=== PATIENT | male | born 1950 | race Caucasian/White ===

== ENCOUNTER 2016-10-16 20:45 | Emergency (ER) | payer BC ==
[2016-10-16 21:07] VITALS: BP 126/64; PULSE 74; TEMP 98.4; BMI 36.5
[2016-10-16] MEDS ORDERED: KETOROLAC TROMETHAMINE 60 MG/2 ML VIAL ONE (21:31)
[2016-10-16] MEDS ORDERED: KETOROLAC TROMETHAMINE 60 MG/2 ML VIAL IM ONE (21:31)
--- NOTE | 2016-10-16 21:40 | PDOC ---
History of Present Illness - General Chief Complaint: Pain Stated Complaint: BACK/FOOT INJURY Time Seen by Provider: 10/16/16 21:31 History Source: Patient Exam Limitations: No Limitations - History of Present Illness Initial Comments: 10/16/16 21:35 66 yr male history of DM, HTN presents with acute low back pain after he was at work using the justin and lost control of the machine and twisted his lower back. Pt denies falling, no leg pain no abd pain. Pt states this occurred at 730pm, Pt did not take any pain meds . no urine or bowel dysfunction. Pt has no history of low back pain in the past. Occurred: reports: just prior to arrival Severity: reports: moderate Pain Location: reports: back Method of Injury: Yes: other (twisted) Past History - Past Medical History Allergies/Adverse Reactions: Allergies Allergy/AdvReac Type Severity Reaction Status Date / Time nut - unspecified Allergy Unknown Itching Verified 10/16/16 21:04 No Known Drug Allergies Allergy Verified 10/16/16 21:04 bananas Allergy Mild Swelling Uncoded 09/02/15 09:23 fresh grapefruit Allergy Mild Swelling Uncoded 09/02/15 09:23 fresh brooke Allergy Mild Swelling Uncoded 09/02/15 09:23 fresh pineapple Allergy Mild Swelling Uncoded 09/02/15 09:23 fresh tomatoes Allergy Mild Swelling Uncoded 09/02/15 09:23 lettuce Allergy Mild Swelling Uncoded 09/02/15 09:23 Home Medications: Ambulatory Orders Lisinopril [Prinivil] 20 mg PO DAILY #30 tablet 09/10/15 Metformin HCl [Glucophage -] 850 mg PO BID #60 tablet 09/10/15 Metoprolol Succinate [Toprol XL -] 25 mg PO DAILY #30 tab.sr.24h 09/10/15 Pantoprazole Sodium [Protonix -] 40 mg PO DAILY #30 tablet.ec 09/10/15 Naproxen [Naprosyn -] 500 mg PO BID #14 tablet 10/16/16 Oxycodone HCl/Acetaminophen [Percocet 5-325 mg Tablet] 1 tab PO Q6H PRN #8 tablet MDD 4 tabs 10/16/16 Anemia: No Asthma: No Cancer: No Cardiac Disorders: No CVA: No COPD: No CHF: No Dementia: No Diabetes: Yes GI Disorders: No Disorders: No HTN: Yes Hypercholesterolemia: Yes Liver Disease: No Suicide Attempt (Hx): No Seizures: No Thyroid Disease: No - Surgical History Abdominal Surgery: No Appendectomy: No Cardiac Surgery: No Cholecystectomy: Yes Lung Surgery: No Neurologic Surgery: No Orthopedic Surgery: No - Immunization History Immunization Up to Date: Yes - Psycho/Social/Smoking Cessation Hx Anxiety: No Suicidal Ideation: No Smoking History: Never smoked Have you smoked in the past 12 months: No Number of Cigarettes Smoked Daily: 0 Cigars Per Day: 0 Information on smoking cessation initiated: No Hx Alcohol Use: No Drug/Substance Use Hx: No Substance Use Type: None Hx Substance Use Treatment: No Trauma Specific PMHX - Complaint Specific PMHX Arthritis: No Back Injury: No Neck Injury: No Hx Sacro Iliac Joint Dysfunction: No Review of Systems - Review of Systems Able to Perform ROS?: Yes Is the patient limited Hungarian proficient: No Constitutional: No: Symptoms Reported HEENTM: No: Symptoms Reported Respiratory: No: Symptoms reported Cardiac (ROS): No: Symptoms Reported ABD/GI: No: Symptoms Reported : No: Symptoms Reported Musculoskeletal: Yes: Back Pain *Physical Exam - Vital Signs Last Vital Signs Temp Pulse Resp BP Pulse Ox 98.4 F 74 18 126/64 97 10/16/16 21:05 10/16/16 21:05 10/16/16 21:05 10/16/16 21:05 10/16/16 21:05 - Physical Exam General Appearance: Yes: Nourished, Appropriately Dressed HEENT: positive: EOMI, ALANNA Neck: positive: Supple. negative: Tender Respiratory/Chest: positive: Lungs Clear, Normal Breath Sounds Cardiovascular: positive: Regular Rhythm, Regular Rate Gastrointestinal/Abdominal: positive: Normal Bowel Sounds, Soft. negative: Tender Musculoskeletal: positive: Normal Inspection, Decreased Range of Motion, Other ( paraspinal soft tissue tenderness , muscle tenderness, no spinal tenderness ). 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 10/16/16 22:10 *DC/Admit/Observation/Transfer Diagnosis at time of Disposition: Low back strain Qualifiers: Encounter type: initial encounter Qualified Code(s): S39.012A - Strain of muscle, fascia and tendon of lower back, initial encounter - Discharge Dispostion Disposition: HOME Condition at time of disposition: Good - Prescriptions Prescriptions: Naproxen [Naprosyn -] 500 mg PO BID #14 tablet Oxycodone HCl/Acetaminophen [Percocet 5-325 mg Tablet] 1 tab PO Q6H PRN #8 tablet MDD 4 tabs PRN Reason: Severe Pain - Referrals Referrals: Pablo Duncan MD [Primary Care Provider] - - Patient Instructions Additional Instructions: follow with your doctor tomorrow for follow up take the percocet for severe pain take naprosyn for moderate pain apply ice to low back every 2hrs for 20 minutes while awake for the next 2 days no heavy lifting or bending until the pain has improved - Post Discharge Activity Work/School Note: Back to Work
== END 2016-10-16 22:44 | disposition home or self-care (01) ==
LOC: JERFT 20:45
PROC: 3E0233Z Introduction of Anti-inflammatory into Muscle, Percutaneous Approach (ICD-10-PCS; principal; 2016-10-16)
DX: S39.012A Strain of muscle, fascia and tendon of lower back, initial encounter (principal); X50.1XXA Overexertion from prolonged static or awkward postures, initial encounter; Y93.H3 Activity, building and construction; Y92.199 Unspecified place in other specified residential institution as the place of occurrence of the external cause; Y99.0 Civilian activity done for income or pay; I10 Essential (primary) hypertension; E78.00 Pure hypercholesterolemia, unspecified; E11.9 Type 2 diabetes mellitus without complications; Z79.84 Long term (current) use of oral hypoglycemic drugs
CPT/HCPCS: 72100-TC; 99281-25

== ENCOUNTER 2017-01-10 21:08 | Emergency (ER) | payer BC ==
[2017-01-10 21:24] VITALS: TEMP 98.1; BMI 34.9
--- NOTE | 2017-01-10 21:27 | PDOC ---
Rapid Medical Evaluation Chief Complaint: Wound Infection Medical Evaluation: Allergies Allergy/AdvReac Type Severity Reaction Status Date / Time nut - unspecified Allergy Unknown Itching Verified 01/10/17 21:24 No Known Drug Allergies Allergy Verified 01/10/17 21:24 bananas Allergy Mild Swelling Uncoded 01/10/17 21:24 fresh grapefruit Allergy Mild Swelling Uncoded 01/10/17 21:24 fresh brooke Allergy Mild Swelling Uncoded 01/10/17 21:24 fresh pineapple Allergy Mild Swelling Uncoded 01/10/17 21:24 fresh tomatoes Allergy Mild Swelling Uncoded 01/10/17 21:24 lettuce Allergy Mild Swelling Uncoded 01/10/17 21:24 Vital Signs Temp Pulse Resp BP Pulse Ox 98.1 F 87 18 149/86 98 01/10/17 21:21 01/10/17 21:21 01/10/17 21:21 01/10/17 21:21 01/10/17 21:21 01/10/17 21:20 I have performed a brief in-person evaluation of this patient. 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 Discharge Disposition - Diagnosis Toe infection - Referrals Referrals: Pablo Duncan MD [Primary Care Provider] - - Patient Instructions - Post Discharge Activity
[2017-01-10 21:48] LABS: BASOPHIL 0.7 % (0-2.0); EOSINOPHIL 2.5 % (0-4.5); MCH 30.8 pg (25.7-33.7); MCHC 34.7 g/dl (32.0-35.9); MEAN CELL VOLUME 88.7 fl (80-96); MEAN PLT VOLUME 8.6 fl (7.5-11.1); NEUTROPHILS 67.9 % (42.8-82.8); PLATELET COUNT 163 K/MM3 (134-434)
[2017-01-10] MEDS ORDERED: LEVOFLOXACIN 500 MG TABLET (FP) PO ONE (21:57)
--- NOTE | 2017-01-10 21:57 | PDOC ---
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 The patient explains that he bumped his toe and his nail subsequently avulsed off. He denies any pain to the toe at this time, however, there is still a wound to the top of his toe. He denies fever, chills, nausea, vomiting. Denies chest pain, SOB. Denies cough. Denies headache, lightheadedness. Allergies: NKDA, bananas, pineapple, peaches, tomatoes, grapefruit, lettuce PCP: Dr. Pablo Duncan <Kinza Sam - Last Filed: 01/10/17 22:32> - General History Source: Patient, Spouse <Yvon Wagoner - Last Filed: 01/11/17 19:42> - General Chief Complaint: Wound Infection Stated Complaint: INFECTION Time Seen by Provider: 01/10/17 21:28 Past History <Kinza Sam - Last Filed: 01/10/17 22:32> - Past Medical History Anemia: No Asthma: No Cancer: No Cardiac Disorders: No CVA: No COPD: No CHF: No Dementia: No Diabetes: Yes GI Disorders: No Disorders: No HTN: Yes Hypercholesterolemia: Yes Liver Disease: No Seizures: No Thyroid Disease: No - Surgical History Abdominal Surgery: No Appendectomy: No Cardiac Surgery: No Cholecystectomy: Yes Lung Surgery: No Neurologic Surgery: No Orthopedic Surgery: No - Immunization History Immunization Up to Date: Yes - Suicide/Smoking/Psychosocial Hx Smoking History: Never smoked Have you smoked in the past 12 months: No Number of Cigarettes Smoked Daily: 0 Cigars Per Day: 0 Information on smoking cessation initiated: No Hx Alcohol Use: No Drug/Substance Use Hx: No Substance Use Type: None Hx Substance Use Treatment: No <Yvon Wagoner - Last Filed: 01/11/17 19:42> - Past Medical History Allergies/Adverse Reactions: Allergies Allergy/AdvReac Type Severity Reaction Status Date / Time nut - unspecified Allergy Unknown Itching Verified 01/10/17 21:24 No Known Drug Allergies Allergy Verified 01/10/17 21:24 bananas Allergy Mild Swelling Uncoded 01/10/17 21:24 fresh grapefruit Allergy Mild Swelling Uncoded 01/10/17 21:24 fresh brooke Allergy Mild Swelling Uncoded 01/10/17 21:24 fresh pineapple Allergy Mild Swelling Uncoded 01/10/17 21:24 fresh tomatoes Allergy Mild Swelling Uncoded 01/10/17 21:24 lettuce Allergy Mild Swelling Uncoded 01/10/17 21:24 Home Medications: Ambulatory Orders Lisinopril [Prinivil] 20 mg PO DAILY #30 tablet 09/10/15 Metformin HCl [Glucophage -] 850 mg PO BID #60 tablet 09/10/15 Metoprolol Succinate [Toprol XL -] 25 mg PO DAILY #30 tab.sr.24h 09/10/15 Pantoprazole Sodium [Protonix -] 40 mg PO DAILY #30 tablet.ec 09/10/15 Naproxen [Naprosyn -] 500 mg PO BID #14 tablet 10/16/16 Oxycodone HCl/Acetaminophen [Percocet 5-325 mg Tablet] 1 tab PO Q6H PRN #8 tablet MDD 4 tabs 10/16/16 Levofloxacin [Levaquin] 500 mg PO DAILY #10 tablet 01/10/17 Review of Systems - Review of Systems Able to Perform ROS?: Yes Comments:: 01/10/17 22:32 CONSTITUTIONAL: Absent: fever, no chills, no fatigue EYES: Absent: visual changes ENT: Absent: ear pain, no sore throat CARDIOVASCULAR: Absent: chest pain, no palpitations RESPIRATORY: Absent: cough, no SOB GI: Absent: abdominal pain, no nausea, no vomiting, no constipation, no diarrhea GENITOURINARY: Absent: dysuria, no frequency, no hematuria MUSCULOSKELETAL: +left toe injury Absent: back pain, no arthralgia, no myalgia SKIN: Absent: rash <Kinza Sam - Last Filed: 01/10/17 22:32> *Physical Exam - Vital Signs Last Vital Signs Temp Pulse Resp BP Pulse Ox 98.1 F 87 18 149/86 98 01/10/17 21:21 01/10/17 21:21 01/10/17 21:21 01/10/17 21:21 01/10/17 21:21 - Physical Exam Comments: 01/10/17 22:32 GENERAL: Well-appearing, well-nourished. No apparent distress. HEENT: Normocephalic, atraumatic. PERRL, EOM intact. CARDIOVASCULAR: Normal S1, S2. Regular rate and rhythm. PULMONARY: Clear to auscultation bilaterally. ABDOMEN: Soft, non-distended, non-tender. LEFT FOOT: There is a small wound to the top of the left 2nd toe that shows evidence of slow healing. No surrounding erythema, no tenderness, no discharge. Good distal pulses. Foot is warm and dry SKIN: Warm, dry. No rash NEUROLOGICAL: No focal neurological deficits. <Kinza Sam - Last Filed: 01/10/17 22:32> - Vital Signs Last Vital Signs Temp Pulse Resp BP Pulse Ox 98.1 F 87 18 149/86 98 01/10/17 21:21 01/10/17 21:21 01/10/17 21:21 01/10/17 21:21 01/10/17 21:21 <Yvon Wagoner - Last Filed: 01/11/17 19:42> ED Treatment Course - LABORATORY CBC & Chemistry Diagram: 01/10/17 21:15 01/10/17 21:15 - ADDITIONAL ORDERS Additional order review: Laboratory Results 01/10/17 21:15 Sodium 141 Potassium 4.2 Chloride 107 Carbon Dioxide 27 Anion Gap 7 L BUN 31 H D Creatinine 1.5 H D Creat Clearance w eGFR 46.82 Random Glucose 163 H D Calcium 7.9 L Total Bilirubin 0.7 D AST 19 D ALT 30 D Alkaline Phosphatase 143 H D C-Reactive Protein 2.9 H Total Protein 7.4 D Albumin 3.6 D 01/10/17 21:15 RBC 4.32 MCV 88.7 MCHC 34.7 RDW 13.0 MPV 8.6 Neutrophils % 67.9 Lymphocytes % 23.3 D Monocytes % 5.6 Eosinophils % 2.5 Basophils % 0.7 - Medications Given in the ED: ED Medications Discontinued Medications Generic Name Dose Route Start Last Admin Trade Name Freq PRN Reason Stop Dose Admin Levofloxacin 500 mg 01/10/17 21:57 01/10/17 21:59 Levaquin - PO 01/10/17 21:58 500 mg ONCE ONE Administration <Kinza Sam - Last Filed: 01/10/17 22:32> - LABORATORY CBC & Chemistry Diagram: 01/10/17 21:15 01/10/17 21:15 <Yvon Wagoner - Last Filed: 01/11/17 19:42> Medical Decision Making - Medical Decision Making 01/11/17 19:41 Dr. Wagoner: The scribe's documentation has been prepared under my direction and personally reviewed by me in its entirery. I confirm that the note above accurately reflects all work, treatment, procedures, and medical decision making performed by me. <Yvon Wagoner - Last Filed: 01/11/17 19:42> *DC/Admit/Observation/Transfer - Attestations Scribe Attestion: 01/10/17 22:32 Documentation prepared by ANDRADE Gonsalez, acting as bacteriologist medical for Yvon Wagoner MD. <Kinza Sam - Last Filed: 01/10/17 22:32> - Discharge Dispostion Admit: No <Yvon Wagoner - Last Filed: 01/11/17 19:42> Diagnosis at time of Disposition: Toe infection - Discharge Dispostion Disposition: HOME Condition at time of disposition: Stable - Prescriptions Prescriptions: Levofloxacin [Levaquin] 500 mg PO DAILY #10 tablet - Referrals Referrals: Pablo Duncan MD [Primary Care Provider] - - Patient Instructions Printed Discharge Instructions: DI for Wound Infection Additional Instructions: Please follow up your doctor by Sunday for re-evaluation of the wound while still being on the antibiotic. Return if any problems - Post Discharge Activity Forms/Work/School Notes: Back to Work
[2017-01-10 22:12] LABS: ALBUMIN 3.6 g/dl (3.4-5.0); ALK PHOS 143 U/L (45-117); ANION GAP 7 (8-16); BILIRUBIN,TOTAL 0.7 mg/dL (0.2-1.0); C-REACTIVE PROTEIN 2.9 MG/DL (0.00-0.3); CALCIUM 7.9 mg/dL (8.5-10.1); CO2 27 mmol/L (21-32); CREATININE 1.5 mg/dL (0.7-1.3); GLUCOSE,RANDOM 163 mg/dL (74-106); SGOT/AST 19 U/L (15-37); SGPT/ALT 30 U/L (12-78); TOT PROT 7.4 g/dl (6.4-8.2)
[2017-01-10] MEDS ORDERED: LEVOFLOXACIN 500 MG TABLET (FP) ONE (23:17)
[2017-01-10 23:26] VITALS: BP 166/89; PULSE 73
== END 2017-01-10 23:26 | disposition home or self-care (01) ==
LOC: JER 21:08
DX: L08.89 Other specified local infections of the skin and subcutaneous tissue (principal); E11.9 Type 2 diabetes mellitus without complications; Z79.84 Long term (current) use of oral hypoglycemic drugs; I10 Essential (primary) hypertension; Z89.422 Acquired absence of other left toe(s)
CPT/HCPCS: 36415; 73630-TC-LT; 80053; 85025; 86140; 99281-25

== ENCOUNTER 2017-07-21 19:33 | Inpatient (IN) | payer BC ==
--- NOTE | 2017-07-21 20:40 | PDOC ---
History of Present Illness - General Chief Complaint: Pain Stated Complaint: LEG PAIN Time Seen by Provider: 07/21/17 20:14 - History of Present Illness Initial Comments: 07/21/17 20:56 The patient is a 67 year old male with a history of HTN, HLD, DM who presents for evaluation of left foot infection. The patient is accompanied by family who assist in providing the history. They note a 3 day history of worsening pain and swelling to the left foot. They report purulent drainage from the patient's 3rd toe prompting their presentation to the ED for concerns of a wound infection. The patient otherwise denies fevers, chills, SOB, chest pain, nausea, vomiting, abdominal pain, or changes with urination or bowel movements. Past History - Past Medical History Allergies/Adverse Reactions: Allergies Allergy/AdvReac Type Severity Reaction Status Date / Time nut - unspecified Allergy Unknown Itching Verified 07/21/17 20:03 No Known Drug Allergies Allergy Verified 07/21/17 20:03 bananas Allergy Mild Swelling Uncoded 01/10/17 21:24 fresh grapefruit Allergy Mild Swelling Uncoded 01/10/17 21:24 fresh brooke Allergy Mild Swelling Uncoded 01/10/17 21:24 fresh pineapple Allergy Mild Swelling Uncoded 01/10/17 21:24 fresh tomatoes Allergy Mild Swelling Uncoded 01/10/17 21:24 lettuce Allergy Mild Swelling Uncoded 01/10/17 21:24 Home Medications: Ambulatory Orders Lisinopril [Prinivil] 20 mg PO DAILY #30 tablet 09/10/15 Metoprolol Succinate [Toprol XL -] 25 mg PO DAILY #30 tab.sr.24h 09/10/15 Pantoprazole Sodium [Protonix -] 40 mg PO DAILY #30 tablet.ec 09/10/15 metFORMIN HCL [Glucophage -] 850 mg PO BID #60 tablet 09/10/15 Naproxen [Naprosyn -] 500 mg PO BID #14 tablet 10/16/16 Oxycodone HCl/Acetaminophen [Percocet 5-325 mg Tablet] 1 tab PO Q6H PRN #8 tablet MDD 4 tabs 10/16/16 Levofloxacin [Levaquin] 500 mg PO DAILY #10 tablet 01/10/17 Anemia: No Asthma: No Cancer: No Cardiac Disorders: No CVA: No COPD: No CHF: No Dementia: No Diabetes: Yes GI Disorders: No Disorders: No HTN: Yes Hypercholesterolemia: Yes Liver Disease: No Seizures: No Thyroid Disease: No - Surgical History Abdominal Surgery: No Appendectomy: No Cardiac Surgery: No Cholecystectomy: Yes Lung Surgery: No Neurologic Surgery: No Orthopedic Surgery: No - Immunization History Immunization Up to Date: Yes - Suicide/Smoking/Psychosocial Hx Smoking History: Never smoked Have you smoked in the past 12 months: No Number of Cigarettes Smoked Daily: 0 Cigars Per Day: 0 Information on smoking cessation initiated: No Hx Alcohol Use: No Drug/Substance Use Hx: No Substance Use Type: None Hx Substance Use Treatment: No Review of Systems - Review of Systems Comments:: 07/21/17 20:59 Constitutional: No fevers, chills, fatigue, malaise HEENT: No Rhinorrhea, nasal congestion, visual changes Cardiovascular: No chest pain, syncope, palpitations, lightheadedness Respiratory: No Cough, SOB, Hemoptysis, Gastrointestinal: No Abdominal pain, Nausea, Vomiting, Constipation, Diarrhea, Melena Genitourinary: No Dysuria, Frequency, Urgency, Hesitancy, Hematuria, Flank pain Musculoskeletal: Left foot pain. No Myalgia, arthralgia Skin: No rashes, itching, bruising, pallor Neurologic: No Headache, Dizziness, Numbness, Weakness, or Tingling Psychiatric: No Hallucinations. No SI or HI *Physical Exam - Vital Signs Last Vital Signs Temp Pulse Resp BP Pulse Ox 99.0 F 90 18 155/88 97 07/21/17 20:04 07/21/17 20:04 07/21/17 20:04 07/21/17 20:04 07/21/17 20:04 - Physical Exam Comments: 07/21/17 20:59 General Appearance: Nourished. No Apparent Distress HEENT: EOMI, ALANNA. No Pharyngeal Erythema, Tonsillar Exudate, Tonsillar Erythema Neck: No Cervical Lymphadenopathy Respiratory/Chest: Lungs Clear, Normal Breath Sounds. No Crackles, Rales, Rhonchi, Wheezing Cardiovascular: Regular Rhythm, Regular Rate. No Murmur, Gallops, Rubs Gastrointestinal/Abdominal: Normal Bowel Sounds, Soft. No Guarding, Rebound, Tenderness Musculoskeletal: No CVA Tenderness Extremity: Warmth, Erythema, Edema noted to the left foot. 4th left toe amputation. Purulent drainage from the 3rd toe. Tenderness to palpation. Normal Capillary Refill Integumentary: Normal Color, Dry, Warm Neurologic: Fully Oriented, Alert, Normal Mood/Affect, Normal Response, ED Treatment Course - LABORATORY CBC & Chemistry Diagram: 07/21/17 21:36 07/21/17 21:36 Medical Decision Making - Medical Decision Making 07/21/17 21:00 The patient is a 67 year old male with a history of HTN, HLD, DM who presents for evaluation of left foot infection. Differential includes but is not limited to: Diabetic Foot Wound, Cellulitis, Osteomylitis, Infectious, Metabolic derangement. Given the patient's history and physical exam, it is likely the patient's symptoms are due to a diabetic foot infection. We will obtain a cbc, cmp, esr, crp, blood culture, foot plain film, wound culture to evaluate further for possible etiologies. The patient will likely require admission for iv antibiotics. We will treat in the meantime with vanc and zosyn. We will continue to monitor and reassess while here in the ED. *DC/Admit/Observation/Transfer Diagnosis at time of Disposition: Toe infection - Discharge Dispostion Condition at time of disposition: Stable Decision to Admit order: Yes - Referrals Referrals: Pablo Duncan MD [Primary Care Provider] - - Patient Instructions - Post Discharge Activity
[2017-07-21] MEDS ORDERED: VANCOMYCIN 1,500 MG in DEXTROSE 5%-WATER - 250 ML IVPB ONE (20:53)
[2017-07-21] MEDS ORDERED: PIPERACILLIN/TAZOB 4.5 GM 4.5 GM in DEXTROSE 5%-WATER 100 ML IVPB ONE (20:53)
[2017-07-21 21:50] LABS: BASO % 0.7 % (0-2.0); HEMATOCRIT 38.3 % (35.4-49); HEMOGLOBIN 13.2 GM/dL (11.7-16.9); LYMPH % 20.5 % (8-40); MCH 30.3 pg (25.7-33.7); MCHC 34.6 g/dl (32.0-35.9); MEAN CELL VOLUME 87.7 fl (80-96); MONO % 7.3 % (3.8-10.2); NEUT % 69.5 % (42.8-82.8); PLATELET COUNT 197 K/MM3 (134-434); RBC 4.36 M/mm3 (4.00-5.60); RDW 13.5 % (11.9-15.9); WHITE BLOOD COUNT 8.2 K/mm3 (4.0-10.0)
[2017-07-21 22:03] LABS: INR 1.02 (0.82-1.09); PROTHROMBIN TIME (PATIENT) 11.5 SEC (9.7-13.0)
[2017-07-21 22:14] LABS: ALBUMIN 3.2 g/dl (3.4-5.0); ALK PHOS 198 U/L (45-117); ANION GAP 5 (8-16); BILIRUBIN,TOTAL 0.4 mg/dL (0.2-1.0); BLOOD UREA NITROGEN 26 mg/dL (7-18); CALCIUM 8.2 mg/dL (8.5-10.1); CHLORIDE 104 mmol/L (98-107); CO2 28 mmol/L (21-32); CREATININE 1.4 mg/dL (0.7-1.3); GLUCOSE,RANDOM 267 mg/dL (74-106); POTASSIUM 4.7 mmol/L (3.5-5.1); SGOT/AST 14 U/L (15-37); SGPT/ALT 37 U/L (12-78); SODIUM 137 mmol/L (136-145); TOT PROT 7.9 g/dl (6.4-8.2)
--- NOTE | 2017-07-21 22:14 | PDOC ---
Attending Attestation - HPI HPI: 07/21/17 22:25 Pt is a yo 67 M with a PMHx of HTN, HLD, DM who presents to the ED with L foot ulcer for the past 2-3 days. Patient reports chills however denies fever. Patient denies any drainage from the area and presents to the ED for further evaluation. PCP: Dr. Pablo Duncan - Physicial Exam PE: 07/21/17 22:25 GENERAL: The patient is in no acute distress. HEAD: Normal with no signs of trauma. EYES: PERRLA, EOMI, sclera anicteric, conjunctiva clear. ENT: Ears normal, nares patent, oropharynx clear without exudates. Moist mucous membranes. NECK: Normal range of motion, supple without lymphadenopathy, JVD, or masses. LUNGS: Breath sounds equal, clear to auscultation bilaterally. No wheezes, and no crackles. HEART:Regular rate and rhythm, normal S1 and S2 without murmur, rub or gallop. ABDOMEN: Soft, nontender, normoactive bowel sounds. No guarding, no rebound. EXTREMITIES: Normal range of motion, no edema. No clubbing or cyanosis. No erythema, or tenderness. +2nd L toe with swelling and erythema. +3rd L toe is gangrenous. NEUROLOGICAL: Cranial nerves II through XII grossly intact. Normal speech. No focal neurological deficits. MUSCULOSKELETAL: Back nontender to palpation, no CVA tenderness SKIN: Warm, Dry, normal turgor, no rashes or lesions noted. - Medical Decision Making 07/21/17 22:25 Documentation prepared by Brittney Cavazos, acting as medical secretary for Sheila Estrella MD <Brittney Cavazos - Last Filed: 07/21/17 22:25> - Resident Resident Name: Dirk Britt - ED Attending Attestation I have performed the following: I have examined & evaluated the patient, The case was reviewed & discussed with the resident, I agree w/resident's findings & plan, Exceptions are as noted - Medical Decision Making 67 yo F presenting to the ER wtih diabetic foot ulcer Will give abx Pt denies pain foot warm, 2+ dp Laboratory Tests 07/22/17 06:00 WBC 8.7 Hgb 12.1 Hct 34.3 L Plt Count 167 Clinical impression: diabetic foot ulcer, initial presentation <Sheila Estrella - Last Filed: 07/23/17 00:20>
[2017-07-21] MEDS ORDERED: VANCOMYCIN 1,500 MG in DEXTROSE 5%-WATER - 500 ML IVPB ONE (22:30)
[2017-07-22] MEDS ORDERED: PIPERACILLIN/TAZOB 4.5 GM 4.5 GM/100 ML BAG IVPB ONE (01:09)
[2017-07-22 01:47] LABS: URINE APPEARANCE CLEAR; URINE BILIRUBIN NEGATIVE (<2.0 mg/dL); URINE COLOR LTYELLOW; URINE GLUCOSE (UA) 3+ (NEGATIVE); URINE KETONE NEGATIVE (NEGATIVE); URINE LEUK ESTERASE NEGATIVE (NEGATIVE); URINE NITRITE NEGATIVE (NEGATIVE)
[2017-07-22 01:48] LABS: URINE PROTEIN 1+ (NEGATIVE)
[2017-07-22 01:58] LABS: EPI CELLS RARE /HPF (FEW); URINE HYALINE CAST 4 /lpf
[2017-07-22] MEDS: INSULIN SLIDING SCALE (NOVOLOG) 1 VIAL SQ SCH ×4 (06:03→21:55)
[2017-07-22 07:38] LABS: BASO % 0.5 % (0-2.0); EOS % 2.2 % (0-4.5); HEMATOCRIT 34.3 % (35.4-49); HEMOGLOBIN 12.1 GM/dL (11.7-16.9); LYMPH % 16.6 % (8-40); MCH 30.8 pg (25.7-33.7); MCHC 35.3 g/dl (32.0-35.9); MEAN CELL VOLUME 87.4 fl (80-96); MEAN PLT VOLUME 8.5 fl (7.5-11.1); MONO % 9.9 % (3.8-10.2); NEUT % 70.8 % (42.8-82.8); PLATELET COUNT 167 K/MM3 (134-434); RBC 3.92 M/mm3 (4.00-5.60); RDW 13.4 % (11.9-15.9); WHITE BLOOD COUNT 8.7 K/mm3 (4.0-10.0)
[2017-07-22 08:07] LABS: CHLORIDE 102 mmol/L (98-107); POTASSIUM 4.3 mmol/L (3.5-5.1); SGPT/ALT 32 U/L (12-78); SODIUM 136 mmol/L (136-145)
[2017-07-22 08:11] LABS: ALBUMIN 2.8 g/dl (3.4-5.0); ALK PHOS 158 U/L (45-117); ANION GAP 7 (8-16); BILIRUBIN,TOTAL 0.6 mg/dL (0.2-1.0); BLOOD UREA NITROGEN 20 mg/dL (7-18); CALCIUM 7.8 mg/dL (8.5-10.1); CO2 27 mmol/L (21-32); CREATININE 1.2 mg/dL (0.7-1.3); GLUCOSE,RANDOM 251 mg/dL (74-106); SGOT/AST 17 U/L (15-37); TOT PROT 7.1 g/dl (6.4-8.2)
--- NOTE | 2017-07-22 08:55 | EKG ---
Test Reason : Blood Pressure : / mmHG Vent. Rate : 077 BPM Atrial Rate : 077 BPM P-R Int : 146 ms QRS Dur : 078 ms QT Int : 362 ms P-R-T Axes : 057 -04 032 degrees QTc Int : 409 ms NORMAL SINUS RHYTHM NORMAL ECG WHEN COMPARED WITH ECG OF 02-SEP-2015 09:58, NO SIGNIFICANT CHANGE WAS FOUND Confirmed by GAURAV KHAN MD ([id number]) on 07/22/2017 8:54:59 AM Referred By: Confirmed By:GAURAV KHAN MD
[2017-07-22] MEDS ORDERED: PIPERACILLIN/TAZOBACTAM 3.375 GM VIAL IVPB ONE ×2 (09:22→17:28)
[2017-07-22] MEDS ORDERED: DEXTROSE 5%-WATER - 50 ML IVPB ONE ×2 (09:23→17:29)
[2017-07-22] MEDS: LISINOPRIL 20 MG TABLET (FP) PO SCH (09:27)
[2017-07-22] MEDS: PANTOPRAZOLE 40 MG TABLET (FP) PO SCH (09:27)
[2017-07-22] MEDS: metoPROLOL SUCCINATE 25 MG TAB.SR.24H (FP) PO SCH (09:27)
[2017-07-22] MEDS: NAPROXEN 500 MG TABLET (FP) PO SCH ×2 (09:27→21:55)
[2017-07-22] MEDS: HEPARIN NA (PORCINE) 5,000 UNITS/ML 1ML VIAL SQ SCH ×2 (09:28→21:56)
[2017-07-22] MEDS ORDERED: PIPERACILLIN/TAZOB 3.375 GM 3.375 GM in DEXTROSE 5%-WATER - 50 ML IVPB ONE (10:00)
--- NOTE | 2017-07-22 10:54 | CON.ID ---
Consult Consult Specialty:: infectious diseases Referred by:: Reason for Consultation:: left 3rd toe/th toe osteo - History of Present Illness History of Present Illness: 67 y/o male with PMH significant for history of HTN, HLD, DM. 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 Pt presented for evaluation of left foot infection. They noted a 3 day history of worsening pain and swelling to the left foot. They report purulent drainage from the patient's 3rd toe prompting their presentation to the ED for concerns of a wound infection. In the ER pt found to have a normal WBC and was afebrile. currently patient does hae any complaint and says that he has no sensation at all in his toes and has no pain - History Source History Provided By: Patient Limitations to Obtaining History: Poor Historian - Past Medical History Cardio/Vascular: Yes: HTN, Hyperlipdemia Hepatobiliary: Yes: Cholelithiasis Renal/: Yes: Hematuria Endocrine: Yes: Diabetes Mellitus - Past Surgical History Past Surgical History: Yes: Cholecystectomy - Alcohol/Substance Use Hx Alcohol Use: No History of Substance Use: reports: None - Smoking History Smoking history: Never smoked Have you smoked in the past 12 months: No Aproximately how many cigarettes per day: 0 - Social History Usual Living Arrangement: With Spouse History of Recent Travel: No Home Medications - Allergies Allergies/Adverse Reactions: Allergies Allergy/AdvReac Type Severity Reaction Status Date / Time nut - unspecified Allergy Unknown Itching Verified 07/22/17 01:48 No Known Drug Allergies Allergy Verified 07/22/17 01:48 bananas Allergy Mild Swelling Uncoded 07/22/17 01:48 fresh grapefruit Allergy Mild Swelling Uncoded 07/22/17 01:48 fresh brooke Allergy Mild Swelling Uncoded 07/22/17 01:48 fresh pineapple Allergy Mild Swelling Uncoded 07/22/17 01:48 fresh tomatoes Allergy Mild Swelling Uncoded 07/22/17 01:48 lettuce Allergy Mild Swelling Uncoded 07/22/17 01:48 - Home Medications Home Medications: Ambulatory Orders Lisinopril [Prinivil] 20 mg PO DAILY #30 tablet 09/10/15 Metoprolol Succinate [Toprol XL -] 25 mg PO DAILY #30 tab.sr.24h 09/10/15 Pantoprazole Sodium [Protonix -] 40 mg PO DAILY #30 tablet.ec 09/10/15 metFORMIN HCL [Glucophage -] 850 mg PO BID #60 tablet 09/10/15 Naproxen [Naprosyn -] 500 mg PO BID #14 tablet 10/16/16 Oxycodone HCl/Acetaminophen [Percocet 5-325 mg Tablet] 1 tab PO Q6H PRN #8 tablet MDD 4 tabs 10/16/16 Levofloxacin [Levaquin] 500 mg PO DAILY #10 tablet 01/10/17 Glipizide 10 mg PO BID 07/22/17 Review of Systems - Review of Systems Constitutional: reports: No Symptoms Eyes: reports: No Symptoms HENT: reports: No Symptoms Neck: reports: No Symptoms Cardiovascular: reports: No Symptoms Respiratory: reports: No Symptoms Gastrointestinal: reports: No Symptoms Genitourinary: reports: No Symptoms Breasts: reports: No Symptoms Reported Musculoskeletal: reports: Other Integumentary: reports: Wound, Other Neurological: reports: No Symptoms Endocrine: reports: No Symptoms Hematology/Lymphatic: reports: No Symptoms Psychiatric: reports: No Symptoms Physical Exam Vital Signs: Vital Signs Temperature 98 F 07/22/17 10:08 Pulse Rate 77 07/22/17 10:08 Respiratory Rate 18 07/22/17 10:08 Blood Pressure 146/70 07/22/17 10:08 O2 Sat by Pulse Oximetry (%) 97 07/22/17 03:06 Constitutional: Yes: Well Nourished, No Distress, Calm Eyes: Yes: Conjunctiva Clear HENT: Yes: Atraumatic Cardiovascular: Yes: Regular Rate and Rhythm Respiratory: Yes: Regular, CTA Bilaterally Gastrointestinal: Yes: Normal Bowel Sounds, Soft Musculoskeletal: Yes: WNL Extremities: Yes: Other (left 3rd toe infection/draiange) Wound/Incision: Yes: Clean/Dry, Open to air Neurological: Yes: Alert, Oriented Psychiatric: Yes: Alert, Oriented Labs: CBC, BMP 07/22/17 06:00 07/22/17 06:00 Imaging - Results Chest X-ray: Report Reviewed, Image Reviewed X-ray: Report Reviewed, Image Reviewed Assessment/Plan looking at the patients history and the wound and condition of his leg i think this maybe very well osteo Problem List - Problems (1) Diabetic foot Code(s): E11.8 - TYPE 2 DIABETES MELLITUS WITH UNSPECIFIED COMPLICATIONS (2) AVERY (acute kidney injury) Code(s): N17.9 - ACUTE KIDNEY FAILURE, UNSPECIFIED (3) Diabetes Code(s): E11.9 - TYPE 2 DIABETES MELLITUS WITHOUT COMPLICATIONS Qualifiers: Diabetes mellitus type: type 2 Diabetes mellitus intermodal dispatcher insulin use: without intermodal dispatcher use Diabetes mellitus complication status: without complication Qualified Code(s): E11.9 - Type 2 diabetes mellitus without complications (4) HTN (hypertension) Code(s): I10 - ESSENTIAL (PRIMARY) HYPERTENSION 5 osteo of the left foot plan i gregoria ordered an mri of the foot await for cx reports from the wound as well as blood cx once we have all that then we will decide on further mgmt
[2017-07-22] MEDS: PIPERACILLIN/TAZOB 3.375 GM 3.375 GM in DEXTROSE 5%-WATER - 50 ML IVPB SCH ×2 (11:35→17:51)
--- NOTE | 2017-07-22 13:54 | HP ---
Admitting History and Physical - Admission History of Present Illness: Pt is a 67 y/o male with PMH significant for history of HTN, HLD, DM. 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 Pt presented for evaluation of left foot infection. Pt is a poor historian. As per ER notes, patient was accompanied by family who assisted in providing the history. They noted a 3 day history of worsening pain and swelling to the left foot. They report purulent drainage from the patient's 3rd toe prompting their presentation to the ED for concerns of a wound infection. In the ER pt found to have a normal WBC and was afebrile. - Past Medical History Cardiovascular: Yes: HTN, Hyperlipdemia Hepatobiliary: Yes: Cholelithiasis Renal/: Yes: Hematuria Endocrine: Yes: Diabetes Mellitus - Past Surgical History Past Surgical History: Yes: Cholecystectomy Additional Past Surgical History: Amputation lt 4th toe - Smoking History Smoking history: Never smoked Have you smoked in the past 12 months: No Aproximately how many cigarettes per day: 0 - Alcohol/Substance Use Hx Alcohol Use: No History of Substance Use: reports: None - Social History History of Recent Travel: No Home Medications - Allergies Allergies/Adverse Reactions: Allergies Allergy/AdvReac Type Severity Reaction Status Date / Time nut - unspecified Allergy Unknown Itching Verified 07/22/17 01:48 No Known Drug Allergies Allergy Verified 07/22/17 01:48 bananas Allergy Mild Swelling Uncoded 07/22/17 01:48 fresh grapefruit Allergy Mild Swelling Uncoded 07/22/17 01:48 fresh brooke Allergy Mild Swelling Uncoded 07/22/17 01:48 fresh pineapple Allergy Mild Swelling Uncoded 07/22/17 01:48 fresh tomatoes Allergy Mild Swelling Uncoded 07/22/17 01:48 lettuce Allergy Mild Swelling Uncoded 07/22/17 01:48 - Home Medications Home Medications: Ambulatory Orders Lisinopril [Prinivil] 20 mg PO DAILY #30 tablet 09/10/15 Metoprolol Succinate [Toprol XL -] 25 mg PO DAILY #30 tab.sr.24h 09/10/15 Pantoprazole Sodium [Protonix -] 40 mg PO DAILY #30 tablet.ec 09/10/15 metFORMIN HCL [Glucophage -] 850 mg PO BID #60 tablet 09/10/15 Naproxen [Naprosyn -] 500 mg PO BID #14 tablet 10/16/16 Oxycodone HCl/Acetaminophen [Percocet 5-325 mg Tablet] 1 tab PO Q6H PRN #8 tablet MDD 4 tabs 10/16/16 Levofloxacin [Levaquin] 500 mg PO DAILY #10 tablet 01/10/17 Glipizide 10 mg PO BID 07/22/17 Family Disease History - Family Disease History Family History: Unremarkable Review of Systems - Review of Systems Constitutional: reports: Weakness Neck: reports: No Symptoms Cardiovascular: reports: No Symptoms Respiratory: reports: No Symptoms Gastrointestinal: reports: No Symptoms Physical Examination Vital Signs: Vital Signs Temperature 98 F 07/22/17 10:08 Pulse Rate 77 07/22/17 10:08 Respiratory Rate 18 07/22/17 10:08 Blood Pressure 146/70 07/22/17 10:08 O2 Sat by Pulse Oximetry (%) 97 07/22/17 03:06 Constitutional: Yes: Well Nourished HENT: Yes: WNL Neck: Yes: WNL, Supple Cardiovascular: Yes: WNL, Regular Rate and Rhythm Respiratory: Yes: WNL, Regular, CTA Bilaterally Gastrointestinal: Yes: WNL, Normal Bowel Sounds, Soft Extremities: Yes: Other ((+) erythematous/swelling lt 2nd toe and ecchymptic lt 3rd toe w/ purulent discharge w/ foul smell) Edema: No Neurological: Yes: WNL, Alert, Oriented ...Motor Strength: WNL Labs: CBC, BMP 07/22/17 06:00 07/22/17 06:00 Problem List - Problems (1) Diabetic foot Assessment/Plan: ? osteo vs gangrene Cont IV vanco/zosyn Follow cultures As per ID Will also get vascular surgery consult Will need MRI foot to r/o osteo Code(s): E11.8 - TYPE 2 DIABETES MELLITUS WITH UNSPECIFIED COMPLICATIONS (2) AVERY (acute kidney injury) Assessment/Plan: Creatinine now normal Code(s): N17.9 - ACUTE KIDNEY FAILURE, UNSPECIFIED (3) Diabetes Assessment/Plan: Cont metformin and sliding scal w/ coverage Check HgA1c Code(s): E11.9 - TYPE 2 DIABETES MELLITUS WITHOUT COMPLICATIONS Qualifiers: Diabetes mellitus type: type 2 Diabetes mellitus watermelon inspector insulin use: without fpc use Diabetes mellitus complication status: without complication Qualified Code(s): E11.9 - Type 2 diabetes mellitus without complications (4) HTN (hypertension) Assessment/Plan: BP stable Cont metoprolol Code(s): I10 - ESSENTIAL (PRIMARY) HYPERTENSION
[2017-07-22] MEDS ORDERED: VANCOMYCIN 1,000 MG in DEXTROSE 5%-WATER - 250 ML IVPB ONE (14:00)
[2017-07-22] MEDS ORDERED: PT OWN MED DRAWER 7, Y5N ONE (17:28)
[2017-07-22] MEDS ORDERED: PIPERACILLIN/TAZOB 3.375 GM 3.375 GM in DEXTROSE 5%-WATER - 50 ML IVPB SCH (18:00)
[2017-07-23] MEDS ORDERED: DEXTROSE 5%-WATER - 50 ML IVPB ONE ×3 (01:40→18:06)
[2017-07-23] MEDS ORDERED: PIPERACILLIN/TAZOBACTAM 3.375 GM VIAL IVPB ONE ×3 (01:40→18:06)
[2017-07-23] MEDS ORDERED: VANCOMYCIN 1,000 MG in DEXTROSE 5%-WATER - 250 ML IVPB SCH (02:00)
[2017-07-23] MEDS: PIPERACILLIN/TAZOB 3.375 GM 3.375 GM in DEXTROSE 5%-WATER - 50 ML IVPB SCH ×2 (02:15→10:03)
[2017-07-23] MEDS ORDERED: PT OWN MED DRAWER 7, Y5N ONE ×3 (05:36→17:11)
[2017-07-23] MEDS: INSULIN SLIDING SCALE (NOVOLOG) 1 VIAL SQ SCH ×4 (06:01→21:48)
[2017-07-23 07:55] LABS: BASO % 0.7 % (0-2.0); EOS % 4.3 % (0-4.5); HEMOGLOBIN 12.8 GM/dL (11.7-16.9); LYMPH % 21.9 % (8-40); MCH 30.7 pg (25.7-33.7); MCHC 34.6 g/dl (32.0-35.9); MEAN CELL VOLUME 88.7 fl (80-96); MEAN PLT VOLUME 8.4 fl (7.5-11.1); MONO % 10.7 % (3.8-10.2); NEUT % 62.4 % (42.8-82.8); PLATELET COUNT 168 K/MM3 (134-434); RBC 4.17 M/mm3 (4.00-5.60); RDW 13.4 % (11.9-15.9); WHITE BLOOD COUNT 5.5 K/mm3 (4.0-10.0)
[2017-07-23 08:19] LABS: ALBUMIN 2.9 g/dl (3.4-5.0); ANION GAP 5 (8-16); BLOOD UREA NITROGEN 21 mg/dL (7-18); CALCIUM 8.1 mg/dL (8.5-10.1); CHLORIDE 103 mmol/L (98-107); CO2 28 mmol/L (21-32); GLUCOSE,RANDOM 188 mg/dL (74-106); POTASSIUM 4.9 mmol/L (3.5-5.1); SGOT/AST 19 U/L (15-37); SGPT/ALT 33 U/L (12-78); SODIUM 136 mmol/L (136-145)
[2017-07-23 08:21] LABS: ALK PHOS 152 U/L (45-117); BILIRUBIN,TOTAL 0.6 mg/dL (0.2-1.0); CREATININE 1.2 mg/dL (0.7-1.3); TOT PROT 7.2 g/dl (6.4-8.2)
[2017-07-23] MEDS: HEPARIN NA (PORCINE) 5,000 UNITS/ML 1ML VIAL SQ SCH ×2 (10:01→21:48)
[2017-07-23] MEDS: LISINOPRIL 20 MG TABLET (FP) PO SCH (10:02)
[2017-07-23] MEDS: NAPROXEN 500 MG TABLET (FP) PO SCH ×2 (10:02→21:51)
[2017-07-23] MEDS: metoPROLOL SUCCINATE 25 MG TAB.SR.24H (FP) PO SCH (10:03)
[2017-07-23] MEDS: PANTOPRAZOLE 40 MG TABLET (FP) PO SCH (10:03)
--- NOTE | 2017-07-23 11:05 | PN ---
Progress Note, Physician History of Present Illness: no new issues patient stable awaitng for imaging studies blood cx results noted - Current Medication List Current Medications: Active Medications Heparin Sodium (Porcine) (Heparin -) 5,000 unit SQ BID [facility] Last Admin: 07/23/17 10:01 Dose: 5,000 unit Piperacillin Sod/Tazobactam (Sod 3.375 gm/ Dextrose) 50 mls @ 100 mls/hr IVPB Q8H-IV [facility]; Protocol Last Admin: 07/23/17 10:03 Dose: 100 mls/hr Insulin Aspart (Novolog Vial Sliding Scale -) 1 vial SQ ACHS [facility]; Protocol Last Admin: 07/23/17 06:01 Dose: 2 unit Lisinopril (Prinivil) 20 mg PO DAILY [facility] Last Admin: 07/23/17 10:02 Dose: 20 mg Metformin HCl (Glucophage -) 850 mg PO BIDAC [facility] Last Admin: 07/23/17 06:01 Dose: 850 mg Metoprolol Succinate (Toprol Xl -) 25 mg PO DAILY [facility] Last Admin: 07/23/17 10:03 Dose: 25 mg Naproxen (Naprosyn -) 500 mg PO BID [facility] Last Admin: 07/23/17 10:02 Dose: 500 mg Pantoprazole Sodium (Protonix -) 40 mg PO DAILY [facility] Last Admin: 07/23/17 10:03 Dose: 40 mg - Objective Vital Signs: Vital Signs Temperature 97.8 F 07/23/17 05:57 Pulse Rate 64 07/23/17 05:57 Respiratory Rate 18 07/23/17 05:57 Blood Pressure 130/71 07/23/17 05:57 O2 Sat by Pulse Oximetry (%) 95 07/22/17 20:43 Constitutional: Yes: No Distress, Calm Cardiovascular: Yes: Regular Rate and Rhythm Respiratory: Yes: Regular, CTA Bilaterally Gastrointestinal: Yes: Normal Bowel Sounds, Soft Musculoskeletal: Yes: WNL Extremities: Yes: Other Wound/Incision: Yes: Clean/Dry, Open to air Neurological: Yes: Alert, Oriented Psychiatric: Yes: Alert, Oriented Labs: CBC, BMP 07/23/17 06:20 07/23/17 06:20 INR, PTT INR 1.02 (0.82-1.09) 07/21/17 21:36 Assessment/Plan looking at the patients history and the wound and condition of his leg i think this maybe very well osteo Problem List - Problems (1) Diabetic foot Code(s): E11.8 - TYPE 2 DIABETES MELLITUS WITH UNSPECIFIED COMPLICATIONS (2) AVERY (acute kidney injury) Code(s): N17.9 - ACUTE KIDNEY FAILURE, UNSPECIFIED (3) Diabetes Code(s): E11.9 - TYPE 2 DIABETES MELLITUS WITHOUT COMPLICATIONS Qualifiers: Diabetes mellitus type: type 2 Diabetes mellitus fdc insulin use: without regional intermodal truck driver use Diabetes mellitus complication status: without complication Qualified Code(s): E11.9 - Type 2 diabetes mellitus without complications (4) HTN (hypertension) Code(s): I10 - ESSENTIAL (PRIMARY) HYPERTENSION 5 osteo of the left foot 6 gm positive bacteremia plan iawait for imaging studies await for cx reports from the wound await for identification of the bacteria if staph then we will get a echo done once we have all that then we will decide on further mgmt
[2017-07-23] MEDS: VANCOMYCIN 1,250 MG in DEXTROSE 5%-WATER - 250 ML IVPB SCH (17:12)
--- NOTE | 2017-07-23 22:30 | PN ---
Progress Note, Physician History of Present Illness: No new complaints - Current Medication List Current Medications: Active Medications Heparin Sodium (Porcine) (Heparin -) 5,000 unit SQ BID [facility] Last Admin: 07/23/17 21:48 Dose: 5,000 unit Piperacillin Sod/Tazobactam (Sod 3.375 gm/ Dextrose) 50 mls @ 100 mls/hr IVPB Q8H-IV [facility]; Protocol Last Admin: 07/23/17 10:03 Dose: 100 mls/hr Vancomycin HCl 1,250 mg/ (Dextrose) 250 mls @ 166.667 mls/hr IVPB BID@0300, 1500 [facility]; Protocol Last Admin: 07/23/17 17:12 Dose: 166.667 mls/hr Insulin Aspart (Novolog Vial Sliding Scale -) 1 vial SQ ACHS [facility]; Protocol Last Admin: 07/23/17 21:48 Dose: 2 unit Lisinopril (Prinivil) 20 mg PO DAILY [facility] Last Admin: 07/23/17 10:02 Dose: 20 mg Metformin HCl (Glucophage -) 850 mg PO BIDAC [facility] Last Admin: 07/23/17 17:13 Dose: 850 mg Metoprolol Succinate (Toprol Xl -) 25 mg PO DAILY [facility] Last Admin: 07/23/17 10:03 Dose: 25 mg Naproxen (Naprosyn -) 500 mg PO BID [facility] Last Admin: 07/23/17 21:51 Dose: 500 mg Pantoprazole Sodium (Protonix -) 40 mg PO DAILY [facility] Last Admin: 07/23/17 10:03 Dose: 40 mg - Objective Vital Signs: Vital Signs Temperature 98.1 F 07/23/17 17:00 Pulse Rate 69 07/23/17 17:00 Respiratory Rate 20 07/23/17 20:45 Blood Pressure 143/81 07/23/17 17:00 O2 Sat by Pulse Oximetry (%) 97 07/23/17 20:45 Constitutional: Yes: Well Nourished Neck: Yes: WNL, Supple Cardiovascular: Yes: WNL, Regular Rate and Rhythm Respiratory: Yes: WNL, Regular, CTA Bilaterally Gastrointestinal: Yes: WNL, Normal Bowel Sounds, Soft Extremities: Yes: Other (Lt 4th toe amputation Lt 2nd/3rd toes w/ gangrenous changes) Labs: CBC, BMP 07/23/17 06:20 07/23/17 06:20 INR, PTT INR 1.02 (0.82-1.09) 07/21/17 21:36 Problem List - Problems (1) Diabetic foot Assessment/Plan: Bacteremia: BC (+) staph latex coag (+) ? osteo vs gangrene Cont IV vanco/zosyn Follow cultures Awaiting MRI Vascular consult Code(s): E11.8 - TYPE 2 DIABETES MELLITUS WITH UNSPECIFIED COMPLICATIONS (2) AVERY (acute kidney injury) Assessment/Plan: Creatinine now normal Code(s): N17.9 - ACUTE KIDNEY FAILURE, UNSPECIFIED (3) Diabetes Assessment/Plan: Cont metformin and sliding scal w/ coverage Code(s): E11.9 - TYPE 2 DIABETES MELLITUS WITHOUT COMPLICATIONS Qualifiers: Diabetes mellitus type: type 2 Diabetes mellitus exterminator helper insulin use: without exterminator helper use Diabetes mellitus complication status: without complication Qualified Code(s): E11.9 - Type 2 diabetes mellitus without complications (4) HTN (hypertension) Assessment/Plan: BP stable Cont metoprolol Code(s): I10 - ESSENTIAL (PRIMARY) HYPERTENSION
[2017-07-24] MEDS ORDERED: DEXTROSE 5%-WATER - 50 ML IVPB ONE ×3 (00:44→17:07)
[2017-07-24] MEDS ORDERED: PIPERACILLIN/TAZOBACTAM 3.375 GM VIAL IVPB ONE ×3 (00:44→17:07)
[2017-07-24] MEDS: PIPERACILLIN/TAZOB 3.375 GM 3.375 GM in DEXTROSE 5%-WATER - 50 ML IVPB SCH ×4 (01:09→17:39)
[2017-07-24] MEDS: VANCOMYCIN 1,250 MG in DEXTROSE 5%-WATER - 250 ML IVPB SCH ×2 (02:05→15:13)
[2017-07-24] MEDS: INSULIN SLIDING SCALE (NOVOLOG) 1 VIAL SQ SCH ×4 (06:36→21:22)
--- NOTE | 2017-07-24 08:25 | PN ---
Progress Note (short form) - Note Progress Note: Vascular Surgery Pt seen and examined. Left toe infection from shoe. ID on case. MRI ordered. Pt with palpable DP pulse in left foot. Will get podiatry to see pt. Cleared from a vascular standpoint for podiatry intervention. Looks like osteo with drainage. Miguel Floyd dO
--- NOTE | 2017-07-24 08:58 | CONSULT ---
- Consultation REQUESTING PROVIDER: CONSULT REQUEST: We have been asked to surgically evaluate this patient for left foot gangrene. PCP:Jie Hector HISTORY OF PRESENT ILLNESS: The patient is a 67 yo male who presented to the ER for 2 to 3 days of left foot pain/swelling. He has a history of left 4th toe amputation approximately 5 years ago. The patient states that his foot was rubbing in his shoe and he noted a ulcer form. Positive chills, no fever. No SOB , CP. He denies any history of CP, SOB. He doesn't ambulate with any assist devices. No claudication symptoms to LE. PMHx: diabetes, htn PSHx: open cholecystectomy Social HX: denies smoking Home Medications Medication Instructions Recorded Lisinopril [Prinivil] 20 mg PO DAILY #30 tablet 09/10/15 Metoprolol Succinate [Toprol XL -] 25 mg PO DAILY #30 tab.sr.24h 09/10/15 Pantoprazole Sodium [Protonix -] 40 mg PO DAILY #30 tablet.ec 09/10/15 metFORMIN HCL [Glucophage -] 850 mg PO BID #60 tablet 09/10/15 Naproxen [Naprosyn -] 500 mg PO BID #14 tablet 10/16/16 Oxycodone HCl/Acetaminophen 1 tab PO Q6H PRN #8 tablet MDD 4 10/16/16 [Percocet 5-325 mg Tablet] tabs Levofloxacin [Levaquin] 500 mg PO DAILY #10 tablet 01/10/17 Glipizide 10 mg PO BID 07/22/17 Allergies Allergy/AdvReac Type Severity Reaction Status Date / Time nut - unspecified Allergy Unknown Itching Verified 07/22/17 01:48 No Known Drug Allergies Allergy Verified 07/22/17 01:48 bananas Allergy Mild Swelling Uncoded 07/22/17 01:48 fresh grapefruit Allergy Mild Swelling Uncoded 07/22/17 01:48 fresh brooke Allergy Mild Swelling Uncoded 07/22/17 01:48 fresh pineapple Allergy Mild Swelling Uncoded 07/22/17 01:48 fresh tomatoes Allergy Mild Swelling Uncoded 07/22/17 01:48 lettuce Allergy Mild Swelling Uncoded 07/22/17 01:48 REVIEW OF SYSTEMS: CONSTITUTIONAL: Absent: fever Present: chills CARDIOVASCULAR: Absent: chest pain RESPIRATORY: Absent: shortness of breath GASTROINTESTINAL: Absent: abdominal pain GENITOURINARY: Absent: dysuria, hematuria NEUROLOGIC: Present: unsteady gait PHYSICAL EXAM: GENERAL: Awake, alert, and fully oriented, in no acute distress. ABDOMEN: Soft, nontender, not distended, normoactive bowel sounds, no guarding, no rebound, no masses. Healed scar to RUQ abd MUSCULOSKELETAL: Normal ROM at all joints. No bony deformities or tenderness. No CVA tenderness. UPPER EXTREMITIES: 2+ pulses, warm, well-perfused. No cyanosis. LOWER EXTREMITIES: 2+ Dp/PT pulses b/l and femoral pulses b/l, warm, well- perfused. No calf tenderness. No peripheral edema. Left fourth toe amp site healed well. Left 3rd toe with gangrene, purulent drainage and bogginess extending to the MCP joint. No erythema. NEUROLOGICAL: Normal speech, gait not observed. Vital Signs Temperature 98.2 F 07/24/17 06:07 Pulse Rate 70 07/24/17 06:07 Respiratory Rate 20 07/24/17 06:07 Blood Pressure 122/68 07/24/17 06:07 O2 Sat by Pulse Oximetry (%) 97 07/23/17 20:45 Lab Results WBC 5.5 K/mm3 (4.0-10.0) D 07/23/17 06:20 RBC 4.17 M/mm3 (4.00-5.60) 07/23/17 06:20 Hgb 12.8 GM/dL (11.7-16.9) 07/23/17 06:20 Hct 37.0 % (35.4-49) 07/23/17 06:20 MCV 88.7 fl (80-96) 07/23/17 06:20 MCHC 34.6 g/dl (32.0-35.9) 07/23/17 06:20 RDW 13.4 % (11.9-15.9) 07/23/17 06:20 Plt Count 168 K/MM3 (134-434) 07/23/17 06:20 Sodium 136 mmol/L (136-145) 07/23/17 06:20 Potassium 4.9 mmol/L (3.5-5.1) 07/23/17 06:20 Chloride 103 mmol/L (98-107) 07/23/17 06:20 Carbon Dioxide 28 mmol/L (21-32) 07/23/17 06:20 Anion Gap 5 (8-16) L 07/23/17 06:20 BUN 21 mg/dL (7-18) H 07/23/17 06:20 Creatinine 1.2 mg/dL (0.7-1.3) 07/23/17 06:20 Random Glucose 188 mg/dL (74-106) H D 07/23/17 06:20 Calcium 8.1 mg/dL (8.5-10.1) L 07/23/17 06:20 Blood Type O POSITIVE 07/21/17 21:36 Antibody Screen Negative 07/21/17 21:36 INR 1.02 (0.82-1.09) 07/21/17 21:36 foot xray 07/21: swelling of the 3rd digit Microbiology 07/22/17 00:20 Foot - Left Wound Culture - Preliminary Beta Hemolytic Strep Group D Strep Or Entero Coccus Pending Organism Lactose Fermenting Neg Bacilli Non Lactose Fermenting Gnb 07/21/17 21:36 Blood - Peripheral Venous Blood Culture - Preliminary Staphylococcus Latex Coag Pos 07/21/17 21:36 Blood - Peripheral Venous Blood Culture - Preliminary Staphylococcus Latex Coag Pos Problem List - Problems (1) Gangrene Assessment/Plan: D/w Dr. Floyd this am, pt with palpable distal pulses, acute infection to the left third toe with a history of diabetes. Podiatry consult placed and I spoke with Dr. Osborn. May require a toe amputation, MRI ordered. No vascular surgical intervention needed prior to any podiatry debridment/ amputation. Continue IV abx as per ID, pt on Zosyn. He remains afebrile with no leukocytosis , although blood culture upon admission were positive and his wound culture revealed multiple organisims. Code(s): I96 - GANGRENE, NOT ELSEWHERE CLASSIFIED
[2017-07-24] MEDS: LISINOPRIL 20 MG TABLET (FP) PO SCH (09:16)
[2017-07-24] MEDS: NAPROXEN 500 MG TABLET (FP) PO SCH ×2 (09:16→21:22)
[2017-07-24] MEDS: HEPARIN NA (PORCINE) 5,000 UNITS/ML 1ML VIAL SQ SCH ×2 (09:16→21:22)
[2017-07-24] MEDS: metoPROLOL SUCCINATE 25 MG TAB.SR.24H (FP) PO SCH (09:16)
[2017-07-24] MEDS: PANTOPRAZOLE 40 MG TABLET (FP) PO SCH (09:16)
--- NOTE | 2017-07-24 11:50 | CONSULT ---
Consult - text type - Consultation Consultation Note: Pt is diabetic with trauma to his 3rd toe right foot secondary to a shoe. Asked to evaluate for amputation. Pt is laert and oriented. vss, tmax=97.5 +wound tip of left foot 3rd toe grade 3, +drainage noted, -foull odor, vsgi, + early gangarene, +previous amputation 4th toe left om? dm withneuropathy wound tip 3rd toe will order MRI. If +om will consider debridement. If negative will try to salvage with wound care and antibiotics. ID and vascular on case. will follow.
--- NOTE | 2017-07-24 14:58 | PN ---
Progress Note, Physician History of Present Illness: stable no issues mri done awaiting for reports - Current Medication List Current Medications: Active Medications Heparin Sodium (Porcine) (Heparin -) 5,000 unit SQ BID [facility] Last Admin: 07/24/17 09:16 Dose: 5,000 unit Piperacillin Sod/Tazobactam (Sod 3.375 gm/ Dextrose) 50 mls @ 100 mls/hr IVPB Q8H-IV [facility]; Protocol Last Admin: 07/24/17 09:15 Dose: 100 mls/hr Vancomycin HCl 1,250 mg/ (Dextrose) 250 mls @ 166.667 mls/hr IVPB BID@0300, 1500 [facility]; Protocol Last Admin: 07/24/17 02:05 Dose: 166.667 mls/hr Insulin Aspart (Novolog Vial Sliding Scale -) 1 vial SQ ACHS [facility]; Protocol Last Admin: 07/24/17 11:34 Dose: 2 unit Lisinopril (Prinivil) 20 mg PO DAILY [facility] Last Admin: 07/24/17 09:16 Dose: 20 mg Metformin HCl (Glucophage -) 850 mg PO BIDAC [facility] Last Admin: 07/24/17 06:37 Dose: 850 mg Metoprolol Succinate (Toprol Xl -) 25 mg PO DAILY [facility] Last Admin: 07/24/17 09:16 Dose: 25 mg Naproxen (Naprosyn -) 500 mg PO BID [facility] Last Admin: 07/24/17 09:16 Dose: 500 mg Pantoprazole Sodium (Protonix -) 40 mg PO DAILY [facility] Last Admin: 07/24/17 09:16 Dose: 40 mg - Objective Vital Signs: Vital Signs Temperature 97.9 F 07/24/17 14:18 Pulse Rate 69 07/24/17 14:18 Respiratory Rate 20 07/24/17 14:18 Blood Pressure 119/62 07/24/17 14:18 O2 Sat by Pulse Oximetry (%) 95 07/24/17 09:00 Constitutional: Yes: No Distress, Calm Cardiovascular: Yes: Regular Rate and Rhythm Respiratory: Yes: Regular, CTA Bilaterally Gastrointestinal: Yes: Normal Bowel Sounds, Soft Musculoskeletal: Yes: WNL Extremities: Yes: WNL Neurological: Yes: Alert, Oriented Psychiatric: Yes: Alert, Oriented Labs: CBC, BMP 07/23/17 06:20 07/23/17 06:20 INR, PTT INR 1.02 (0.82-1.09) 07/21/17 21:36 Assessment/Plan looking at the patients history and the wound and condition of his leg i think this maybe very well osteo Problem List - Problems (1) Diabetic foot Code(s): E11.8 - TYPE 2 DIABETES MELLITUS WITH UNSPECIFIED COMPLICATIONS (2) AVERY (acute kidney injury) Code(s): N17.9 - ACUTE KIDNEY FAILURE, UNSPECIFIED (3) Diabetes Code(s): E11.9 - TYPE 2 DIABETES MELLITUS WITHOUT COMPLICATIONS Qualifiers: Diabetes mellitus type: type 2 Diabetes mellitus termite treater helper insulin use: without termite treater helper use Diabetes mellitus complication status: without complication Qualified Code(s): E11.9 - Type 2 diabetes mellitus without complications (4) HTN (hypertension) Code(s): I10 - ESSENTIAL (PRIMARY) HYPERTENSION 5 osteo of the left foot 6 gm positive bacteremia plan await for imaging studies report await for cx reports from the wound and sensitivities echo ordered rest continue current mgmt
[2017-07-24] MEDS ORDERED: INSULIN (NOVOLOG) ASPART 100 UNITS/ML 10ML VIAL ONE (18:07)
--- NOTE | 2017-07-24 22:11 | PN ---
Progress Note, Physician History of Present Illness: No new complaints - Current Medication List Current Medications: Active Medications Heparin Sodium (Porcine) (Heparin -) 5,000 unit SQ BID [facility] Last Admin: 07/24/17 21:22 Dose: 5,000 unit Piperacillin Sod/Tazobactam (Sod 3.375 gm/ Dextrose) 50 mls @ 100 mls/hr IVPB Q8H-IV [facility]; Protocol Last Admin: 07/24/17 17:39 Dose: 100 mls/hr Vancomycin HCl 1,250 mg/ (Dextrose) 250 mls @ 166.667 mls/hr IVPB BID@0300, 1500 [facility]; Protocol Last Admin: 07/24/17 15:13 Dose: 166.667 mls/hr Insulin Aspart (Novolog Vial Sliding Scale -) 1 vial SQ ACHS [facility]; Protocol Last Admin: 07/24/17 21:22 Dose: Not Given Lisinopril (Prinivil) 20 mg PO DAILY [facility] Last Admin: 07/24/17 09:16 Dose: 20 mg Metformin HCl (Glucophage -) 850 mg PO BIDAC [facility] Last Admin: 07/24/17 17:01 Dose: 850 mg Metoprolol Succinate (Toprol Xl -) 25 mg PO DAILY [facility] Last Admin: 07/24/17 09:16 Dose: 25 mg Naproxen (Naprosyn -) 500 mg PO BID [facility] Last Admin: 07/24/17 21:22 Dose: 500 mg Pantoprazole Sodium (Protonix -) 40 mg PO DAILY [facility] Last Admin: 07/24/17 09:16 Dose: 40 mg - Objective Vital Signs: Vital Signs Temperature 97.7 F 07/24/17 21:55 Pulse Rate 69 07/24/17 21:55 Respiratory Rate 20 07/24/17 21:55 Blood Pressure 120/63 07/24/17 21:55 O2 Sat by Pulse Oximetry (%) 95 07/24/17 20:29 Constitutional: Yes: Well Nourished Neck: Yes: WNL, Supple Cardiovascular: Yes: WNL, Regular Rate and Rhythm Respiratory: Yes: WNL, Regular, CTA Bilaterally Gastrointestinal: Yes: WNL, Normal Bowel Sounds, Soft Extremities: Yes: Other ((+) Lt toes swelling and foul smelling discharge) Labs: CBC, BMP 07/23/17 06:20 07/23/17 06:20 INR, PTT INR 1.02 (0.82-1.09) 07/21/17 21:36 Problem List - Problems (1) Diabetic foot Assessment/Plan: Bacteremia: BC (+) staph latex coag (+) Cont IV vanco/zosyn MRI showed osteo lt 3rd toe Code(s): E11.8 - TYPE 2 DIABETES MELLITUS WITH UNSPECIFIED COMPLICATIONS (2) Diabetes Assessment/Plan: Cont metformin and sliding scal w/ coverage Code(s): E11.9 - TYPE 2 DIABETES MELLITUS WITHOUT COMPLICATIONS Qualifiers: Diabetes mellitus type: type 2 Diabetes mellitus residential insulin use: without residential use Diabetes mellitus complication status: without complication Qualified Code(s): E11.9 - Type 2 diabetes mellitus without complications (3) HTN (hypertension) Assessment/Plan: BP stable Cont metoprolol Code(s): I10 - ESSENTIAL (PRIMARY) HYPERTENSION (4) AVERY (acute kidney injury) Assessment/Plan: Creatinine now normal Code(s): N17.9 - ACUTE KIDNEY FAILURE, UNSPECIFIED
[2017-07-25] MEDS ORDERED: DEXTROSE 5%-WATER - 50 ML IVPB ONE ×2 (00:34→10:16)
[2017-07-25] MEDS ORDERED: PIPERACILLIN/TAZOBACTAM 3.375 GM VIAL IVPB ONE ×2 (00:34→10:16)
[2017-07-25] MEDS: PIPERACILLIN/TAZOB 3.375 GM 3.375 GM in DEXTROSE 5%-WATER - 50 ML IVPB SCH ×2 (00:59→10:19)
[2017-07-25] MEDS: VANCOMYCIN 1,250 MG in DEXTROSE 5%-WATER - 250 ML IVPB SCH ×2 (03:00→16:24)
[2017-07-25] MEDS: INSULIN SLIDING SCALE (NOVOLOG) 1 VIAL SQ SCH ×4 (05:59→21:34)
[2017-07-25] MEDS ORDERED: INSULIN (NOVOLOG) ASPART 100 UNITS/ML 10ML VIAL ONE (06:22)
[2017-07-25] MEDS: LISINOPRIL 20 MG TABLET (FP) PO SCH (10:18)
[2017-07-25] MEDS: NAPROXEN 500 MG TABLET (FP) PO SCH ×2 (10:18→21:34)
[2017-07-25] MEDS: HEPARIN NA (PORCINE) 5,000 UNITS/ML 1ML VIAL SQ SCH ×2 (10:18→21:34)
[2017-07-25] MEDS: PANTOPRAZOLE 40 MG TABLET (FP) PO SCH (10:18)
[2017-07-25] MEDS: metoPROLOL SUCCINATE 25 MG TAB.SR.24H (FP) PO SCH (10:18)
--- NOTE | 2017-07-25 11:22 | PN ---
Progress Note (short form) - Note Progress Note: Patient seen in bed. Alert and oriented. MRI done. vss Tmax 98.1 MRI +for om 3rd toe left, +edema, +cellulitis, -drainage, +deformed, + demarcating proximally, om 3rd toe left Discussed with patient tx options. HBO, abx and wound care vs amputation 3rd toe left. Vascular clearance Dr. Floyd. Medical clearance. Scheduled 8am tomorrow. NPO after midnight. Please obtain consent for debridement bone and soft tissue left foot, amputation 3rd toe.
--- NOTE | 2017-07-25 12:58 | PN ---
Progress Note, Physician History of Present Illness: stable no new issues plan for tomorrow noted from podiatry team - Current Medication List Current Medications: Active Medications Heparin Sodium (Porcine) (Heparin -) 5,000 unit SQ BID [facility] Last Admin: 07/25/17 10:18 Dose: 5,000 unit Piperacillin Sod/Tazobactam (Sod 3.375 gm/ Dextrose) 50 mls @ 100 mls/hr IVPB Q8H-IV [facility]; Protocol Last Admin: 07/25/17 10:19 Dose: 100 mls/hr Vancomycin HCl 1,250 mg/ (Dextrose) 250 mls @ 166.667 mls/hr IVPB BID@0300, 1500 [facility]; Protocol Last Admin: 07/25/17 03:00 Dose: 166.667 mls/hr Insulin Aspart (Novolog Vial Sliding Scale -) 1 vial SQ ACHS [facility]; Protocol Last Admin: 07/25/17 11:19 Dose: 2 unit Lisinopril (Prinivil) 20 mg PO DAILY [facility] Last Admin: 07/25/17 10:18 Dose: 20 mg Metformin HCl (Glucophage -) 850 mg PO BIDAC [facility] Last Admin: 07/25/17 06:42 Dose: 850 mg Metoprolol Succinate (Toprol Xl -) 25 mg PO DAILY [facility] Last Admin: 07/25/17 10:18 Dose: 25 mg Naproxen (Naprosyn -) 500 mg PO BID [facility] Last Admin: 07/25/17 10:18 Dose: 500 mg Pantoprazole Sodium (Protonix -) 40 mg PO DAILY [facility] Last Admin: 07/25/17 10:18 Dose: 40 mg - Objective Vital Signs: Vital Signs Temperature 98.3 F 07/25/17 09:00 Pulse Rate 79 07/25/17 09:00 Respiratory Rate 20 07/25/17 09:00 Blood Pressure 134/93 07/25/17 09:00 O2 Sat by Pulse Oximetry (%) 97 07/25/17 09:00 Constitutional: Yes: No Distress, Calm Cardiovascular: Yes: Regular Rate and Rhythm Respiratory: Yes: Regular, CTA Bilaterally Gastrointestinal: Yes: Normal Bowel Sounds, Soft Musculoskeletal: Yes: WNL Extremities: Yes: WNL Integumentary: Yes: Other Wound/Incision: Yes: Open to air, Draining Neurological: Yes: Alert, Oriented Psychiatric: Yes: Alert, Oriented Labs: CBC, BMP 06/18/18 06:20 07/23/17 06:20 INR, PTT INR 1.02 (0.82-1.09) 07/21/17 21:36 Assessment/Plan looking at the patients history and the wound and condition of his leg i think this maybe very well osteo Problem List - Problems (1) Diabetic foot Code(s): E11.8 - TYPE 2 DIABETES MELLITUS WITH UNSPECIFIED COMPLICATIONS (2) AVERY (acute kidney injury) Code(s): N17.9 - ACUTE KIDNEY FAILURE, UNSPECIFIED (3) Diabetes Code(s): E11.9 - TYPE 2 DIABETES MELLITUS WITHOUT COMPLICATIONS Qualifiers: Diabetes mellitus type: type 2 Diabetes mellitus superintendent marine oil terminal insulin use: without superintendent marine oil terminal use Diabetes mellitus complication status: without complication Qualified Code(s): E11.9 - Type 2 diabetes mellitus without complications (4) HTN (hypertension) Code(s): I10 - ESSENTIAL (PRIMARY) HYPERTENSION 5 osteo of the left foot 6 gm positive bacteremia plan await for echo report surgery tomorrow will stop zosyn rest continue current mgmt
--- NOTE | 2017-07-25 22:48 | PN ---
Progress Note, Physician History of Present Illness: No new complaints - Current Medication List Current Medications: Active Medications Heparin Sodium (Porcine) (Heparin -) 5,000 unit SQ BID [facility] Last Admin: 07/25/17 21:34 Dose: 5,000 unit Vancomycin HCl 1,000 mg/ (Dextrose) 250 mls @ 166.667 mls/hr IVPB BID@0300, 1500 [facility]; Protocol Insulin Aspart (Novolog Vial Sliding Scale -) 1 vial SQ ACHS [facility]; Protocol Last Admin: 07/25/17 21:34 Dose: 2 unit Lisinopril (Prinivil) 20 mg PO DAILY [facility] Last Admin: 07/25/17 10:18 Dose: 20 mg Metformin HCl (Glucophage -) 850 mg PO BIDAC [facility] Last Admin: 07/25/17 17:11 Dose: 850 mg Metoprolol Succinate (Toprol Xl -) 25 mg PO DAILY [facility] Last Admin: 07/25/17 10:18 Dose: 25 mg Naproxen (Naprosyn -) 500 mg PO BID [facility] Last Admin: 07/25/17 21:34 Dose: 500 mg Pantoprazole Sodium (Protonix -) 40 mg PO DAILY [facility] Last Admin: 07/25/17 10:18 Dose: 40 mg - Objective Vital Signs: Vital Signs Temperature 98 F 07/25/17 21:41 Pulse Rate 65 07/25/17 21:41 Respiratory Rate 20 07/25/17 21:41 Blood Pressure 112/60 07/25/17 21:41 O2 Sat by Pulse Oximetry (%) 96 07/25/17 21:43 Constitutional: Yes: Well Nourished Neck: Yes: WNL, Supple Cardiovascular: Yes: WNL, Regular Rate and Rhythm Respiratory: Yes: WNL, Regular, CTA Bilaterally Gastrointestinal: Yes: WNL, Normal Bowel Sounds, Soft Extremities: Yes: Other (Lt 2nd/3rd toes w/ foul discharge) Labs: CBC, BMP 07/23/17 06:20 07/23/17 06:20 INR, PTT INR 1.02 (0.82-1.09) 07/21/17 21:36 Problem List - Problems (1) Diabetic foot Assessment/Plan: Bacteremia: BC (+) staph latex coag (+) Cont IV vanco/zosyn MRI showed osteo lt 3rd toe Code(s): E11.8 - TYPE 2 DIABETES MELLITUS WITH UNSPECIFIED COMPLICATIONS (2) Diabetes Assessment/Plan: Cont metformin and sliding scal w/ coverage Code(s): E11.9 - TYPE 2 DIABETES MELLITUS WITHOUT COMPLICATIONS Qualifiers: Diabetes mellitus type: type 2 Diabetes mellitus alf insulin use: without alf use Diabetes mellitus complication status: without complication Qualified Code(s): E11.9 - Type 2 diabetes mellitus without complications (3) HTN (hypertension) Assessment/Plan: BP stable Cont metoprolol Code(s): I10 - ESSENTIAL (PRIMARY) HYPERTENSION (4) AVERY (acute kidney injury) Assessment/Plan: Creatinine now normal Code(s): N17.9 - ACUTE KIDNEY FAILURE, UNSPECIFIED
[2017-07-26] MEDS ORDERED: VANCOMYCIN 1,000 MG in DEXTROSE 5%-WATER - 250 ML IVPB SCH (03:00)
[2017-07-26] MEDS: INSULIN SLIDING SCALE (NOVOLOG) 1 VIAL SQ SCH ×4 (06:45→21:12)
[2017-07-26] MEDS ORDERED: LIDOCAINE HCL 1%, 10 MG/ML (20ML VIAL) ONE (07:33)
[2017-07-26] MEDS ORDERED: BUPIVACAINE HCL/PF 0.5% (5MG/ML) 10 ML VIAL ONE (07:33)
[2017-07-26] MEDS ORDERED: ONDANSETRON 4 MG/2 ML VIAL IVPUSH PRN (07:39)
[2017-07-26] MEDS ORDERED: PROMETHAZINE HCL 25 MG/1 ML VIAL IVPUSH PRN (07:39)
[2017-07-26] MEDS ORDERED: PROTAMINE SULFATE 50 MG/5 ML VIAL ONE (07:44)
[2017-07-26] MEDS ORDERED: PROPOFOL 20 ML ONE ×2 (07:44→07:45)
[2017-07-26] MEDS ORDERED: MIDAZOLAM HCL 2 MG/2 ML SINGLE DOSE VIAL ONE (07:44)
[2017-07-26] MEDS ORDERED: LACTATED RINGERS SOLUTION 1,000 ML IV SCH ×2 (07:45→09:17)
[2017-07-26] MEDS ORDERED: LIDOCAINE HCL 1%, 10 MG/ML (20ML VIAL) PNB ONE (08:14)
[2017-07-26] MEDS ORDERED: BUPIVACAINE HCL/PF 0.5% (5MG/ML) 10 ML VIAL PNB ONE (08:14)
[2017-07-26] MEDS ORDERED: LABETALOL HCL 5 MG/1 ML (100MG/20 ML VIAL) IVPUSH ONE (09:01)
--- NOTE | 2017-07-26 09:01 | OP ---
Operative Note - Note: Operative Date: 07/26/17 Pre-Operative Diagnosis: osteomyelitis 3rd toe left Operation: debridement bone and soft tissue 3rd toe left Implants: osteomyelitis Post-Operative Diagnosis: Same as Pre-op Surgeon: Chai Osborn Anesthesiologist/TECHNICAL ASST: Re Lerma Anesthesia: Local, MAC Estimated Blood Loss (mls): 15 Drains & Tubes with Location: /" plain packing Operative Report Dictated: Yes
--- NOTE | 2017-07-26 09:43 | OP ---
DATE OF OPERATION: DATE OF DICTATION: 07/26/2017 PREOPERATIVE DIAGNOSIS: Osteomyelitis and gangrene of the 3rd digit of the left foot. POSTOPERATIVE DIAGNOSIS: Osteomyelitis and gangrene of the 3rd digit of the left foot. PROCEDURE: Amputation of the 3rd toe of the left foot. ANESTHESIA: IV with MAC. ESTIMATED BLOOD LOSS: 15 mL. HEMOSTASIS: None. DESCRIPTION: The patient was brought to the operating room and placed supine on the operating room table. After adequate IV sedation was administered a local infiltrative block was administered utilizing a 1:1 mixture of 1% lidocaine plain and 0.5% Marcaine plain with 10 mL administered. Then the left foot was prepped and draped in the usual aseptic fashion. Attention was directed to the 3rd toe of the left foot which has osteomyelitis of the left foot. Using a 15 blade a circumferential incision was made around the metatarsophalangeal joint of the 3rd toe of the left foot. The incision was deepened through the joint to the level of the bone. The bone of the digit appears soft and necrotic and nonviable. It was noted that the bone of the 3rd proximal phalanx head was particularly hypertrophied and irregular in appearance. Using a 15 blade the distal half of the proximal phalanx of the 3rd digit was carefully dissected free of all surrounding soft tissue attachments. Using a bone cutter the distal half of the bone was excised and pulled from the operative field. All remaining necrotic tissue was excised and cleared from the operative field. The tendon attachment for the digit number 2 was also sharply resected away from the operative field as well as all calcified tissues at the operative site and then the proximal half of the proximal phalanx of the left 3rd toe was removed from the operative field and passed on to Pathology. Specimen of the bone and soft tissue was sent to Pathology for review. The surgical site was then copiously irrigated with normal saline that had antibiotic irrigation. The skin edgeswere loosely reapproximated with 3-0 nylon retention sutures. The surgical site was then packed with plain packing 1/4" and dressed with Betadine-soaked Adaptic, sterile 4 x 4, ABD pad and Heath wrap. The patient tolerated the above anesthesia and surgical procedure well and left the operating room to the recovery area with the vital signs stable and vascular status intact to the left foot, all the toes. WHIT Caban/[id number] MTDD
[2017-07-26] MEDS: PANTOPRAZOLE 40 MG TABLET (FP) PO SCH (10:42)
[2017-07-26] MEDS: LISINOPRIL 20 MG TABLET (FP) PO SCH (10:42)
[2017-07-26] MEDS: metoPROLOL SUCCINATE 25 MG TAB.SR.24H (FP) PO SCH (10:42)
--- NOTE | 2017-07-26 12:58 | PN ---
Progress Note, Physician History of Present Illness: patient stable no new issues patient got debridement of the toe and soft tissue no complaints - Current Medication List Current Medications: Active Medications Vancomycin HCl (Vancomycin 1 Gm Premix -) 1 gm in 200 mls @ 133.333 mls/hr IVPB BID@0300,1500 [facility]; Protocol Piperacillin Sod/Tazobactam (Sod 3.375 gm/ Dextrose) 50 mls @ 100 mls/hr IVPB Q8H-IV [facility]; Protocol Insulin Aspart (Novolog Vial Sliding Scale -) 1 vial SQ ACHS [facility]; Protocol Lisinopril (Prinivil) 20 mg PO DAILY [facility] Last Admin: 07/26/17 10:42 Dose: 20 mg Metformin HCl (Glucophage -) 850 mg PO BIDAC [facility] Metoprolol Succinate (Toprol Xl -) 25 mg PO DAILY [facility] Last Admin: 07/26/17 10:42 Dose: 25 mg Pantoprazole Sodium (Protonix -) 40 mg PO DAILY [facility] Last Admin: 07/26/17 10:42 Dose: 40 mg - Objective Vital Signs: Vital Signs Temperature 98.6 F 07/26/17 09:40 Pulse Rate 63 07/26/17 09:40 Respiratory Rate 18 07/26/17 09:40 Blood Pressure 106/66 07/26/17 09:40 O2 Sat by Pulse Oximetry (%) 97 07/26/17 09:40 Constitutional: Yes: No Distress, Calm Cardiovascular: Yes: Regular Rate and Rhythm Respiratory: Yes: Regular, CTA Bilaterally Gastrointestinal: Yes: Normal Bowel Sounds, Soft Musculoskeletal: Yes: WNL Extremities: Yes: Other Wound/Incision: Yes: Dressing Dry and Intact Neurological: Yes: Alert, Oriented Psychiatric: Yes: Alert, Oriented Labs: CBC, BMP 07/23/17 06:20 07/23/17 06:20 INR, PTT INR 1.02 (0.82-1.09) 07/21/17 21:36 Assessment/Plan Problem List - Problems (1) Diabetic foot Code(s): E11.8 - TYPE 2 DIABETES MELLITUS WITH UNSPECIFIED COMPLICATIONS (2) AVERY (acute kidney injury) Code(s): N17.9 - ACUTE KIDNEY FAILURE, UNSPECIFIED (3) Diabetes Code(s): E11.9 - TYPE 2 DIABETES MELLITUS WITHOUT COMPLICATIONS Qualifiers: Diabetes mellitus type: type 2 Diabetes mellitus mcfp insulin use: without mcfp use Diabetes mellitus complication status: without complication Qualified Code(s): E11.9 - Type 2 diabetes mellitus without complications (4) HTN (hypertension) Code(s): I10 - ESSENTIAL (PRIMARY) HYPERTENSION 5 osteo of the left foot 6 gm positive bacteremia 7 wound infection with multiple organisms all cx reports noted wiht organisms plan continue vanco will check vanco trough tomorrow will start zosyn await for post op cx of the wound will decide after that further plan of treatment repeat blood cx negative
[2017-07-26] MEDS ORDERED: DEXTROSE 5%-WATER - 50 ML IVPB ONE ×2 (14:44→20:00)
[2017-07-26] MEDS ORDERED: PIPERACILLIN/TAZOBACTAM 3.375 GM VIAL IVPB ONE ×2 (14:44→19:59)
[2017-07-26] MEDS: PIPERACILLIN/TAZOB 3.375 GM 3.375 GM in DEXTROSE 5%-WATER - 50 ML IVPB SCH ×2 (15:08→20:54)
[2017-07-26] MEDS ORDERED: PT OWN MED DRAWER 7, Y5N ONE ×2 (15:54→17:16)
[2017-07-26] MEDS: VANCOMYCIN 1 GM PREMIX - 1 GM/200 ML BAG IVPB SCH (15:57)
[2017-07-26] MEDS ORDERED: INSULIN (NOVOLOG) ASPART 100 UNITS/ML 10ML VIAL ONE (17:21)
--- NOTE | 2017-07-26 23:13 | PN ---
Progress Note, Physician History of Present Illness: No new complaints - Current Medication List Current Medications: Active Medications Vancomycin HCl (Vancomycin 1 Gm Premix -) 1 gm in 200 mls @ 133.333 mls/hr IVPB BID@0300,1500 [facility]; Protocol Last Admin: 07/26/17 15:57 Dose: 133.333 mls/hr Piperacillin Sod/Tazobactam (Sod 3.375 gm/ Dextrose) 50 mls @ 100 mls/hr IVPB Q8H-IV [facility]; Protocol Last Admin: 07/26/17 20:54 Dose: Not Given Insulin Aspart (Novolog Vial Sliding Scale -) 1 vial SQ ACHS [facility]; Protocol Last Admin: 07/26/17 21:12 Dose: 2 units Lisinopril (Prinivil) 20 mg PO DAILY [facility] Last Admin: 07/26/17 10:42 Dose: 20 mg Metformin HCl (Glucophage -) 850 mg PO BIDAC [facility] Last Admin: 07/26/17 17:23 Dose: 850 mg Metoprolol Succinate (Toprol Xl -) 25 mg PO DAILY [facility] Last Admin: 07/26/17 10:42 Dose: 25 mg Pantoprazole Sodium (Protonix -) 40 mg PO DAILY [facility] Last Admin: 07/26/17 10:42 Dose: 40 mg - Objective Vital Signs: Vital Signs Temperature 98.5 F 07/26/17 21:07 Pulse Rate 63 07/26/17 21:07 Respiratory Rate 20 07/26/17 21:07 Blood Pressure 118/65 07/26/17 21:07 O2 Sat by Pulse Oximetry (%) 96 07/26/17 21:00 Neck: Yes: WNL, Supple Cardiovascular: Yes: WNL, Regular Rate and Rhythm Respiratory: Yes: WNL, Regular, CTA Bilaterally Gastrointestinal: Yes: WNL, Normal Bowel Sounds, Soft Extremities: Yes: Other (Lt foot in dressing) Labs: CBC, BMP 07/23/17 06:20 07/23/17 06:20 INR, PTT INR 1.02 (0.82-1.09) 07/21/17 21:36 Problem List - Problems (1) Diabetic foot Assessment/Plan: S/P debridement 3rd lt toe Bacteremia: BC (+) staph latex coag (+) Cont IV vanco/zosyn MRI showed osteo lt 3rd toe Code(s): E11.8 - TYPE 2 DIABETES MELLITUS WITH UNSPECIFIED COMPLICATIONS (2) Diabetes Assessment/Plan: Cont metformin and sliding scal w/ coverage Code(s): E11.9 - TYPE 2 DIABETES MELLITUS WITHOUT COMPLICATIONS Qualifiers: Diabetes mellitus type: type 2 Diabetes mellitus skilled nursing insulin use: without skilled nursing use Diabetes mellitus complication status: without complication Qualified Code(s): E11.9 - Type 2 diabetes mellitus without complications (3) HTN (hypertension) Assessment/Plan: BP stable Cont metoprolol Code(s): I10 - ESSENTIAL (PRIMARY) HYPERTENSION (4) AVERY (acute kidney injury) Assessment/Plan: Creatinine now normal Code(s): N17.9 - ACUTE KIDNEY FAILURE, UNSPECIFIED
[2017-07-27] MEDS: PIPERACILLIN/TAZOB 3.375 GM 3.375 GM in DEXTROSE 5%-WATER - 50 ML IVPB SCH ×3 (01:08→17:25)
[2017-07-27] MEDS: VANCOMYCIN 1 GM PREMIX - 1 GM/200 ML BAG IVPB SCH ×2 (02:03→15:59)
[2017-07-27] MEDS: INSULIN SLIDING SCALE (NOVOLOG) 1 VIAL SQ SCH ×4 (06:34→21:11)
[2017-07-27 07:18] LABS: BASO % 0.7 % (0-2.0); EOS % 2.5 % (0-4.5); HEMATOCRIT 36.3 % (35.4-49); HEMOGLOBIN 12.6 GM/dL (11.7-16.9); LYMPH % 21.4 % (8-40); MCH 30.3 pg (25.7-33.7); MCHC 34.8 g/dl (32.0-35.9); MEAN CELL VOLUME 87.1 fl (80-96); MEAN PLT VOLUME 7.9 fl (7.5-11.1); MONO % 7.3 % (3.8-10.2); NEUT % 68.1 % (42.8-82.8); PLATELET COUNT 172 K/MM3 (134-434); RBC 4.17 M/mm3 (4.00-5.60); RDW 13.2 % (11.9-15.9); WHITE BLOOD COUNT 7.8 K/mm3 (4.0-10.0)
[2017-07-27 07:32] LABS: CHLORIDE 103 mmol/L (98-107); POTASSIUM 4.5 mmol/L (3.5-5.1); SODIUM 137 mmol/L (136-145)
[2017-07-27 07:41] LABS: ALBUMIN 2.9 g/dl (3.4-5.0); ALK PHOS 141 U/L (45-117); ANION GAP 8 (8-16); BILIRUBIN,TOTAL 0.4 mg/dL (0.2-1.0); BLOOD UREA NITROGEN 25 mg/dL (7-18); CALCIUM 7.8 mg/dL (8.5-10.1); CO2 26 mmol/L (21-32); CREATININE 1.5 mg/dL (0.7-1.3); GLUCOSE,RANDOM 140 mg/dL (74-106); SGOT/AST 73 U/L (15-37); SGPT/ALT 98 U/L (12-78); TOT PROT 7.4 g/dl (6.4-8.2)
[2017-07-27] MEDS ORDERED: DEXTROSE 5%-WATER - 50 ML IVPB ONE ×2 (10:18→17:22)
[2017-07-27] MEDS ORDERED: PIPERACILLIN/TAZOBACTAM 3.375 GM VIAL IVPB ONE ×2 (10:18→17:22)
[2017-07-27] MEDS: metoPROLOL SUCCINATE 25 MG TAB.SR.24H (FP) PO SCH (11:31)
[2017-07-27] MEDS: LISINOPRIL 20 MG TABLET (FP) PO SCH (11:31)
[2017-07-27] MEDS: PANTOPRAZOLE 40 MG TABLET (FP) PO SCH (11:31)
--- NOTE | 2017-07-27 13:19 | PN ---
Progress Note, Physician History of Present Illness: patient stable no new issues patient got debridement of the toe and soft tissue no complaints - Current Medication List Current Medications: Active Medications Vancomycin HCl (Vancomycin 1 Gm Premix -) 1 gm in 200 mls @ 133.333 mls/hr IVPB BID@0300,1500 [facility]; Protocol Last Admin: 07/27/17 02:03 Dose: 133.333 mls/hr Piperacillin Sod/Tazobactam (Sod 3.375 gm/ Dextrose) 50 mls @ 100 mls/hr IVPB Q8H-IV [facility]; Protocol Last Admin: 07/27/17 11:31 Dose: 100 mls/hr Insulin Aspart (Novolog Vial Sliding Scale -) 1 vial SQ ACHS [facility]; Protocol Last Admin: 07/27/17 06:34 Dose: 2 units Lisinopril (Prinivil) 20 mg PO DAILY [facility] Last Admin: 07/27/17 11:31 Dose: 20 mg Metformin HCl (Glucophage -) 850 mg PO BIDAC [facility] Last Admin: 07/27/17 06:33 Dose: 850 mg Metoprolol Succinate (Toprol Xl -) 25 mg PO DAILY [facility] Last Admin: 07/27/17 11:31 Dose: 25 mg Pantoprazole Sodium (Protonix -) 40 mg PO DAILY [facility] Last Admin: 07/27/17 11:31 Dose: 40 mg - Objective Vital Signs: Vital Signs Temperature 98 F 07/27/17 11:40 Pulse Rate 72 07/27/17 11:40 Respiratory Rate 18 07/27/17 11:40 Blood Pressure 119/92 07/27/17 11:40 O2 Sat by Pulse Oximetry (%) 96 07/26/17 21:00 Constitutional: Yes: No Distress, Calm Cardiovascular: Yes: Regular Rate and Rhythm Respiratory: Yes: Regular, CTA Bilaterally Musculoskeletal: Yes: WNL Extremities: Yes: Other Wound/Incision: Yes: Dressing Dry and Intact Neurological: Yes: Alert, Oriented Psychiatric: Yes: Alert, Oriented Labs: CBC, BMP 07/27/17 06:00 07/27/17 06:00 INR, PTT INR 1.02 (0.82-1.09) 07/21/17 21:36 Assessment/Plan Problem List - Problems (1) Diabetic foot Code(s): E11.8 - TYPE 2 DIABETES MELLITUS WITH UNSPECIFIED COMPLICATIONS (2) AVERY (acute kidney injury) Code(s): N17.9 - ACUTE KIDNEY FAILURE, UNSPECIFIED (3) Diabetes Code(s): E11.9 - TYPE 2 DIABETES MELLITUS WITHOUT COMPLICATIONS Qualifiers: Diabetes mellitus type: type 2 Diabetes mellitus salvage determiner insulin use: without detention use Diabetes mellitus complication status: without complication Qualified Code(s): E11.9 - Type 2 diabetes mellitus without complications (4) HTN (hypertension) Code(s): I10 - ESSENTIAL (PRIMARY) HYPERTENSION 5 osteo of the left foot 6 gm positive bacteremia 7 wound infection with multiple organisms all cx reports noted wiht organisms plan continue current mgmt await for all cx reports will d/w podiatry rest as per the team
--- NOTE | 2017-07-27 13:44 | PN ---
Progress Note (short form) - Note Progress Note: Patient seen in bed. Alert and oriented. POD#1 vss Tmax 98.0 dressing clean dry and intact -drainage, normal post op Dressing to be changed tomorrow. Will follow till dc.
--- NOTE | 2017-07-27 15:28 | PATH ---
Surgical Pathology Report Patient Name: TASHA CHAVEZ [facility]. Rec. #: [id number] /Age/Gender: 1950 (Age: 67) / M Account: [id number] Location: [facility] MED/SURG Taken: 07/26/2017 Received: 07/26/2017 Reported: 07/27/2017 Physicians: WHIT Caban M.D. Specimen(s) Received A: DISTAL BONE LEFT THIRD TOE B: PROXIMAL BONE LEFT THIRD TOE Clinical History Osteomyelitis third toe left foot Final Diagnosis A. DISTAL BONE LEFT THIRD TOE, AMPUTATION: AMPUTATED TOE WITH SEVERE ACUTE AND CHRONIC INFLAMMATION AND ABSCESS FORMATION. BONE WITH ACUTE OSTEOMYELITIS. THE INFLAMMATION EXTENDS TO THE SOFT TISSUE AND SKIN MARGIN. B. LEFT THIRD TOE, PROXIMAL BONE: PORTION OF BONE, NEGATIVE FOR OSTEOMYELITIS. Electronically Signed Fide Avery M.D. Gross Description A. Received in formalin labeled "distal bone third left toe," is a 3.0 x 2.3 x 2.1 cm toe amputation. The epidermal surface displays a 2.3 x 1.4 cm gangrenous lesion extending to and involving the underlying bone. The lesion possibly involves the skin and soft tissue margin. Draw Bench Operator Helper sections are submitted in 2 cassettes as follows: 1-lesion with underlying bone, following decalcification; 2-skin, soft tissue and bone margin, following decalcification. B. Received in formalin labeled "proximal bone left third toe," is a 2.7 x 1.6 x 1.3 cm portion of bone with smooth articular cartilage at one end. The opposing end displays smooth trabecular bone. Draw Bench Operator Helper sections are submitted in 2 cassettes as follows: 1-margin with articular cartilage, following decalcification; 2-margin with trabecular bone, following decalcification. /07/26/2017 saudi/07/26/2017
[2017-07-27] MEDS ORDERED: PT OWN MED DRAWER 7, Y5N ONE ×2 (17:21→20:41)
[2017-07-27] MEDS ORDERED: INSULIN (NOVOLOG) ASPART 100 UNITS/ML 10ML VIAL ONE (17:48)
--- NOTE | 2017-07-27 19:53 | PN ---
Progress Note, Physician - Current Medication List Current Medications: Active Medications Vancomycin HCl (Vancomycin 1 Gm Premix -) 1 gm in 200 mls @ 133.333 mls/hr IVPB BID@0300,1500 [facility]; Protocol Last Admin: 07/27/17 15:59 Dose: 133.333 mls/hr Piperacillin Sod/Tazobactam (Sod 3.375 gm/ Dextrose) 50 mls @ 100 mls/hr IVPB Q8H-IV [facility]; Protocol Last Admin: 07/27/17 17:25 Dose: 100 mls/hr Insulin Aspart (Novolog Vial Sliding Scale -) 1 vial SQ ACHS [facility]; Protocol Last Admin: 07/27/17 17:49 Dose: 2 units Lisinopril (Prinivil) 20 mg PO DAILY [facility] Last Admin: 07/27/17 11:31 Dose: 20 mg Metformin HCl (Glucophage -) 850 mg PO BIDAC [facility] Last Admin: 07/27/17 17:25 Dose: 850 mg Metoprolol Succinate (Toprol Xl -) 25 mg PO DAILY [facility] Last Admin: 07/27/17 11:31 Dose: 25 mg Pantoprazole Sodium (Protonix -) 40 mg PO DAILY [facility] Last Admin: 07/27/17 11:31 Dose: 40 mg - Objective Vital Signs: Vital Signs Temperature 98.4 F 07/27/17 16:59 Pulse Rate 71 07/27/17 16:59 Respiratory Rate 20 07/27/17 16:59 Blood Pressure 105/62 07/27/17 16:59 O2 Sat by Pulse Oximetry (%) 96 07/26/17 21:00 Labs: CBC, BMP 07/27/17 06:00 07/27/17 06:00 INR, PTT INR 1.02 (0.82-1.09) 07/21/17 21:36 Problem List - Problems (1) Diabetic foot Code(s): E11.8 - TYPE 2 DIABETES MELLITUS WITH UNSPECIFIED COMPLICATIONS (2) Diabetes Code(s): E11.9 - TYPE 2 DIABETES MELLITUS WITHOUT COMPLICATIONS Qualifiers: Diabetes mellitus type: type 2 Diabetes mellitus local intermodal truck driver insulin use: without local intermodal truck driver use Diabetes mellitus complication status: without complication Qualified Code(s): E11.9 - Type 2 diabetes mellitus without complications (3) HTN (hypertension) Code(s): I10 - ESSENTIAL (PRIMARY) HYPERTENSION (4) AVERY (acute kidney injury) Code(s): N17.9 - ACUTE KIDNEY FAILURE, UNSPECIFIED
[2017-07-28] MEDS ORDERED: PIPERACILLIN/TAZOBACTAM 3.375 GM VIAL IVPB ONE ×3 (01:16→18:18)
[2017-07-28] MEDS ORDERED: DEXTROSE 5%-WATER - 50 ML IVPB ONE ×3 (01:17→18:18)
[2017-07-28] MEDS: PIPERACILLIN/TAZOB 3.375 GM 3.375 GM in DEXTROSE 5%-WATER - 50 ML IVPB SCH ×3 (01:25→18:35)
[2017-07-28] MEDS: VANCOMYCIN 1 GM PREMIX - 1 GM/200 ML BAG IVPB SCH ×2 (02:00→14:19)
[2017-07-28] MEDS: INSULIN SLIDING SCALE (NOVOLOG) 1 VIAL SQ SCH ×4 (06:26→22:23)
[2017-07-28] MEDS: PANTOPRAZOLE 40 MG TABLET (FP) PO SCH (10:30)
[2017-07-28] MEDS: metoPROLOL SUCCINATE 25 MG TAB.SR.24H (FP) PO SCH (10:30)
[2017-07-28] MEDS: LISINOPRIL 20 MG TABLET (FP) PO SCH (10:30)
--- NOTE | 2017-07-28 12:15 | PN ---
Progress Note (short form) - Note Progress Note: Patient seen in bed. Alert and oriented. POD#2 No pain. vss Tmax 97.7 vsgi, +packing in place, +retention sutures in place, -drainage, -cellulitis, - mal odor, normal post op Packing pulled. Reviewed Wound cultures. ID on case. Will follow. Anticipate DC on Sunday iif abx are in place and patient can follow up in wound care on Sunday.
--- NOTE | 2017-07-28 12:51 | PN ---
Physical Exam: SUBJECTIVE: Patient seen and examined. He has no complaints. OBJECTIVE: Vital Signs Period Temp Pulse Resp BP Sys/Bustillos Pulse Ox Last 24 Hr 97.7 F-98.8 F 65-86 14-20 105-161/55-89 95-96 GENERAL: The patient is awake, alert, and fully oriented, in no acute distress. LUNGS: Breath sounds equal, clear to auscultation bilaterally, no wheezes, no crackles, no accessory muscle use. HEART: Regular rate and rhythm, S1, S2 without murmur, rub or gallop. ABDOMEN: Obese, soft, nontender, nondistended, normoactive bowel sounds, no guarding, no rebound, no hepatosplenomegaly, no masses. EXTREMITIES: 2+ pulses, warm, well-perfused, no edema. Left foot wrapped. Laboratory Results - last 24 hr 07/27/17 07/27/17 07/27/17 13:09 17:37 21:11 POC Glucometer 151 173 211 07/28/17 07/28/17 06:24 11:16 POC Glucometer 169 146 Active Medications Generic Name Dose Route Start Last Admin Trade Name Freq PRN Reason Stop Dose Admin Vancomycin HCl 1 gm in 200 mls @ 133.333 mls/hr 07/26/17 15:00 07/28/17 02:00 Vancomycin 1 Gm Premix - IVPB 133.333 mls/hr BID@0300,1500 [facility] Administration Protocol Piperacillin Sod/Tazobactam 50 mls @ 100 mls/hr 07/26/17 14:00 07/28/17 10:30 Sod 3.375 gm/ Dextrose IVPB 100 mls/hr Q8H-IV [facility] Administration Protocol Insulin Aspart 1 vial 07/26/17 11:00 07/28/17 11:47 Novolog Vial Sliding Scale - SQ Not Given ACHS [facility] Protocol Lisinopril 20 mg 07/26/17 10:00 07/28/17 10:30 Prinivil PO 20 mg DAILY [facility] Administration Metformin HCl 850 mg 07/26/17 16:30 07/28/17 06:25 Glucophage - PO 850 mg BIDAC M[facility] Administration Metoprolol Succinate 25 mg 07/26/17 10:00 07/28/17 10:30 Toprol Xl - PO 25 mg DAILY [facility] Administration Pantoprazole Sodium 40 mg 07/26/17 10:00 07/28/17 10:30 Protonix - PO 40 mg DAILY [facility] Administration ASSESSMENT/PLAN: 1. Osteomyelitis of left 3rd toe - On Zosyn, Vancomycin - s/p debridement of bone and soft tissue 07/26 - Culture growing multiple organisms - ID follow up for choice and duration of antibiotics 2. Type 2 DM - Continue metformin, Novolog sliding scale 3. HTN - Continue lisinopril, Toprol XL 4. Stage 3 CKD Visit type - Emergency Visit Emergency Visit: Yes ED Registration Date: 07/21/17 Care time: The patient presented to the Emergency Department on the above date and was hospitalized for further evaluation of their emergent condition. - New Patient This patient is new to me today: Yes Date on this admission: 07/28/17 - Critical Care Critical Care patient: No - Discharge Referral Referred to [facility] No
[2017-07-28 14:10] VITALS: BMI 37.7
--- NOTE | 2017-07-28 14:58 | PN ---
Progress Note, Physician History of Present Illness: Pt seen and examined. Chart reviewed, events noted. Pt currently is comfortable , denies pain. Afebrile, without specific complaints. - Current Medication List Current Medications: Active Medications Vancomycin HCl (Vancomycin 1 Gm Premix -) 1 gm in 200 mls @ 133.333 mls/hr IVPB BID@0300,1500 [facility]; Protocol Last Admin: 07/28/17 14:19 Dose: 133.333 mls/hr Piperacillin Sod/Tazobactam (Sod 3.375 gm/ Dextrose) 50 mls @ 100 mls/hr IVPB Q8H-IV [facility]; Protocol Last Admin: 07/28/17 10:30 Dose: 100 mls/hr Insulin Aspart (Novolog Vial Sliding Scale -) 1 vial SQ ACHS [facility]; Protocol Last Admin: 07/28/17 11:47 Dose: Not Given Lisinopril (Prinivil) 20 mg PO DAILY [facility] Last Admin: 07/28/17 10:30 Dose: 20 mg Metformin HCl (Glucophage -) 850 mg PO BIDAC [facility] Last Admin: 07/28/17 06:25 Dose: 850 mg Metoprolol Succinate (Toprol Xl -) 25 mg PO DAILY [facility] Last Admin: 07/28/17 10:30 Dose: 25 mg Pantoprazole Sodium (Protonix -) 40 mg PO DAILY [facility] Last Admin: 07/28/17 10:30 Dose: 40 mg - Objective Vital Signs: Vital Signs Temperature 98.6 F 07/28/17 10:00 Pulse Rate 86 07/28/17 10:00 Respiratory Rate 20 07/28/17 10:00 Blood Pressure 161/89 07/28/17 10:00 O2 Sat by Pulse Oximetry (%) 95 07/28/17 10:00 Constitutional: Yes: No Distress, Calm Cardiovascular: Yes: Regular Rate and Rhythm Respiratory: Yes: CTA Bilaterally Gastrointestinal: Yes: Normal Bowel Sounds, Soft Wound/Incision: Yes: Dressing Dry and Intact (left foot) Labs: CBC, BMP 07/27/17 06:00 07/27/17 06:00 INR, PTT INR 1.02 (0.82-1.09) 07/21/17 21:36 Microbiology 07/26/17 09:30 Foot - Left Gram Stain - Final 07/26/17 09:30 Foot - Left Wound Culture - Preliminary Staphylococcus Aureus Enterococcus Faecalis Strep Agalactiae Group B Citrobacter Freundii Complex Pseudomonas Aeruginosa Lactose Fermenting Neg Bacilli 07/26/17 09:30 Foot - Left Gram Stain - Final 07/26/17 09:30 Foot - Left Wound Culture - Final Staphylococcus Aureus Group D Strep Or Entero Coccus Beta Hemolytic Strep 07/24/17 06:00 Blood - Peripheral Venous Blood Culture - Preliminary NO GROWTH OBTAINED AFTER 96 HOURS, INCUBATION TO CONTINUE FOR 1 DAYS. 07/24/17 06:00 Blood - Peripheral Venous Blood Culture - Preliminary NO GROWTH OBTAINED AFTER 96 HOURS, INCUBATION TO CONTINUE FOR 1 DAYS. 07/22/17 00:20 Foot - Left Gram Stain - Final 07/22/17 00:20 Foot - Left Wound Culture - Final Strep Agalactiae Group B Enterococcus Faecalis Staphylococcus Aureus Citrobacter Freundii Complex Pseudomonas Aeruginosa Prevotella Melaninogenica 07/21/17 21:36 Blood - Peripheral Venous Blood Culture - Final S Aureus 07/21/17 21:36 Blood - Peripheral Venous Blood Culture - Preliminary Staphylococcus Latex Coag Pos Problem List - Problems (1) Diabetic foot Code(s): E11.8 - TYPE 2 DIABETES MELLITUS WITH UNSPECIFIED COMPLICATIONS (2) Toe infection Code(s): L08.9 - LOCAL INFECTION OF THE SKIN AND SUBCUTANEOUS TISSUE, UNSP (3) Diabetes mellitus with renal manifestation Code(s): E11.29 - TYPE 2 DIABETES MELLITUS W OTH DIABETIC KIDNEY COMPLICATION Qualifiers: Diabetes mellitus type: type 2 Diabetes mellitus complication detail: with chronic kidney disease Chronic kidney disease stage: stage 3 (moderate) Assessment/Plan 67 y.o. male with DM, CKD with Lt diabetic foot infection/Lt foot infection MRSA Bacteremia Lt foot OM Infected Lt 3rd toe wound s/p debridement CKD DM -- Vancomycin Trough level ordered -- monitor renal function -- all culture results reviewed, polymicrobial wound infection -- latest blood cultures negative -- continue Zosyn, Vancomycin
[2017-07-28] MEDS ORDERED: PT OWN MED DRAWER 7, Y5N ONE (18:18)
[2017-07-29] MEDS ORDERED: DEXTROSE 5%-WATER - 50 ML IVPB ONE ×3 (01:10→18:00)
[2017-07-29] MEDS ORDERED: PIPERACILLIN/TAZOBACTAM 3.375 GM VIAL IVPB ONE ×3 (01:10→18:00)
[2017-07-29] MEDS: PIPERACILLIN/TAZOB 3.375 GM 3.375 GM in DEXTROSE 5%-WATER - 50 ML IVPB SCH ×3 (01:36→18:42)
[2017-07-29] MEDS: VANCOMYCIN 1 GM PREMIX - 1 GM/200 ML BAG IVPB SCH ×2 (02:13→16:21)
[2017-07-29] MEDS: INSULIN SLIDING SCALE (NOVOLOG) 1 VIAL SQ SCH ×4 (06:13→22:05)
[2017-07-29 08:25] LABS: ANION GAP 5 (8-16); BLOOD UREA NITROGEN 30 mg/dL (7-18); CHLORIDE 103 mmol/L (98-107); CO2 28 mmol/L (21-32); CREATININE 1.6 mg/dL (0.7-1.3); GLUCOSE,RANDOM 184 mg/dL (74-106); POTASSIUM 4.8 mmol/L (3.5-5.1); SODIUM 136 mmol/L (136-145)
[2017-07-29] MEDS: metoPROLOL SUCCINATE 25 MG TAB.SR.24H (FP) PO SCH (10:46)
[2017-07-29] MEDS: LISINOPRIL 20 MG TABLET (FP) PO SCH (10:46)
[2017-07-29] MEDS: PANTOPRAZOLE 40 MG TABLET (FP) PO SCH (10:46)
--- NOTE | 2017-07-29 13:26 | PN ---
Progress Note, Physician History of Present Illness: Pt is alert, without new complaints. Remains afebrile. Tolerating antibiotics. - Current Medication List Current Medications: Active Medications Vancomycin HCl (Vancomycin 1 Gm Premix -) 1 gm in 200 mls @ 133.333 mls/hr IVPB BID@0300,1500 [facility]; Protocol Last Admin: 07/29/17 02:13 Dose: 133.333 mls/hr Piperacillin Sod/Tazobactam (Sod 3.375 gm/ Dextrose) 50 mls @ 100 mls/hr IVPB Q8H-IV [facility]; Protocol Last Admin: 07/29/17 10:46 Dose: 100 mls/hr Insulin Aspart (Novolog Vial Sliding Scale -) 1 vial SQ ACHS [facility]; Protocol Last Admin: 07/29/17 06:13 Dose: 2 units Lisinopril (Prinivil) 20 mg PO DAILY [facility] Last Admin: 07/29/17 10:46 Dose: 20 mg Metformin HCl (Glucophage -) 850 mg PO BIDAC [facility] Last Admin: 07/29/17 06:13 Dose: 850 mg Metoprolol Succinate (Toprol Xl -) 25 mg PO DAILY [facility] Last Admin: 07/29/17 10:46 Dose: 25 mg Pantoprazole Sodium (Protonix -) 40 mg PO DAILY [facility] Last Admin: 07/29/17 10:46 Dose: 40 mg - Objective Vital Signs: Vital Signs Temperature 98.5 F 07/29/17 10:00 Pulse Rate 72 07/29/17 10:00 Respiratory Rate 18 07/29/17 10:00 Blood Pressure 160/81 07/29/17 10:00 O2 Sat by Pulse Oximetry (%) 95 07/28/17 21:00 Constitutional: Yes: No Distress, Calm Cardiovascular: Yes: Regular Rate and Rhythm Respiratory: Yes: Regular Gastrointestinal: Yes: Normal Bowel Sounds, Soft Wound/Incision: Yes: Dressing Dry and Intact (Left foot dressing intact, no tenderness) Neurological: Yes: Alert Labs: CBC, BMP 07/27/17 06:00 07/29/17 06:00 INR, PTT INR 1.02 (0.82-1.09) 07/21/17 21:36 VANCOMYCIN LEVEL - 37 (NOT ACCURATE - DRAWN WHILE VANCOMYCIN WAS BEING ADMINISTERED) Repeat Vancomycin Trough level ordered Problem List - Problems (1) Diabetic foot Code(s): E11.8 - TYPE 2 DIABETES MELLITUS WITH UNSPECIFIED COMPLICATIONS (2) Toe infection Code(s): L08.9 - LOCAL INFECTION OF THE SKIN AND SUBCUTANEOUS TISSUE, UNSP (3) Diabetes mellitus with renal manifestation Code(s): E11.29 - TYPE 2 DIABETES MELLITUS W OTH DIABETIC KIDNEY COMPLICATION Qualifiers: Diabetes mellitus type: type 2 Diabetes mellitus complication detail: with chronic kidney disease Chronic kidney disease stage: stage 3 (moderate) Assessment/Plan 67 y.o. male with DM, CKD with Lt diabetic foot infection MRSA Bacteremia Lt foot OM Infected Lt 3rd toe wound s/p debridement - polymicrobial infection CKD DM -- Vancomycin level from yesterday was drawn while Vancomycin was being given -- repeat Vancomycin Trough ordered - f/u and adjust dose if necessary (goal level: 15-20) -- monitor renal function -- latest blood cultures negative -- continue Zosyn, Vancomycin
--- NOTE | 2017-07-29 15:16 | PN ---
Physical Exam: SUBJECTIVE: Patient seen and examined. He has no complaints. OBJECTIVE: Vital Signs Period Temp Pulse Resp BP Sys/Bustillos Pulse Ox Last 24 Hr 97.6 F-98.5 F 64-72 18-18 111-160/64-84 95 GENERAL: The patient is awake, alert, and fully oriented, in no acute distress. LUNGS: Breath sounds equal, clear to auscultation bilaterally, no wheezes, no crackles, no accessory muscle use. HEART: Regular rate and rhythm, S1, S2 without murmur, rub or gallop. ABDOMEN: Obese, soft, nontender, nondistended, normoactive bowel sounds, no guarding, no rebound, no hepatosplenomegaly, no masses. EXTREMITIES: 2+ pulses, warm, well-perfused, no edema. Left foot wrapped. Laboratory Results - last 24 hr 07/28/17 07/28/17 07/28/17 15:00 17:48 22:21 Sodium Potassium Chloride Carbon Dioxide Anion Gap BUN Creatinine Creat Clearance w eGFR POC Glucometer 166 173 Random Glucose Calcium Vancomycin Pre-Dose 34.71 H* D 07/29/17 07/29/17 07/29/17 05:59 06:00 13:54 Sodium 136 Potassium 4.8 Chloride 103 Carbon Dioxide 28 Anion Gap 5 L BUN 30 H Creatinine 1.6 H Creat Clearance w eGFR 43.33 POC Glucometer 179 179 Random Glucose 184 H D Calcium 8.0 L Vancomycin Pre-Dose Active Medications Generic Name Dose Route Start Last Admin Trade Name Freq PRN Reason Stop Dose Admin Vancomycin HCl 1 gm in 200 mls @ 133.333 mls/hr 07/26/17 15:00 07/29/17 02:13 Vancomycin 1 Gm Premix - IVPB 133.333 mls/hr BID@0300,1500 MELVINA Administration Protocol Piperacillin Sod/Tazobactam 50 mls @ 100 mls/hr 07/26/17 14:00 07/29/17 10:46 Sod 3.375 gm/ Dextrose IVPB 100 mls/hr Q8H-IV [facility] Administration Protocol Insulin Aspart 1 vial 07/26/17 11:00 07/29/17 06:13 Novolog Vial Sliding Scale - SQ 2 units ACHS MELVINA Administration Protocol Lisinopril 20 mg 07/26/17 10:00 07/29/17 10:46 Prinivil PO 20 mg DAILY MEL[facility]INA Administration Metformin HCl 850 mg 07/26/17 16:30 07/29/17 06:13 Glucophage - PO 850 mg BIDAC MELVINA Administration Metoprolol Succinate 25 mg 07/26/17 10:00 07/29/17 10:46 Toprol Xl - PO 25 mg DAILY [facility] Administration Pantoprazole Sodium 40 mg 07/26/17 10:00 07/29/17 10:46 Protonix - PO 40 mg DAILY [facility] Administration ASSESSMENT/PLAN: 1. Osteomyelitis of left 3rd toe - Continue Zosyn, Vancomycin - s/p debridement of bone and soft tissue 07/26 - Culture growing multiple organisms 2. Type 2 DM - Continue Novolog sliding scale - Hold metformin secondary to increasing creatinine 3. HTN - Continue Toprol XL - Hold lisinopril secondary to increasing creatinine 4. Stage 3 CKD - BUN, creatinine increasing - Hold metformin, lisinopril - Continue to monitor BUN, creatinine Visit type - Emergency Visit Emergency Visit: Yes ED Registration Date: 07/21/17 Care time: The patient presented to the Emergency Department on the above date and was hospitalized for further evaluation of their emergent condition. - New Patient This patient is new to me today: No - Critical Care Critical Care patient: No - Discharge Referral [facility]erred [facility] No
[2017-07-30] MEDS ORDERED: PIPERACILLIN/TAZOBACTAM 3.375 GM VIAL IVPB ONE ×4 (00:54→23:56)
[2017-07-30] MEDS ORDERED: DEXTROSE 5%-WATER - 50 ML IVPB ONE ×4 (00:54→23:57)
[2017-07-30] MEDS: PIPERACILLIN/TAZOB 3.375 GM 3.375 GM in DEXTROSE 5%-WATER - 50 ML IVPB SCH ×3 (01:02→18:02)
[2017-07-30] MEDS: VANCOMYCIN 1 GM PREMIX - 1 GM/200 ML BAG IVPB SCH ×2 (03:10→16:00)
[2017-07-30] MEDS: INSULIN SLIDING SCALE (NOVOLOG) 1 VIAL SQ SCH ×4 (06:09→22:56)
[2017-07-30 06:51] LABS: CHLORIDE 104 mmol/L (98-107); POTASSIUM 4.5 mmol/L (3.5-5.1); SODIUM 139 mmol/L (136-145)
[2017-07-30 06:57] LABS: ANION GAP 6 (8-16); BLOOD UREA NITROGEN 32 mg/dL (7-18); CALCIUM 8.1 mg/dL (8.5-10.1); CO2 29 mmol/L (21-32); CREATININE 1.6 mg/dL (0.7-1.3); GLUCOSE,RANDOM 173 mg/dL (74-106)
--- NOTE | 2017-07-30 09:20 | PN ---
Progress Note (short form) - Note Progress Note: Patient seen in bed. Alert and oriented. POD#4 No pain. vss Tmax 97.7 vsgi, +retention sutures in place, -drainage, -cellulitis, -mal odor, normal post op Will follow. Anticipate DC Today. iif abx are in place and patient can follow up in wound care on Sunday. Post op shoe left. Can go home with betadine dressing not to be removed till next voisit in wound care.
[2017-07-30] MEDS: PANTOPRAZOLE 40 MG TABLET (FP) PO SCH (10:15)
[2017-07-30] MEDS: metoPROLOL SUCCINATE 25 MG TAB.SR.24H (FP) PO SCH (10:15)
--- NOTE | 2017-07-30 10:51 | PN ---
Progress Note, Physician History of Present Illness: no new issues patient stable - Current Medication List Current Medications: Active Medications Vancomycin HCl (Vancomycin 1 Gm Premix -) 1 gm in 200 mls @ 133.333 mls/hr IVPB BID@0300,1500 [facility]; Protocol Last Admin: 07/30/17 03:10 Dose: 133.333 mls/hr Piperacillin Sod/Tazobactam (Sod 3.375 gm/ Dextrose) 50 mls @ 100 mls/hr IVPB Q8H-IV [facility]; Protocol Last Admin: 07/30/17 10:15 Dose: 100 mls/hr Insulin Aspart (Novolog Vial Sliding Scale -) 1 vial SQ ACHS [facility]; Protocol Last Admin: 07/30/17 06:09 Dose: 2 units Metoprolol Succinate (Toprol Xl -) 25 mg PO DAILY [facility] Last Admin: 07/30/17 10:15 Dose: 25 mg Pantoprazole Sodium (Protonix -) 40 mg PO DAILY [facility] Last Admin: 07/30/17 10:15 Dose: 40 mg - Objective Vital Signs: Vital Signs Temperature 98.2 F 07/30/17 10:21 Pulse Rate 70 07/30/17 10:21 Respiratory Rate 18 07/30/17 10:21 Blood Pressure 160/87 07/30/17 10:21 O2 Sat by Pulse Oximetry (%) 96 07/29/17 21:00 Constitutional: Yes: No Distress, Calm Cardiovascular: Yes: Regular Rate and Rhythm Respiratory: Yes: Regular, CTA Bilaterally Gastrointestinal: Yes: Normal Bowel Sounds, Soft Musculoskeletal: Yes: WNL Extremities: Yes: Other Wound/Incision: Yes: Dressing Dry and Intact Neurological: Yes: Alert, Oriented Labs: CBC, BMP 07/27/17 06:00 07/30/17 06:00 INR, PTT INR 1.02 (0.82-1.09) 07/21/17 21:36 Assessment/Plan Problem List - Problems (1) Diabetic foot Code(s): E11.8 - TYPE 2 DIABETES MELLITUS WITH UNSPECIFIED COMPLICATIONS (2) AVERY (acute kidney injury) Code(s): N17.9 - ACUTE KIDNEY FAILURE, UNSPECIFIED (3) Diabetes Code(s): E11.9 - TYPE 2 DIABETES MELLITUS WITHOUT COMPLICATIONS Qualifiers: Diabetes mellitus type: type 2 Diabetes mellitus joint terminal attack controller insulin use: without retirement use Diabetes mellitus complication status: without complication Qualified Code(s): E11.9 - Type 2 diabetes mellitus without complications (4) HTN (hypertension) Code(s): I10 - ESSENTIAL (PRIMARY) HYPERTENSION 5 osteo of the left foot 6 gm positive bacteremia 7 wound infection with multiple organisms all cx reports noted wiht organisms plan will discuss with podiatry patient will need abx total of 4 to -6 weeks wound care margins positive will treat as osteo follow vanco trough rest continue current mgmt
--- NOTE | 2017-07-30 16:08 | PN ---
Physical Exam: SUBJECTIVE: Patient seen and examined. No acute complaints. OBJECTIVE: Vital Signs Period Temp Pulse Resp BP Sys/Bustillos Pulse Ox Last 24 Hr 97.7 F-98.8 F 59-70 18-20 120-160/59-87 96-98 PE Neuro: alert awake cn 2-12intact Pulm: CTAB CV: s1 s2 rrr no mrg Abd: s nt nd + bs Ext: left foot wound dressing CDI Laboratory Results - last 24 hr 07/29/17 07/29/17 07/30/17 17:45 21:41 06:00 Sodium 139 Potassium 4.5 Chloride 104 Carbon Dioxide 29 Anion Gap 6 L BUN 32 H Creatinine 1.6 H Creat Clearance w eGFR 43.33 POC Glucometer 197 189 Random Glucose 173 H Calcium 8.1 L 07/30/17 07/30/17 06:07 10:55 Sodium Potassium Chloride Carbon Dioxide Anion Gap BUN Creatinine Creat Clearance w eGFR POC Glucometer 167 233 Random Glucose Calcium Active Medications Generic Name Dose Route Start Last Admin Trade Name Freq PRN Reason Stop Dose Admin Vancomycin HCl 1 gm in 200 mls @ 133.333 mls/hr 07/26/17 15:00 07/30/17 03:10 Vancomycin 1 Gm Premix - IVPB 133.333 mls/hr BID@0300,1500 [facility] Administration Protocol Piperacillin Sod/Tazobactam 50 mls @ 100 mls/hr 07/26/17 14:00 07/30/17 10:15 Sod 3.375 gm/ Dextrose IVPB 100 mls/hr Q8H-IV [facility] Administration Protocol Insulin Aspart 1 vial 07/26/17 11:00 07/30/17 10:58 Novolog Vial Sliding Scale - SQ 4 units ACHS [facility] Administration Protocol Metoprolol Succinate 25 mg 07/26/17 10:00 07/30/17 10:15 Toprol Xl - PO 25 mg DAILY [facility] Administration Pantoprazole Sodium 40 mg 07/26/17 10:00 07/30/17 10:15 Protonix - PO 40 mg DAILY [facility] Administration Assessment: 67 year old male with PMH significant for history of HTN, HLD, DM. 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 1. Osteomyelitis of left 3rd toe - Continue Zosyn, Vancomycin - s/p debridement of bone and soft tissue 07/26 - Culture growing multiple organisms - Will need abx 4-6 weeks - Outpt abx home infusions plan in process 2. Type 2 DM - Continue Novolog sliding scale - Hold metformin secondary to increasing creatinine 3. HTN - Continue Toprol XL - Hold lisinopril, monitor cr 4. Stage 3 CKD - Cr stable today, has been higher in past - Start 1L gentle fluids, eval in am - UA noted - Hold metformin, lisinopril - Continue to monitor BUN, creatinine Visit type - Emergency Visit Emergency Visit: Yes ED Registration Date: 07/21/17 Care time: The patient presented to the Emergency Department on the above date and was hospitalized for further evaluation of their emergent condition. - New Patient This patient is new to me today: Yes Date on this admission: 07/30/17 - Critical Care Critical Care patient: No
[2017-07-30] MEDS ORDERED: SODIUM CHLORIDE 0.45% 1,000 ML IV SCH (16:15)
[2017-07-31] MEDS: PIPERACILLIN/TAZOB 3.375 GM 3.375 GM in DEXTROSE 5%-WATER - 50 ML IVPB SCH ×3 (01:00→18:52)
[2017-07-31] MEDS: VANCOMYCIN 1 GM PREMIX - 1 GM/200 ML BAG IVPB SCH ×2 (02:17→15:38)
[2017-07-31] MEDS: INSULIN SLIDING SCALE (NOVOLOG) 1 VIAL SQ SCH ×4 (06:22→21:39)
[2017-07-31 08:01] LABS: ANION GAP 6 (8-16); BLOOD UREA NITROGEN 25 mg/dL (7-18); CALCIUM 8.3 mg/dL (8.5-10.1); CHLORIDE 102 mmol/L (98-107); CO2 28 mmol/L (21-32); CREATININE 1.4 mg/dL (0.7-1.3); GLUCOSE,RANDOM 212 mg/dL (74-106); POTASSIUM 5.1 mmol/L (3.5-5.1); SODIUM 136 mmol/L (136-145)
[2017-07-31] MEDS ORDERED: DEXTROSE 5%-WATER - 50 ML IVPB ONE ×2 (09:18→18:48)
[2017-07-31] MEDS ORDERED: PIPERACILLIN/TAZOBACTAM 3.375 GM VIAL IVPB ONE ×2 (09:18→18:48)
[2017-07-31] MEDS: metoPROLOL SUCCINATE 25 MG TAB.SR.24H (FP) PO SCH (09:20)
[2017-07-31] MEDS: PANTOPRAZOLE 40 MG TABLET (FP) PO SCH (09:20)
--- NOTE | 2017-07-31 10:10 | PN ---
Progress Note (short form) - Note Progress Note: Patient seen in bed. Alert and oriented. POD#5 No pain. vss Tmax 98.4 vsgi, +retention sutures in place, -drainage, -cellulitis, -mal odor, normal post op Will follow. If abx are in place and patient can follow up in wound care next Sunday. Post op shoe left. Betadine dressing changes till dc daily.
--- NOTE | 2017-07-31 14:52 | PN ---
Progress Note, Physician History of Present Illness: patient stable no new issues - Current Medication List Current Medications: Active Medications Vancomycin HCl (Vancomycin 1 Gm Premix -) 1 gm in 200 mls @ 133.333 mls/hr IVPB BID@0300,1500 [facility]; Protocol Last Admin: 07/31/17 02:17 Dose: 133.333 mls/hr Piperacillin Sod/Tazobactam (Sod 3.375 gm/ Dextrose) 50 mls @ 100 mls/hr IVPB Q8H-IV [facility]; Protocol Last Admin: 07/31/17 09:19 Dose: 100 mls/hr Sodium Chloride (1/2 Normal Saline) 1,000 mls @ 42 mls/hr IV ASDIR MELVINA Stop: 07/31/17 16:04 Last Admin: 07/30/17 17:53 Dose: 42 mls/hr Insulin Aspart (Novolog Vial Sliding Scale -) 1 vial SQ ACHS [facility]; Protocol Last Admin: 07/31/17 12:07 Dose: 4 units Metoprolol Succinate (Toprol Xl -) 25 mg PO DAILY [facility] Last Admin: 07/31/17 09:20 Dose: 25 mg Pantoprazole Sodium (Protonix -) 40 mg PO DAILY [facility] Last Admin: 07/31/17 09:20 Dose: 40 mg - Objective Vital Signs: Vital Signs Temperature 98.2 F 07/31/17 14:00 Pulse Rate 69 07/31/17 14:00 Respiratory Rate 18 07/31/17 14:00 Blood Pressure 128/78 07/31/17 14:00 O2 Sat by Pulse Oximetry (%) 96 07/31/17 09:00 Constitutional: Yes: No Distress, Calm Cardiovascular: Yes: Regular Rate and Rhythm Respiratory: Yes: Regular, CTA Bilaterally Gastrointestinal: Yes: Normal Bowel Sounds, Soft Musculoskeletal: Yes: WNL Extremities: Yes: Other Wound/Incision: Yes: Dressing Dry and Intact Neurological: Yes: Alert, Oriented Psychiatric: Yes: Alert, Oriented Labs: CBC, BMP 07/27/17 06:00 07/31/17 06:00 INR, PTT INR 1.02 (0.82-1.09) 07/21/17 21:36 Assessment/Plan Problem List - Problems (1) Diabetic foot Code(s): E11.8 - TYPE 2 DIABETES MELLITUS WITH UNSPECIFIED COMPLICATIONS (2) AVERY (acute kidney injury) Code(s): N17.9 - ACUTE KIDNEY FAILURE, UNSPECIFIED (3) Diabetes Code(s): E11.9 - TYPE 2 DIABETES MELLITUS WITHOUT COMPLICATIONS Qualifiers: Diabetes mellitus type: type 2 Diabetes mellitus fpc insulin use: without fpc use Diabetes mellitus complication status: without complication Qualified Code(s): E11.9 - Type 2 diabetes mellitus without complications (4) HTN (hypertension) Code(s): I10 - ESSENTIAL (PRIMARY) HYPERTENSION 5 osteo of the left foot 6 gm positive bacteremia 7 wound infection with multiple organisms all cx reports noted wiht organisms plan will discuss with podiatry patient will need abx total of 4 to -6 weeks wound care margins positive will treat as osteo follow vanco trough rest continue current mgmt
[2017-07-31] MEDS ORDERED: INSULIN (NOVOLOG) ASPART 100 UNITS/ML 10ML VIAL ONE (18:48)
--- NOTE | 2017-07-31 21:23 | PN ---
Progress Note, Physician - Current Medication List Current Medications: Active Medications Vancomycin HCl (Vancomycin 1 Gm Premix -) 1 gm in 200 mls @ 133.333 mls/hr IVPB BID@0300,1500 [facility]; Protocol Last Admin: 07/31/17 15:38 Dose: Not Given Piperacillin Sod/Tazobactam (Sod 3.375 gm/ Dextrose) 50 mls @ 100 mls/hr IVPB Q8H-IV [facility]; Protocol Last Admin: 07/31/17 18:52 Dose: 100 mls/hr Insulin Aspart (Novolog Vial Sliding Scale -) 1 vial SQ ACHS [facility]; Protocol Last Admin: 07/31/17 18:52 Dose: 4 units Metoprolol Succinate (Toprol Xl -) 25 mg PO DAILY [facility] Last Admin: 07/31/17 09:20 Dose: 25 mg Pantoprazole Sodium (Protonix -) 40 mg PO DAILY [facility] Last Admin: 07/31/17 09:20 Dose: 40 mg - Objective Vital Signs: Vital Signs Temperature 98.8 F 07/31/17 18:00 Pulse Rate 68 07/31/17 18:00 Respiratory Rate 18 07/31/17 18:00 Blood Pressure 129/80 07/31/17 18:00 O2 Sat by Pulse Oximetry (%) 96 07/31/17 09:00 Labs: CBC, BMP 07/27/17 06:00 07/31/17 06:00 INR, PTT INR 1.02 (0.82-1.09) 07/21/17 21:36 Problem List - Problems (1) Diabetic foot Code(s): E11.8 - TYPE 2 DIABETES MELLITUS WITH UNSPECIFIED COMPLICATIONS (2) Diabetes Code(s): E11.9 - TYPE 2 DIABETES MELLITUS WITHOUT COMPLICATIONS Qualifiers: Diabetes mellitus type: type 2 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
[2017-08-01] MEDS ORDERED: DEXTROSE 5%-WATER - 50 ML IVPB ONE ×3 (01:52→17:39)
[2017-08-01] MEDS ORDERED: PIPERACILLIN/TAZOBACTAM 3.375 GM VIAL IVPB ONE ×3 (01:52→17:38)
[2017-08-01] MEDS: PIPERACILLIN/TAZOB 3.375 GM 3.375 GM in DEXTROSE 5%-WATER - 50 ML IVPB SCH ×3 (02:04→17:51)
[2017-08-01] MEDS ORDERED: VANCOMYCIN 750 MG in DEXTROSE 5%-WATER - 250 ML IVPB ONE (03:00)
[2017-08-01] MEDS: VANCOMYCIN 1 GM PREMIX - 1 GM/200 ML BAG IVPB SCH (04:04)
[2017-08-01] MEDS: INSULIN SLIDING SCALE (NOVOLOG) 1 VIAL SQ SCH ×3 (06:41→17:51)
[2017-08-01] MEDS ORDERED: PT OWN MED DRAWER 7, Y5N ONE ×2 (09:18→09:42)
--- NOTE | 2017-08-01 09:30 | PN ---
Progress Note (short form) - Note Progress Note: Patient seen in bed. Alert and oriented. POD#6 No pain. vss Tmax 97.8 vsgi, +retention sutures in place, -drainage, -cellulitis, -mal odor, normal post op Will follow. Betadine dressing change done. patient can follow up in wound care next Sunday. Post op shoe left. Continue Betadine dressing changes till dc daily. IVABX as per ID.
[2017-08-01] MEDS: metoPROLOL SUCCINATE 25 MG TAB.SR.24H (FP) PO SCH (09:49)
[2017-08-01] MEDS: PANTOPRAZOLE 40 MG TABLET (FP) PO SCH (09:49)
[2017-08-01 10:58] LABS: BASO % 0.7 % (0-2.0); EOS % 2.4 % (0-4.5); HEMATOCRIT 38.6 % (35.4-49); HEMOGLOBIN 13.4 GM/dL (11.7-16.9); LYMPH % 21.1 % (8-40); MCH 30.6 pg (25.7-33.7); MCHC 34.6 g/dl (32.0-35.9); MEAN CELL VOLUME 88.3 fl (80-96); MEAN PLT VOLUME 8.3 fl (7.5-11.1); MONO % 4.9 % (3.8-10.2); NEUT % 70.9 % (42.8-82.8); PLATELET COUNT 197 K/MM3 (134-434); RBC 4.38 M/mm3 (4.00-5.60); RDW 13.3 % (11.9-15.9); WHITE BLOOD COUNT 8.9 K/mm3 (4.0-10.0)
[2017-08-01 11:33] LABS: CHLORIDE 103 mmol/L (98-107); POTASSIUM 4.5 mmol/L (3.5-5.1); SODIUM 136 mmol/L (136-145)
[2017-08-01 11:41] LABS: ALBUMIN 3.1 g/dl (3.4-5.0); ALK PHOS 140 U/L (45-117); ANION GAP 6 (8-16); BILIRUBIN,TOTAL 0.5 mg/dL (0.2-1.0); BLOOD UREA NITROGEN 28 mg/dL (7-18); CO2 27 mmol/L (21-32); CREATININE 1.5 mg/dL (0.7-1.3); GLUCOSE,RANDOM 222 mg/dL (74-106); SGOT/AST 17 U/L (15-37); SGPT/ALT 48 U/L (12-78)
[2017-08-01] MEDS ORDERED: INSULIN (NOVOLOG) ASPART 100 UNITS/ML 10ML VIAL ONE (13:13)
--- NOTE | 2017-08-01 13:37 | PN ---
Progress Note, Physician History of Present Illness: patient stable no new issues all cx report noted - Current Medication List Current Medications: Active Medications Piperacillin Sod/Tazobactam (Sod 3.375 gm/ Dextrose) 50 mls @ 100 mls/hr IVPB Q8H-IV MELVINA; Protocol Last Admin: 08/01/17 09:48 Dose: 100 mls/hr Insulin Aspart (Novolog Vial Sliding Scale -) 1 vial SQ ACHS [facility]; Protocol Last Admin: 08/01/17 13:15 Dose: 2 units Metoprolol Succinate (Toprol Xl -) 25 mg PO DAILY [facility] Last Admin: 08/01/17 09:49 Dose: 25 mg Pantoprazole Sodium (Protonix -) 40 mg PO DAILY [facility] Last Admin: 08/01/17 09:49 Dose: 40 mg - Objective Vital Signs: Vital Signs Temperature 97.8 F 08/01/17 09:00 Pulse Rate 71 08/01/17 09:00 Respiratory Rate 18 08/01/17 09:00 Blood Pressure 153/73 08/01/17 09:00 O2 Sat by Pulse Oximetry (%) 96 07/31/17 09:00 Constitutional: Yes: No Distress, Calm Cardiovascular: Yes: Regular Rate and Rhythm Respiratory: Yes: Regular, CTA Bilaterally Gastrointestinal: Yes: Normal Bowel Sounds, Soft Musculoskeletal: Yes: WNL Extremities: Yes: Other Wound/Incision: Yes: Dressing Dry and Intact Neurological: Yes: Alert, Oriented Psychiatric: Yes: Alert, Oriented Labs: CBC, BMP 08/01/17 10:41 08/01/17 10:41 INR, PTT INR 1.02 (0.82-1.09) 07/21/17 21:36 Assessment/Plan Problem List - Problems (1) Diabetic foot Code(s): E11.8 - TYPE 2 DIABETES MELLITUS WITH UNSPECIFIED COMPLICATIONS (2) AVERY (acute kidney injury) Code(s): N17.9 - ACUTE KIDNEY FAILURE, UNSPECIFIED (3) Diabetes Code(s): E11.9 - TYPE 2 DIABETES MELLITUS WITHOUT COMPLICATIONS Qualifiers: Diabetes mellitus type: type 2 Diabetes mellitus detention insulin use: without detention use Diabetes mellitus complication status: without complication Qualified Code(s): E11.9 - Type 2 diabetes mellitus without complications (4) HTN (hypertension) Code(s): I10 - ESSENTIAL (PRIMARY) HYPERTENSION 5 osteo of the left foot 6 gm positive bacteremia 7 wound infection with multiple organisms all cx reports noted with organisms plan patient will need vanco and zosyn for another 4 weeks esr crp bmp cbc weekly wound care follow vanco trough initially
[2017-08-01] MEDS ORDERED: VANCOMYCIN 1,000 MG in DEXTROSE 5%-WATER - 250 ML IVPB SCH (13:45)
[2017-08-01] MEDS ORDERED: PICC LINE 8 ML FLUSH PROTOCOL IVPUSH PRN (13:55)
[2017-08-01 19:44] VITALS: BP 126/64; PULSE 63; TEMP 98.5
[2017-08-02] MEDS ORDERED: VANCOMYCIN 1 GM PREMIX - 1 GM/200 ML BAG IVPB SCH (16:00)
== END 2017-08-01 19:46 | disposition home health service (06) | DRG 617 ==
LOC: JERFT 19:33 → JER 19:33 → JERBED 23:17 → J7W 07-22 02:20
PROVIDERS: ADMIT Internal Medicine; ATTEND Internal Medicine
PROC: 0Y6U0Z1 Detachment at Left 3rd Toe, High, Open Approach (ICD-10-PCS; principal; 2017-07-26 08:00)
PROC: 05H633Z Insertion of Infusion Device into Left Subclavian Vein, Percutaneous Approach (ICD-10-PCS; 2017-08-01)
PROC: B547ZZA Ultrasonography of Left Subclavian Vein, Guidance (ICD-10-PCS; 2017-08-01)
DX: E11.69 Type 2 diabetes mellitus with other specified complication (principal); E11.52 Type 2 diabetes mellitus with diabetic peripheral angiopathy with gangrene; M86.8X7 Other osteomyelitis, ankle and foot; R78.81 Bacteremia; I96 Gangrene, not elsewhere classified; E11.621 Type 2 diabetes mellitus with foot ulcer; N17.9 Acute kidney failure, unspecified; Z79.84 Long term (current) use of oral hypoglycemic drugs; L97.529 Non-pressure chronic ulcer of other part of left foot with unspecified severity; Z89.422 Acquired absence of other left toe(s); B96.89 Other specified bacterial agents as the cause of diseases classified elsewhere; E11.40 Type 2 diabetes mellitus with diabetic neuropathy, unspecified; E11.22 Type 2 diabetes mellitus with diabetic chronic kidney disease; E78.5 Hyperlipidemia, unspecified; I12.9 Hypertensive chronic kidney disease with stage 1 through stage 4 chronic kidney disease, or unspecified chronic kidney disease; N18.3 Chronic kidney disease, stage 3 (moderate); B95.62 Methicillin resistant Staphylococcus aureus infection as the cause of diseases classified elsewhere
CPT/HCPCS: 36415; 36558; 71045-TC-FY; 73630-TC-LT; 73718-LT; 80048; 80053; 81003; 81015; 82962; 83036; 85025; 85610; 85651; 86140; 86850; 86900; 86901; 87040; 87070; 87076; 87186; 87205; 88305-TC; 88311-TC; 93005; 93010; 93306-TC; 94760; 99282-25; C1751; G0480; J1644

== ENCOUNTER 2018-09-30 16:14 | Inpatient (IN) | payer BC, OTHER ==
[2018-09-30 16:22] VITALS: BMI 37.5
--- NOTE | 2018-09-30 16:23 | PDOC ---
Rapid Medical Evaluation Chief Complaint: Wound Time Seen by Provider: 09/30/18 16:19 Medical Evaluation: Allergies Allergy/AdvReac Type Severity Reaction Status Date / Time nut - unspecified Allergy Unknown Itching Verified 07/22/17 01:48 No Known Drug Allergies Allergy Verified 07/22/17 01:48 bananas Allergy Mild Swelling Uncoded 07/22/17 01:48 fresh grapefruit Allergy Mild Swelling Uncoded 07/22/17 01:48 fresh brooke Allergy Mild Swelling Uncoded 07/22/17 01:48 fresh pineapple Allergy Mild Swelling Uncoded 07/22/17 01:48 fresh tomatoes Allergy Mild Swelling Uncoded 07/22/17 01:48 lettuce Allergy Mild Swelling Uncoded 07/22/17 01:48 09/30/18 16:21 cc: open foot ulcer, painful HPI: walking with limp even and unlabored breathing orders: none This patient will proceed to ed for further evaluation Discharge Disposition - Diagnosis Wound of foot - Referrals - Patient Instructions - Post Discharge Activity
[2018-09-30] MEDS ORDERED: VANCOMYCIN 1,000 MG in DEXTROSE 5%-WATER - 250 ML IVPB ONE (17:18)
--- NOTE | 2018-09-30 17:20 | PDOC ---
History of Present Illness - General Chief Complaint: Wound Stated Complaint: DIABETIC FOOT WOUND Time Seen by Provider: 09/30/18 16:19 History Source: Patient - History of Present Illness Occurred: reports: other Lower Extremity Pain Location: left: foot Past History - Past Medical History Allergies/Adverse Reactions: Allergies Allergy/AdvReac Type Severity Reaction Status Date / Time nut - unspecified Allergy Unknown Itching Verified 09/30/18 16:22 No Known Drug Allergies Allergy Verified 09/30/18 16:22 bananas Allergy Mild Swelling Uncoded 09/30/18 16:22 fresh grapefruit Allergy Mild Swelling Uncoded 09/30/18 16:22 fresh brooke Allergy Mild Swelling Uncoded 09/30/18 16:22 fresh pineapple Allergy Mild Swelling Uncoded 09/30/18 16:22 fresh tomatoes Allergy Mild Swelling Uncoded 09/30/18 16:22 lettuce Allergy Mild Swelling Uncoded 09/30/18 16:22 Home Medications: Ambulatory Orders Lisinopril [Prinivil] 20 mg PO DAILY #30 tablet 09/10/15 Metoprolol Succinate [Toprol XL -] 25 mg PO DAILY #30 tab.sr.24h 09/10/15 metFORMIN HCL [Glucophage -] 850 mg PO BID #60 tablet 09/10/15 Glipizide 10 mg PO BID 07/22/17 Simvastatin [Zocor -] 10 mg PO DAILY 09/30/18 Anemia: No Asthma: No Cancer: No Cardiac Disorders: No CVA: No COPD: No CHF: No Dementia: No Diabetes: Yes GI Disorders: No Disorders: No HTN: Yes Hypercholesterolemia: Yes Liver Disease: No Seizures: No Thyroid Disease: No - Surgical History Abdominal Surgery: No Appendectomy: No Cardiac Surgery: No Cholecystectomy: Yes Lung Surgery: No Neurologic Surgery: No Orthopedic Surgery: No - Immunization History Immunization Up to Date: Yes - Suicide/Smoking/Psychosocial Hx Smoking History: Never smoked Have you smoked in the past 12 months: No Number of Cigarettes Smoked Daily: 0 Cigars Per Day: 0 Information on smoking cessation initiated: No Hx Alcohol Use: No Drug/Substance Use Hx: No Substance Use Type: None Hx Substance Use Treatment: No Review of Systems - Review of Systems Constitutional: No: Chills, Fever, Malaise, Weakness *Physical Exam - Vital Signs Last Vital Signs Temp Pulse Resp BP Pulse Ox 97.9 F 78 18 141/78 98 09/30/18 16:19 09/30/18 16:19 09/30/18 16:19 09/30/18 16:19 09/30/18 16:19 - Physical Exam General Appearance: Yes: Appropriately Dressed. No: Apparent Distress Neck: positive: Supple Respiratory/Chest: negative: Respiratory Distress Extremity: positive: Other (~1x1cm circular superfical ulcer to plantar aspect of L 5th distal metatarsal, no erythema, purulent drainage, induration or sig ttp, pedal pulses intact) Integumentary: positive: Dry, Warm Neurologic: positive: Fully Oriented, Alert, Normal Mood/Affect ED Treatment Course - LABORATORY CBC & Chemistry Diagram: 09/30/18 18:12 09/30/18 18:12 - RADIOLOGY Radiology Studies Ordered: Category Date Time Status FOOT-LEFT [RAD] Stat Radiology 09/30/18 17:17 Ordered Medical Decision Making - Medical Decision Making 09/30/18 17:20 68 yo M, h/o HTN, HLD, DM, 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 Pt reports no pain, f/c/n/v/ weakness or malaise See exam DM foot Appears to be soft tissue infxn to plantar aspect of L 5th distal metatarsal -XR r/o osteo -IV abx (prior wound cxs/sen reviewed) -labs -discuss dispo w/ podiatry (prior amputation performed by Dr Osborn) 09/30/18 17:55 Labs unremarkable, Cr 2, similar and higher in past, K wnl. XR foot pending. Unable to hear back from podiatry. Pt signed out to RIKY Bowden at this time to discuss dispo w/ podiatry vs vascular *DC/Admit/Observation/Transfer Diagnosis at time of Disposition: Wound of foot - Referrals - Patient Instructions - Post Discharge Activity
[2018-09-30] MEDS ORDERED: VANCOMYCIN 1 GRAM (PRE-DOCKED) 1,000 MG/250 ML BAG IVPB ONE (18:15)
[2018-09-30 18:32] LABS: EOS % 2.9 % (0-4.5); HEMATOCRIT 44.3 % (35.4-49); LYMPH % 19.5 % (8-40); MCH 30.1 pg (25.7-33.7); MCHC 33.7 g/dl (32.0-35.9); MEAN CELL VOLUME 89.3 fl (80-96); MEAN PLT VOLUME 10.2 fl (7.5-11.1); MONO % 4.8 % (3.8-10.2); NEUT % 71.8 % (42.8-82.8); PLATELET COUNT 181 K/MM3 (134-434); RBC 4.96 M/mm3 (4.00-5.60); RDW 13.4 % (11.9-15.9); WHITE BLOOD COUNT 9.5 K/mm3 (4.0-10.0)
[2018-09-30 19:03] LABS: ALBUMIN 3.8 g/dl (3.4-5.0); ALK PHOS 184 U/L (45-117); ANION GAP 8 MMOL/L (8-16); BILIRUBIN,TOTAL 0.5 mg/dL (0.2-1); BLOOD UREA NITROGEN 22.6 mg/dL (7-18); CALCIUM 8.8 mg/dL (8.5-10.1); CHLORIDE 96 mmol/L (98-107); CO2 30 mmol/L (21-32); POTASSIUM 4.8 mmol/L (3.5-5.1); SGOT/AST 13 U/L (15-37); SGPT/ALT 29 U/L (13-61); SODIUM 135 mmol/L (136-145); TOT PROT 7.8 g/dl (6.4-8.2)
[2018-09-30 19:05] LABS: GLUCOSE,RANDOM 488 mg/dL (74-106)
--- NOTE | 2018-09-30 20:27 | PDOC ---
*Physical Exam - Vital Signs Last Vital Signs Temp Pulse Resp BP Pulse Ox 97.9 F 78 18 141/78 98 09/30/18 16:19 09/30/18 16:19 09/30/18 16:19 09/30/18 16:19 09/30/18 16:19 ED Treatment Course - LABORATORY CBC & Chemistry Diagram: 09/30/18 18:12 09/30/18 18:12 - ADDITIONAL ORDERS Additional order review: Laboratory Results 09/30/18 18:12 Sodium 135 L Potassium 4.8 Chloride 96 L Carbon Dioxide 30 Anion Gap 8 BUN 22.6 H Creatinine 2.0 H Est GFR (CKD-EPI)AfAm 38.60 Est GFR (CKD-EPI)NonAf 33.30 Random Glucose 488 H* Calcium 8.8 Total Bilirubin 0.5 AST 13 L ALT 29 Alkaline Phosphatase 184 H Total Protein 7.8 Albumin 3.8 09/30/18 18:12 RBC 4.96 MCV 89.3 MCHC 33.7 RDW 13.4 MPV 10.2 D Neutrophils % 71.8 Lymphocytes % 19.5 Monocytes % 4.8 Eosinophils % 2.9 Basophils % 1.0 - Medications Given in the ED: ED Medications Discontinued Medications Generic Name Dose Route Start Last Admin Trade Name Freq PRN Reason Stop Dose Admin Vancomycin HCl 1,000 mg/ 250 mls @ 250 mls/hr 09/30/18 17:18 09/30/18 18:16 Dextrose IVPB 09/30/18 18:17 250 mls/hr ONCE ONE Administration Protocol Levofloxacin 750 mg in 150 mls @ 100 mls/hr 09/30/18 17:40 09/30/18 18:16 Levaquin 750 Mg Premixed Ivpb - IVPB 09/30/18 19:09 100 mls/hr ONCE ONE Administration Protocol Medical Decision Making - Medical Decision Making 09/30/18 21:33 patient signed out to Dr. Ernst covering Dr. elizabeth *DC/Admit/Observation/Transfer Diagnosis at time of Disposition: Wound of foot, Diabetic foot infection, Hyperglycemia - Discharge Dispostion Decision to Admit order: Yes - Referrals - Patient Instructions - Post Discharge Activity
[2018-09-30] MEDS ORDERED: SODIUM CHLORIDE 1,000 ML IV STA (20:53)
[2018-09-30] MEDS ORDERED: INSULIN REGULAR HUMAN 100 UNITS/ML *VIAL IVPUSH ONE (21:32)
--- NOTE | 2018-10-01 09:28 | EKG ---
Test Reason : Blood Pressure : / mmHG Vent. Rate : 080 BPM Atrial Rate : 080 BPM P-R Int : 148 ms QRS Dur : 072 ms QT Int : 362 ms P-R-T Axes : 034 -12 022 degrees QTc Int : 417 ms NORMAL SINUS RHYTHM NORMAL ECG WHEN COMPARED WITH ECG OF 22-JUL-2017 01:17, NO SIGNIFICANT CHANGE WAS FOUND Confirmed by Molina Walters MD ([id number]) on 10/01/2018 9:27:49 AM Referred By: Confirmed By:Molina Walters MD
[2018-10-01 09:52] LABS: BASO % 0.8 % (0-2.0); EOS % 3.1 % (0-4.5); HEMATOCRIT 40.4 % (35.4-49); MCH 30.4 pg (25.7-33.7); MCHC 34.5 g/dl (32.0-35.9); MEAN CELL VOLUME 88.1 fl (80-96); MEAN PLT VOLUME 9.7 fl (7.5-11.1); MONO % 6.2 % (3.8-10.2); NEUT % 70.9 % (42.8-82.8); RBC 4.59 M/mm3 (4.00-5.60); RDW 13.4 % (11.9-15.9); WHITE BLOOD COUNT 6.7 K/mm3 (4.0-10.0)
[2018-10-01] MEDS ORDERED: metoPROLOL SUCCINATE 25 MG TAB.SR.24H (FP) PO SCH (10:00)
[2018-10-01 10:01] LABS: PLATELET COUNT 147 K/MM3 (134-434)
[2018-10-01 10:02] LABS: PROTHROMBIN TIME (PATIENT) 11.8 SEC (9.7-13.0)
[2018-10-01] MEDS ORDERED: LISINOPRIL 20 MG TABLET (FP) PO SCH (10:15)
[2018-10-01 10:21] LABS: ALBUMIN 3.2 g/dl (3.4-5.0); BILIRUBIN,TOTAL 0.7 mg/dL (0.2-1); BLOOD UREA NITROGEN 24.4 mg/dL (7-18); CALCIUM 8.7 mg/dL (8.5-10.1); TOT PROT 6.7 g/dl (6.4-8.2)
[2018-10-01] MEDS ORDERED: LISINOPRIL 20 MG TABLET (FP) ONE (10:30)
[2018-10-01 11:16] VITALS: BP 111/67; PULSE 79; TEMP 97.9
--- NOTE | 2018-10-01 12:09 | PN ---
Progress Note, Physician Chief Complaint: pt seen in the ER resting comfortably,afebrile Lt foot ulcer dry and no discharge from the wound elevated blood sugar managing with sliding scale awaiting for ID consult,wound care consult and renal consult - Current Medication List Current Medications: Active Medications Atorvastatin Calcium (Lipitor -) 10 mg PO HS MELVINA Glipizide (Glucotrol -) 10 mg PO BID@0700,1630 MELVINA Insulin Aspart (Novolog Vial Sliding Scale -) 1 vial SQ HS [facility]; Protocol Lisinopril (Prinivil) 20 mg PO DAILY [facility] Last Admin: 10/01/18 10:31 Dose: 20 mg Metoprolol Succinate (Toprol Xl -) 25 mg PO DAILY [facility] Last Admin: 10/01/18 10:31 Dose: 25 mg - Objective Vital Signs: Vital Signs Temperature 97.9 F 10/01/18 11:15 Pulse Rate 79 10/01/18 11:15 Respiratory Rate 16 10/01/18 07:48 Blood Pressure 111/67 10/01/18 11:15 O2 Sat by Pulse Oximetry (%) 95 10/01/18 11:15 Constitutional: Yes: No Distress Eyes: Yes: Conjunctiva Clear HENT: Yes: Atraumatic Neck: Yes: Supple Cardiovascular: Yes: Regular Rate and Rhythm Respiratory: Yes: Regular, CTA Bilaterally Gastrointestinal: Yes: Normal Bowel Sounds, Soft Musculoskeletal: Yes: WNL Extremities: Yes: Other (s/p amputation of lt third and fourth toes ,dry ulcer on the plantar surface of 5th metatarsal area,no discharge) Edema: No Peripheral Pulses WNL: Yes Neurological: Yes: WNL, Alert ...Motor Strength: WNL Psychiatric: Yes: WNL, Alert Labs: CBC, BMP 10/01/18 09:00 10/01/18 09:00 INR, PTT INR 1.00 (0.83-1.09) 10/01/18 09:14 - ....Imaging Chest X-ray: Report Reviewed EKG: Report Reviewed Assessment/Plan Lt foot diabetic ulcer Uncontrolled blood sugar DM HTN renal insuffiency hypercholestrolemia plan continue meds Antibiotcs as per Antibiotics ID,renal, wound care f/u monitor blood sugar will f/u patient
--- NOTE | 2018-10-01 14:25 | HP ---
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 As per the patient, he has no pain, no fever, no nausea, no vomiting, no weakness, no malaise, and there is no discharge from the wound. As per the patient and , since the wound on the left foot was not healing, so brought to the emergency room for further evaluation and treatment. Regarding the allergies, patient is allergic to FRUITS, no known drug allergy. MEDICATION: The patient is taking lisinopril 20 mg daily, metoprolol succinate, Toprol XL 25 mg daily, metformin 850 b.i.d., glipizide 10 mg b.i.d., simvastatin 10 mg daily. PERSONAL HISTORY: Nothing significant. No smoking, no alcohol. Patient lives with the . PAST MEDICAL HISTORY: Significant for hypertension, hyperlipidemia, diabetes. SURGICAL HISTORY: Cholecystectomy, amputation of the left 3rd and 4th toe. REVIEW OF SYSTEMS: Constitutional: No fever, no chills, no malaise, no weakness. Cardiovascular: History of hypertension, hyperlipidemia. Endocrine: History of diabetes. Musculoskeletal: Amputation of the left 3rd and 4th toes Central Nervous System: No weakness. No headache. PHYSICAL EXAMINATION IN EMERGENCY ROOM: Vital Signs: Temperature 97.9, pulse rate 78, respiration 18, blood pressure 141/78, saturation 98. General: Patient alert, oriented x3, appropriately dressed. Neck: Supple. No JVD. Respiratory: Bilateral equal breath sounds. Cardiovascular: 1st and 2nd sound normal. Abdomen: Soft. No tenderness, no distention. Bowel sounds present. Extremities: There is a 1 x 1 cm circular superficial ulcer with induration on the plantar aspect of the left 5th distal metatarsal area, no erythema, no purulent discharge. Induration present. Dorsalis pedis and posterior tibial pulsation present. Neurological: Alert, oriented x3. No apparent motor or sensory deficit. Reflexes normal. Extremities: Left foot 3rd and 4th toes amputated. Regarding the left foot x-ray, there is calcaneal spur, degenerative changes in the tarsal bones, calcifications present, 5th toe deformity present. Recommend MRA of the foot to rule out osteomyelitis. Soft tissue ulcer is not seen. Old amputation of the 4th toe is noted, with the base of the 4th middle phalanx remaining. The 5th toe shows deformity of the proximal and middle phalanges. The amputation of the 3rd toe with metatarsal remaining. Bunion formation with the 1st MTP joint, some postsurgical changes. Chest x-ray shows left basilar nodular opacity, may represent a granuloma. Followup study recommended. EKG: Normal sinus rhythm, normal EKG. When compared with EKG of July 2017, unchanged. Labs show WBC 9.5, hemoglobin 15, hematocrit 44.3, platelets 181, PT/INR normal. Sodium 135, potassium 4.8, chloride 96, bicarbonate 30, BUN 22.6, creatinine 2, glucose 488, AST/ALT normal. Troponin negative. Blood acetone negative. Patient admitted in the floor with a diabetic foot ulcer, history of MRSA in the past. Home medications started. Patient was given Levaquin and vancomycin in the emergency room, home medication resumed. Sliding scale of insulin ordered. ADMITTING DIAGNOSES: Diabetic foot ulcer, uncontrolled blood sugar, hypertension. PLAN: Continue the home medication, IV antibiotics, ID consult, Renal consult for the renal insufficiency, Endocrine consult, and Wound Care consult. IV antibiotics. Resume home medications. Patient stable on the floor. NIDHI ROMERO M.D. [id number]
[2018-10-01 14:34] LABS: PH,URINE 5.5 (5.0-8.0); URINE APPEARANCE CLEAR; URINE BILIRUBIN NEGATIVE (NEGATIVE); URINE COLOR YELLOW; URINE GLUCOSE (UA) 3+ (NEGATIVE); URINE KETONE NEGATIVE (NEGATIVE); URINE LEUK ESTERASE NEGATIVE (NEGATIVE); URINE NITRITE NEGATIVE (NEGATIVE); URINE PROTEIN NEGATIVE (NEGATIVE); URINE UROBILINOGEN 0.2 mg/dL (0.2-1.0)
--- NOTE | 2018-10-01 15:00 | CONSULT ---
Consult - text type - Consultation Consultation Note: Renal consult for AVERY vs. CKD This is a 68 year old gentleman with history of DM Type 2, hypertension , PVD who presented with LE wound and hyperglycemia and noted to have Cr of 2. Pt is accompanied by his who provided the history. Denies any history of CKD. Randell any history of kidney stones. Reports making urine without difficulty. Does report NSAID use at home for hip and foot pain. PMHx: as above Allergies: NKDA Family hx: NC Social hx: No T/A/D ROS: as per HPI Home Medications Medication Instructions Recorded Lisinopril [Prinivil] 20 mg PO DAILY #30 tablet 09/10/15 Metoprolol Succinate [Toprol XL -] 25 mg PO DAILY #30 tab.sr.24h 09/10/15 metFORMIN HCL [Glucophage -] 850 mg PO BID #60 tablet 09/10/15 Glipizide 10 mg PO BID 07/22/17 Simvastatin [Zocor -] 10 mg PO DAILY 09/30/18 Vital Signs Temperature 97.9 F 10/01/18 11:15 Pulse Rate 79 10/01/18 11:15 Respiratory Rate 16 10/01/18 07:48 Blood Pressure 111/67 10/01/18 11:15 O2 Sat by Pulse Oximetry (%) 95 10/01/18 11:15 Intake & Output 09/28/18 09/29/18 09/30/18 10/01/18 23:59 23:59 23:59 23:59 Weight 108.862 kg NAD awake and alert neck supple RRR CTA soft NT/ND Trace LE edema CBC, BMP 10/01/18 09:00 10/01/18 09:00 Current Medications Atorvastatin Calcium (Lipitor -) 10 mg PO HS [facility] Glipizide (Glucotrol -) 10 mg PO BID@0700,1630 [facility] Insulin Aspart (Novolog Vial Sliding Scale -) 1 vial SQ HS [facility]; Protocol Lisinopril (Prinivil) 20 mg PO DAILY [facility] Last Admin: 10/01/18 10:31 Dose: 20 mg Metoprolol Succinate (Toprol Xl -) 25 mg PO DAILY [facility] Last Admin: 10/01/18 10:31 Dose: 25 mg 68 year old gentleman with history of DM Type 2, hypertension, PVD who presented with LE wound and hyperglycemia and noted to have Cr of 2. 1. Acute Kidney Injury vs. CKD 2. PVD with LE wound 3. Hyperglycemia with history of DM type 2 4. Hypertension Pt likely has underlying diabetic nephropathy with concurrent acute component of volume depletion. Check urine studies for FeNa and UPCR Give trial of IV hydration with normal saline Continue LIsinpirl 20mg Daily Pt and family expressed desire to ho home, if discharged home advised to maintain good oral fluid intake and avoid any further NSAID use Office contact number provided to make an appointment on discharge no overt electrolyte or acid base disturbance noted Thank you David Jones DO
[2018-10-01] MEDS ORDERED: SODIUM CHLORIDE 1,000 ML IV SCH (15:15)
[2018-10-01] MEDS ORDERED: glipiZIDE 10 MG TABLET (FP) PO SCH (16:30)
--- NOTE | 2018-10-01 19:39 | DS ---
DATE OF ADMISSION: 09/30/2018 DATE OF DISCHARGE: 10/01/2018 The patient is admitted for diabetic crisis and uncontrolled blood sugar. The patient admitted. Patient eloped from ER without getting any treatment. NIDHI ROMERO M.D. /[id number]
[2018-10-01] MEDS ORDERED: INSULIN SLIDING SCALE (NOVOLOG) 1 VIAL SQ SCH (22:00)
[2018-10-01] MEDS ORDERED: ATORVASTATIN CA 10 MG TABLET (FP) PO SCH (22:00)
== END 2018-10-01 14:35 | disposition left against medical advice (07) | DRG 638 ==
LOC: JER 16:14 → JERBED 20:58
PROVIDERS: ADMIT Family Medicine; ATTEND Family Medicine
DX: E11.621 Type 2 diabetes mellitus with foot ulcer (principal); L97.528 Non-pressure chronic ulcer of other part of left foot with other specified severity; E11.51 Type 2 diabetes mellitus with diabetic peripheral angiopathy without gangrene; N17.9 Acute kidney failure, unspecified; E11.65 Type 2 diabetes mellitus with hyperglycemia; E78.00 Pure hypercholesterolemia, unspecified; I10 Essential (primary) hypertension; N28.9 Disorder of kidney and ureter, unspecified
CPT/HCPCS: 36415; 71046-TC-FY; 73630-TC-LT; 80053; 81003; 82009; 82550; 82962; 83036; 84484; 85025; 85610; 93005; 93010; 99283-25; J7030

== ENCOUNTER 2019-01-16 10:47 | Inpatient (IN) | payer OTHER ==
--- NOTE | 2019-01-16 11:27 | PDOC ---
Attending Attestation - Resident Resident Name: StevenPhan perla - HPI HPI: 01/16/19 13:03 Pt presents to the ED after sent in for IV antibiotics by Dr. Osborn. Patient has a long standing wound on the plantar surface of his L foot, and Dr. Bosch was concerned for infection because of foul odor and redness. patient deniesfever, nausea or vomiting or other associated symptoms. - Physicial Exam PE: 01/16/19 13:21 Agree with resident exam. PAtient is well appearing and in no acute distress. + wound to the plantar surface of the L foot, without discharge but with surrounding erythema. Will check labs and admit to medicine. 01/16/19 13:22 - Medical Decision Making 01/16/19 13:23 Pt presents to the ED complaining of wound to the foot. History of DM. Will treat with IV antibiotics and admit to medicine.
[2019-01-16] MEDS ORDERED: PIPERACILLIN/TAZOB 3.375 GM 3.375 GM in DEXTROSE 5%-WATER - 50 ML IVPB ONE (11:40)
[2019-01-16] MEDS ORDERED: VANCOMYCIN 1,000 MG in DEXTROSE 5%-WATER - 250 ML IVPB ONE (11:40)
--- NOTE | 2019-01-16 11:45 | PDOC ---
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 The patients states that he saw someone in the wound clinic who recommended admission for IV abx. He admits to "some drainage" and numbness which is not different from baseline. Past History - Past Medical History Allergies/Adverse Reactions: Allergies Allergy/AdvReac Type Severity Reaction Status Date / Time nut - unspecified Allergy Unknown Itching Verified 01/16/19 10:49 No Known Drug Allergies Allergy Verified 01/16/19 10:49 bananas Allergy Mild Swelling Uncoded 01/16/19 10:49 fresh grapefruit Allergy Mild Swelling Uncoded 01/16/19 10:49 fresh brooke Allergy Mild Swelling Uncoded 01/16/19 10:49 fresh pineapple Allergy Mild Swelling Uncoded 01/16/19 10:49 fresh tomatoes Allergy Mild Swelling Uncoded 01/16/19 10:49 lettuce Allergy Mild Swelling Uncoded 01/16/19 10:49 Home Medications: Ambulatory Orders Lisinopril [Prinivil] 20 mg PO DAILY #30 tablet 09/10/15 Metoprolol Succinate [Toprol XL -] 25 mg PO DAILY #30 tab.sr.24h 09/10/15 metFORMIN HCL [Glucophage -] 850 mg PO BID #60 tablet 09/10/15 Glipizide 10 mg PO BID 07/22/17 Simvastatin [Zocor -] 10 mg PO DAILY 09/30/18 Becaplermin [Regranex] 15 gm TP DAILY #1 gel..gram. 11/07/18 Ketoconazole 2% Cream [Nizoral 2% Cream -] 1 applic TP DAILY #1 cream 11/07/18 Anemia: No Asthma: No Cancer: No Cardiac Disorders: No CVA: No COPD: No CHF: No Dementia: No Diabetes: Yes GI Disorders: No Disorders: No HTN: Yes Hypercholesterolemia: Yes Liver Disease: No Seizures: No Thyroid Disease: No - Surgical History Abdominal Surgery: No Appendectomy: No Cardiac Surgery: No Cholecystectomy: Yes Lung Surgery: No Neurologic Surgery: No Orthopedic Surgery: No - Immunization History Immunization Up to Date: Yes - Psycho Social/Smoking Cessation Hx Smoking History: Never smoked Have you smoked in the past 12 months: No Number of Cigarettes Smoked Daily: 0 Cigars Per Day: 0 Hx Alcohol Use: No Drug/Substance Use Hx: No Substance Use Type: None Hx Substance Use Treatment: No Review of Systems - Review of Systems Able to Perform ROS?: Yes Comments:: 01/16/19 11:53 GENERAL/CONSTITUTIONAL: No fever or chills. No weakness. HEAD, EYES, EARS, NOSE AND THROAT: No change in vision. No ear pain or discharge. No sore throat. CARDIOVASCULAR: No chest pain, palpitations, or lightheadedness. RESPIRATORY: No cough, wheezing, shortness of breath, or hemoptysis. GASTROINTESTINAL: No abdominal pain, nausea, vomiting, diarrhea, or constipation. GENITOURINARY: No dysuria, frequency, hematuria, or change in urination. MUSCULOSKELETAL: No joint or muscle swelling or pain. No neck or back pain. SKIN: + for wound on L foot. NEUROLOGIC: No headache, numbness, tingling, focal weakness, loss of consciousness, or change in strength/sensation. Is the patient limited Russian proficient: No *Physical Exam - Vital Signs Last Vital Signs Temp Pulse Resp BP Pulse Ox 99.4 F 80 16 120/60 99 01/16/19 10:52 01/16/19 10:52 01/16/19 10:52 01/16/19 10:52 01/16/19 10:52 - Physical Exam 01/16/19 11:54 GENERAL: Well developed, well nourished. Awake and alert. No acute distress. HEENT: Normocephalic, atraumatic. Hearing grossly normal. Moist mucous membranes. PERRLA, EOMI. No conjunctival pallor. Sclera are non-icteric. NECK: Supple. Full ROM. EXTREMITIES: No cyanosis. No clubbing. No edema. No calf tenderness or swelling. SKIN: 1cm circular stage 2 ulcer on lateral aspect of plantar surface of L foot with surrounding erythema. Otherwise, warm and dry. Normal capillary refill. No rashes. No jaundice. NEUROLOGICAL: Alert, awake, appropriate. Cranial nerves 2-12 grossly intact. Normal speech. Gait is normal without ataxia. PSYCHIATRIC: Cooperative. Good eye contact. Appropriate mood and affect. ED Treatment Course - LABORATORY CBC & Chemistry Diagram: 01/16/19 11:30 01/16/19 11:30 - RADIOLOGY Radiology Studies Ordered: Category Date Time Status FOOT-LEFT [RAD] Stat Radiology 01/16/19 11:39 Ordered Medical Decision Making - Medical Decision Making 01/16/19 11:55 68M with a PMH of DM who presents from the wound clinic for admission. Obtained cultures and will admit. 01/16/19 12:27 WBC of 15. Cr elevated to 2.5 from 1.5 prior. Continuing hydration and placed on monitor for complaints of "not feeling well". Vitals notable for hypotension 70's/40's. 1L NS currently being pressure bagged with improvement of BP to 101/ 50's. Pending FS. Other vitals WNL. Pt states he is allergic to bleach which is what the sheets are washed in. No hives or other itchiness noted. Will not give benadryl in setting of hypotension and lack of allergic symptoms. FS 233. 01/16/19 12:[address] Yusuf for admission. Discharge - Discharge Information Problems reviewed: Yes Clinical Impression/Diagnosis: Wound infection Condition: Guarded - Admission Yes - Follow up/Referral - Patient Discharge Instructions - Post Discharge Activity
[2019-01-16 11:55] LABS: BASO % 1.2 % (0-2.0); EOS % 0.5 % (0-4.5); HEMATOCRIT 37.3 % (35.4-49); LYMPH % 11.6 % (8-40); MCH 30.7 pg (25.7-33.7); MCHC 34.8 g/dl (32.0-35.9); MEAN CELL VOLUME 88.4 fl (80-96); MONO % 7.2 % (3.8-10.2); NEUT % 79.5 % (42.8-82.8); PLATELET COUNT 180 K/MM3 (134-434); RBC 4.22 M/mm3 (4.00-5.60); RDW 13.2 % (11.9-15.9); WHITE BLOOD COUNT 15.2 K/mm3 (4.0-10.0)
[2019-01-16] MEDS ORDERED: VANCOMYCIN 1 GRAM (PRE-DOCKED) 1,000 MG/250 ML BAG IVPB ONE (11:55)
[2019-01-16] MEDS ORDERED: PIPERACILLIN/TAZOB 3.375 GM 3.375 GM/50 ML BAG IVPB ONE (11:55)
[2019-01-16 12:20] LABS: ALBUMIN 2.9 g/dl (3.4-5.0); BLOOD UREA NITROGEN 31.1 mg/dL (7-18); CALCIUM 7.9 mg/dL (8.5-10.1); CREATININE 2.5 mg/dL (0.55-1.3); POTASSIUM 3.9 mmol/L (3.5-5.1); TOT PROT 6.9 g/dl (6.4-8.2)
[2019-01-16 13:00] LABS: INR 1.08 (0.83-1.09); PROTHROMBIN TIME (PATIENT) 12.8 SEC (9.7-13.0)
[2019-01-16 13:02] LABS: ACTIVATED PTT 30.7 SECONDS (25.2-36.5)
[2019-01-16] MEDS ORDERED: ATORVASTATIN CA 10 MG TABLET (FP) PO ONE (13:24)
[2019-01-16] MEDS ORDERED: metoPROLOL SUCCINATE 25 MG TAB.SR.24H (FP) PO ONE (13:26)
--- NOTE | 2019-01-16 13:32 | CONSULT ---
Consult - text type - Consultation Consultation Note: Renal consult for AVERY on CKD This is a 68 year old gentleman with history of CKD, DM, Hypertension, PVD s/p LE amputation who presented with non-healing foot wound with signs of infection and noted to have Cr of 2.5. Seen and examined in the ER. He reports having wound on his left foot for 3 days. Denies any fever, chills, chest pain, shortness of breath, N/V/D. Reports good oral intake. Denies any NSAID use. No recent IV contrast exposure. No recent Abx use. No skin rash. Denies any obstructive symptoms. Making urine. PMHx: as per HPI Family Hx: NC Social Hx: No T/A/D ROS: as per HPI, all other pertinent ros negative Home Medications Medication Instructions Recorded Lisinopril [Prinivil] 20 mg PO DAILY #30 tablet 09/10/15 Metoprolol Succinate [Toprol XL -] 25 mg PO DAILY #30 tab.sr.24h 09/10/15 metFORMIN HCL [Glucophage -] 850 mg PO BID #60 tablet 09/10/15 Glipizide 10 mg PO BID 07/22/17 Simvastatin [Zocor -] 10 mg PO DAILY 09/30/18 Becaplermin [Regranex] 15 gm TP DAILY #1 gel..gram. 11/07/18 Ketoconazole 2% Cream [Nizoral 2% 1 applic TP DAILY #1 cream 11/07/18 Cream -] Vital Signs Temperature 98.6 F 01/16/19 12:48 Pulse Rate 92 H 01/16/19 12:56 Respiratory Rate 16 01/16/19 12:56 Blood Pressure 111/61 01/16/19 12:56 O2 Sat by Pulse Oximetry (%) 98 01/16/19 12:56 Intake & Output 01/13/19 01/14/19 01/15/19 01/16/19 23:59 23:59 23:59 23:59 Weight 104.326 kg NAD awake and alert neck supple, no JVD RRR, no M/R Dec BS but no rales or wheeze soft NT/ND no LE edema, left foot in dressing no bladder distension or CVA tenderness CBC, BMP 01/16/19 11:30 01/16/19 11:30 Current Medications Atorvastatin Calcium (Lipitor -) 10 mg PO ONCE ONE Stop: 01/16/19 13:25 Metoprolol Succinate (Toprol Xl -) 25 mg PO DAILY ONE Stop: 01/16/19 13:27 68 year old gentleman with history of CKD, DM, Hypertension, PVD s/p LE amputation who presented with non-healing foot wound with signs of infection and noted to have Cr of 2.5, 1. AVERY on CKD vs progressive CKD 2. CKD 3. Infected foot wound 4. PVD 5. DM 6. Hypetension Check urine studies for FeNa, UPCR if no improvement in renal function in 24 hours can get renal US as well Start aggressive IVF hydration with normal saline avoid nephrotoxins and IV contrast Start empiric vancomycin (levels checked daily) and zosyn f/u cultures Podiatry and ID consults withhold any NI/ARB for now given decline in renal function continue metoprolol Trend renal function and electrolytes daily Thank you David Jones DO
[2019-01-16] MEDS ORDERED: SODIUM CHLORIDE 1,000 ML IV SCH (14:00)
[2019-01-16 14:44] LABS: CHOLESTEROL 139 mg/dL (50-200); HDL CHOLESTEROL 29 mg/dL (40-60); LDL CHOLESTEROL (ONLY SJRH) 88 mg/dL (5-100); TRIGLYCERIDES 185 mg/dL (0-150)
[2019-01-16] MEDS ORDERED: INSULIN SLIDING SCALE (NOVOLOG) 1 VIAL SQ SCH ×2 (16:30→22:00)
[2019-01-16] MEDS ORDERED: INSULIN (NOVOLOG) ASPART 100 UNITS/ML 10ML VIAL ONE (17:12)
[2019-01-16] MEDS ORDERED: PIPERACILLIN/TAZOBACTAM 2.25 GM VIAL IVPB ONE (17:59)
[2019-01-16] MEDS ORDERED: DEXTROSE 5%-WATER - 50 ML IVPB ONE (17:59)
[2019-01-16 18:11] VITALS: BMI 37.1
[2019-01-16] MEDS: PIPERACILLIN/TAZOB 2.25 GM 2.25 GM in DEXTROSE 5%-WATER - 50 ML IVPB SCH (18:31)
--- NOTE | 2019-01-16 18:55 | CONSULT ---
Consult Consult Specialty:: Endocrinology Referred by:: Dr Yusuf Reason for Consultation:: Hyperglycemia - History of Present Illness Chief Complaint: Wound infection History of Present Illness: This is a 68M with h/o HTN, HLD, T2DM on Insulin, s/p amputation of L 3rd and 4th toes who presents to the ER from his podiatry clinic for admission for L foot wound. The patients states that he saw someone in the wound clinic who recommended admission for IV abx. He admits to "some drainage" and numbness which is not different from baseline. Pt not sure how much Insulin he gets at home as his gives it to him. He was prescribed Toujeo 30 units daily and Novolog 15 units TID with meals during last visit in the office - History Source History Provided By: Patient, Medical Record - Past Medical History Cardio/Vascular: Yes: HTN, Hyperlipdemia Hepatobiliary: Yes: Cholelithiasis Renal/: Yes: Hematuria Endocrine: Yes: Diabetes Mellitus - Past Surgical History Past Surgical History: Yes: Cholecystectomy - Alcohol/Substance Use Hx Alcohol Use: No History of Substance Use: reports: None - Smoking History Smoking history: Never smoked Have you smoked in the past 12 months: No Aproximately how many cigarettes per day: 0 - Social History Usual Living Arrangement: With Spouse History of Recent Travel: No Home Medications - Allergies Allergies/Adverse Reactions: Allergies Allergy/AdvReac Type Severity Reaction Status Date / Time nut - unspecified Allergy Unknown Itching Verified 01/16/19 10:49 No Known Drug Allergies Allergy Verified 01/16/19 10:49 bananas Allergy Mild Swelling Uncoded 01/16/19 10:49 fresh grapefruit Allergy Mild Swelling Uncoded 01/16/19 10:49 fresh brooke Allergy Mild Swelling Uncoded 01/16/19 10:49 fresh pineapple Allergy Mild Swelling Uncoded 01/16/19 10:49 fresh tomatoes Allergy Mild Swelling Uncoded 01/16/19 10:49 lettuce Allergy Mild Swelling Uncoded 01/16/19 10:49 - Home Medications Home Medications: Ambulatory Orders Lisinopril [Prinivil] 20 mg PO DAILY #30 tablet 09/10/15 Metoprolol Succinate [Toprol XL -] 25 mg PO DAILY #30 tab.sr.24h 09/10/15 metFORMIN HCL [Glucophage -] 850 mg PO BID #60 tablet 09/10/15 Glipizide 10 mg PO BID 07/22/17 Simvastatin [Zocor -] 10 mg PO DAILY 09/30/18 Becaplermin [Regranex] 15 gm TP DAILY #1 gel..gram. 11/07/18 Ketoconazole 2% Cream [Nizoral 2% Cream -] 1 applic TP DAILY #1 cream 11/07/18 Review of Systems - Review of Systems Constitutional: reports: No Symptoms Eyes: reports: No Symptoms HENT: reports: No Symptoms Neck: reports: No Symptoms Cardiovascular: reports: No Symptoms Respiratory: reports: No Symptoms Gastrointestinal: reports: No Symptoms Genitourinary: reports: No Symptoms Musculoskeletal: reports: No Symptoms Neurological: reports: No Symptoms Endocrine: reports: No Symptoms Physical Exam Vital Signs: Vital Signs Temperature 97.3 F L 01/16/19 18:07 Pulse Rate 91 H 01/16/19 18:07 Respiratory Rate 20 01/16/19 18:07 Blood Pressure 119/80 01/16/19 18:07 O2 Sat by Pulse Oximetry (%) 99 01/16/19 18:15 Constitutional: Yes: No Distress, Calm Eyes: Yes: Conjunctiva Clear, EOM Intact HENT: Yes: Atraumatic, Normocephalic Neck: Yes: Supple, Trachea Midline Cardiovascular: Yes: Regular Rate and Rhythm Respiratory: Yes: Regular, CTA Bilaterally Gastrointestinal: Yes: Normal Bowel Sounds, Soft Extremities: Yes: Other (left foot dressing) Edema: No Labs: CBC, BMP 01/16/19 11:30 01/16/19 11:30 Assessment/Plan AP: Infected foot wound T2DM CKD PVD Hypetension BGM QACHS Levemir 15 units daily Novolog SS coverage local wound care ABx as per primary Will f/u
--- NOTE | 2019-01-16 19:54 | HP ---
DATE OF ADMISSION: 01/16/2019 HISTORY: Patient is a 68-year-old male with a past medical history of hypertension, hyperlipidemia, diabetes status post amputation of left 3rd and 4th toes who presented to the emergency room as per the reference made by the podiatric clinic for the nonhealing ulcer on the left foot and with infection. Patient states that he saw somebody in the wound closure and recommended for admission for IV antibiotics. The pain and the redness around this also present. No discharge. Regarding the past medical history, history of hypertension, diabetes, hyperlipidemia, diabetic foot ulcer. ALLERGIES: Patient allergic to FRUITS, BANANA. No known drug allergy. PAST SURGICAL HISTORY: History of cholecystectomy and amputation of the left 3rd and 4th toe. PAST MEDICAL HISTORY: History of hypertension, diabetes, hyperlipidemia, diabetic foot ulcer. MEDICATIONS: Patient is on simvastatin 20 daily, long-acting insulin 15 units daily, Toujeo, Januvia 25 mg daily, Glipizide 5 mg p.o. b.i.d., metoprolol 25 mg daily, lisinopril 20 mg daily. SOCIAL HISTORY: Lives with the family. No history of smoking, drugs, or alcohol. REVIEW OF SYSTEMS: General: Patient alert, oriented. No fever, no chills. Head and Neck: No change in vision. No sore throat. Cardiovascular: No chest pain. No palpitations. No lightheadedness. Respiratory: No cough. Gastrointestinal: No abdominal pain, nausea, vomiting, diarrhea. Gastrointestinal: No dysuria, no hematuria. Musculoskeletal: No joint or muscle swelling or pain. No neck pain or back pain. Skin: Left foot, there is an ulcer on the plantar surface of the left foot. Slight erythema around the wound present. No discharge. Neurologic: No headache. No tingling. No numbness. No weakness. PHYSICAL EXAMINATION: Vital Signs: In the emergency room, temperature 98.4, pulse 80 per minute, respirations 16, blood pressure 120/60, pulse oximetry 99%. General: The patient is alert and oriented x3. Well nourished. No acute distress. HEENT: Normocephalic, atraumatic. Hearing normal. Pupils equally reactive to light and accommodation. Neck: Supple. No JVD. Neurologic: Alert, awake. Cranial nerves 2-12 normal. Gait normal. Extremities: No edema with ulcer. On the left foot plantar surface lateral side, surrounding erythema of the ulcer. No discharge seen. Size about 1 cm. LABORATORY: CBC; WBC 15.2, hemoglobin 13, hematocrit 37.3, platelets 180. Sodium 136, potassium 3.9, chloride 103, bicarbonate 27, BUN 31, creatinine 2.5, blood sugar 230, AST 15, ALT 25, alkaline phosphatase 172. Blood culture, urine culture pending. Wound culture pending. ESR 92. PT 12.8, INR 1.8, PTT 30.7. Lipid profile normal. Lactic acid 1.3. DIAGNOSES: Patient admitted with admitting diagnoses of: 1. Diabetic foot ulcer on the left foot with signs of infection. 2. Acute kidney injury on chronic kidney disease. 3. Diabetes. 4. Hypertension. PLAN: IV antibiotics. ID consult. Endocrine consult. Podiatric follow up. Nephrology consult. Continue the blood pressure medication. NI inhibitor, lisinopril is on hold as per the decline in renal function. Levemir 15 units daily. Monitor the blood sugar and diabetic diet. Wound care. Monitor the sugar closely. Monitor the kidney function. IV antibiotics as per ID. Patient was given 1 dose of vancomycin and Zosyn in the emergency room. IV hydration started. Patient stable on the floor. NIDHI ROMERO M.D. [id number]
[2019-01-16] MEDS ORDERED: INSULIN (LEVEMIR) 100 UNITS/ML UNITS SQ SCH (22:00)
[2019-01-16 22:37] LABS: EPI CELLS 2.2 /HPF (0-5/HPF); HYALINE CASTS 20 /lpf (0-8); URINE APPEARANCE CLOUDY; URINE BACTERIA 2.6 /hpf (NEGATIVE); URINE BILIRUBIN NEGATIVE (NEGATIVE); URINE COLOR YELLOW; URINE GLUCOSE (UA) 3+ (NEGATIVE); URINE KETONE TRACE (NEGATIVE); URINE LEUK ESTERASE NEGATIVE (NEGATIVE); URINE NITRITE NEGATIVE (NEGATIVE); URINE PROTEIN 2+ (NEGATIVE); URINE RBC 1 /hpf (0-4); URINE WBC 2 /hpf (0-5)
[2019-01-16 23:37] LABS: URINE CRYSTALS FEW /hpf
[2019-01-17] MEDS ORDERED: DEXTROSE 5%-WATER - 50 ML IVPB ONE ×2 (01:37→10:47)
[2019-01-17] MEDS ORDERED: PIPERACILLIN/TAZOBACTAM 2.25 GM VIAL IVPB ONE ×3 (01:37→17:41)
[2019-01-17] MEDS: PIPERACILLIN/TAZOB 2.25 GM 2.25 GM in DEXTROSE 5%-WATER - 50 ML IVPB SCH ×3 (02:05→17:46)
[2019-01-17] MEDS: INSULIN SLIDING SCALE (NOVOLOG) 1 VIAL SQ SCH ×4 (06:02→22:29)
[2019-01-17 07:44] LABS: BASO % 0.5 % (0-2.0); EOS % 1.8 % (0-4.5); HEMOGLOBIN 11.7 GM/dL (11.7-16.9); LYMPH % 7.8 % (8-40); MCH 30.1 pg (25.7-33.7); MCHC 34.5 g/dl (32.0-35.9); MEAN CELL VOLUME 87.3 fl (80-96); MONO % 7.4 % (3.8-10.2); NEUT % 82.5 % (42.8-82.8); PLATELET COUNT 169 K/MM3 (134-434); RDW 12.9 % (11.9-15.9); WHITE BLOOD COUNT 9.2 K/mm3 (4.0-10.0)
[2019-01-17 08:36] LABS: ALBUMIN 2.3 g/dl (3.4-5.0); BILIRUBIN,TOTAL 0.6 mg/dL (0.2-1); CALCIUM 7.5 mg/dL (8.5-10.1); CREATININE 1.8 mg/dL (0.55-1.3); MAGNESIUM 2.4 mg/dL (1.8-2.4); PHOSPHOROUS 2.5 mg/dL (2.5-4.9); POTASSIUM 3.8 mmol/L (3.5-5.1); TOT PROT 6.1 g/dl (6.4-8.2)
--- NOTE | 2019-01-17 09:40 | CONSULT ---
Consult Consult Specialty:: Podiatry Reason for Consultation:: cellulitis abscess left foot - History of Present Illness Chief Complaint: abscess left foot with cellulitis - History Source History Provided By: Family Member - Past Medical History Cardio/Vascular: Yes: HTN, Hyperlipdemia Hepatobiliary: Yes: Cholelithiasis Renal/: Yes: Hematuria Endocrine: Yes: Diabetes Mellitus - Past Surgical History Past Surgical History: Yes: Cholecystectomy - Alcohol/Substance Use Hx Alcohol Use: No History of Substance Use: reports: None - Smoking History Smoking history: Never smoked Have you smoked in the past 12 months: No Aproximately how many cigarettes per day: 0 - Social History Usual Living Arrangement: With Spouse History of Recent Travel: No Home Medications - Allergies Allergies/Adverse Reactions: Allergies Allergy/AdvReac Type Severity Reaction Status Date / Time nut - unspecified Allergy Unknown Itching Verified 01/16/19 10:49 No Known Drug Allergies Allergy Verified 01/16/19 10:49 bananas Allergy Mild Swelling Uncoded 01/16/19 10:49 fresh grapefruit Allergy Mild Swelling Uncoded 01/16/19 10:49 fresh brooke Allergy Mild Swelling Uncoded 01/16/19 10:49 fresh pineapple Allergy Mild Swelling Uncoded 01/16/19 10:49 fresh tomatoes Allergy Mild Swelling Uncoded 01/16/19 10:49 lettuce Allergy Mild Swelling Uncoded 01/16/19 10:49 - Home Medications Home Medications: Ambulatory Orders Lisinopril [Prinivil] 20 mg PO DAILY #30 tablet 09/10/15 Metoprolol Succinate [Toprol XL -] 25 mg PO DAILY #30 tab.sr.24h 09/10/15 metFORMIN HCL [Glucophage -] 850 mg PO BID #60 tablet 09/10/15 Glipizide 10 mg PO BID 07/22/17 Simvastatin [Zocor -] 10 mg PO DAILY 09/30/18 Becaplermin [Regranex] 15 gm TP DAILY #1 gel..gram. 11/07/18 Ketoconazole 2% Cream [Nizoral 2% Cream -] 1 applic TP DAILY #1 cream 11/07/18 Physical Exam Vital Signs: Vital Signs Temperature 99.6 F 01/17/19 06:19 Pulse Rate 80 01/17/19 06:19 Respiratory Rate 20 01/17/19 06:19 Blood Pressure 117/54 L 01/17/19 06:19 O2 Sat by Pulse Oximetry (%) 100 01/16/19 21:00 Extremities: Yes: Other (+left foot wound submet 5 with abscess and cellulitis) Labs: CBC, BMP 01/17/19 06:58 01/17/19 06:58 Imaging - Results X-ray: Image Reviewed Assessment/Plan abscess left foot cellulitis left foot Patient seen and called to get consent for I&D with possible bone and soft tissue debridement. Discussed all options, risks, benefits and alternatives including possible TMA. Discussion was face to face. consented after having a discussion with the family. Pt to OR today. NPO. INR ordered. Please maximize for OR. Vascular clearance requested and obtained.
[2019-01-17] MEDS ORDERED: metoPROLOL SUCCINATE 25 MG TAB.SR.24H (FP) PO SCH (10:00)
[2019-01-17] MEDS ORDERED: VANCOMYCIN 1 GM in D5W (PRE-DOCKED) 1,000 MG/250 ML IVPB SCH (10:00)
--- NOTE | 2019-01-17 10:36 | PN ---
Progress Note (short form) - Note Progress Note: Denies any complaints Blood sugar 200s No hypos Vital Signs Period Temp Pulse Resp BP Sys/Bustillos Pulse Ox Last 24 Hr 97.3 F-99.6 F 76-95 16-20 51-141/45-106 97-100 PE: AOx3 Neck: Supple, No JVD HEENT: EOMI Lungs: CTA CVS: s1S2 Abd: Benign Ext: left foot swelling, + erythema, s/p amputation 3rd and 4th toes Neuro: No focal deficit CMP Sodium 137 mmol/L (136-145) 01/17/19 06:58 Potassium 3.8 mmol/L (3.5-5.1) 01/17/19 06:58 Chloride 105 mmol/L (98-107) 01/17/19 06:58 Carbon Dioxide 25 mmol/L (21-32) 01/17/19 06:58 Anion Gap 7 MMOL/L (8-16) L 01/17/19 06:58 BUN 36.0 mg/dL (7-18) H 01/17/19 06:58 Creatinine 1.8 mg/dL (0.55-1.3) H 01/17/19 06:58 Est GFR (CKD-EPI)AfAm 43.84 01/17/19 06:58 Est GFR (CKD-EPI)NonAf 37.83 01/17/19 06:58 POC Glucometer 218 UNITS (80-120) 01/17/19 05:59 Random Glucose 199 mg/dL (74-106) H 01/17/19 06:58 Hemoglobin A1c % 12.5 % (4.2-6.3) H 01/17/19 06:58 Lactic Acid 1.3 mmol/L (0.4-2.0) 01/16/19 13:42 Calcium 7.5 mg/dL (8.5-10.1) L 01/17/19 06:58 Phosphorus 2.5 mg/dL (2.5-4.9) 01/17/19 06:58 Magnesium 2.4 mg/dL (1.8-2.4) 01/17/19 06:58 Total Bilirubin 0.6 mg/dL (0.2-1) 01/17/19 06:58 AST 20 U/L (15-37) 01/17/19 06:58 ALT 25 U/L (13-61) 01/17/19 06:58 Alkaline Phosphatase 158 U/L (45-117) H 01/17/19 06:58 Total Protein 6.1 g/dl (6.4-8.2) L 01/17/19 06:58 Albumin 2.3 g/dl (3.4-5.0) L 01/17/19 06:58 Triglycerides 185 mg/dL (0-150) H 01/16/19 13:42 Cholesterol 139 mg/dL (50-200) 01/16/19 13:42 Total LDL Cholesterol 88 mg/dL (5-100) 01/16/19 13:42 HDL Cholesterol 29 mg/dL (40-60) L 01/16/19 13:42 Current Medications Generic Name Dose Route Start Last Admin Trade Name Freq PRN Reason Stop Dose Admin Atorvastatin Calcium 10 mg 01/17/19 22:00 Lipitor - PO HS MELVINA Sodium Chloride 1,000 mls @ 100 mls/hr 01/16/19 14:00 01/16/19 15:03 Normal Saline - IV 100 mls/hr ASDIR MELVINA Administration Piperacillin Sod/Tazobactam 50 mls @ 100 mls/hr 01/16/19 18:00 Sod 2.25 gm/ Dextrose IVPB Q8H-IV MELVINA Protocol Piperacillin Sod/Tazobactam 50 mls @ 100 mls/hr 01/16/19 18:00 01/17/19 02:05 Sod 2.25 gm/ Dextrose IVPB 01/17/19 17:59 100 mls/hr Q8H-IV MELVINA Administration Protocol Insulin Aspart 1 vial 01/16/19 22:00 01/16/19 22:28 Novolog Vial Sliding Scale - SQ 6 units HS MELVINA Administration Protocol Insulin Aspart 1 vial 01/17/19 07:00 01/17/19 06:02 Novolog Vial Sliding Scale - SQ 6 units TIDAC MELVINA Administration Protocol Insulin Detemir 15 units 01/16/19 22:00 01/16/19 22:28 Levemir Vial SQ 15 units HS MELVINA Administration Metoprolol Succinate 25 mg 01/17/19 10:00 Toprol Xl - PO DAILY MELVINA Vancomycin HCl 1,000 mg 01/17/19 10:00 Vancomycin (Pre-Docked) IVPB DAILY MELVINA Protocol AP: Infected foot wound T2DM CKD PVD Hypetension BGM QACHS Increase Levemir 18 units daily Novolog SS coverage Will f/u
[2019-01-17] MEDS ORDERED: PT OWN MED DRAWER 7, Y5N ONE (10:46)
--- NOTE | 2019-01-17 11:01 | PN ---
Progress Note, Physician Chief Complaint: Pt lying in bed Afebrile Endocrine/renal consult appreciated labs noted,creatinine improving blood cul positive stre agalactea grp b lt foot x ray no evidence of osteomyelitis - Current Medication List Current Medications: Active Medications Atorvastatin Calcium (Lipitor -) 10 mg PO HS MELVINA Sodium Chloride (Normal Saline -) 1,000 mls @ 100 mls/hr IV ASDIR MELVINA Last Admin: 01/16/19 15:03 Dose: 100 mls/hr Piperacillin Sod/Tazobactam (Sod 2.25 gm/ Dextrose) 50 mls @ 100 mls/hr IVPB Q8H-IV MELVINA; Protocol Piperacillin Sod/Tazobactam (Sod 2.25 gm/ Dextrose) 50 mls @ 100 mls/hr IVPB Q8H-IV MELVINA; Protocol Stop: 01/17/19 17:59 Last Admin: 01/17/19 02:05 Dose: 100 mls/hr Insulin Aspart (Novolog Vial Sliding Scale -) 1 vial SQ HS MELVINA; Protocol Last Admin: 01/16/19 22:28 Dose: 6 units Insulin Aspart (Novolog Vial Sliding Scale -) 1 vial SQ TIDAC MELVINA; Protocol Last Admin: 01/17/19 06:02 Dose: 6 units Insulin Detemir (Levemir Vial) 15 units SQ HS MELVINA Last Admin: 01/16/19 22:28 Dose: 15 units Metoprolol Succinate (Toprol Xl -) 25 mg PO DAILY MELVINA Vancomycin HCl (Vancomycin (Pre-Docked)) 1,000 mg IVPB DAILY MELVINA; Protocol - Objective Vital Signs: Vital Signs Temperature 99.6 F 01/17/19 06:19 Pulse Rate 80 01/17/19 06:19 Respiratory Rate 20 01/17/19 06:19 Blood Pressure 117/54 L 01/17/19 06:19 O2 Sat by Pulse Oximetry (%) 100 01/16/19 21:00 Constitutional: Yes: No Distress Eyes: Yes: Conjunctiva Clear HENT: Yes: Atraumatic Neck: Yes: Supple Cardiovascular: Yes: Regular Rate and Rhythm Respiratory: Yes: Regular, CTA Bilaterally Gastrointestinal: Yes: Normal Bowel Sounds Musculoskeletal: Yes: WNL Extremities: Yes: Other (lt foot ulcer with sorrounding erythema) Edema: No Peripheral Pulses WNL: Yes Integumentary: Yes: Erythema, Other (lt foot ulcer) Neurological: Yes: Alert, Oriented ...Motor Strength: WNL Psychiatric: Yes: WNL, Alert, Oriented Labs: CBC, BMP 01/17/19 06:58 01/17/19 06:58 INR, PTT INR 1.08 (0.83-1.09) 01/16/19 11:00 Laboratory Results - last 24 hr 01/16/19 01/16/19 01/16/19 11:00 11:30 11:30 WBC 15.2 H RBC 4.22 Hgb 13.0 Hct 37.3 MCV 88.4 MCH 30.7 MCHC 34.8 RDW 13.2 Plt Count 180 MPV 9.0 Absolute Neuts (auto) 12.1 H Neutrophils % 79.5 D Lymphocytes % 11.6 D Monocytes % 7.2 Eosinophils % 0.5 D Basophils % 1.2 Nucleated RBC % 0 ESR PT with INR 12.80 INR 1.08 PTT (Actin FS) 30.7 Sodium 136 Potassium 3.9 Chloride 103 Carbon Dioxide 27 Anion Gap 6 L BUN 31.1 H Creatinine 2.5 H Est GFR (CKD-EPI)AfAm 29.47 Est GFR (CKD-EPI)NonAf 25.43 POC Glucometer Random Glucose 230 H Hemoglobin A1c % Lactic Acid Calcium 7.9 L Phosphorus Magnesium Total Bilirubin 1.0 AST 15 ALT 25 Alkaline Phosphatase 172 H Total Protein 6.9 Albumin 2.9 L Triglycerides Cholesterol Total LDL Cholesterol HDL Cholesterol Urine Color Urine Appearance Urine pH Ur Specific [place] Urine Protein Urine Glucose (UA) Urine Ketones Urine Blood Urine Nitrite Urine Bilirubin Urine Urobilinogen Ur Leukocyte Esterase Urine WBC (Auto) Urine RBC (Auto) Urine Casts (Auto) U Pathogenic Cast Auto U Epithel Cells (Auto) Urine Crystals (Auto) Urine Bacteria (Auto) Ur Random Creatinine U Random Total Protein Ur Random Sodium Urine Creatinine Protein/Creatinin Ratio 01/16/19 01/16/19 01/16/19 11:30 12:41 13:42 WBC RBC Hgb Hct MCV MCH MCHC RDW Plt Count MPV Absolute Neuts (auto) Neutrophils % Lymphocytes % Monocytes % Eosinophils % Basophils % Nucleated RBC % ESR 92 H PT with INR INR PTT (Actin FS) Sodium Potassium Chloride Carbon Dioxide Anion Gap BUN Creatinine Est GFR (CKD-EPI)AfAm Est GFR (CKD-EPI)NonAf POC Glucometer 233 Random Glucose Hemoglobin A1c % Lactic Acid 1.3 Calcium Phosphorus Magnesium Total Bilirubin AST ALT Alkaline Phosphatase Total Protein Albumin Triglycerides Cholesterol Total LDL Cholesterol HDL Cholesterol Urine Color Urine Appearance Urine pH Ur Specific [place] Urine Protein Urine Glucose (UA) Urine Ketones Urine Blood Urine Nitrite Urine Bilirubin Urine Urobilinogen Ur Leukocyte Esterase Urine WBC (Auto) Urine RBC (Auto) Urine Casts (Auto) U Pathogenic Cast Auto U Epithel Cells (Auto) Urine Crystals (Auto) Urine Bacteria (Auto) Ur Random Creatinine U Random Total Protein Ur Random Sodium Urine Creatinine Protein/Creatinin Ratio 01/16/19 01/16/19 01/16/19 13:42 17:05 22:25 WBC RBC Hgb Hct MCV MCH MCHC RDW Plt Count MPV Absolute Neuts (auto) Neutrophils % Lymphocytes % Monocytes % Eosinophils % Basophils % Nucleated RBC % ESR PT with INR INR PTT (Actin FS) Sodium Potassium Chloride Carbon Dioxide Anion Gap BUN Creatinine Est GFR (CKD-EPI)AfAm Est GFR (CKD-EPI)NonAf POC Glucometer 319 333 Random Glucose Hemoglobin A1c % Lactic Acid Calcium Phosphorus Magnesium Total Bilirubin AST ALT Alkaline Phosphatase Total Protein Albumin Triglycerides 185 H Cholesterol 139 Total LDL Cholesterol 88 HDL Cholesterol 29 L Urine Color Urine Appearance Urine pH Ur Specific [place] Urine Protein Urine Glucose (UA) Urine Ketones Urine Blood Urine Nitrite Urine Bilirubin Urine Urobilinogen Ur Leukocyte Esterase Urine WBC (Auto) Urine RBC (Auto) Urine Casts (Auto) U Pathogenic Cast Auto U Epithel Cells (Auto) Urine Crystals (Auto) Urine Bacteria (Auto) Ur Random Creatinine U Random Total Protein Ur Random Sodium Urine Creatinine Protein/Creatinin Ratio 01/16/19 01/16/19 01/16/19 22:29 22:29 22:29 WBC RBC Hgb Hct MCV MCH MCHC RDW Plt Count MPV Absolute Neuts (auto) Neutrophils % Lymphocytes % Monocytes % Eosinophils % Basophils % Nucleated RBC % ESR PT with INR INR PTT (Actin FS) Sodium Potassium Chloride Carbon Dioxide Anion Gap BUN Creatinine Est GFR (CKD-EPI)AfAm Est GFR (CKD-EPI)NonAf POC Glucometer Random Glucose Hemoglobin A1c % Lactic Acid Calcium Phosphorus Magnesium Total Bilirubin AST ALT Alkaline Phosphatase Total Protein Albumin Triglycerides Cholesterol Total LDL Cholesterol HDL Cholesterol Urine Color Yellow Urine Appearance Cloudy Urine pH 5.0 Ur Specific [place] 1.030 Urine Protein 2+ H Urine Glucose (UA) 3+ H Urine Ketones Trace H Urine Blood Negative Urine Nitrite Negative Urine Bilirubin Negative Urine Urobilinogen 1.0 Ur Leukocyte Esterase Negative Urine WBC (Auto) 2 Urine RBC (Auto) 1 Urine Casts (Auto) 20 U Pathogenic Cast Auto Few U Epithel Cells (Auto) 2.2 Urine Crystals (Auto) Few Urine Bacteria (Auto) 2.6 Ur Random Creatinine Cancelled 221.0 H U Random Total Protein 116.5 H Ur Random Sodium 35 L Urine Creatinine 221.0 H Protein/Creatinin Ratio 0.5 01/16/19 01/17/19 01/17/19 22:29 05:59 06:58 WBC RBC Hgb Hct MCV MCH MCHC RDW Plt Count MPV Absolute Neuts (auto) Neutrophils % Lymphocytes % Monocytes % Eosinophils % Basophils % Nucleated RBC % ESR PT with INR INR PTT (Actin FS) Sodium Potassium Chloride Carbon Dioxide Anion Gap BUN Creatinine Est GFR (CKD-EPI)AfAm Est GFR (CKD-EPI)NonAf POC Glucometer 218 Random Glucose Hemoglobin A1c % 12.5 H Lactic Acid Calcium Phosphorus Magnesium Total Bilirubin AST ALT Alkaline Phosphatase Total Protein Albumin Triglycerides Cholesterol Total LDL Cholesterol HDL Cholesterol Urine Color Urine Appearance Urine pH Ur Specific [place] Urine Protein Urine Glucose (UA) Urine Ketones Urine Blood Urine Nitrite Urine Bilirubin Urine Urobilinogen Ur Leukocyte Esterase Urine WBC (Auto) Urine RBC (Auto) Urine Casts (Auto) U Pathogenic Cast Auto U Epithel Cells (Auto) Urine Crystals (Auto) Urine Bacteria (Auto) Ur Random Creatinine U Random Total Protein Ur Random Sodium Cancelled Urine Creatinine Protein/Creatinin Ratio 01/17/19 01/17/19 06:58 06:58 WBC 9.2 RBC 3.90 L Hgb 11.7 Hct 34.0 L MCV 87.3 MCH 30.1 MCHC 34.5 RDW 12.9 Plt Count 169 MPV 9.0 Absolute Neuts (auto) 7.6 Neutrophils % 82.5 Lymphocytes % 7.8 L D Monocytes % 7.4 Eosinophils % 1.8 D Basophils % 0.5 Nucleated RBC % 1 H ESR PT with INR INR PTT (Actin FS) Sodium 137 Potassium 3.8 Chloride 105 Carbon Dioxide 25 Anion Gap 7 L BUN 36.0 H Creatinine 1.8 H Est GFR (CKD-EPI)AfAm 43.84 Est GFR (CKD-EPI)NonAf 37.83 POC Glucometer Random Glucose 199 H Hemoglobin A1c % Lactic Acid Calcium 7.5 L Phosphorus 2.5 Magnesium 2.4 Total Bilirubin 0.6 AST 20 ALT 25 Alkaline Phosphatase 158 H Total Protein 6.1 L Albumin 2.3 L Triglycerides Cholesterol Total LDL Cholesterol HDL Cholesterol Urine Color Urine Appearance Urine pH Ur Specific [place] Urine Protein Urine Glucose (UA) Urine Ketones Urine Blood Urine Nitrite Urine Bilirubin Urine Urobilinogen Ur Leukocyte Esterase Urine WBC (Auto) Urine RBC (Auto) Urine Casts (Auto) U Pathogenic Cast Auto U Epithel Cells (Auto) Urine Crystals (Auto) Urine Bacteria (Auto) Ur Random Creatinine U Random Total Protein Ur Random Sodium Urine Creatinine Protein/Creatinin Ratio - ....Imaging X-ray: Report Reviewed Assessment/Plan LT foot diabetic ulcer with infection DM,HTN renal insufficiency ckd Positive blood cul PLAN Continue antibiotics WOUND care Monitor blood sugar ID and Podiatry f/u Endocrine F/u
[2019-01-17 11:16] LABS: INR 1.12 (0.83-1.09); PROTHROMBIN TIME (PATIENT) 13.2 SEC (9.7-13.0)
[2019-01-17] MEDS ORDERED: INSULIN (NOVOLOG) ASPART 100 UNITS/ML 10ML VIAL ONE (11:38)
--- NOTE | 2019-01-17 12:05 | CONSULT ---
- Consultation REQUESTING PROVIDER: CONSULT REQUEST: We have been asked to surgically evaluate this patient for left foot cellulitis/wound for pre-op planning. PCP: Katty Yusuf HISTORY OF PRESENT ILLNESS: 68M with a PMH of h/o HTN, HLD, DM, s/p amputation of L 3rd and 4th toes who presents to the ER from his podiatry clinic for admission for L foot wound. The patients states that he saw someone in the wound clinic who recommended admission for IV abx. He admits to "some drainage" and numbness which is not different from baseline. Patient states he has minimal pain. Allergies/Adverse Reactions: Allergies Allergy/AdvReac Type Severity Reaction Status Date / Time nut - unspecified Allergy Unknown Itching Verified 01/16/19 10:49 No Known Drug Allergies Allergy Verified 01/16/19 10:49 bananas Allergy Mild Swelling Uncoded 01/16/19 10:49 fresh grapefruit Allergy Mild Swelling Uncoded 01/16/19 10:49 fresh brooke Allergy Mild Swelling Uncoded 01/16/19 10:49 fresh pineapple Allergy Mild Swelling Uncoded 01/16/19 10:49 fresh tomatoes Allergy Mild Swelling Uncoded 01/16/19 10:49 lettuce Allergy Mild Swelling Uncoded 01/16/19 10:49 Home Medications: Ambulatory Orders Lisinopril [Prinivil] 20 mg PO DAILY #30 tablet 09/10/15 Metoprolol Succinate [Toprol XL -] 25 mg PO DAILY #30 tab.sr.24h 09/10/15 metFORMIN HCL [Glucophage -] 850 mg PO BID #60 tablet 09/10/15 Glipizide 10 mg PO BID 07/22/17 Simvastatin [Zocor -] 10 mg PO DAILY 09/30/18 Becaplermin [Regranex] 15 gm TP DAILY #1 gel..gram. 11/07/18 Ketoconazole 2% Cream [Nizoral 2% Cream -] 1 applic TP DAILY #1 cream 11/07/18 Past History Anemia: No Asthma: No Cancer: No Cardiac Disorders: No CVA: No COPD: No CHF: No Dementia: No Diabetes: Yes GI Disorders: No Disorders: No HTN: Yes Hypercholesterolemia: Yes Liver Disease: No Seizures: No Thyroid Disease: No - Surgical History Abdominal Surgery: No Appendectomy: No Cardiac Surgery: No Cholecystectomy: Yes Lung Surgery: No Neurologic Surgery: No Orthopedic Surgery: No - Immunization History Immunization Up to Date: Yes - Psycho Social/Smoking Cessation Hx Smoking History: Never smoked Have you smoked in the past 12 months: No Number of Cigarettes Smoked Daily: 0 Cigars Per Day: 0 Hx Alcohol Use: No Drug/Substance Use Hx: No Substance Use Type: None Hx Substance Use Treatment: No Review of Systems - Review of Systems Able to Perform ROS?: Yes Comments:: GENERAL/CONSTITUTIONAL: No fever or chills. No weakness. HEAD, EYES, EARS, NOSE AND THROAT: No change in vision. No sore throat. CARDIOVASCULAR: No chest pain, palpitations, or lightheadedness. RESPIRATORY: No cough, wheezing, or hemoptysis. GASTROINTESTINAL: No abdominal pain, nausea, vomiting, diarrhea, or constipation. GENITOURINARY: No dysuria, frequency, hematuria, or change in urination. MUSCULOSKELETAL: No joint or muscle swelling or pain. SKIN: + for wound on L foot. NEUROLOGIC: No headache, numbness, tingling, focal weakness, loss of consciousness, or change in strength/sensation. Is the patient limited Bengali proficient: No *Physical Exam - Vital Signs Last Vital Signs Temp Pulse Resp BP Pulse Ox 99.4 F 80 16 120/60 99 01/16/19 10:52 01/16/19 10:52 01/16/19 10:52 01/16/19 10:52 01/16/19 10:52 - Physical Exam GENERAL: Well developed, well nourished. Awake and alert. No acute distress. HEENT: Normocephalic, atraumatic. Hearing grossly normal. Sclera are non- icteric. NECK: Supple. Full ROM. EXTREMITIES: B/l LE compartments soft, supple and non-tender with no lesions or rashes noted. Left foot s/p amputations toes 3 and 4 well healed, diffuse edema and cellulitis with tracking from forefoot proximially extending to plantar surface over instep. margins drawn, @1cm circular stage 2 ulcer on lateral aspect of plantar surface proximal to the base of the 5th TMT joint of L foot with some d/c noted. + biphasic signal on bedside doppler of B/L DP and PT pulses. SKIN: warm and dry. Normal capillary refill. No rashes. No jaundice. NEUROLOGICAL: Alert, awake, appropriate. Cranial nerves 2-12 grossly intact. Normal speech. PSYCHIATRIC: Cooperative. Good eye contact. Appropriate mood and affect. CBC, BMP 01/17/19 06:58 01/17/19 06:58 - RADIOLOGY Left Foot xray with no evidence of SQ emphysema Problem List - Problems (1) Wound infection Assessment/Plan: 68M with a PMH of h/o HTN, HLD, DM, s/p amputation of L 3rd and 4th toes who presents to the ER from his podiatry clinic for admission for L foot wound. good signals at DP and PT on bedside doppler. No evidence for vascular intervention and no contraindication for podiatry intervention/I&D. -wound care/ I&D per podiatry -IV ABX per ID -elevate Left LE when in bed above the heart -tight glycemic control -re-consult vascular surgery PRN Code(s): T14.8XXA - OTHER INJURY OF UNSPECIFIED BODY REGION, INITIAL ENCOUNTER; L08.9 - LOCAL INFECTION OF THE SKIN AND SUBCUTANEOUS TISSUE, UNSP
--- NOTE | 2019-01-17 13:20 | EKG ---
Test Reason : Blood Pressure : / mmHG Vent. Rate : 079 BPM Atrial Rate : 079 BPM P-R Int : 144 ms QRS Dur : 086 ms QT Int : 350 ms P-R-T Axes : 042 -10 019 degrees QTc Int : 401 ms NORMAL SINUS RHYTHM NORMAL ECG WHEN COMPARED WITH ECG OF 30-SEP-2018 23:05, NO SIGNIFICANT CHANGE WAS FOUND Confirmed by ISIDRO GLEASON MD ([id number]) on 01/17/2019 1:20:24 PM Referred By: Confirmed By:ISIDRO GLEASON MD
--- NOTE | 2019-01-17 14:10 | PN ---
Progress Note (short form) - Note Progress Note: Renal follow up for AVERY on CKD Seen and examined at the bedside no acute complaints no sob, cp, fever or chills making urine Vital Signs Temperature 99.8 F H 01/17/19 10:55 Pulse Rate 71 01/17/19 10:55 Respiratory Rate 20 01/17/19 10:55 Blood Pressure 140/80 01/17/19 10:55 O2 Sat by Pulse Oximetry (%) 100 01/16/19 21:00 Intake & Output 01/14/19 01/15/19 01/16/19 01/17/19 23:59 23:59 23:59 23:59 Intake Total 700 800 Output Total 300 Balance 700 500 Weight 104.326 kg NAD awake and alert neck supple, no JVD RRR, no M/R Dec BS but no rales or wheeze soft NT/ND no LE edema no bladder distension or CVA tenderness CBC, BMP 01/17/19 06:58 01/17/19 06:58 Current Medications Atorvastatin Calcium (Lipitor -) 10 mg PO HS MELVINA Sodium Chloride (Normal Saline -) 1,000 mls @ 100 mls/hr IV ASDIR MELVINA Last Admin: 01/16/19 15:03 Dose: 100 mls/hr Piperacillin Sod/Tazobactam (Sod 2.25 gm/ Dextrose) 50 mls @ 100 mls/hr IVPB Q8H-IV MELVINA; Protocol Piperacillin Sod/Tazobactam (Sod 2.25 gm/ Dextrose) 50 mls @ 100 mls/hr IVPB Q8H-IV MELVINA; Protocol Stop: 01/17/19 17:59 Last Admin: 01/17/19 10:55 Dose: 100 mls/hr Insulin Aspart (Novolog Vial Sliding Scale -) 1 vial SQ HS MELVINA; Protocol Last Admin: 01/16/19 22:28 Dose: 6 units Insulin Aspart (Novolog Vial Sliding Scale -) 1 vial SQ TIDAC MELVINA; Protocol Last Admin: 01/17/19 12:11 Dose: 6 units Insulin Detemir (Levemir Vial) 18 units SQ HS MELVINA Metoprolol Succinate (Toprol Xl -) 25 mg PO DAILY MELVINA Last Admin: 01/17/19 10:54 Dose: 25 mg Vancomycin HCl (Vancomycin (Pre-Docked)) 1,000 mg IVPB DAILY MELVINA; Protocol 68 year old gentleman with history of CKD, DM, Hypertension, PVD s/p LE amputation who presented with non-healing foot wound with signs of infection and noted to have Cr of 2.5, 1. AVERY on CKD vs progressive CKD 2. CKD 3. Infected foot wound 4. PVD 5. DM 6. Hypetension Renal function improving with IV hydration avoid nephrotoxins and IV contrast Start empiric vancomycin (levels checked daily) and zosyn f/u cultures Vascular and podiatry consult withhold any NI/ARB for now given decline in renal function continue metoprolol Trend renal function and electrolytes daily Thank you David Jones DO
[2019-01-17] MEDS ORDERED: LIDOCAINE HCL 1%, 10 MG/ML (20ML VIAL) ONE (14:57)
[2019-01-17] MEDS ORDERED: BUPIVACAINE HCL/PF 0.5% (5 MG/ML) 30 ML VIAL IJ ONE (14:58)
[2019-01-17] MEDS ORDERED: MIDAZOLAM HCL 2 MG/2 ML SINGLE DOSE VIAL ONE (16:06)
[2019-01-17] MEDS ORDERED: ONDANSETRON 4 MG/2 ML VIAL IVPUSH PRN ×2 (16:11→16:56)
[2019-01-17] MEDS ORDERED: LACTATED RINGERS SOLUTION 1,000 ML IV SCH ×2 (16:15→16:56)
--- NOTE | 2019-01-17 16:41 | OP ---
Operative Note - Note: Operative Date: 01/17/19 Pre-Operative Diagnosis: abscess with cellulitis left foot Operation: Incisionand drainage abscess left foot with iodoform gauze packing left foot submet 5. Wound culture deep. Pulse lavage 3000ml with bacitracin. Findings: Purulent drainage, necrotic tissue, foreign body? Post-Operative Diagnosis: Same as Pre-op Surgeon: Chai Osborn Consumer Science Teacher: Marshall Nolan Anesthesia: MAC Specimens Removed: soft tissue, foreign body Estimated Blood Loss (mls): 15 Instrument used (Debridements only): 15 blade Operative Report Dictated: No
[2019-01-17] MEDS: SODIUM CHLORIDE 1,000 ML IV SCH (17:21)
[2019-01-17] MEDS ORDERED: DEXTROSE 5%-WATER - 100 ML IVPB ONE (17:41)
[2019-01-17] MEDS ORDERED: ACETAMINOPHEN 325 MG TABLET (FP) ONE (18:01)
[2019-01-17] MEDS: ACETAMINOPHEN 325 MG TABLET (FP) PO PRN (18:09)
[2019-01-17 20:19] LABS: BASO % 0.5 % (0-2.0); HEMATOCRIT 38.4 % (35.4-49); LYMPH % 9.4 % (8-40); MCHC 33.7 g/dl (32.0-35.9); MEAN CELL VOLUME 88.9 fl (80-96); MEAN PLT VOLUME 9.1 fl (7.5-11.1); MONO % 6.9 % (3.8-10.2); NEUT % 81.2 % (42.8-82.8); PLATELET COUNT 192 K/MM3 (134-434); RBC 4.32 M/mm3 (4.00-5.60); RDW 13.2 % (11.9-15.9); WHITE BLOOD COUNT 10.5 K/mm3 (4.0-10.0)
[2019-01-17] MEDS ORDERED: INSULIN (LEVEMIR) 100 UNITS/ML UNITS SQ SCH ×2 (22:00)
[2019-01-17] MEDS ORDERED: ATORVASTATIN CA 10 MG TABLET (FP) PO SCH (22:00)
[2019-01-17] MEDS: ATORVASTATIN CA 10 MG TABLET (FP) PO SCH (22:02)
[2019-01-18] MEDS: PIPERACILLIN/TAZOB 2.25 GM 2.25 GM in DEXTROSE 5%-WATER - 50 ML IVPB SCH ×2 (02:45→09:26)
[2019-01-18] MEDS: INSULIN SLIDING SCALE (NOVOLOG) 1 VIAL SQ SCH ×4 (06:19→22:48)
[2019-01-18 07:59] LABS: BASO % 0.8 % (0-2.0); EOS % 2.9 % (0-4.5); HEMATOCRIT 35.6 % (35.4-49); HEMOGLOBIN 12.1 GM/dL (11.7-16.9); LYMPH % 10.4 % (8-40); MCH 30.3 pg (25.7-33.7); MEAN CELL VOLUME 89.1 fl (80-96); MEAN PLT VOLUME 8.9 fl (7.5-11.1); MONO % 9.1 % (3.8-10.2); NEUT % 76.8 % (42.8-82.8); PLATELET COUNT 175 K/MM3 (134-434); RBC 3.99 M/mm3 (4.00-5.60); WHITE BLOOD COUNT 8.4 K/mm3 (4.0-10.0)
[2019-01-18 08:27] LABS: BLOOD UREA NITROGEN 21.3 mg/dL (7-18); CALCIUM 7.4 mg/dL (8.5-10.1); CREATININE 1.4 mg/dL (0.55-1.3); POTASSIUM 3.9 mmol/L (3.5-5.1)
[2019-01-18] MEDS: ACETAMINOPHEN 325 MG TABLET (FP) PO PRN ×2 (08:42→22:49)
[2019-01-18] MEDS ORDERED: PIPERACILLIN/TAZOBACTAM 2.25 GM VIAL IVPB ONE (09:18)
[2019-01-18] MEDS ORDERED: DEXTROSE 5%-WATER - 50 ML IVPB ONE ×3 (09:18→21:47)
[2019-01-18] MEDS: metoPROLOL SUCCINATE 25 MG TAB.SR.24H (FP) PO SCH (09:26)
--- NOTE | 2019-01-18 09:45 | PN ---
Progress Note, Physician Chief Complaint: s/p debridement of bone and soft tissue lt foot and and transmetatarsal amputation of LT foot Pt lying in bed lt footcul pending Endocrine/renal consult appreciated labs noted,creatinine improving blood cul negative lt foot x ray no evidence of osteomyelitiss - Current Medication List Current Medications: Active Medications Acetaminophen (Tylenol -) 650 mg PO Q6H PRN PRN Reason: FEVER OVER 100 Last Admin: 01/18/19 08:42 Dose: 650 mg Atorvastatin Calcium (Lipitor -) 10 mg PO HS MELVINA Last Admin: 01/17/19 22:02 Dose: 10 mg Piperacillin Sod/Tazobactam (Sod 2.25 gm/ Dextrose) 50 mls @ 100 mls/hr IVPB Q8H-IV MELVINA; Protocol Stop: 01/18/19 17:59 Last Admin: 01/18/19 09:26 Dose: 100 mls/hr Sodium Chloride (Normal Saline -) 1,000 mls @ 100 mls/hr IV ASDIR MELVINA Last Admin: 01/17/19 17:21 Dose: 0 mls Piperacillin Sod/Tazobactam (Sod 2.25 gm/ Dextrose) 50 mls @ 100 mls/hr IVPB Q8H-IV MELVINA; Protocol Vancomycin HCl (Vancomycin (Pre-Docked)) 1,000 mg in 250 mls @ 250 mls/hr IVPB ONCE ONE Stop: 01/18/19 10:59 Insulin Aspart (Novolog Vial Sliding Scale -) 1 vial SQ HS MELVINA; Protocol Last Admin: 01/17/19 22:29 Dose: 2 units Insulin Aspart (Novolog Vial Sliding Scale -) 1 vial SQ TIDAC MELVINA; Protocol Last Admin: 01/18/19 06:19 Dose: 4 units Insulin Detemir (Levemir Vial) 18 units SQ HS MELVINA Last Admin: 01/17/19 22:02 Dose: 18 units Metoprolol Succinate (Toprol Xl -) 25 mg PO DAILY MELVINA Last Admin: 01/18/19 09:26 Dose: 25 mg Ondansetron HCl (Zofran Injection) 4 mg IVPUSH Q6H PRN PRN Reason: NAUSEA AND/OR VOMITING Vancomycin HCl (Vancomycin (Pre-Docked)) 1,000 mg IVPB DAILY MELVINA; Protocol - Objective Vital Signs: Vital Signs Temperature 98.5 F 01/18/19 06:00 Pulse Rate 79 12/14/19 06:00 Respiratory Rate 18 01/18/19 06:00 Blood Pressure 155/71 01/18/19 06:00 O2 Sat by Pulse Oximetry (%) 95 01/17/19 21:00 Constitutional: Yes: No Distress Eyes: Yes: Conjunctiva Clear HENT: Yes: Atraumatic Neck: Yes: Supple Cardiovascular: Yes: Regular Rate and Rhythm Respiratory: Yes: Regular, CTA Bilaterally Gastrointestinal: Yes: Normal Bowel Sounds, Soft Extremities: Yes: Other (LT foot dressing in place,s/p transmetatarsal amputation of LT foot) Wound/Incision: Yes: Dressing Dry and Intact Neurological: Yes: Alert, Oriented Psychiatric: Yes: WNL, Alert Labs: CBC, BMP 01/18/19 07:05 01/18/19 07:05 INR, PTT INR 1.12 (0.83-1.09) H 01/17/19 10:55 Assessment/Plan s/p debridement of bone and soft tissue LT foot, S/p transmetatarsal amputatation of LT foot LT foot diabetic ulcer with infection DM,HTN renal insufficiency improving AVERY on ckd PLAn Continue antibiotics WOUND care Monitor blood sugar ID and Podiatry f/u Endocrine F/u
--- NOTE | 2019-01-18 09:57 | CON.ID ---
Consult Consult Specialty:: infectious diseases Referred by:: dr singh Reason for Consultation:: wound infection,fevers - History of Present Illness Chief Complaint: wound and fever History of Present Illness: 68M with a PMH of h/o HTN, HLD, DM, s/p amputation of L 3rd and 4th toes who presents to the ER from his podiatry clinic for admission for L foot wound. The patients states that he saw someone in the wound clinic who recommended admission for IV abx. He admits to "some drainage" and numbness which is not different from baseline. patient was seen by podiatry and patient underwent surgery. post surgery patient is spiking fevers and wound showing multiple organisms also patients blood cx was positive - History Source History Provided By: Patient, Medical Record Limitations to Obtaining History: Language Barrier - Past Medical History Cardio/Vascular: Yes: HTN, Hyperlipdemia Hepatobiliary: Yes: Cholelithiasis Renal/: Yes: Hematuria Endocrine: Yes: Diabetes Mellitus - Past Surgical History Past Surgical History: Yes: Cholecystectomy - Alcohol/Substance Use Hx Alcohol Use: No History of Substance Use: reports: None - Smoking History Smoking history: Never smoked Have you smoked in the past 12 months: No Aproximately how many cigarettes per day: 0 - Social History Usual Living Arrangement: With Spouse History of Recent Travel: No Home Medications - Allergies Allergies/Adverse Reactions: Allergies Allergy/AdvReac Type Severity Reaction Status Date / Time nut - unspecified Allergy Unknown Itching Verified 01/16/19 10:49 No Known Drug Allergies Allergy Verified 01/16/19 10:49 bananas Allergy Mild Swelling Uncoded 01/16/19 10:49 fresh grapefruit Allergy Mild Swelling Uncoded 01/16/19 10:49 fresh [place] Allergy Mild Swelling Uncoded 01/16/19 10:49 fresh pineapple Allergy Mild Swelling Uncoded 01/16/19 10:49 fresh tomatoes Allergy Mild Swelling Uncoded 01/16/19 10:49 lettuce Allergy Mild Swelling Uncoded 01/16/19 10:49 - Home Medications Home Medications: Ambulatory Orders Lisinopril [Prinivil] 20 mg PO DAILY #30 tablet 09/10/15 Metoprolol Succinate [Toprol XL -] 25 mg PO DAILY #30 tab.sr.24h 09/10/15 metFORMIN HCL [Glucophage -] 850 mg PO BID #60 tablet 09/10/15 Glipizide 10 mg PO BID 07/22/17 Simvastatin [Zocor -] 10 mg PO DAILY 09/30/18 Becaplermin [Regranex] 15 gm TP DAILY #1 gel..gram. 11/07/18 Ketoconazole 2% Cream [Nizoral 2% Cream -] 1 applic TP DAILY #1 cream 11/07/18 Review of Systems - Review of Systems Constitutional: reports: Chills, Fever Eyes: reports: No Symptoms HENT: reports: No Symptoms Neck: reports: No Symptoms Cardiovascular: reports: No Symptoms Respiratory: reports: No Symptoms Gastrointestinal: reports: No Symptoms Genitourinary: reports: No Symptoms Musculoskeletal: reports: No Symptoms Integumentary: reports: No Symptoms Neurological: reports: No Symptoms Endocrine: reports: No Symptoms Hematology/Lymphatic: reports: No Symptoms Psychiatric: reports: No Symptoms Physical Exam Vital Signs: Vital Signs Temperature 98.5 F 01/18/19 06:00 Pulse Rate 79 01/18/19 06:00 Respiratory Rate 18 01/18/19 06:00 Blood Pressure 155/71 01/18/19 06:00 O2 Sat by Pulse Oximetry (%) 95 01/17/19 21:00 Constitutional: Yes: Well Nourished, Calm, Mild Distress Cardiovascular: Yes: Regular Rate and Rhythm Respiratory: Yes: Regular, CTA Bilaterally Gastrointestinal: Yes: Normal Bowel Sounds, Soft Musculoskeletal: Yes: WNL Extremities: Yes: Other Wound/Incision: Yes: Dressing Dry and Intact Neurological: Yes: Alert, Oriented Psychiatric: Yes: Alert, Oriented Labs: CBC, BMP 01/18/19 07:05 01/18/19 07:05 Imaging - Results X-ray: Report Reviewed, Image Reviewed Assessment/Plan 68 year old gentleman with history of CKD, DM, Hypertension, PVD s/p LE amputation who presented with non-healing foot wound with signs of infection and noted to have Cr of 2.5, 1. AVERY on CKD vs progressive CKD 2. CKD 3. Infected foot wound 4. PVD 5. DM 6. Hypetension plan hold of on vanco continue zosyn repeat blood cx ordered wound care rest as per the team
[2019-01-18] MEDS ORDERED: VANCOMYCIN 1 GM in D5W (PRE-DOCKED) 1,000 MG/250 ML IVPB SCH (10:00)
[2019-01-18] MEDS ORDERED: VANCOMYCIN 1 GRAM (PRE-DOCKED) 1,000 MG/250 ML BAG IVPB ONE (10:00)
--- NOTE | 2019-01-18 11:56 | PN ---
Progress Note (short form) - Note Progress Note: Denies any complaints Blood sugar improving No hypos Tmax 102.8 Vital Signs Period Temp Pulse Resp BP Sys/Bustillos Pulse Ox Last 24 Hr 98.0 F-102.8 F 73-88 14-20 96-160/54-92 95-96 PE: AOx3 Neck: Supple, No JVD HEENT: EOMI Lungs: CTA CVS: s1S2 Abd: Benign Ext: left foot swelling, + erythema, s/p amputation 3rd and 4th toes Neuro: No focal deficit CMP Sodium 137 mmol/L (136-145) 01/18/19 07:05 Potassium 3.9 mmol/L (3.5-5.1) 01/18/19 07:05 Chloride 106 mmol/L (98-107) 01/18/19 07:05 Carbon Dioxide 25 mmol/L (21-32) 01/18/19 07:05 Anion Gap 7 MMOL/L (8-16) L 01/18/19 07:05 BUN 21.3 mg/dL (7-18) H 01/18/19 07:05 Creatinine 1.4 mg/dL (0.55-1.3) H 01/18/19 07:05 Est GFR (CKD-EPI)AfAm 59.41 01/18/19 07:05 Est GFR (CKD-EPI)NonAf 51.26 01/18/19 07:05 POC Glucometer 164 UNITS (80-120) 01/18/19 06:16 Random Glucose 158 mg/dL (74-106) H 01/18/19 07:05 Hemoglobin A1c % 12.5 % (4.2-6.3) H 01/17/19 06:58 Lactic Acid 1.3 mmol/L (0.4-2.0) 01/16/19 13:42 Calcium 7.4 mg/dL (8.5-10.1) L 01/18/19 07:05 Phosphorus 2.5 mg/dL (2.5-4.9) 01/17/19 06:58 Magnesium 2.4 mg/dL (1.8-2.4) 01/17/19 06:58 Total Bilirubin 0.6 mg/dL (0.2-1) 01/17/19 06:58 AST 20 U/L (15-37) 01/17/19 06:58 ALT 25 U/L (13-61) 01/17/19 06:58 Alkaline Phosphatase 158 U/L (45-117) H 01/17/19 06:58 Total Protein 6.1 g/dl (6.4-8.2) L 01/17/19 06:58 Albumin 2.3 g/dl (3.4-5.0) L 01/17/19 06:58 Triglycerides 185 mg/dL (0-150) H 01/16/19 13:42 Cholesterol 139 mg/dL (50-200) 01/16/19 13:42 Total LDL Cholesterol 88 mg/dL (5-100) 01/16/19 13:42 HDL Cholesterol 29 mg/dL (40-60) L 01/16/19 13:42 Current Medications Generic Name Dose Route Start Last Admin Trade Name Freq PRN Reason Stop Dose Admin Acetaminophen 650 mg 01/17/19 17:59 01/18/19 08:42 Tylenol - PO 650 mg Q6H PRN Administration FEVER OVER 100 Atorvastatin Calcium 10 mg 01/17/19 22:00 01/17/19 22:02 Lipitor - PO 10 mg HS MELVINA Administration Sodium Chloride 1,000 mls @ 100 mls/hr 01/17/19 16:56 01/17/19 17:21 Normal Saline - IV 0 mls ASDIR MELVINA Administration Piperacillin Sod/Tazobactam 50 mls @ 100 mls/hr 01/18/19 18:00 Sod 3.375 gm/ Dextrose IVPB Q8H-IV MELVINA Protocol Insulin Aspart 1 vial 01/17/19 22:00 01/17/19 22:29 Novolog Vial Sliding Scale - SQ 2 units HS MELVINA Administration Protocol Insulin Aspart 1 vial 01/18/19 07:00 01/18/19 06:19 Novolog Vial Sliding Scale - SQ 4 units TIDAC MELVINA Administration Protocol Insulin Detemir 18 units 01/17/19 22:00 01/17/19 22:02 Levemir Vial SQ 18 units HS MELVINA Administration Metoprolol Succinate 25 mg 01/18/19 10:00 01/18/19 09:26 Toprol Xl - PO 25 mg DAILY MELVINA Administration Ondansetron HCl 4 mg 01/17/19 16:56 Zofran Injection IVPUSH Q6H PRN NAUSEA AND/OR VOMITING AP: Infected foot wound T2DM:A1c 12.5 now CKD PVD Hypetension BGM QACHS Increase Levemir 20 units daily Increase Novolog SS coverage Discussed with at bedside. Pt has been noncompliant with diet at home Diet exercise discussed. Will f/u
[2019-01-18] MEDS: SODIUM CHLORIDE 1,000 ML IV SCH ×2 (13:44→17:32)
[2019-01-18] MEDS ORDERED: PIPERACILLIN/TAZOBACTAM 3.375 GM VIAL IVPB ONE ×2 (17:25→21:47)
[2019-01-18] MEDS: PIPERACILLIN/TAZOB 3.375 GM 3.375 GM in DEXTROSE 5%-WATER - 50 ML IVPB SCH (17:32)
--- NOTE | 2019-01-18 20:10 | PN ---
Progress Note, Physician History of Present Illness: Pt seen and examined at bedside. He is awake and alert. he denies shortness of breath. - Current Medication List Current Medications: Active Medications Acetaminophen (Tylenol -) 650 mg PO Q6H PRN PRN Reason: FEVER OVER 100 Last Admin: 01/18/19 08:42 Dose: 650 mg Atorvastatin Calcium (Lipitor -) 10 mg PO HS MELVINA Last Admin: 01/17/19 22:02 Dose: 10 mg Sodium Chloride (Normal Saline -) 1,000 mls @ 100 mls/hr IV ASDIR MELVINA Last Admin: 01/18/19 17:32 Dose: Not Given Piperacillin Sod/Tazobactam (Sod 3.375 gm/ Dextrose) 50 mls @ 100 mls/hr IVPB Q8H-IV MELVINA; Protocol Last Admin: 01/18/19 17:32 Dose: 100 mls/hr Insulin Aspart (Novolog Vial Sliding Scale -) 1 vial SQ HS MEL[facility]INA; Protocol Last Admin: 01/17/19 22:29 Dose: 2 units Insulin Aspart (Novolog Vial Sliding Scale -) 1 vial SQ TIDAC [facility]; Protocol Last Admin: 01/18/19 16:45 Dose: 8 units Insulin Detemir (Levemir Vial) 20 units SQ HS MELVINA Metoprolol Succinate (Toprol Xl -) 25 mg PO DAILY MELVINA Last Admin: 01/18/19 09:26 Dose: 25 mg Ondansetron HCl (Zofran Injection) 4 mg IVPUSH Q6H PRN PRN Reason: NAUSEA AND/OR VOMITING - Objective Vital Signs: Vital Signs Temperature 99.5 F 01/18/19 17:40 Pulse Rate 76 01/18/19 17:40 Respiratory Rate 20 01/18/19 17:40 Blood Pressure 141/87 01/18/19 17:40 O2 Sat by Pulse Oximetry (%) 95 01/17/19 21:00 Constitutional: Yes: Calm Eyes: Yes: Conjunctiva Clear HENT: Yes: Atraumatic Neck: Yes: Supple Cardiovascular: Yes: S1, S2 Respiratory: Yes: CTA Bilaterally Gastrointestinal: Yes: Soft Genitourinary: Yes: WNL Musculoskeletal: Yes: WNL Edema: Yes Edema: LLE: 1+, RLE: 1+ Neurological: Yes: Oriented Psychiatric: Yes: Oriented Labs: CBC, BMP 01/18/19 07:05 01/18/19 07:05 INR, PTT INR 1.12 (0.83-1.09) H 01/17/19 10:55 Assessment/Plan Current Medications Generic Name Dose Route Start Last Admin Trade Name Freshemar PRN Reason Stop Dose Admin Acetaminophen 650 mg 01/17/19 17:59 01/18/19 08:42 Tylenol - PO 650 mg Q6H PRN Administration FEVER OVER 100 Atorvastatin Calcium 10 mg 01/17/19 22:00 01/17/19 22:02 Lipitor - PO 10 mg HS MELVINA Administration Sodium Chloride 1,000 mls @ 100 mls/hr 01/17/19 16:56 01/18/19 17:32 Normal Saline - IV Not Given ASDIR MELVINA Piperacillin Sod/Tazobactam 50 mls @ 100 mls/hr 01/18/19 18:00 01/18/19 17:32 Sod 3.375 gm/ Dextrose IVPB 100 mls/hr Q8H-IV MELVINA Administration Protocol Insulin Aspart 1 vial 01/17/19 22:00 01/17/19 22:29 Novolog Vial Sliding Scale - SQ 2 units HS MELVINA Administration Protocol Insulin Aspart 1 vial 01/18/19 11:58 01/18/19 16:45 Novolog Vial Sliding Scale - SQ 8 units TIDAC MELVINA Administration Protocol Insulin Detemir 20 units 01/18/19 22:00 Levemir Vial SQ HS MELVINA Metoprolol Succinate 25 mg 01/18/19 10:00 01/18/19 09:26 Toprol Xl - PO 25 mg DAILY MELVINA Administration Ondansetron HCl 4 mg 01/17/19 16:56 Zofran Injection IVPUSH Q6H PRN NAUSEA AND/OR VOMITING 1. AVERY 2. CKD 3. Infected foot wound 4. PVD 5. DM 6. Hypetension Plan - renal function is improving - can d/c saline and start 1/2 ns - repeat labs in am - avoid nephrotoxins and IV contrast - abx per primary team
[2019-01-18] MEDS: INSULIN (LEVEMIR) 100 UNITS/ML UNITS SQ SCH (22:46)
[2019-01-18] MEDS: ATORVASTATIN CA 10 MG TABLET (FP) PO SCH (22:48)
[2019-01-19] MEDS: SODIUM CHLORIDE 0.45% 1,000 ML IV SCH ×3 (01:19→22:44)
[2019-01-19] MEDS: PIPERACILLIN/TAZOB 3.375 GM 3.375 GM in DEXTROSE 5%-WATER - 50 ML IVPB SCH ×3 (01:20→17:18)
[2019-01-19] MEDS ORDERED: DEXTROSE 5%-WATER - 50 ML IVPB ONE ×2 (01:26→09:32)
[2019-01-19] MEDS ORDERED: PIPERACILLIN/TAZOBACTAM 3.375 GM VIAL IVPB ONE ×3 (01:26→17:14)
[2019-01-19] MEDS: INSULIN SLIDING SCALE (NOVOLOG) 1 VIAL SQ SCH ×4 (06:02→22:47)
--- NOTE | 2019-01-19 07:44 | PN ---
Progress Note, Physician History of Present Illness: spiked a fever feels better today - Current Medication List Current Medications: Active Medications Acetaminophen (Tylenol -) 650 mg PO Q6H PRN PRN Reason: FEVER OVER 100 Last Admin: 01/18/19 22:49 Dose: 650 mg Atorvastatin Calcium (Lipitor -) 10 mg PO HS MELVINA Last Admin: 01/18/19 22:48 Dose: 10 mg Piperacillin Sod/Tazobactam (Sod 3.375 gm/ Dextrose) 50 mls @ 100 mls/hr IVPB Q8H-IV MELVINA; Protocol Last Admin: 01/19/19 01:20 Dose: 100 mls/hr Sodium Chloride (1/2 Normal Saline) 1,000 mls @ 75 mls/hr IV ASDIR MELVINA Last Admin: 01/19/19 01:19 Dose: 75 mls/hr Insulin Aspart (Novolog Vial Sliding Scale -) 1 vial SQ HS [facility]; Protocol Last Admin: 01/18/19 22:48 Dose: Not Given Insulin Aspart (Novolog Vial Sliding Scale -) 1 vial SQ TIDAC [facility]; Protocol Last Admin: 01/19/19 06:02 Dose: 2 units Insulin Detemir (Levemir Vial) 20 units SQ HS MELVINA Last Admin: 01/18/19 22:46 Dose: 20 unit Metoprolol Succinate (Toprol Xl -) 25 mg PO DAILY MELVINA Last Admin: 01/18/19 09:26 Dose: 25 mg Ondansetron HCl (Zofran Injection) 4 mg IVPUSH Q6H PRN PRN Reason: NAUSEA AND/OR VOMITING - Objective Vital Signs: Vital Signs Temperature 98.4 F 01/19/19 06:00 Pulse Rate 67 01/19/19 06:00 Respiratory Rate 20 01/19/19 06:00 Blood Pressure 147/74 01/19/19 06:00 O2 Sat by Pulse Oximetry (%) 96 01/18/19 21:00 Constitutional: Yes: No Distress, Calm Cardiovascular: Yes: S1, S2 Respiratory: Yes: Regular, CTA Bilaterally Gastrointestinal: Yes: Normal Bowel Sounds, Soft Musculoskeletal: Yes: WNL Extremities: Yes: Other Wound/Incision: Yes: Dressing Dry and Intact Neurological: Yes: Alert, Oriented Psychiatric: Yes: Alert, Oriented Labs: INR, PTT INR 1.12 (0.83-1.09) H 01/17/19 10:55 Assessment/Plan 68 year old gentleman with history of CKD, DM, Hypertension, PVD s/p LE amputation who presented with non-healing foot wound with signs of infection and noted to have Cr of 2.5, 1. AVERY on CKD vs progressive CKD 2. CKD 3. Infected foot wound 4. PVD 5. DM 6. Hypetension plan will continue zosyn wound care rest as per the team
[2019-01-19 08:26] LABS: ALBUMIN 2.3 g/dl (3.4-5.0); BILIRUBIN,TOTAL 0.5 mg/dL (0.2-1); BLOOD UREA NITROGEN 15.7 mg/dL (7-18); CALCIUM 7.7 mg/dL (8.5-10.1); CREATININE 1.2 mg/dL (0.55-1.3); POTASSIUM 4.1 mmol/L (3.5-5.1); TOT PROT 6.5 g/dl (6.4-8.2)
[2019-01-19 08:55] LABS: BASO % 0.9 % (0-2.0); EOS % 4.7 % (0-4.5); HEMATOCRIT 37.8 % (35.4-49); HEMOGLOBIN 12.8 GM/dL (11.7-16.9); LYMPH % 19.4 % (8-40); MCH 30.3 pg (25.7-33.7); MCHC 33.9 g/dl (32.0-35.9); MEAN CELL VOLUME 89.3 fl (80-96); MEAN PLT VOLUME 8.9 fl (7.5-11.1); MONO % 15.4 % (3.8-10.2); NEUT % 59.6 % (42.8-82.8); PLATELET COUNT 177 K/MM3 (134-434); RBC 4.24 M/mm3 (4.00-5.60); WHITE BLOOD COUNT 5.8 K/mm3 (4.0-10.0)
--- NOTE | 2019-01-19 09:26 | PN ---
Progress Note, Physician Chief Complaint: POD#2 left foot. - Current Medication List Current Medications: Active Medications Acetaminophen (Tylenol -) 650 mg PO Q6H PRN PRN Reason: FEVER OVER 100 Last Admin: 01/18/19 22:49 Dose: 650 mg Atorvastatin Calcium (Lipitor -) 10 mg PO HS MELVINA Last Admin: 01/18/19 22:48 Dose: 10 mg Piperacillin Sod/Tazobactam (Sod 3.375 gm/ Dextrose) 50 mls @ 100 mls/hr IVPB Q8H-IV MELVINA; Protocol Last Admin: 01/19/19 01:20 Dose: 100 mls/hr Sodium Chloride (1/2 Normal Saline) 1,000 mls @ 75 mls/hr IV ASDIR MELVINA Last Admin: 01/19/19 01:19 Dose: 75 mls/hr Insulin Aspart (Novolog Vial Sliding Scale -) 1 vial SQ HS MELVINA; Protocol Last Admin: 01/18/19 22:48 Dose: Not Given Insulin Aspart (Novolog Vial Sliding Scale -) 1 vial SQ TIDAC [facility]; Protocol Last Admin: 01/19/19 06:02 Dose: 2 units Insulin Detemir (Levemir Vial) 20 units SQ HS MELVINA Last Admin: 01/18/19 22:46 Dose: 20 unit Metoprolol Succinate (Toprol Xl -) 25 mg PO DAILY MELVINA Last Admin: 01/18/19 09:26 Dose: 25 mg Ondansetron HCl (Zofran Injection) 4 mg IVPUSH Q6H PRN PRN Reason: NAUSEA AND/OR VOMITING - Objective Vital Signs: Vital Signs Temperature 98.4 F 01/19/19 06:00 Pulse Rate 67 01/19/19 06:00 Respiratory Rate 20 01/19/19 06:00 Blood Pressure 147/74 01/19/19 06:00 O2 Sat by Pulse Oximetry (%) 96 01/18/19 21:00 Wound/Incision: Yes: Other (vsgi, -drainage, -mal odor, +resolving cellulitis, - tender, +improved wbc) Labs: CBC, BMP 01/19/19 06:10 01/19/19 06:10 INR, PTT INR 1.12 (0.83-1.09) H 01/17/19 10:55 Assessment/Plan cellulitis left foot resolving Dressing removed. Packing pulled. Betadine dressing applied. Dr. Jarrod Shah will be covering me starting this evening. Please call him if any questions. Daily betadine dressings.
[2019-01-19] MEDS ORDERED: PT OWN MED DRAWER 7, Y5N ONE (09:32)
[2019-01-19] MEDS: metoPROLOL SUCCINATE 25 MG TAB.SR.24H (FP) PO SCH (09:37)
--- NOTE | 2019-01-19 12:08 | PN ---
Progress Note, Physician Chief Complaint: s/p debridement of bone and soft tissue lt foot Pt lying in bed,afebrile Endocrine/renal consult appreciated labs noted,creatinine improving blood cul negative - Current Medication List Current Medications: Active Medications Acetaminophen (Tylenol -) 650 mg PO Q6H PRN PRN Reason: FEVER OVER 100 Last Admin: 01/18/19 22:49 Dose: 650 mg Atorvastatin Calcium (Lipitor -) 10 mg PO HS MELVINA Last Admin: 01/18/19 22:48 Dose: 10 mg Piperacillin Sod/Tazobactam (Sod 3.375 gm/ Dextrose) 50 mls @ 100 mls/hr IVPB Q8H-IV MELVINA; Protocol Last Admin: 01/19/19 09:37 Dose: 100 mls/hr Sodium Chloride (1/2 Normal Saline) 1,000 mls @ 75 mls/hr IV ASDIR MELVINA Last Admin: 01/19/19 01:19 Dose: 75 mls/hr Insulin Aspart (Novolog Vial Sliding Scale -) 1 vial SQ HS MELVINA; Protocol Last Admin: 01/18/19 22:48 Dose: Not Given Insulin Aspart (Novolog Vial Sliding Scale -) 1 vial SQ TIDAC [facility]; Protocol Last Admin: 01/19/19 11:22 Dose: 6 units Insulin Detemir (Levemir Vial) 20 units SQ HS MELVINA Last Admin: 01/18/19 22:46 Dose: 20 unit Metoprolol Succinate (Toprol Xl -) 25 mg PO DAILY MELVINA Last Admin: 01/19/19 09:37 Dose: 25 mg Ondansetron HCl (Zofran Injection) 4 mg IVPUSH Q6H PRN PRN Reason: NAUSEA AND/OR VOMITING - Objective Vital Signs: Vital Signs Temperature 98.8 F 01/19/19 08:25 Pulse Rate 65 01/19/19 08:25 Respiratory Rate 20 01/19/19 08:25 Blood Pressure 110/60 01/19/19 08:25 O2 Sat by Pulse Oximetry (%) 96 01/18/19 21:00 Constitutional: Yes: No Distress Eyes: Yes: Conjunctiva Clear HENT: Yes: Atraumatic Neck: Yes: Supple Cardiovascular: Yes: Regular Rate and Rhythm Respiratory: Yes: Regular, CTA Bilaterally Gastrointestinal: Yes: Normal Bowel Sounds Extremities: Yes: Other (lt foot dressing in place) Edema: No Peripheral Pulses WNL: Yes Wound/Incision: Yes: Dressing Dry and Intact Neurological: Yes: WNL ...Motor Strength: WNL Psychiatric: Yes: WNL, Alert Labs: CBC, BMP 01/19/19 06:10 01/19/19 06:10 INR, PTT INR 1.12 (0.83-1.09) H 01/17/19 10:55 Assessment/Plan s/p debridement of bone and soft tissue LT foot, DM,HTN renal insufficiency improving AVERY on ckd Elevated LFT PLAn Continue antibiotics as per ID WOUND care Monitor blood sugar ID and Podiatry f/u Endocrine F/u abdominal sonogram
[2019-01-19] MEDS ORDERED: INSULIN (NOVOLOG) ASPART 100 UNITS/ML 10ML VIAL ONE (17:56)
--- NOTE | 2019-01-19 20:36 | PN ---
Progress Note, Physician History of Present Illness: Pt seen and examined at bedside. He is awake and alert. He denies shortness of breath. - Current Medication List Current Medications: Active Medications Acetaminophen (Tylenol -) 650 mg PO Q6H PRN PRN Reason: FEVER OVER 100 Last Admin: 01/18/19 22:49 Dose: 650 mg Atorvastatin Calcium (Lipitor -) 10 mg PO HS MELVINA Last Admin: 01/18/19 22:48 Dose: 10 mg Piperacillin Sod/Tazobactam (Sod 3.375 gm/ Dextrose) 50 mls @ 100 mls/hr IVPB Q8H-IV MLEVINA; Protocol Last Admin: 01/19/19 17:18 Dose: 100 mls/hr Sodium Chloride (1/2 Normal Saline) 1,000 mls @ 75 mls/hr IV ASDIR MELVINA Last Admin: 01/19/19 14:54 Dose: 75 mls/hr Insulin Aspart (Novolog Vial Sliding Scale -) 1 vial SQ HS MEL[facility]INA; Protocol Last Admin: 01/18/19 22:48 Dose: Not Given Insulin Aspart (Novolog Vial Sliding Scale -) 1 vial SQ TIDAC [facility]; Protocol Last Admin: 01/19/19 17:01 Dose: 8 units Insulin Detemir (Levemir Vial) 20 units SQ HS MELVINA Last Admin: 01/18/19 22:46 Dose: 20 unit Metoprolol Succinate (Toprol Xl -) 25 mg PO DAILY MELVINA Last Admin: 01/19/19 09:37 Dose: 25 mg Ondansetron HCl (Zofran Injection) 4 mg IVPUSH Q6H PRN PRN Reason: NAUSEA AND/OR VOMITING - Objective Vital Signs: Vital Signs Temperature 99.2 F 01/19/19 17:40 Pulse Rate 74 01/19/19 17:40 Respiratory Rate 20 01/19/19 17:40 Blood Pressure 141/65 01/19/19 17:40 O2 Sat by Pulse Oximetry (%) 96 01/18/19 21:00 Constitutional: Yes: Calm Eyes: Yes: Conjunctiva Clear HENT: Yes: Atraumatic Neck: Yes: Supple Cardiovascular: Yes: S1, S2 Respiratory: Yes: CTA Bilaterally Gastrointestinal: Yes: Soft Genitourinary: Yes: WNL Musculoskeletal: Yes: WNL Edema: Yes Edema: LLE: Trace, RLE: Trace Integumentary: Yes: Tattoos Neurological: Yes: Oriented Labs: CBC, BMP 01/19/19 06:10 01/19/19 06:10 INR, PTT INR 1.12 (0.83-1.09) H 01/17/19 10:55 Assessment/Plan Current Medications Generic Name Dose Route Start Last Admin Trade Name Freq PRN Reason Stop Dose Admin Acetaminophen 650 mg 01/17/19 17:59 01/18/19 22:49 Tylenol - PO 650 mg Q6H PRN Administration FEVER OVER 100 Atorvastatin Calcium 10 mg 01/17/19 22:00 01/18/19 22:48 Lipitor - PO 10 mg HS MELVINA Administration Piperacillin Sod/Tazobactam 50 mls @ 100 mls/hr 01/18/19 18:00 01/19/19 17:18 Sod 3.375 gm/ Dextrose IVPB 100 mls/hr Q8H-IV MELVINA Administration Protocol Sodium Chloride 1,000 mls @ 75 mls/hr 01/18/19 20:15 01/19/19 14:54 1/2 Normal Saline IV 75 mls/hr ASDIR MELVINA Administration Insulin Aspart 1 vial 01/17/19 22:00 01/18/19 22:48 Novolog Vial Sliding Scale - SQ Not Given HS MELVINA Protocol Insulin Aspart 1 vial 01/18/19 11:58 01/19/19 17:01 Novolog Vial Sliding Scale - SQ 8 units TIDAC MELVINA Administration Protocol Insulin Detemir 20 units 01/18/19 22:00 01/18/19 22:46 Levemir Vial SQ 20 unit HS MELVINA Administration Metoprolol Succinate 25 mg 01/18/19 10:00 01/19/19 09:37 Toprol Xl - PO 25 mg DAILY MELVINA Administration Ondansetron HCl 4 mg 01/17/19 16:56 Zofran Injection IVPUSH Q6H PRN NAUSEA AND/OR VOMITING 1. AVERY 2. CKD 3. Infected foot wound 4. PVD 5. DM 6. Hypetension Plan - renal function improving - decrease rate of fluids - repeat labs in am - avoid nephrotoxins and IV contrast - abx per primary team
[2019-01-19] MEDS: INSULIN (LEVEMIR) 100 UNITS/ML UNITS SQ SCH (22:45)
[2019-01-19] MEDS: ATORVASTATIN CA 10 MG TABLET (FP) PO SCH (22:46)
[2019-01-20] MEDS ORDERED: PIPERACILLIN/TAZOBACTAM 3.375 GM VIAL IVPB ONE ×3 (02:23→17:43)
[2019-01-20] MEDS ORDERED: DEXTROSE 5%-WATER - 50 ML IVPB ONE ×3 (02:23→17:43)
[2019-01-20] MEDS: PIPERACILLIN/TAZOB 3.375 GM 3.375 GM in DEXTROSE 5%-WATER - 50 ML IVPB SCH ×3 (02:32→17:50)
[2019-01-20] MEDS: INSULIN SLIDING SCALE (NOVOLOG) 1 VIAL SQ SCH ×5 (07:04→21:27)
[2019-01-20] MEDS: PIPERACILLIN/TAZOB 2.25 GM 2.25 GM in DEXTROSE 5%-WATER - 50 ML IVPB SCH ×3 (07:47→07:52)
[2019-01-20 08:55] LABS: BASO % 0.8 % (0-2.0); EOS % 3.4 % (0-4.5); HEMATOCRIT 35.7 % (35.4-49); HEMOGLOBIN 12.4 GM/dL (11.7-16.9); LYMPH % 19.3 % (8-40); MCH 30.5 pg (25.7-33.7); MCHC 34.7 g/dl (32.0-35.9); MEAN PLT VOLUME 8.7 fl (7.5-11.1); MONO % 10.1 % (3.8-10.2); NEUT % 66.4 % (42.8-82.8); PLATELET COUNT 206 K/MM3 (134-434); RBC 4.05 M/mm3 (4.00-5.60); RDW 12.6 % (11.9-15.9); WHITE BLOOD COUNT 7.4 K/mm3 (4.0-10.0)
[2019-01-20 09:36] LABS: ALBUMIN 2.2 g/dl (3.4-5.0); BILIRUBIN,TOTAL 0.5 mg/dL (0.2-1); CALCIUM 7.7 mg/dL (8.5-10.1); CREATININE 1.2 mg/dL (0.55-1.3); POTASSIUM 4.1 mmol/L (3.5-5.1); TOT PROT 6.3 g/dl (6.4-8.2)
--- NOTE | 2019-01-20 10:08 | PN ---
Progress Note, Physician History of Present Illness: stable no new issues afebrile - Current Medication List Current Medications: Active Medications Acetaminophen (Tylenol -) 650 mg PO Q6H PRN PRN Reason: FEVER OVER 100 Last Admin: 01/18/19 22:49 Dose: 650 mg Atorvastatin Calcium (Lipitor -) 10 mg PO HS MELVINA Last Admin: 01/19/19 22:46 Dose: 10 mg Piperacillin Sod/Tazobactam (Sod 3.375 gm/ Dextrose) 50 mls @ 100 mls/hr IVPB Q8H-IV MELVINA; Protocol Last Admin: 01/20/19 02:32 Dose: 100 mls/hr Sodium Chloride (1/2 Normal Saline) 1,000 mls @ 50 mls/hr IV ASDIR MELVINA Last Admin: 01/19/19 22:44 Dose: 50 mls/hr Insulin Aspart (Novolog Vial Sliding Scale -) 1 vial SQ HS [facility]; Protocol Last Admin: 01/19/19 22:47 Dose: 2 units Insulin Aspart (Novolog Vial Sliding Scale -) 1 vial SQ TIDAC [facility]; Protocol Last Admin: 01/20/19 07:04 Dose: 6 units Insulin Detemir (Levemir Vial) 20 units SQ HS MELVINA Last Admin: 01/19/19 22:45 Dose: 20 unit Metoprolol Succinate (Toprol Xl -) 25 mg PO DAILY MELVINA Last Admin: 01/19/19 09:37 Dose: 25 mg Ondansetron HCl (Zofran Injection) 4 mg IVPUSH Q6H PRN PRN Reason: NAUSEA AND/OR VOMITING - Objective Vital Signs: Vital Signs Temperature 98.4 F 01/20/19 06:21 Pulse Rate 70 01/20/19 06:21 Respiratory Rate 20 01/20/19 06:21 Blood Pressure 139/65 01/20/19 06:21 O2 Sat by Pulse Oximetry (%) 96 01/19/19 21:00 Constitutional: Yes: No Distress, Calm Cardiovascular: Yes: S1, S2 Respiratory: Yes: Regular, CTA Bilaterally Gastrointestinal: Yes: Normal Bowel Sounds, Soft Musculoskeletal: Yes: Other Extremities: Yes: Other Wound/Incision: Yes: Dressing Dry and Intact Neurological: Yes: Alert, Oriented Psychiatric: Yes: Alert, Oriented Labs: CBC, BMP 01/20/19 06:50 01/20/19 06:50 INR, PTT INR 1.12 (0.83-1.09) H 01/17/19 10:55 Assessment/Plan 68 year old gentleman with history of CKD, DM, Hypertension, PVD s/p LE amputation who presented with non-healing foot wound with signs of infection 1. AVERY on CKD vs progressive CKD 2. CKD 3. Infected foot wound 4. PVD 5. DM 6. Hypetension plan continue abx wound care repeat cx noted await for finalization
[2019-01-20] MEDS ORDERED: PT OWN MED DRAWER 7, Y5N ONE ×2 (11:11→18:04)
--- NOTE | 2019-01-20 11:11 | PN ---
Progress Note, Physician Chief Complaint: s/p debridement of bone and soft tissue lt foot and and transmetatarsal amputation of LT foot Pt lying in bed lt foot wound strep agalactiae grp b,enterococcal fecalis,strepto viridans Endocrine/renal consult appreciated labs noted,creatinine improving blood cul negative,urine cul negative l - Current Medication List Current Medications: Active Medications Acetaminophen (Tylenol -) 650 mg PO Q6H PRN PRN Reason: FEVER OVER 100 Last Admin: 01/18/19 22:49 Dose: 650 mg Atorvastatin Calcium (Lipitor -) 10 mg PO HS MELVINA Last Admin: 01/19/19 22:46 Dose: 10 mg Piperacillin Sod/Tazobactam (Sod 3.375 gm/ Dextrose) 50 mls @ 100 mls/hr IVPB Q8H-IV [facility]; Protocol Last Admin: 01/20/19 02:32 Dose: 100 mls/hr Sodium Chloride (1/2 Normal Saline) 1,000 mls @ 50 mls/hr IV ASDIR MELVINA Last Admin: 01/19/19 22:44 Dose: 50 mls/hr Insulin Aspart (Novolog Vial Sliding Scale -) 1 vial SQ HS [facility]; Protocol Last Admin: 01/19/19 22:47 Dose: 2 units Insulin Aspart (Novolog Vial Sliding Scale -) 1 vial SQ TIDAC [facility]; Protocol Last Admin: 01/20/19 07:04 Dose: 6 units Insulin Detemir (Levemir Vial) 20 units SQ HS [facility] Last Admin: 01/19/19 22:45 Dose: 20 unit Metoprolol Succinate (Toprol Xl -) 25 mg PO DAILY [facility] Last Admin: 01/19/19 09:37 Dose: 25 mg Ondansetron HCl (Zofran Injection) 4 mg IVPUSH Q6H PRN PRN Reason: NAUSEA AND/OR VOMITING - Objective Vital Signs: Vital Signs Temperature 98.4 F 01/20/19 06:21 Pulse Rate 70 01/20/19 06:21 Respiratory Rate 20 01/20/19 06:21 Blood Pressure 139/65 01/20/19 06:21 O2 Sat by Pulse Oximetry (%) 96 01/19/19 21:00 Constitutional: Yes: No Distress Eyes: Yes: Conjunctiva Clear HENT: Yes: Atraumatic Neck: Yes: Supple Cardiovascular: Yes: Regular Rate and Rhythm Respiratory: Yes: Regular, CTA Bilaterally Gastrointestinal: Yes: Normal Bowel Sounds, Soft Extremities: Yes: Other (lt foot dressing in place) Edema: No Peripheral Pulses WNL: Yes Wound/Incision: Yes: Dressing Dry and Intact Neurological: Yes: WNL, Alert ...Motor Strength: WNL Psychiatric: Yes: WNL, Alert Labs: CBC, BMP 01/20/19 06:50 01/20/19 06:50 INR, PTT INR 1.12 (0.83-1.09) H 01/17/19 10:55 Assessment/Plan s/p debridement of bone and soft tissue LT foot, S/p transmetatarsal amputatation of LT foot LT foot diabetic ulcer with infection DM,HTN renal insufficiency improving AVERY on ckd elevated LFT PLAn Continue antibiotics WOUND care Monitor blood sugar ID and Podiatry f/u Endocrine F/u abdominal sonogram
[2019-01-20] MEDS: metoPROLOL SUCCINATE 25 MG TAB.SR.24H (FP) PO SCH (11:36)
[2019-01-20] MEDS: SODIUM CHLORIDE 0.45% 1,000 ML IV SCH (11:38)
--- NOTE | 2019-01-20 12:41 | PN ---
Progress Note (short form) - Note Progress Note: Renal follow up for AVERY on CKD Seen and examined at the bedside no acute complaints no sob, cp, fever or chills making urine on IVF tolerating oral diet no diarrhea Vital Signs Temperature 98.4 F 01/20/19 06:21 Pulse Rate 70 01/20/19 06:21 Respiratory Rate 20 01/20/19 06:21 Blood Pressure 139/65 01/20/19 06:21 O2 Sat by Pulse Oximetry (%) 96 01/19/19 21:00 Intake & Output 01/17/19 01/18/19 01/19/19 01/20/19 23:59 23:59 23:59 23:59 Intake Total 2365 3118 2721 300 Output Total 300 1600 3502 Balance 2065 1518 -781 300 NAD awake and alert neck supple, no JVD RRR, no M/R Dec BS but no rales or wheeze soft NT/ND no LE edema no bladder distension or CVA tenderness CBC, BMP 01/20/19 06:50 01/20/19 06:50 Current Medications Acetaminophen (Tylenol -) 650 mg PO Q6H PRN PRN Reason: FEVER OVER 100 Last Admin: 01/18/19 22:49 Dose: 650 mg Atorvastatin Calcium (Lipitor -) 10 mg PO HS [facility] Last Admin: 01/19/19 22:46 Dose: 10 mg Piperacillin Sod/Tazobactam (Sod 3.375 gm/ Dextrose) 50 mls @ 100 mls/hr IVPB Q8H-IV [facility]; Protocol Last Admin: 01/20/19 11:31 Dose: 100 mls/hr Sodium Chloride (1/2 Normal Saline) 1,000 mls @ 50 mls/hr IV ASDIR [facility] Last Admin: 01/20/19 11:38 Dose: 50 mls/hr Insulin Aspart (Novolog Vial Sliding Scale -) 1 vial SQ HS [facility]; Protocol Last Admin: 01/19/19 22:47 Dose: 2 units Insulin Aspart (Novolog Vial Sliding Scale -) 1 vial SQ TIDAC [facility]; Protocol Last Admin: 01/20/19 11:33 Dose: 6 units Insulin Detemir (Levemir Vial) 20 units SQ HS [facility] Last Admin: 01/19/19 22:45 Dose: 20 unit Metoprolol Succinate (Toprol Xl -) 25 mg PO DAILY [facility] Last Admin: 01/20/19 11:36 Dose: 25 mg 68 year old gentleman with history of CKD, DM, Hypertension, PVD s/p LE amputation who presented with non-healing foot wound with signs of infection and noted to have Cr of 2.5, 1. AVERY on CKD vs progressive CKD 2. CKD 3. Infected foot wound 4. PVD 5. DM 6. Hypetension Renal function is improved and stable can D/c IVF Continue IV antibiotics as per ID Blood cutlures w/o growth Vascular and podiatry follow up withhold any NI/ARB for now given decline in renal function continue metoprolol Trend renal function and electrolytes daily Thank you David Jones DO
--- NOTE | 2019-01-20 14:33 | PN ---
Progress Note (short form) - Note Progress Note: Denies any complaints Blood sugar improving No hypos Afebrile Vital Signs Period Temp Pulse Resp BP Sys/Bustillos Pulse Ox Last 24 Hr 98.4 F-99.2 F 70-74 20-20 139-141/65-65 96 PE: AOx3 Neck: Supple, No JVD HEENT: EOMI Lungs: CTA CVS: s1S2 Abd: Benign Ext: left foot swelling, + erythema, s/p amputation 3rd and 4th toes Neuro: No focal deficit CMP Sodium 138 mmol/L (136-145) 01/20/19 06:50 Potassium 4.1 mmol/L (3.5-5.1) 01/20/19 06:50 Chloride 104 mmol/L (98-107) 01/20/19 06:50 Carbon Dioxide 26 mmol/L (21-32) 01/20/19 06:50 Anion Gap 8 MMOL/L (8-16) 01/20/19 06:50 BUN 13.0 mg/dL (7-18) 01/20/19 06:50 Creatinine 1.2 mg/dL (0.55-1.3) 01/20/19 06:50 Est GFR (CKD-EPI)AfAm 71.58 01/20/19 06:50 Est GFR (CKD-EPI)NonAf 61.76 01/20/19 06:50 POC Glucometer 186 UNITS (80-120) 01/20/19 11:32 Random Glucose 153 mg/dL (74-106) H 01/20/19 06:50 Hemoglobin A1c % 12.5 % (4.2-6.3) H 01/17/19 06:58 Lactic Acid 1.3 mmol/L (0.4-2.0) 01/16/19 13:42 Calcium 7.7 mg/dL (8.5-10.1) L 01/20/19 06:50 Phosphorus 2.5 mg/dL (2.5-4.9) 01/17/19 06:58 Magnesium 2.4 mg/dL (1.8-2.4) 01/17/19 06:58 Total Bilirubin 0.5 mg/dL (0.2-1) 01/20/19 06:50 AST 24 U/L (15-37) 01/20/19 06:50 ALT 31 U/L (13-61) 01/20/19 06:50 Alkaline Phosphatase 248 U/L (45-117) H 01/20/19 06:50 Total Protein 6.3 g/dl (6.4-8.2) L 01/20/19 06:50 Albumin 2.2 g/dl (3.4-5.0) L 01/20/19 06:50 Triglycerides 185 mg/dL (0-150) H 01/16/19 13:42 Cholesterol 139 mg/dL (50-200) 01/16/19 13:42 Total LDL Cholesterol 88 mg/dL (5-100) 01/16/19 13:42 HDL Cholesterol 29 mg/dL (40-60) L 01/16/19 13:42 Current Medications Generic Name Dose Route Start Last Admin Trade Name Freq PRN Reason Stop Dose Admin Acetaminophen 650 mg 01/17/19 17:59 01/18/19 22:49 Tylenol - PO 650 mg Q6H PRN Administration FEVER OVER 100 Atorvastatin Calcium 10 mg 01/17/19 22:00 01/19/19 22:46 Lipitor - PO 10 mg HS MELVINA Administration Piperacillin Sod/Tazobactam 50 mls @ 100 mls/hr 01/18/19 18:00 01/20/19 11:31 Sod 3.375 gm/ Dextrose IVPB 100 mls/hr Q8H-IV MELVINA Administration Protocol Insulin Aspart 1 vial 01/17/19 22:00 01/19/19 22:47 Novolog Vial Sliding Scale - SQ 2 units HS MELVINA Administration Protocol Insulin Aspart 1 vial 01/18/19 11:58 01/20/19 11:33 Novolog Vial Sliding Scale - SQ 6 units TIDAC MELVINA Administration Protocol Insulin Detemir 20 units 01/18/19 22:00 01/19/19 22:45 Levemir Vial SQ 20 unit HS MELVINA Administration Metoprolol Succinate 25 mg 01/18/19 10:00 01/20/19 11:36 Toprol Xl - PO 25 mg DAILY MELVINA Administration AP: Infected foot wound T2DM:A1c 12.5 now CKD PVD Hypetension BGM QACHS Increase Levemir 22 units daily Novolog SS coverage Will f/u
--- NOTE | 2019-01-20 15:36 | CONSULT ---
Consult - text type - Consultation Consultation Note: Podiatry Consultation: 68 year old diabetic male s/p left foot incision and drainage of abscess with Dr. Osborn. I was asked to cover this patient postoperatively. States that he feels better, states that the redness is mildly improved. AFebrile. Bacteremia has resolved. PMHx: HTN, HLD, DM, s/p amputation of L 3rd and 4th toes Meds: noted ALL: NKDA MARY: L foot: pedal pulses 1/4, TG wnl, CFT brisk to remaining toes. There is a sub- fifth metatarsal diabetic ulcer, scant purulence, fibrogranular base, hyperkeratotic edges, probes deep, no soft tissue crepitus, surrounding erythema slowly resolving, no signs of acute infection. No ischemic changes to the foot. OR Cx: mixed orgs (beta strep B) Blood Cx: no growth x 24 hrs Imp: 68 year old diabetic male s/p left foot incision and drainage of abscess 1. IV abx per infectious disease 2. Continue local wound care 3. F/u OR Cx 4. Discussed case with Dr. Leyva, recommend MRI as he has a probing ulcer. 5. Will follow Mitchell Shah DPM
[2019-01-20] MEDS ORDERED: INSULIN (LEVEMIR) 100 UNITS/ML UNITS SQ ONE (20:54)
[2019-01-20] MEDS: ATORVASTATIN CA 10 MG TABLET (FP) PO SCH (21:25)
[2019-01-20] MEDS: INSULIN (LEVEMIR) 100 UNITS/ML UNITS SQ SCH (21:27)
[2019-01-21] MEDS ORDERED: PIPERACILLIN/TAZOBACTAM 3.375 GM VIAL IVPB ONE ×3 (01:53→17:48)
[2019-01-21] MEDS ORDERED: DEXTROSE 5%-WATER - 50 ML IVPB ONE ×3 (01:54→17:49)
[2019-01-21] MEDS: PIPERACILLIN/TAZOB 3.375 GM 3.375 GM in DEXTROSE 5%-WATER - 50 ML IVPB SCH ×3 (02:26→17:52)
[2019-01-21] MEDS: INSULIN SLIDING SCALE (NOVOLOG) 1 VIAL SQ SCH ×4 (07:00→21:28)
[2019-01-21 07:53] LABS: BASO % 0.9 % (0-2.0); EOS % 3.2 % (0-4.5); HEMATOCRIT 34.3 % (35.4-49); HEMOGLOBIN 11.8 GM/dL (11.7-16.9); LYMPH % 22.2 % (8-40); MCH 30.3 pg (25.7-33.7); MCHC 34.4 g/dl (32.0-35.9); MEAN CELL VOLUME 88.1 fl (80-96); MEAN PLT VOLUME 8.4 fl (7.5-11.1); NEUT % 63.7 % (42.8-82.8); PLATELET COUNT 223 K/MM3 (134-434); RDW 12.9 % (11.9-15.9); WHITE BLOOD COUNT 9.3 K/mm3 (4.0-10.0)
[2019-01-21 08:19] LABS: ALBUMIN 2.2 g/dl (3.4-5.0); BILIRUBIN,TOTAL 0.5 mg/dL (0.2-1); BLOOD UREA NITROGEN 14.4 mg/dL (7-18); CALCIUM 7.9 mg/dL (8.5-10.1); CREATININE 1.4 mg/dL (0.55-1.3); MAGNESIUM 2.1 mg/dL (1.8-2.4); PHOSPHOROUS 3.6 mg/dL (2.5-4.9); POTASSIUM 4.4 mmol/L (3.5-5.1); TOT PROT 6.5 g/dl (6.4-8.2)
[2019-01-21] MEDS: metoPROLOL SUCCINATE 25 MG TAB.SR.24H (FP) PO SCH (10:30)
--- NOTE | 2019-01-21 12:15 | PN ---
Progress Note, Physician Chief Complaint: s/p debridement of bone and soft tissue lt foot Pt lying in bed lt foot wound strep agalactiae grp b,enterococcal fecalis,strepto viridans Endocrine/renal consult appreciated labs noted,creatinine improving blood cul negative,urine cul negative abdominal u/s shows fatty liver addendum No trans metsatarsal done on LT foot IT was wrongly documented in the previous note - Current Medication List Current Medications: Active Medications Acetaminophen (Tylenol -) 650 mg PO Q6H PRN PRN Reason: FEVER OVER 100 Last Admin: 01/18/19 22:49 Dose: 650 mg Atorvastatin Calcium (Lipitor -) 10 mg PO HS MELVINA Last Admin: 01/20/19 21:25 Dose: 10 mg Piperacillin Sod/Tazobactam (Sod 3.375 gm/ Dextrose) 50 mls @ 100 mls/hr IVPB Q8H-IV MELVINA; Protocol Last Admin: 01/21/19 10:30 Dose: 100 mls/hr Insulin Aspart (Novolog Vial Sliding Scale -) 1 vial SQ HS MELVINA; Protocol Last Admin: 01/20/19 21:27 Dose: 2 units Insulin Aspart (Novolog Vial Sliding Scale -) 1 vial SQ TIDAC MELVINA; Protocol Last Admin: 01/21/19 07:00 Dose: 6 units Insulin Detemir (Levemir Vial) 22 units SQ HS MELVINA Last Admin: 01/20/19 21:27 Dose: 22 units Metoprolol Succinate (Toprol Xl -) 25 mg PO DAILY MELVINA Last Admin: 01/21/19 10:30 Dose: 25 mg - Objective Vital Signs: Vital Signs Temperature 98.1 F 01/21/19 07:14 Pulse Rate 67 01/21/19 07:14 Respiratory Rate 20 01/21/19 07:14 Blood Pressure 132/77 01/21/19 07:14 O2 Sat by Pulse Oximetry (%) 96 01/20/19 09:00 Constitutional: Yes: No Distress Eyes: Yes: Conjunctiva Clear HENT: Yes: Atraumatic Neck: Yes: Supple Cardiovascular: Yes: Regular Rate and Rhythm Respiratory: Yes: Regular Extremities: Yes: Other (lt foot dressing in place) Edema: Yes Edema: LLE: Trace (lt foot oedema) Neurological: Yes: WNL, Alert, Oriented ...Motor Strength: WNL Psychiatric: Yes: WNL, Alert Labs: CBC, BMP 01/21/19 06:30 01/21/19 06:30 INR, PTT INR 1.12 (0.83-1.09) H 01/17/19 10:55 Assessment/Plan s/p debridement of bone and soft tissue LT foot, LT foot diabetic ulcer with infection DM,HTN renal insufficiency improving AVERY on ckd elevated LFT,fatty liver PLAn Continue antibiotics WOUND care Monitor blood sugar ID and Podiatry f/u Endocrine F/u GI consult
--- NOTE | 2019-01-21 13:09 | PN ---
Progress Note (short form) - Note Progress Note: Renal follow up for AVERY on CKD Seen and examined at the bedside no acute complaints no sob, cp, fever or chills making urine on IVF Vital Signs Temperature 98.1 F 01/21/19 07:14 Pulse Rate 67 01/21/19 07:14 Respiratory Rate 20 01/21/19 07:14 Blood Pressure 132/77 01/21/19 07:14 O2 Sat by Pulse Oximetry (%) 96 01/20/19 09:00 Intake & Output 01/18/19 01/19/19 01/20/19 01/21/19 23:59 23:59 23:59 23:59 Intake Total 3118 2721 2265 500 Output Total 1600 3502 500 Balance 1518 -781 1765 500 NAD awake and alert neck supple, no JVD RRR, no M/R Dec BS but no rales or wheeze soft NT/ND no LE edema no bladder distension or CVA tenderness CBC, BMP 01/21/19 06:30 01/21/19 06:30 Current Medications Acetaminophen (Tylenol -) 650 mg PO Q6H PRN PRN Reason: FEVER OVER 100 Last Admin: 01/18/19 22:49 Dose: 650 mg Atorvastatin Calcium (Lipitor -) 10 mg PO HS MELVINA Last Admin: 01/20/19 21:25 Dose: 10 mg Piperacillin Sod/Tazobactam (Sod 3.375 gm/ Dextrose) 50 mls @ 100 mls/hr IVPB Q8H-IV MELVINA; Protocol Last Admin: 01/21/19 10:30 Dose: 100 mls/hr Insulin Aspart (Novolog Vial Sliding Scale -) 1 vial SQ HS MELVINA; Protocol Last Admin: 01/20/19 21:27 Dose: 2 units Insulin Aspart (Novolog Vial Sliding Scale -) 1 vial SQ TIDAC MELVINA; Protocol Last Admin: 01/21/19 07:00 Dose: 6 units Insulin Detemir (Levemir Vial) 22 units SQ HS MELVINA Last Admin: 01/20/19 21:27 Dose: 22 units Metoprolol Succinate (Toprol Xl -) 25 mg PO DAILY MELVINA Last Admin: 01/21/19 10:30 Dose: 25 mg 68 year old gentleman with history of CKD, DM, Hypertension, PVD s/p LE amputation who presented with non-healing foot wound with signs of infection and noted to have Cr of 2.5, 1. AVERY on CKD vs progressive CKD 2. CKD 3. Infected foot wound 4. PVD 5. DM 6. Hypetension Renal function stable tolerating oral diet Continue IV antibiotics as per ID Blood cultures w/o growth Vascular and podiatry follow up withhold any NI/ARB for now given decline in renal function continue metoprolol Trend renal function and electrolytes daily Thank you David Jones DO
--- NOTE | 2019-01-21 14:33 | PN ---
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 Neuro: No focal deficit CMP Sodium 138 mmol/L (136-145) 01/21/19 06:30 Potassium 4.4 mmol/L (3.5-5.1) 01/21/19 06:30 Chloride 103 mmol/L (98-107) 01/21/19 06:30 Carbon Dioxide 30 mmol/L (21-32) 01/21/19 06:30 Anion Gap 5 MMOL/L (8-16) L 01/21/19 06:30 BUN 14.4 mg/dL (7-18) 01/21/19 06:30 Creatinine 1.4 mg/dL (0.55-1.3) H 01/21/19 06:30 Est GFR (CKD-EPI)AfAm 59.41 01/21/19 06:30 Est GFR (CKD-EPI)NonAf 51.26 01/21/19 06:30 POC Glucometer 179 UNITS (80-120) 01/21/19 12:06 Random Glucose 163 mg/dL (74-106) H 01/21/19 06:30 Hemoglobin A1c % 12.5 % (4.2-6.3) H 01/17/19 06:58 Lactic Acid 1.3 mmol/L (0.4-2.0) 01/16/19 13:42 Calcium 7.9 mg/dL (8.5-10.1) L 01/21/19 06:30 Phosphorus 3.6 mg/dL (2.5-4.9) 01/21/19 06:30 Magnesium 2.1 mg/dL (1.8-2.4) 01/21/19 06:30 Total Bilirubin 0.5 mg/dL (0.2-1) 01/21/19 06:30 AST 27 U/L (15-37) 01/21/19 06:30 ALT 31 U/L (13-61) 01/21/19 06:30 Alkaline Phosphatase 266 U/L (45-117) H 01/21/19 06:30 Total Protein 6.5 g/dl (6.4-8.2) 01/21/19 06:30 Albumin 2.2 g/dl (3.4-5.0) L 01/21/19 06:30 Triglycerides 185 mg/dL (0-150) H 01/16/19 13:42 Cholesterol 139 mg/dL (50-200) 01/16/19 13:42 Total LDL Cholesterol 88 mg/dL (5-100) 01/16/19 13:42 HDL Cholesterol 29 mg/dL (40-60) L 01/16/19 13:42 Current Medications Generic Name Dose Route Start Last Admin Trade Name Freq PRN Reason Stop Dose Admin Acetaminophen 650 mg 01/17/19 17:59 01/18/19 22:49 Tylenol - PO 650 mg Q6H PRN Administration FEVER OVER 100 Atorvastatin Calcium 10 mg 01/17/19 22:00 01/20/19 21:25 Lipitor - PO 10 mg HS MELVINA Administration Piperacillin Sod/Tazobactam 50 mls @ 100 mls/hr 01/18/19 18:00 01/21/19 10:30 Sod 3.375 gm/ Dextrose IVPB 100 mls/hr Q8H-IV MELVINA Administration Protocol Insulin Aspart 1 vial 01/17/19 22:00 01/20/19 21:27 Novolog Vial Sliding Scale - SQ 2 units HS MELVINA Administration Protocol Insulin Aspart 1 vial 01/18/19 11:58 01/21/19 07:00 Novolog Vial Sliding Scale - SQ 6 units TIDAC MELVINA Administration Protocol Insulin Detemir 22 units 01/20/19 22:00 01/20/19 21:27 Levemir Vial SQ 22 units HS MELVINA Administration Metoprolol Succinate 25 mg 01/18/19 10:00 01/21/19 10:30 Toprol Xl - PO 25 mg DAILY MELVINA Administration AP: Infected foot wound T2DM:A1c 12.5 now CKD PVD Hypetension BGM QACHS Levemir 22 units daily Increase Novolog SS coverage ABx as per ID Will f/u
--- NOTE | 2019-01-21 16:09 | PN ---
Progress Note (short form) - Note Progress Note: Podiatry F/U: Seen/evaluated at bedside NAD. Pain controlled, denies F/V/N/C/SOB/CP. Afebrile. S/p L foot incision and drainage with Dr. Osborn. MARY: L foot: pedal pulses palpable 2/4, TG wnl. Sub-fifth metatarsal diabetic ulcer fibrotic base, probes deep to capsule/bone, mild seropurulent drainage, no fluctuance, surrounding erythema with marginal improvement, no soft tissue crepitus, no streaking cellulitis, no lymphangitis, no signs of acute infection. No tenderness to palpation. OR Cx: beta strep B, mixed orgs Blood Cx: no growth x 3 days WBC: 9.3 Imp: 68 year old diabetic male s/p left foot incision and drainage with sub- fifth metatarsal diabetic ulcer 1. IV abx per infectious disease 2. Saline irrigation at bedside DSD applied 3. Discussed case with Dr. Leyva; would benefit from MRI to evaluate for osteomyelitis. I have recommended treatment with IV abx given clinically probing to bone. 4. Home with services versus rehab 5. Will follow Mitchell Shah DPM
--- NOTE | 2019-01-21 17:12 | PN ---
Progress Note, Physician History of Present Illness: Pt is alert and responsive. States he feels well. Pain in foot is controlled. Tmax 99.1. - Current Medication List Current Medications: Active Medications Acetaminophen (Tylenol -) 650 mg PO Q6H PRN PRN Reason: FEVER OVER 100 Last Admin: 01/18/19 22:49 Dose: 650 mg Atorvastatin Calcium (Lipitor -) 10 mg PO HS MELVINA Last Admin: 01/20/19 21:25 Dose: 10 mg Piperacillin Sod/Tazobactam (Sod 3.375 gm/ Dextrose) 50 mls @ 100 mls/hr IVPB Q8H-IV MELVINA; Protocol Last Admin: 01/21/19 10:30 Dose: 100 mls/hr Insulin Aspart (Novolog Vial Sliding Scale -) 1 vial SQ HS MELVINA; Protocol Last Admin: 01/20/19 21:27 Dose: 2 units Insulin Aspart (Novolog Vial Sliding Scale -) 1 vial SQ TIDAC MELVINA; Protocol Insulin Detemir (Levemir Vial) 22 units SQ HS MELVINA Last Admin: 01/20/19 21:27 Dose: 22 units Metoprolol Succinate (Toprol Xl -) 25 mg PO DAILY MELVINA Last Admin: 01/21/19 10:30 Dose: 25 mg - Objective Vital Signs: Vital Signs Temperature 98.6 F 01/21/19 13:00 Pulse Rate 67 01/21/19 13:00 Respiratory Rate 20 01/21/19 13:00 Blood Pressure 122/70 01/21/19 13:00 O2 Sat by Pulse Oximetry (%) 96 01/21/19 09:00 Constitutional: Yes: No Distress, Calm Cardiovascular: Yes: Regular Rate and Rhythm Respiratory: Yes: Regular Gastrointestinal: Yes: Normal Bowel Sounds, Soft, Abdomen, Obese Genitourinary: Yes: WNL Extremities: Yes: Erythema (Lt foot) Edema: Yes Integumentary: Yes: WNL Wound/Incision: Yes: Dressing Dry and Intact Neurological: Yes: Alert Labs: CBC, BMP 01/21/19 06:30 01/21/19 06:30 INR, PTT INR 1.12 (0.83-1.09) H 01/17/19 10:55 Laboratory Results - last 24 hr 01/20/19 01/20/19 01/21/19 17:46 21:26 06:30 WBC 9.3 RBC 3.90 L Hgb 11.8 Hct 34.3 L MCV 88.1 MCH 30.3 MCHC 34.4 RDW 12.9 Plt Count 223 MPV 8.4 Absolute Neuts (auto) 5.9 Neutrophils % 63.7 Lymphocytes % 22.2 Monocytes % 10.0 Eosinophils % 3.2 Basophils % 0.9 Nucleated RBC % 0 Sodium Potassium Chloride Carbon Dioxide Anion Gap BUN Creatinine Est GFR (CKD-EPI)AfAm Est GFR (CKD-EPI)NonAf POC Glucometer 161 244 Random Glucose Calcium Phosphorus Magnesium Total Bilirubin AST ALT Alkaline Phosphatase Total Protein Albumin 01/21/19 01/21/19 01/21/19 06:30 06:40 12:06 WBC RBC Hgb Hct MCV MCH MCHC RDW Plt Count MPV Absolute Neuts (auto) Neutrophils % Lymphocytes % Monocytes % Eosinophils % Basophils % Nucleated RBC % Sodium 138 Potassium 4.4 Chloride 103 Carbon Dioxide 30 Anion Gap 5 L BUN 14.4 Creatinine 1.4 H Est GFR (CKD-EPI)AfAm 59.41 Est GFR (CKD-EPI)NonAf 51.26 POC Glucometer 163 179 Random Glucose 163 H Calcium 7.9 L Phosphorus 3.6 Magnesium 2.1 Total Bilirubin 0.5 AST 27 ALT 31 Alkaline Phosphatase 266 H Total Protein 6.5 Albumin 2.2 L Microbiology 01/16/19 11:00 Blood - Peripheral Venous Blood Culture - Final NO GROWTH AFTER 5 DAYS INCUBATION 01/19/19 06:30 Blood - Peripheral Venous Blood Culture - Preliminary NO GROWTH OBTAINED AFTER 48 HOURS, INCUBATION TO CONTINUE FOR 3 DAYS. 01/19/19 06:30 Blood - Peripheral Venous Blood Culture - Preliminary NO GROWTH OBTAINED AFTER 48 HOURS, INCUBATION TO CONTINUE FOR 3 DAYS. 01/17/19 17:19 Foot - Left Plantar Gram Stain - Final 01/17/19 17:19 Foot - Left Plantar Wound Culture - Final Strep Agalactiae Group B Enterococcus Faecalis Streptococcus Viridans Diphtheroid/Corynebacterium 01/16/19 12:44 Foot - Right Heel Gram Stain - Final 01/16/19 12:44 Foot - Right Heel Wound Culture - Final Strep Agalactiae Group B Alpha Hemolytic Streptococcus Bacillus Species, Not Antracis Staphylococcus Coagulase Neg Enterococcus Faecalis 01/16/19 11:30 Blood - Peripheral Venous Blood Culture - Final Strep Agalactiae Group B 01/16/19 22:29 Urine - Urine Clean Catch Urine Culture - Final NO GROWTH OBTAINED - ....Imaging X-ray: Report Reviewed Problem List - Problems (1) Wound infection Code(s): T14.8XXA - OTHER INJURY OF UNSPECIFIED BODY REGION, INITIAL ENCOUNTER; L08.9 - LOCAL INFECTION OF THE SKIN AND SUBCUTANEOUS TISSUE, UNSP (2) AVERY (acute kidney injury) Code(s): N17.9 - ACUTE KIDNEY FAILURE, UNSPECIFIED (3) Cellulitis Code(s): L03.90 - CELLULITIS, UNSPECIFIED (4) Diabetes mellitus with renal manifestation Code(s): E11.29 - TYPE 2 DIABETES MELLITUS [facility] DIABETIC KIDNEY COMPLICATION Qualifiers: Diabetes mellitus type: type 2 Diabetes mellitus complication detail: with chronic kidney disease Chronic kidney disease stage: stage 3 (moderate) (5) Diabetic foot infection Code(s): E11.628 - TYPE 2 DIABETES MELLITUS WITH OTHER SKIN COMPLICATIONS; L08.9 - LOCAL INFECTION OF THE SKIN AND SUBCUTANEOUS TISSUE, UNSP (6) Fever Code(s): R50.9 - FEVER, UNSPECIFIED (7) HTN (hypertension) Code(s): I10 - ESSENTIAL (PRIMARY) HYPERTENSION Assessment/Plan Gram positive bacteremia Infected diabetic foot ulcers/ r/o OM - s/p I+D PVD s/p Lt foot toe amp AVERY on CKD DM -- wound culture results noted -- repeat blood cultures no growth -- continue IV antibiotics -- MRI foot -- continue monitor temps -- continue wound care -- Podiatry following
--- NOTE | 2019-01-21 20:33 | CON.GI ---
Consult Consult Specialty:: GI Referred by:: Dr. Yusuf Reason for Consultation:: Elevated ALP - History of Present Illness Chief Complaint: Right foot wound debridement History of Present Illness: 68M admitted to [facility] for evaluation of right foot wound. had debridement performed. Called to evaluate elevated alk phos. In review of [place], his ALP has been elevated since 2015. Patient unaware of a history of liver disease. He denies etoh / IVDA/DA. There is no family history of liver disease. He denies abdominal pain. Abd US revealed fatty liver and that he was s /p cholecystectomy. the bile ducts were not dilated. he has never had a colonoscopy. - History Source History Provided By: Patient, Medical Record - Past Medical History Cardio/Vascular: Yes: HTN, Hyperlipdemia Hepatobiliary: Yes: Cholelithiasis Renal/: Yes: Hematuria Endocrine: Yes: Diabetes Mellitus (DM II) - Past Surgical History Past Surgical History: Yes: Cholecystectomy (open) - Alcohol/Substance Use Hx Alcohol Use: No History of Substance Use: reports: None - Smoking History Smoking history: Never smoked Have you smoked in the past 12 months: No Aproximately how many cigarettes per day: 0 - Social History Usual Living Arrangement: With Spouse ADL: Independent Place [facility] : [facility] ([facility]) History of Recent Travel: No Home Medications - Allergies Allergies/Adverse Reactions: Allergies Allergy/AdvReac Type Severity Reaction Status Date / Time nut - unspecified Allergy Unknown Itching Verified 01/16/19 10:49 No Known Drug Allergies Allergy Verified 01/16/19 10:49 bananas Allergy Mild Swelling Uncoded 01/16/19 10:49 fresh grapefruit Allergy Mild Swelling Uncoded 01/16/19 10:49 fresh brooke Allergy Mild Swelling Uncoded 01/16/19 10:49 fresh pineapple Allergy Mild Swelling Uncoded 01/16/19 10:49 fresh tomatoes Allergy Mild Swelling Uncoded 01/16/19 10:49 lettuce Allergy Mild Swelling Uncoded 01/16/19 10:49 - Home Medications Home Medications: Ambulatory Orders Lisinopril [Prinivil] 20 mg PO DAILY #30 tablet 09/10/15 Metoprolol Succinate [Toprol XL -] 25 mg PO DAILY #30 tab.sr.24h 09/10/15 metFORMIN HCL [Glucophage -] 850 mg PO BID #60 tablet 09/10/15 Glipizide 10 mg PO BID 07/22/17 Simvastatin [Zocor -] 10 mg PO DAILY 09/30/18 Becaplermin [Regranex] 15 gm TP DAILY #1 gel..gram. 11/07/18 Ketoconazole 2% Cream [Nizoral 2% Cream -] 1 applic TP DAILY #1 cream 11/07/18 Family Medical History Other Family History: Mother : 30's after ingestion of something while performing [place]. Father: : 80's. 3 sisters: healthy. 7 children: healthy. No family history of colorectal cancer / liver disease Review of Systems - Review of Systems Constitutional: denies: Chills Cardiovascular: denies: Chest Pain Respiratory: denies: SOB Gastrointestinal: denies: Abdominal Pain, Diarrhea, Melena, Nausea, Rectal Bleeding, Vomiting Physical Exam-GI Vital Signs: Vital Signs Temperature 98.8 F 01/21/19 18:02 Pulse Rate 72 01/21/19 18:02 Respiratory Rate 20 01/21/19 18:02 Blood Pressure 136/70 01/21/19 18:02 O2 Sat by Pulse Oximetry (%) 96 01/21/19 09:00 Constitutional: Yes: Calm Eyes: No: Sclera Icterus Cardiovascular: Yes: Regular Rate and Rhythm. No: Murmur Respiratory: Yes: CTA Bilaterally Gastrointestinal Inspection: Yes: Scars ...Auscultate: Yes: Normoactive Bowel Sounds ...Palpate: Yes: Soft. No: Hepatomegaly, Splenomegaly, Tenderness Edema: No (No LE edema) Neurological: Yes: Alert Labs: CBC, BMP 01/21/19 06:30 01/21/19 06:30 INR, PTT INR 1.12 (0.83-1.09) H 01/17/19 10:55 Hepatic Panel Total Bilirubin 0.5 mg/dL (0.2-1) 01/21/19 06:30 AST 27 U/L (15-37) 01/21/19 06:30 ALT 31 U/L (13-61) 01/21/19 06:30 Alkaline Phosphatase 266 U/L (45-117) H 01/21/19 06:30 Albumin 2.2 g/dl (3.4-5.0) L 01/21/19 06:30 Problem List - Problems (1) Elevated alkaline phosphatase level Assessment/Plan: Asymptomatic with the remainder of his liver chemistries being normal. non dilated biliary tract. His ALP has been elevated chronically. ? if prior work- up. Not clear Ordered screening hepatitis serologies, GGT and ALP isoenzymes. ALPINE requires pathology authorization so unable to order tonight. Thius cab be checked as an outpatient. If GGT is not elevated, then consideration should be made to assess for non hepatibiliary source of elevated ALP per PMD MRCP to evaluate biliary tract if feasible Code(s): R74.8 - ABNORMAL LEVELS OF OTHER SERUM ENZYMES (2) Colon cancer screening Assessment/Plan: Has never had a colonoscopy. advised screening colonoscopy as an outpatient. Code(s): Z12.11 - ENCOUNTER FOR SCREENING FOR MALIGNANT NEOPLASM OF COLON
[2019-01-21] MEDS: ATORVASTATIN CA 10 MG TABLET (FP) PO SCH (21:15)
[2019-01-21] MEDS: INSULIN (LEVEMIR) 100 UNITS/ML UNITS SQ SCH (21:28)
[2019-01-22] MEDS ORDERED: PIPERACILLIN/TAZOBACTAM 3.375 GM VIAL IVPB ONE ×3 (00:40→18:00)
[2019-01-22] MEDS ORDERED: DEXTROSE 5%-WATER - 50 ML IVPB ONE ×3 (00:41→18:00)
[2019-01-22] MEDS: PIPERACILLIN/TAZOB 3.375 GM 3.375 GM in DEXTROSE 5%-WATER - 50 ML IVPB SCH ×3 (01:38→18:03)
[2019-01-22] MEDS: INSULIN SLIDING SCALE (NOVOLOG) 1 VIAL SQ SCH ×4 (06:53→22:32)
--- NOTE | 2019-01-22 08:12 | PN ---
Progress Note, Physician Chief Complaint: s/p debridement of bone and soft tissue lt foot Pt lying in bed,afebrile Endocrine/renal consult appreciated labs noted,creatinine improving blood cul negative GI consult appreciated - Current Medication List Current Medications: Active Medications Acetaminophen (Tylenol -) 650 mg PO Q6H PRN PRN Reason: FEVER OVER 100 Last Admin: 01/18/19 22:49 Dose: 650 mg Atorvastatin Calcium (Lipitor -) 10 mg PO HS MELVINA Last Admin: 01/21/19 21:15 Dose: 10 mg Piperacillin Sod/Tazobactam (Sod 3.375 gm/ Dextrose) 50 mls @ 100 mls/hr IVPB Q8H-IV MELVINA; Protocol Last Admin: 01/22/19 01:38 Dose: 100 mls/hr Insulin Aspart (Novolog Vial Sliding Scale -) 1 vial SQ HS MELVINA; Protocol Last Admin: 01/21/19 21:28 Dose: 4 units Insulin Aspart (Novolog Vial Sliding Scale -) 1 vial SQ TIDAC MELVINA; Protocol Last Admin: 01/22/19 06:53 Dose: 6 units Insulin Detemir (Levemir Vial) 22 units SQ HS MELVINA Last Admin: 01/21/19 21:28 Dose: 22 units Metoprolol Succinate (Toprol Xl -) 25 mg PO DAILY MELVINA Last Admin: 01/21/19 10:30 Dose: 25 mg - Objective Vital Signs: Vital Signs Temperature 98.6 F 01/22/19 07:09 Pulse Rate 65 01/22/19 07:09 Respiratory Rate 20 01/22/19 07:09 Blood Pressure 123/62 01/22/19 07:09 O2 Sat by Pulse Oximetry (%) 96 01/21/19 21:00 Constitutional: Yes: No Distress Eyes: Yes: Conjunctiva Clear HENT: Yes: Atraumatic Neck: Yes: Supple Cardiovascular: Yes: Regular Rate and Rhythm Respiratory: Yes: Regular, CTA Bilaterally Gastrointestinal: Yes: Normal Bowel Sounds Extremities: Yes: Other (S/p I&D of abcess lt foot,mild swelling LT foot) Peripheral Pulses WNL: Yes Wound/Incision: Yes: Dressing Dry and Intact Neurological: Yes: WNL, Alert Psychiatric: Yes: WNL, Alert Labs: CBC, BMP 01/21/19 06:30 01/21/19 06:30 INR, PTT INR 1.12 (0.83-1.09) H 01/17/19 10:55 Assessment/Plan s/p debridement of bone and soft tissue LT foot, DM,HTN renal insufficiency improving AVERY on ckd Elevated LFT PLAn Continue antibiotics as per ID WOUND care Monitor blood sugar ID and Podiatry f/u Endocrine F/u GI f/u MRI of abdomen pending
[2019-01-22 08:52] LABS: ALBUMIN 2.4 g/dl (3.4-5.0); BILIRUBIN,TOTAL 0.7 mg/dL (0.2-1); CALCIUM 7.9 mg/dL (8.5-10.1); CREATININE 1.3 mg/dL (0.55-1.3); POTASSIUM 4.1 mmol/L (3.5-5.1); TOT PROT 6.8 g/dl (6.4-8.2)
[2019-01-22 09:00] LABS: ALBUMIN 2.4 g/dl (3.4-5.0); BILIRUBIN,DIRECT 0.2 mg/dL (0.0-0.2); BILIRUBIN,TOTAL 0.4 mg/dL (0.2-1); TOT PROT 6.7 g/dl (6.4-8.2)
--- NOTE | 2019-01-22 09:58 | PN ---
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 Neuro: No focal deficit CMP Sodium 140 mmol/L (136-145) 01/22/19 07:25 Potassium 4.1 mmol/L (3.5-5.1) 01/22/19 07:25 Chloride 105 mmol/L (98-107) 01/22/19 07:25 Carbon Dioxide 27 mmol/L (21-32) 01/22/19 07:25 Anion Gap 7 MMOL/L (8-16) L 01/22/19 07:25 BUN 16.0 mg/dL (7-18) 01/22/19 07:25 Creatinine 1.3 mg/dL (0.55-1.3) 01/22/19 07:25 Est GFR (CKD-EPI)AfAm 64.98 01/22/19 07:25 Est GFR (CKD-EPI)NonAf 56.06 01/22/19 07:25 POC Glucometer 169 UNITS (80-120) 01/22/19 06:32 Random Glucose 167 mg/dL (74-106) H 01/22/19 07:25 Hemoglobin A1c % 12.5 % (4.2-6.3) H 01/17/19 06:58 Lactic Acid 1.3 mmol/L (0.4-2.0) 01/16/19 13:42 Calcium 7.9 mg/dL (8.5-10.1) L 01/22/19 07:25 Phosphorus 3.6 mg/dL (2.5-4.9) 01/21/19 06:30 Magnesium 2.1 mg/dL (1.8-2.4) 01/21/19 06:30 Total Bilirubin 0.4 mg/dL (0.2-1) 01/22/19 07:25 Direct Bilirubin 0.2 mg/dL (0.0-0.2) 01/22/19 07:25 GGT 211 U/L (5-85) H 01/22/19 07:25 AST 28 U/L (15-37) 01/22/19 07:25 ALT 34 U/L (13-61) 01/22/19 07:25 Alkaline Phosphatase 281 U/L (45-117) H 01/22/19 07:25 Total Protein 6.7 g/dl (6.4-8.2) 01/22/19 07:25 Albumin 2.4 g/dl (3.4-5.0) L 01/22/19 07:25 Triglycerides 185 mg/dL (0-150) H 01/16/19 13:42 Cholesterol 139 mg/dL (50-200) 01/16/19 13:42 Total LDL Cholesterol 88 mg/dL (5-100) 01/16/19 13:42 HDL Cholesterol 29 mg/dL (40-60) L 01/16/19 13:42 Current Medications Generic Name Dose Route Start Last Admin Trade Name Freq PRN Reason Stop Dose Admin Acetaminophen 650 mg 01/17/19 17:59 01/18/19 22:49 Tylenol - PO 650 mg Q6H PRN Administration FEVER OVER 100 Atorvastatin Calcium 10 mg 01/17/19 22:00 01/21/19 21:15 Lipitor - PO 10 mg HS MELVINA Administration Piperacillin Sod/Tazobactam 50 mls @ 100 mls/hr 01/18/19 18:00 01/22/19 01:38 Sod 3.375 gm/ Dextrose IVPB 100 mls/hr Q8H-IV MELVINA Administration Protocol Insulin Aspart 1 vial 01/17/19 22:00 01/21/19 21:28 Novolog Vial Sliding Scale - SQ 4 units HS MELVINA Administration Protocol Insulin Aspart 1 vial 01/21/19 16:30 01/22/19 06:53 Novolog Vial Sliding Scale - SQ 6 units TIDAC MELVINA Administration Protocol Insulin Detemir 22 units 01/20/19 22:00 01/21/19 21:28 Levemir Vial SQ 22 units HS MELVINA Administration Metoprolol Succinate 25 mg 01/18/19 10:00 01/21/19 10:30 Toprol Xl - PO 25 mg DAILY MELVINA Administration AP: Infected foot wound T2DM:A1c 12.5 now CKD PVD Hypetension BGM QACHS Increase Levemir 25 units daily Novolog SS coverage ABx as per ID Will f/u
--- NOTE | 2019-01-22 10:21 | PN.GI ---
GI Progress Note Subjective: Pt seen/examined at bedside, feeling better, denies abdominal pain, n/v. Pending MRCP. - Objective Vital Signs: Vital Signs Temperature 98.6 F 01/22/19 07:09 Pulse Rate 65 01/22/19 07:09 Respiratory Rate 20 01/22/19 07:09 Blood Pressure 123/62 01/22/19 07:09 O2 Sat by Pulse Oximetry (%) 96 01/21/19 21:00 Constitutional: Well Nourished, No Distress, Calm Cardiovascular: Yes: WNL, Regular Rate and Rhythm Respiratory: Yes: WNL, Regular, CTA Bilaterally ...Palpate: Yes: Other (Abd soft, nt, nd) Labs: CBC, BMP 01/21/19 06:30 01/22/19 07:25 INR, PTT INR 1.12 (0.83-1.09) H 01/17/19 10:55 Problem List - Problems (1) Elevated alkaline phosphatase level Assessment/Plan: 68yo male h/o DM with left foot wound/cellulitis s/p I&D with elevated alk phos level. Denies recent etoh use. GGT also elevated otherwise normal LFTs. US revealing hepatomegaly, post cholecystectomy, no biliary dilation. Unclear exact etiology though suggestive of hepatobiliary origin ?medications vs hepatic or biliary tract disease. -Await MRCP to further evaluate biliary tree -Follow up hepatitis serologies -Continue to monitor LFTs -Avoid nonessential hepatotoxic medications -As noted previously for complete AI workup will need to check AMA levels as outpt r/o PBC Code(s): R74.8 - ABNORMAL LEVELS OF OTHER SERUM ENZYMES (2) Colon cancer screening Assessment/Plan: No prior colonoscopy. Will need to be scheduled once acute issues resolve. Code(s): Z12.11 - ENCOUNTER FOR SCREENING FOR MALIGNANT NEOPLASM OF COLON
[2019-01-22] MEDS: metoPROLOL SUCCINATE 25 MG TAB.SR.24H (FP) PO SCH (10:32)
--- NOTE | 2019-01-22 11:56 | PN ---
Progress Note, Physician History of Present Illness: stable afebrile - Current Medication List Current Medications: Active Medications Acetaminophen (Tylenol -) 650 mg PO Q6H PRN PRN Reason: FEVER OVER 100 Last Admin: 01/18/19 22:49 Dose: 650 mg Atorvastatin Calcium (Lipitor -) 10 mg PO HS MELVINA Last Admin: 01/21/19 21:15 Dose: 10 mg Piperacillin Sod/Tazobactam (Sod 3.375 gm/ Dextrose) 50 mls @ 100 mls/hr IVPB Q8H-IV MELVINA; Protocol Last Admin: 01/22/19 11:01 Dose: 100 mls/hr Insulin Aspart (Novolog Vial Sliding Scale -) 1 vial SQ HS MELVINA; Protocol Last Admin: 01/21/19 21:28 Dose: 4 units Insulin Aspart (Novolog Vial Sliding Scale -) 1 vial SQ TIDAC MELVINA; Protocol Last Admin: 01/22/19 06:53 Dose: 6 units Insulin Detemir (Levemir Vial) 22 units SQ HS MELVINA Last Admin: 01/21/19 21:28 Dose: 22 units Metoprolol Succinate (Toprol Xl -) 25 mg PO DAILY MELVINA Last Admin: 01/22/19 10:32 Dose: 25 mg - Objective Vital Signs: Vital Signs Temperature 98.6 F 01/22/19 07:09 Pulse Rate 65 01/22/19 07:09 Respiratory Rate 20 01/22/19 07:09 Blood Pressure 123/62 01/22/19 07:09 O2 Sat by Pulse Oximetry (%) 96 01/21/19 21:00 Constitutional: Yes: No Distress, Calm Cardiovascular: Yes: S1, S2 Respiratory: Yes: Regular, CTA Bilaterally Gastrointestinal: Yes: Normal Bowel Sounds, Soft Musculoskeletal: Yes: Other Extremities: Yes: Other Wound/Incision: Yes: Dressing Dry and Intact Neurological: Yes: Alert, Oriented Psychiatric: Yes: Alert, Oriented Labs: CBC, BMP 01/21/19 06:30 01/22/19 07:25 INR, PTT INR 1.12 (0.83-1.09) H 01/17/19 10:55 Assessment/Plan 68 year old gentleman with history of CKD, DM, Hypertension, PVD s/p LE amputation who presented with non-healing foot wound with signs of infection 1. AVERY on CKD vs progressive CKD 2. CKD 3. Infected foot wound 4. PVD 5. DM 6. Hypetension plan continue abx wound care repeat cx noted await for finalization mri of the foot to r/o osteo as the ulcer probes to the bone
--- NOTE | 2019-01-22 12:19 | PN ---
Progress Note (short form) - Note Progress Note: Podiatry F/U: Seen/evaluated at bedside NAD. Pain controlled, denies F/V/N/C/SOB/CP. AFebrile. S/p incision and drainage left foot with Dr. Osborn. MARY: L foot: pedal pulses 1/4, TG wnl. Sub-fifth metatatarsal diabetic ulcer fibrotic , probes to bone, hyperkeratotic borders, no further purulence, no fluctuance, surrounding erythema with marginal improvement, no soft tissue crepitus, no signs of acute infection. No tenderness to palpation. Blood Cx: no growth x 72 hrs Wound Cx: beta strep b, mixed orgs Imp: 68 year old diabetic male s/p left foot I&D, ?osteomyelitis 1. IV abx per infectious disease 2. Saline irrigation with DSD L foot 3. MRI planned for today. If (+) will need IV abx via PICC line. 4. Patient will require home nursing services with algidex packing to the left foot with dry sterile dressing changed 3x/week. 5. Patient to f/u with Dr. Osborn upon discharge. Mitchell Shah DPM
[2019-01-22] MEDS ORDERED: INSULIN (NOVOLOG) ASPART 100 UNITS/ML 10ML VIAL ONE ×2 (12:27→22:24)
--- NOTE | 2019-01-22 15:42 | PN ---
Progress Note (short form) - Note Progress Note: Renal follow up for AVERY on CKD Seen and examined at the bedside awake and alert feels well making urine no chest pain, abdomnal pain, fever or chills Vital Signs Temperature 98.6 F 01/22/19 07:09 Pulse Rate 65 01/22/19 07:09 Respiratory Rate 20 01/22/19 07:09 Blood Pressure 123/62 01/22/19 07:09 O2 Sat by Pulse Oximetry (%) 96 01/21/19 21:00 Intake & Output 01/19/19 01/20/19 01/21/19 01/22/19 23:59 23:59 23:59 23:59 Intake Total 2721 2265 500 100 Output Total 3502 500 600 Balance -781 1765 -100 100 Weight 104.326 kg NAD awake and alert neck supple, no JVD RRR, no M/R Dec BS but no rales or wheeze soft NT/ND no LE edema no bladder distension or CVA tenderness CBC, BMP 01/21/19 06:30 01/22/19 07:25 Current Medications Acetaminophen (Tylenol -) 650 mg PO Q6H PRN PRN Reason: FEVER OVER 100 Last Admin: 01/18/19 22:49 Dose: 650 mg Atorvastatin Calcium (Lipitor -) 10 mg PO HS MELVINA Last Admin: 01/21/19 21:15 Dose: 10 mg Piperacillin Sod/Tazobactam (Sod 3.375 gm/ Dextrose) 50 mls @ 100 mls/hr IVPB Q8H-IV MELVINA; Protocol Last Admin: 01/22/19 11:01 Dose: 100 mls/hr Insulin Aspart (Novolog Vial Sliding Scale -) 1 vial SQ HS MELVINA; Protocol Last Admin: 01/21/19 21:28 Dose: 4 units Insulin Aspart (Novolog Vial Sliding Scale -) 1 vial SQ TIDAC MELVINA; Protocol Last Admin: 01/22/19 12:32 Dose: 10 units Insulin Detemir (Levemir Vial) 25 units SQ HS MELVINA Metoprolol Succinate (Toprol Xl -) 25 mg PO DAILY MELVINA Last Admin: 01/22/19 10:32 Dose: 25 mg 68 year old gentleman with history of CKD, DM, Hypertension, PVD s/p LE amputation who presented with non-healing foot wound with signs of infection and noted to have Cr of 2.5, 1. AVERY on CKD 2. CKD 3. Infected foot wound 4. PVD 5. DM 6. Hypetension Renal function is improved and stable Continue IV antibiotics as per ID Blood cultures w/o growth Vascular and podiatry follow up withhold any NI/ARB for now given decline in renal function continue metoprolol Trend renal function and electrolytes daily oral intake as tolerated Thank you David Jones DO
--- NOTE | 2019-01-22 15:55 | PATH ---
Surgical Pathology Report Patient Name: TASHA MCINTYRE Med. Rec. #: [id number] /Age/Gender: 1950 (Age: 68) / M Account: [id number] Location: [facility] MED/SURG Taken: 01/17/2019 Received: 01/20/2019 Reported: 01/22/2019 Physicians: Chai Osborn DPM Specimen(s) Received A: FOREIGN BODY LEFT FOOT B: DEBRIDEMENT TISSUE LEFT FOOT Clinical History Left foot infection Final Diagnosis A. FOREIGN BODY, LEFT FOOT, EXCISION: ACUTE INFLAMMATORY EXUDATE ADMIXED WITH POLARIZABLE FOREIGN BODY AGGREGATES. B. DEBRIDED TISSUE, LEFT FOOT, EXCISION: PORTIONS OF FIBROCONNECTIVE TISSUE WITH GANGRENOUS NECROSIS AND ABSCESS FORMATION. Electronically Signed Fide Avery M.D. Gross Description A. Received in formalin labeled "foreign body left foot," is a 0.8 x 0.4 cm moran green, necrotic appearing skin shave. No discrete foreign body is identified. The specimen is bisected and entirely submitted in one cassette. B. Received in formalin labeled "debrided tissue left foot," are 2 moran fragments of skin measuring 0.7 x 0.4 x 0.1 cm and 1.0 x 0.8 x 0.1 cm. The smaller portion is bisected and larger portion is trisected. The specimen is entirely submitted in one cassette. 01/21/2019 saudi01/21/2019
[2019-01-22] MEDS: ATORVASTATIN CA 10 MG TABLET (FP) PO SCH (22:32)
[2019-01-22] MEDS: INSULIN (LEVEMIR) 100 UNITS/ML UNITS SQ SCH (22:33)
[2019-01-23] MEDS ORDERED: PIPERACILLIN/TAZOBACTAM 3.375 GM VIAL IVPB ONE ×3 (01:34→16:36)
[2019-01-23] MEDS ORDERED: DEXTROSE 5%-WATER - 50 ML IVPB ONE ×3 (01:34→16:36)
[2019-01-23] MEDS: PIPERACILLIN/TAZOB 3.375 GM 3.375 GM in DEXTROSE 5%-WATER - 50 ML IVPB SCH ×3 (01:57→17:11)
[2019-01-23] MEDS: INSULIN SLIDING SCALE (NOVOLOG) 1 VIAL SQ SCH ×4 (06:02→22:04)
--- NOTE | 2019-01-23 09:18 | PN ---
Progress Note, Physician Chief Complaint: s/p debridement of bone and soft tissue lt foot Pt lying in bed,afebrile Endocrine/renal consult appreciated labs noted,creatinine improving blood cul negative,MRSA nares negative GI consult appreciated Awaiting MRI of foot to r/o OSteomyelitis and MRI of abdomen - Current Medication List Current Medications: Active Medications Acetaminophen (Tylenol -) 650 mg PO Q6H PRN PRN Reason: FEVER OVER 100 Last Admin: 01/18/19 22:49 Dose: 650 mg Atorvastatin Calcium (Lipitor -) 10 mg PO HS MELVINA Last Admin: 01/22/19 22:32 Dose: 10 mg Piperacillin Sod/Tazobactam (Sod 3.375 gm/ Dextrose) 50 mls @ 100 mls/hr IVPB Q8H-IV MELVINA; Protocol Last Admin: 01/23/19 01:57 Dose: 100 mls/hr Insulin Aspart (Novolog Vial Sliding Scale -) 1 vial SQ HS MELVINA; Protocol Last Admin: 01/22/19 22:32 Dose: 4 units Insulin Aspart (Novolog Vial Sliding Scale -) 1 vial SQ TIDAC MELVINA; Protocol Last Admin: 01/23/19 06:02 Dose: 8 units Insulin Detemir (Levemir Vial) 25 units SQ HS MELVINA Last Admin: 01/22/19 22:33 Dose: 25 units Metoprolol Succinate (Toprol Xl -) 25 mg PO DAILY MELVINA Last Admin: 01/22/19 10:32 Dose: 25 mg - Objective Vital Signs: Vital Signs Temperature 98.3 F 01/23/19 05:00 Pulse Rate 61 01/23/19 05:00 Respiratory Rate 18 01/23/19 05:00 Blood Pressure 124/72 01/23/19 05:00 O2 Sat by Pulse Oximetry (%) 96 01/22/19 21:00 Constitutional: Yes: No Distress Eyes: Yes: Conjunctiva Clear HENT: Yes: Atraumatic, Normocephalic Neck: Yes: Supple Cardiovascular: Yes: Regular Rate and Rhythm Respiratory: Yes: Regular, CTA Bilaterally Gastrointestinal: Yes: Normal Bowel Sounds, Soft Edema: Yes Edema: LLE: 4+ (Lt foot mild oedema present,dressing in place) Peripheral Pulses WNL: Yes Wound/Incision: Yes: Dressing Dry and Intact Neurological: Yes: WNL, Alert ...Motor Strength: WNL Psychiatric: Yes: WNL, Alert Labs: CBC, BMP 01/21/19 06:30 01/22/19 07:25 INR, PTT INR 1.12 (0.83-1.09) H 01/17/19 10:55 Assessment/Plan s/p debridement of bone and soft tissue LT foot, R/o osteomyelitis DM,HTN renal insufficiency improving AVERY on ckd impropving Elevated LFT PLAn Continue antibiotics as per ID WOUND care Monitor blood sugar ID and Podiatry f/u Endocrine F/u GI f/u MRI of abdomen and MRI of foot LT pending
--- NOTE | 2019-01-23 09:56 | PN ---
Progress Note (short form) - Note Progress Note: Denies any complaints Blood sugar improving No hypos Afebrile Vital Signs Period Temp Pulse Resp BP Sys/Bustillos Pulse Ox Last 24 Hr 98.0 F-98.3 F 61-67 18-20 109-146/66-82 96 PE: AOx3 Neck: Supple, No JVD HEENT: EOMI Lungs: CTA CVS: s1S2 Abd: Benign Ext: left foot swelling, + erythema, s/p amputation 3rd and 4th toes Neuro: No focal deficit CMP Sodium 140 mmol/L (136-145) 01/22/19 07:25 Potassium 4.1 mmol/L (3.5-5.1) 01/22/19 07:25 Chloride 105 mmol/L (98-107) 01/22/19 07:25 Carbon Dioxide 27 mmol/L (21-32) 01/22/19 07:25 Anion Gap 7 MMOL/L (8-16) L 01/22/19 07:25 BUN 16.0 mg/dL (7-18) 01/22/19 07:25 Creatinine 1.3 mg/dL (0.55-1.3) 01/22/19 07:25 Est GFR (CKD-EPI)AfAm 64.98 01/22/19 07:25 Est GFR (CKD-EPI)NonAf 56.06 01/22/19 07:25 POC Glucometer 187 UNITS (80-120) 01/23/19 05:56 Random Glucose 167 mg/dL (74-106) H 01/22/19 07:25 Hemoglobin A1c % 12.5 % (4.2-6.3) H 01/17/19 06:58 Lactic Acid 1.3 mmol/L (0.4-2.0) 01/16/19 13:42 Calcium 7.9 mg/dL (8.5-10.1) L 01/22/19 07:25 Phosphorus 3.6 mg/dL (2.5-4.9) 01/21/19 06:30 Magnesium 2.1 mg/dL (1.8-2.4) 01/21/19 06:30 Total Bilirubin 0.4 mg/dL (0.2-1) 01/22/19 07:25 Direct Bilirubin 0.2 mg/dL (0.0-0.2) 01/22/19 07:25 GGT 211 U/L (5-85) H 01/22/19 07:25 AST 28 U/L (15-37) 01/22/19 07:25 ALT 34 U/L (13-61) 01/22/19 07:25 Alkaline Phosphatase 281 U/L (45-117) H 01/22/19 07:25 Total Protein 6.7 g/dl (6.4-8.2) 01/22/19 07:25 Albumin 2.4 g/dl (3.4-5.0) L 01/22/19 07:25 Triglycerides 185 mg/dL (0-150) H 01/16/19 13:42 Cholesterol 139 mg/dL (50-200) 01/16/19 13:42 Total LDL Cholesterol 88 mg/dL (5-100) 01/16/19 13:42 HDL Cholesterol 29 mg/dL (40-60) L 01/16/19 13:42 Current Medications Generic Name Dose Route Start Last Admin Trade Name Freq PRN Reason Stop Dose Admin Acetaminophen 650 mg 01/17/19 17:59 01/18/19 22:49 Tylenol - PO 650 mg Q6H PRN Administration FEVER OVER 100 Atorvastatin Calcium 10 mg 01/17/19 22:00 01/22/19 22:32 Lipitor - PO 10 mg HS MELVINA Administration Piperacillin Sod/Tazobactam 50 mls @ 100 mls/hr 01/18/19 18:00 01/23/19 01:57 Sod 3.375 gm/ Dextrose IVPB 100 mls/hr Q8H-IV MELVINA Administration Protocol Insulin Aspart 1 vial 01/17/19 22:00 01/22/19 22:32 Novolog Vial Sliding Scale - SQ 4 units HS MELVINA Administration Protocol Insulin Aspart 1 vial 01/21/19 16:30 01/23/19 06:02 Novolog Vial Sliding Scale - SQ 8 units TIDAC MELVINA Administration Protocol Insulin Detemir 25 units 01/22/19 22:00 01/22/19 22:33 Levemir Vial SQ 25 units HS MELVINA Administration Metoprolol Succinate 25 mg 01/18/19 10:00 01/22/19 10:32 Toprol Xl - PO 25 mg DAILY MELVINA Administration AP: Infected foot wound T2DM:A1c 12.5 now CKD PVD Hypetension BGM QACHS INcrease Levemir 28 units daily Novolog SS coverage ABx as per ID Will f/u
[2019-01-23] MEDS: metoPROLOL SUCCINATE 25 MG TAB.SR.24H (FP) PO SCH (10:56)
--- NOTE | 2019-01-23 12:31 | PN ---
Progress Note (short form) - Note Progress Note: Renal follow up for AVERY on CKD Seen and examined at the bedside offers no acute complaints making urine no sob, cp, fever or chills Vital Signs Temperature 98.3 F 01/23/19 05:00 Pulse Rate 61 01/23/19 05:00 Respiratory Rate 18 01/23/19 05:00 Blood Pressure 124/72 01/23/19 05:00 O2 Sat by Pulse Oximetry (%) 96 01/22/19 21:00 NAD awake and alert neck supple, no JVD RRR, no M/R Dec BS but no rales or wheeze soft NT/ND no LE edema no bladder distension or CVA tenderness CBC, BMP 01/21/19 06:30 01/22/19 07:25 Current Medications Acetaminophen (Tylenol -) 650 mg PO Q6H PRN PRN Reason: FEVER OVER 100 Last Admin: 01/18/19 22:49 Dose: 650 mg Atorvastatin Calcium (Lipitor -) 10 mg PO HS MELVINA Last Admin: 01/21/19 21:15 Dose: 10 mg Piperacillin Sod/Tazobactam (Sod 3.375 gm/ Dextrose) 50 mls @ 100 mls/hr IVPB Q8H-IV MELVINA; Protocol Last Admin: 01/22/19 11:01 Dose: 100 mls/hr Insulin Aspart (Novolog Vial Sliding Scale -) 1 vial SQ HS MELVINA; Protocol Last Admin: 01/21/19 21:28 Dose: 4 units Insulin Aspart (Novolog Vial Sliding Scale -) 1 vial SQ TIDAC MELVINA; Protocol Last Admin: 01/22/19 12:32 Dose: 10 units Insulin Detemir (Levemir Vial) 25 units SQ HS MELVINA Metoprolol Succinate (Toprol Xl -) 25 mg PO DAILY MELVINA Last Admin: 01/22/19 10:32 Dose: 25 mg 68 year old gentleman with history of CKD, DM, Hypertension, PVD s/p LE amputation who presented with non-healing foot wound with signs of infection and noted to have Cr of 2.5, 1. AVERY on CKD 2. CKD 3. Infected foot wound 4. PVD 5. DM 6. Hypetension Renal function is improved and stable Continue IV antibiotics as per ID Vascular and podiatry follow up awaiting MRI of LE Check BMP in am tomorro continue metoprolol oral intake as tolerated Thank you David Jones DO
--- NOTE | 2019-01-23 14:58 | PN ---
Progress Note, Physician History of Present Illness: no new issues await for mri - Current Medication List Current Medications: Active Medications Acetaminophen (Tylenol -) 650 mg PO Q6H PRN PRN Reason: FEVER OVER 100 Last Admin: 01/18/19 22:49 Dose: 650 mg Atorvastatin Calcium (Lipitor -) 10 mg PO HS MELVINA Last Admin: 01/22/19 22:32 Dose: 10 mg Piperacillin Sod/Tazobactam (Sod 3.375 gm/ Dextrose) 50 mls @ 100 mls/hr IVPB Q8H-IV MELVINA; Protocol Last Admin: 01/23/19 10:56 Dose: 100 mls/hr Insulin Aspart (Novolog Vial Sliding Scale -) 1 vial SQ HS MELVINA; Protocol Last Admin: 01/22/19 22:32 Dose: 4 units Insulin Aspart (Novolog Vial Sliding Scale -) 1 vial SQ TIDAC MELVINA; Protocol Last Admin: 01/23/19 12:01 Dose: 8 units Insulin Detemir (Levemir Vial) 25 units SQ HS MELVINA Last Admin: 01/22/19 22:33 Dose: 25 units Metoprolol Succinate (Toprol Xl -) 25 mg PO DAILY MELVINA Last Admin: 01/23/19 10:56 Dose: Not Given - Objective Vital Signs: Vital Signs Temperature 98.8 F 01/23/19 10:00 Pulse Rate 60 01/23/19 10:00 Respiratory Rate 20 01/23/19 10:00 Blood Pressure 100/56 L 01/23/19 10:00 O2 Sat by Pulse Oximetry (%) 96 01/23/19 09:00 Constitutional: Yes: No Distress, Calm Cardiovascular: Yes: S1, S2 Respiratory: Yes: Regular, CTA Bilaterally Gastrointestinal: Yes: Normal Bowel Sounds, Soft Musculoskeletal: Yes: WNL Extremities: Yes: Other Wound/Incision: Yes: Dressing Dry and Intact Neurological: Yes: Alert, Oriented Psychiatric: Yes: Alert, Oriented Labs: CBC, BMP 01/21/19 06:30 01/22/19 07:25 INR, PTT INR 1.12 (0.83-1.09) H 01/17/19 10:55 Assessment/Plan 68 year old gentleman with history of CKD, DM, Hypertension, PVD s/p LE amputation who presented with non-healing foot wound with signs of infection 1. AVERY on CKD vs progressive CKD 2. CKD 3. Infected foot wound 4. PVD 5. DM 6. Hypetension plan continue abx wound care repeat cx noted await for finalization await for mri as the ulcer probes to the bone
[2019-01-23] MEDS: INSULIN (LEVEMIR) 100 UNITS/ML UNITS SQ SCH (22:02)
[2019-01-23] MEDS: ATORVASTATIN CA 10 MG TABLET (FP) PO SCH (22:06)
[2019-01-23 22:09] LABS: HEP B CORE AB, TOT Positive (Negative)
[2019-01-24] MEDS ORDERED: PIPERACILLIN/TAZOBACTAM 3.375 GM VIAL IVPB ONE ×3 (01:54→16:47)
[2019-01-24] MEDS ORDERED: DEXTROSE 5%-WATER - 50 ML IVPB ONE ×3 (01:56→16:47)
[2019-01-24] MEDS: PIPERACILLIN/TAZOB 3.375 GM 3.375 GM in DEXTROSE 5%-WATER - 50 ML IVPB SCH ×3 (01:59→16:59)
[2019-01-24] MEDS: INSULIN SLIDING SCALE (NOVOLOG) 1 VIAL SQ SCH ×4 (06:22→21:38)
--- NOTE | 2019-01-24 08:02 | PN ---
Progress Note, Physician Chief Complaint: s/p debridement of bone and soft tissue lt foot Pt lying in bed,afebrile Endocrine/renal consult appreciated labs noted,creatinine improving blood cul negative GI consult appreciated awaiting for MRI of abdomen and MRI of LT foot - Current Medication List Current Medications: Active Medications Acetaminophen (Tylenol -) 650 mg PO Q6H PRN PRN Reason: FEVER OVER 100 Last Admin: 01/18/19 22:49 Dose: 650 mg Atorvastatin Calcium (Lipitor -) 10 mg PO HS MELIVNA Last Admin: 01/23/19 22:06 Dose: 10 mg Piperacillin Sod/Tazobactam (Sod 3.375 gm/ Dextrose) 50 mls @ 100 mls/hr IVPB Q8H-IV MELVINA; Protocol Last Admin: 01/24/19 01:59 Dose: 100 mls/hr Insulin Aspart (Novolog Vial Sliding Scale -) 1 vial SQ HS MELVINA; Protocol Last Admin: 01/23/19 22:04 Dose: Not Given Insulin Aspart (Novolog Vial Sliding Scale -) 1 vial SQ TIDAC MELVINA; Protocol Last Admin: 01/24/19 06:22 Dose: 8 units Insulin Detemir (Levemir Vial) 25 units SQ HS MELVINA Last Admin: 01/23/19 22:02 Dose: 25 units Metoprolol Succinate (Toprol Xl -) 25 mg PO DAILY MELVINA Last Admin: 01/23/19 10:56 Dose: Not Given - Objective Vital Signs: Vital Signs Temperature 97.7 F 01/24/19 05:00 Pulse Rate 79 01/24/19 05:00 Respiratory Rate 20 01/24/19 05:00 Blood Pressure 112/62 01/24/19 05:00 O2 Sat by Pulse Oximetry (%) 96 01/23/19 21:00 Constitutional: Yes: No Distress Eyes: Yes: Conjunctiva Clear HENT: Yes: Atraumatic, Normocephalic Neck: Yes: Supple Cardiovascular: Yes: Regular Rate and Rhythm Respiratory: Yes: Regular, CTA Bilaterally Gastrointestinal: Yes: WNL Extremities: Yes: Other (lt foot dressing in place) Edema: No Peripheral Pulses WNL: Yes Wound/Incision: Yes: Dressing Dry and Intact Neurological: Yes: WNL, Alert ...Motor Strength: WNL Psychiatric: Yes: WNL, Alert Labs: INR, PTT INR 1.12 (0.83-1.09) H 01/17/19 10:55 Assessment/Plan s/p debridement of bone and soft tissue LT foot, DM,HTN renal insufficiency improving AVERY on ckd Elevated LFT PVD PLAn Continue antibiotics as per ID WOUND care Monitor blood sugar ID and Podiatry f/u Endocrine F/u GI f/u MRI of abdomen pending and MRI of LT foot pending
[2019-01-24 08:20] LABS: BASO % 0.8 % (0-2.0); EOS % 3.5 % (0-4.5); HEMATOCRIT 37.1 % (35.4-49); HEMOGLOBIN 12.7 GM/dL (11.7-16.9); LYMPH % 25.5 % (8-40); MCH 30.1 pg (25.7-33.7); MCHC 34.1 g/dl (32.0-35.9); MEAN CELL VOLUME 88.1 fl (80-96); MONO % 7.3 % (3.8-10.2); NEUT % 62.9 % (42.8-82.8); PLATELET COUNT 308 K/MM3 (134-434); RBC 4.21 M/mm3 (4.00-5.60); RDW 12.7 % (11.9-15.9); WHITE BLOOD COUNT 7.4 K/mm3 (4.0-10.0)
[2019-01-24 08:35] LABS: ALBUMIN 2.6 g/dl (3.4-5.0); BILIRUBIN,TOTAL 0.6 mg/dL (0.2-1); CALCIUM 8.5 mg/dL (8.5-10.1); CREATININE 1.4 mg/dL (0.55-1.3); POTASSIUM 4.5 mmol/L (3.5-5.1); TOT PROT 7.5 g/dl (6.4-8.2)
[2019-01-24 08:44] LABS: ALBUMIN 2.6 g/dl (3.4-5.0); BILIRUBIN,DIRECT 0.2 mg/dL (0.0-0.2); BILIRUBIN,TOTAL 0.4 mg/dL (0.2-1); TOT PROT 7.6 g/dl (6.4-8.2)
--- NOTE | 2019-01-24 09:11 | PN ---
Progress Note (short form) - Note Progress Note: Podiatry F/U Seen and evaluated at bedside.Pain controlled- AFebrile Sub-fifth metatarsal diabetic ulcer fibrotic, probes to bone, hyperkeratic borders,no further purulence Imp-1-iv abx per infectious disease 2- saline irrigation with dsd left foot. Patient will require home nursing services with algidex packing to left foot with dry sterile dressing change 3x a week Patient to follow up with Dr Osborn in wound care.
[2019-01-24] MEDS: metoPROLOL SUCCINATE 25 MG TAB.SR.24H (FP) PO SCH (09:29)
--- NOTE | 2019-01-24 09:34 | PN ---
Progress Note (short form) - Note Progress Note: Denies any complaints Blood sugar improving No hypos Afebrile Vital Signs Period Temp Pulse Resp BP Sys/Bustillos Pulse Ox Last 24 Hr 97.7 F-98.8 F 60-79 20-20 100-148/56-85 96 PE: AOx3 Neck: Supple, No JVD HEENT: EOMI Lungs: CTA CVS: s1S2 Abd: Benign Ext: left foot swelling, + erythema, s/p amputation 3rd and 4th toes Neuro: No focal deficit CMP Sodium 138 mmol/L (136-145) 01/24/19 06:55 Potassium 4.5 mmol/L (3.5-5.1) 01/24/19 06:55 Chloride 104 mmol/L (98-107) 01/24/19 06:55 Carbon Dioxide 27 mmol/L (21-32) 01/24/19 06:55 Anion Gap 8 MMOL/L (8-16) 01/24/19 06:55 Hepatic Function Panel 52 % (13-88) 01/22/19 07:25 BUN 19.0 mg/dL (7-18) H 01/24/19 06:55 Creatinine 1.4 mg/dL (0.55-1.3) H 01/24/19 06:55 Est GFR (CKD-EPI)AfAm 59.41 01/24/19 06:55 Est GFR (CKD-EPI)NonAf 51.26 01/24/19 06:55 POC Glucometer 183 UNITS (80-120) 01/24/19 06:19 Random Glucose 171 mg/dL (74-106) H 01/24/19 06:55 Hemoglobin A1c % 12.5 % (4.2-6.3) H 01/17/19 06:58 Lactic Acid 1.3 mmol/L (0.4-2.0) 01/16/19 13:42 Calcium 8.5 mg/dL (8.5-10.1) 01/24/19 06:55 Phosphorus 3.6 mg/dL (2.5-4.9) 01/21/19 06:30 Magnesium 2.1 mg/dL (1.8-2.4) 01/21/19 06:30 Total Bilirubin 0.4 mg/dL (0.2-1) 01/24/19 06:55 Direct Bilirubin 0.2 mg/dL (0.0-0.2) 01/24/19 06:55 GGT 211 U/L (5-85) H 01/22/19 07:25 AST 23 U/L (15-37) 01/24/19 06:55 ALT 30 U/L (13-61) 01/24/19 06:55 Alkaline Phosphatase 243 U/L (45-117) H 01/24/19 06:55 Total Protein 7.6 g/dl (6.4-8.2) 01/24/19 06:55 Albumin 2.6 g/dl (3.4-5.0) L 01/24/19 06:55 Triglycerides 185 mg/dL (0-150) H 01/16/19 13:42 Cholesterol 139 mg/dL (50-200) 01/16/19 13:42 Total LDL Cholesterol 88 mg/dL (5-100) 01/16/19 13:42 HDL Cholesterol 29 mg/dL (40-60) L 01/16/19 13:42 Current Medications Generic Name Dose Route Start Last Admin Trade Name Freq PRN Reason Stop Dose Admin Acetaminophen 650 mg 01/17/19 17:59 01/18/19 22:49 Tylenol - PO 650 mg Q6H PRN Administration FEVER OVER 100 Atorvastatin Calcium 10 mg 01/17/19 22:00 01/23/19 22:06 Lipitor - PO 10 mg HS MELVINA Administration Piperacillin Sod/Tazobactam 50 mls @ 100 mls/hr 01/18/19 18:00 01/24/19 09:29 Sod 3.375 gm/ Dextrose IVPB 100 mls/hr Q8H-IV MELVINA Administration Protocol Insulin Aspart 1 vial 01/17/19 22:00 01/23/19 22:04 Novolog Vial Sliding Scale - SQ Not Given HS MELVINA Protocol Insulin Aspart 1 vial 01/21/19 16:30 01/24/19 06:22 Novolog Vial Sliding Scale - SQ 8 units TIDAC MELVINA Administration Protocol Insulin Detemir 25 units 01/22/19 22:00 01/23/19 22:02 Levemir Vial SQ 25 units HS MELVINA Administration Metoprolol Succinate 25 mg 01/18/19 10:00 01/24/19 09:29 Toprol Xl - PO 25 mg DAILY MELVINA Administration AP: Infected foot wound T2DM:A1c 12.5 now CKD PVD Hypetension BGM QACHS Increase Levemir 28 units daily, got 25 last night Novolog SS coverage ABx as per ID Will f/u
--- NOTE | 2019-01-24 09:43 | PN ---
Progress Note, Physician History of Present Illness: stable no new issues - Current Medication List Current Medications: Active Medications Acetaminophen (Tylenol -) 650 mg PO Q6H PRN PRN Reason: FEVER OVER 100 Last Admin: 01/18/19 22:49 Dose: 650 mg Atorvastatin Calcium (Lipitor -) 10 mg PO HS MELVINA Last Admin: 01/23/19 22:06 Dose: 10 mg Piperacillin Sod/Tazobactam (Sod 3.375 gm/ Dextrose) 50 mls @ 100 mls/hr IVPB Q8H-IV MELVINA; Protocol Last Admin: 01/24/19 09:29 Dose: 100 mls/hr Insulin Aspart (Novolog Vial Sliding Scale -) 1 vial SQ HS MELVINA; Protocol Last Admin: 01/23/19 22:04 Dose: Not Given Insulin Aspart (Novolog Vial Sliding Scale -) 1 vial SQ TIDAC MELIVNA; Protocol Last Admin: 01/24/19 06:22 Dose: 8 units Insulin Detemir (Levemir Vial) 25 units SQ HS MELVINA Last Admin: 01/23/19 22:02 Dose: 25 units Metoprolol Succinate (Toprol Xl -) 25 mg PO DAILY MELVINA Last Admin: 01/24/19 09:29 Dose: 25 mg - Objective Vital Signs: Vital Signs Temperature 97.9 F 01/24/19 09:01 Pulse Rate 66 01/24/19 09:01 Respiratory Rate 20 01/24/19 09:01 Blood Pressure 146/80 01/24/19 09:01 O2 Sat by Pulse Oximetry (%) 96 01/23/19 21:00 Constitutional: Yes: No Distress, Calm Cardiovascular: Yes: S1, S2 Respiratory: Yes: Regular, CTA Bilaterally Gastrointestinal: Yes: Normal Bowel Sounds, Soft Musculoskeletal: Yes: WNL Extremities: Yes: Other Neurological: Yes: Alert, Oriented Psychiatric: Yes: Alert, Oriented Labs: CBC, BMP 01/24/19 06:55 01/24/19 06:55 INR, PTT INR 1.12 (0.83-1.09) H 01/17/19 10:55 Assessment/Plan 68 year old gentleman with history of CKD, DM, Hypertension, PVD s/p LE amputation who presented with non-healing foot wound with signs of infection 1. AVERY on CKD vs progressive CKD 2. CKD 3. Infected foot wound 4. PVD 5. DM 6. Hypetension plan continue abx wound care repeat cx noted await for finalization await for mri as the ulcer probes to the bone
--- NOTE | 2019-01-24 11:13 | PN ---
Progress Note (short form) - Note Progress Note: Renal follow up for AVERY on CKD Seen and examined at the bedside no acute complaints no sob, chest pain, fever or chills making urine tolerating oral diet Vital Signs Temperature 97.9 F 01/24/19 09:01 Pulse Rate 66 01/24/19 09:01 Respiratory Rate 20 01/24/19 09:01 Blood Pressure 146/80 01/24/19 09:01 O2 Sat by Pulse Oximetry (%) 96 01/23/19 21:00 Intake & Output 01/21/19 01/22/19 01/23/19 01/24/19 23:59 23:59 23:59 23:59 Intake Total 500 100 350 250 Output Total 600 700 Balance -100 -600 350 250 Weight 104.326 kg NAD RRR, no M/R Dec BS but no rales or wheeze soft NT/ND no LE edema CBC, BMP 01/24/19 06:55 01/24/19 06:55 Current Medications Acetaminophen (Tylenol -) 650 mg PO Q6H PRN PRN Reason: FEVER OVER 100 Last Admin: 01/18/19 22:49 Dose: 650 mg Atorvastatin Calcium (Lipitor -) 10 mg PO HS MELVINA Last Admin: 01/23/19 22:06 Dose: 10 mg Piperacillin Sod/Tazobactam (Sod 3.375 gm/ Dextrose) 50 mls @ 100 mls/hr IVPB Q8H-IV MELVINA; Protocol Last Admin: 01/24/19 09:29 Dose: 100 mls/hr Insulin Aspart (Novolog Vial Sliding Scale -) 1 vial SQ HS MELVINA; Protocol Last Admin: 01/23/19 22:04 Dose: Not Given Insulin Aspart (Novolog Vial Sliding Scale -) 1 vial SQ TIDAC MELVINA; Protocol Last Admin: 01/24/19 06:22 Dose: 8 units Insulin Detemir (Levemir Vial) 25 units SQ HS MELVINA Last Admin: 01/23/19 22:02 Dose: 25 units Metoprolol Succinate (Toprol Xl -) 25 mg PO DAILY MELVINA Last Admin: 01/24/19 09:29 Dose: 25 mg 68 year old gentleman with history of CKD, DM, Hypertension, PVD s/p LE amputation who presented with non-healing foot wound with signs of infection and noted to have Cr of 2.5, 1. AVERY on CKD 2. CKD 3. Infected foot wound 4. PVD 5. DM 6. Hypetension Cr with slight uptrend however clinical status appears stable would continue to monitor BUN/Cr but would no restart fluids as this time continue Abx as per ID Trend renal function and electrolytes daily Thank you David Jones DO
[2019-01-24] MEDS ORDERED: INSULIN (LEVEMIR) 100 UNITS/ML UNITS SQ SCH (13:42)
--- NOTE | 2019-01-24 14:09 | PN.GI ---
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 No: Hepatomegaly, Splenomegaly, Tenderness Neurological: Yes: Alert Labs: CBC, BMP 01/24/19 06:55 01/24/19 06:55 INR, PTT INR 1.12 (0.83-1.09) H 01/17/19 10:55 Hepatic Panel Hepatic Function Panel 52 % (13-88) 01/22/19 07:25 Total Bilirubin 0.4 mg/dL (0.2-1) 01/24/19 06:55 Direct Bilirubin 0.2 mg/dL (0.0-0.2) 01/24/19 06:55 AST 23 U/L (15-37) 01/24/19 06:55 ALT 30 U/L (13-61) 01/24/19 06:55 Alkaline Phosphatase 243 U/L (45-117) H 01/24/19 06:55 Albumin 2.6 g/dl (3.4-5.0) L 01/24/19 06:55 Problem List - Problems (1) Elevated alkaline phosphatase level Assessment/Plan: Chronic ALP elevation Filled out form to have AMA drawn Awaiting MRCP Ultimately may need liver biopsy Code(s): R74.8 - ABNORMAL LEVELS OF OTHER SERUM ENZYMES (2) Colon cancer screening Assessment/Plan: To be discussed in detail when acute issues are resolved as outpatient. Code(s): Z12.11 - ENCOUNTER FOR SCREENING FOR MALIGNANT NEOPLASM OF COLON
[2019-01-24] MEDS ORDERED: INSULIN (NOVOLOG) ASPART 100 UNITS/ML 10ML VIAL ONE ×2 (17:15→21:05)
[2019-01-24] MEDS: ATORVASTATIN CA 10 MG TABLET (FP) PO SCH (21:35)
[2019-01-25] MEDS ORDERED: DEXTROSE 5%-WATER - 50 ML IVPB ONE ×3 (01:45→17:55)
[2019-01-25] MEDS ORDERED: PIPERACILLIN/TAZOBACTAM 3.375 GM VIAL IVPB ONE ×3 (01:45→17:55)
[2019-01-25] MEDS: PIPERACILLIN/TAZOB 3.375 GM 3.375 GM in DEXTROSE 5%-WATER - 50 ML IVPB SCH ×3 (02:06→18:05)
[2019-01-25] MEDS: INSULIN SLIDING SCALE (NOVOLOG) 1 VIAL SQ SCH ×4 (06:31→21:23)
[2019-01-25] MEDS: metoPROLOL SUCCINATE 25 MG TAB.SR.24H (FP) PO SCH (10:11)
--- NOTE | 2019-01-25 10:51 | PN ---
Progress Note, Physician History of Present Illness: stable no new issues - Current Medication List Current Medications: Active Medications Acetaminophen (Tylenol -) 650 mg PO Q6H PRN PRN Reason: FEVER OVER 100 Last Admin: 01/18/19 22:49 Dose: 650 mg Atorvastatin Calcium (Lipitor -) 10 mg PO HS MELVINA Last Admin: 01/24/19 21:35 Dose: 10 mg Piperacillin Sod/Tazobactam (Sod 3.375 gm/ Dextrose) 50 mls @ 100 mls/hr IVPB Q8H-IV MELVINA; Protocol Last Admin: 01/25/19 10:12 Dose: 100 mls/hr Insulin Aspart (Novolog Vial Sliding Scale -) 1 vial SQ HS MELVINA; Protocol Last Admin: 01/24/19 21:38 Dose: Not Given Insulin Aspart (Novolog Vial Sliding Scale -) 1 vial SQ TIDAC MELVINA; Protocol Last Admin: 01/25/19 06:31 Dose: 8 units Insulin Detemir (Levemir Vial) 28 units SQ HS MELVINA Last Admin: 01/24/19 21:38 Dose: 28 units Metoprolol Succinate (Toprol Xl -) 25 mg PO DAILY MELVINA Last Admin: 01/25/19 10:11 Dose: Not Given - Objective Vital Signs: Vital Signs Temperature 98.1 F 01/25/19 10:00 Pulse Rate 67 01/25/19 10:00 Respiratory Rate 18 01/25/19 10:00 Blood Pressure 91/53 L 01/25/19 10:00 O2 Sat by Pulse Oximetry (%) 96 01/24/19 21:00 Constitutional: Yes: No Distress, Calm Cardiovascular: Yes: S1, S2 Respiratory: Yes: Regular, CTA Bilaterally Gastrointestinal: Yes: Normal Bowel Sounds, Soft Musculoskeletal: Yes: Other Extremities: Yes: Other Wound/Incision: Yes: Dressing Dry and Intact Neurological: Yes: Alert, Oriented Psychiatric: Yes: Alert, Oriented Labs: INR, PTT INR 1.12 (0.83-1.09) H 01/17/19 10:55 Assessment/Plan 68 year old gentleman with history of CKD, DM, Hypertension, PVD s/p LE amputation who presented with non-healing foot wound with signs of infection 1. AVERY on CKD vs progressive CKD 2. CKD 3. Infected foot wound 4. PVD 5. DM 6. Hypetension plan continue abx wound care await for mri read rest as per the team
[2019-01-25 11:16] LABS: BLOOD UREA NITROGEN 20.5 mg/dL (7-18); CALCIUM 8.4 mg/dL (8.5-10.1); CREATININE 1.5 mg/dL (0.55-1.3); MAGNESIUM 2.3 mg/dL (1.8-2.4); PHOSPHOROUS 2.9 mg/dL (2.5-4.9); POTASSIUM 4.3 mmol/L (3.5-5.1)
[2019-01-25 11:19] LABS: BASO % 2.2 % (0-2.0); EOS % 3.1 % (0-4.5); HEMATOCRIT 35.4 % (35.4-49); HEMOGLOBIN 12.1 GM/dL (11.7-16.9); LYMPH % 20.2 % (8-40); MCH 29.8 pg (25.7-33.7); MCHC 34.1 g/dl (32.0-35.9); MEAN CELL VOLUME 87.3 fl (80-96); MONO % 4.5 % (3.8-10.2); PLATELET COUNT 309 K/MM3 (134-434); RBC 4.06 M/mm3 (4.00-5.60); WHITE BLOOD COUNT 7.1 K/mm3 (4.0-10.0)
--- NOTE | 2019-01-25 11:53 | PN ---
Progress Note (short form) - Note Progress Note: Patient sen at bedside. Patient feels good. 5th metetarsal plantar ulcer probes to bone, no signs of infection. IVabx as per infectious disease, Saline irrigation with dsd left foot. Waiting for mri results so patient is be discharged if negative and follow at wound care with Dr Osborn
--- NOTE | 2019-01-25 12:53 | PN ---
Progress Note, Physician Chief Complaint: s/p debridement of bone and soft tissue lt foot Pt lying in bed,afebrile Endocrine/renal consult appreciated labs noted,creatinine improving blood cul negative GI consult appreciated MRI of lt foot shows compatible with osteomylitis of proximal phalanx of fifth toe and dorsal fluid collection MRI of abdomen negative - Current Medication List Current Medications: Active Medications Acetaminophen (Tylenol -) 650 mg PO Q6H PRN PRN Reason: FEVER OVER 100 Last Admin: 01/18/19 22:49 Dose: 650 mg Atorvastatin Calcium (Lipitor -) 10 mg PO HS MELVINA Last Admin: 01/24/19 21:35 Dose: 10 mg Piperacillin Sod/Tazobactam (Sod 3.375 gm/ Dextrose) 50 mls @ 100 mls/hr IVPB Q8H-IV MELVINA; Protocol Last Admin: 01/25/19 10:12 Dose: 100 mls/hr Insulin Aspart (Novolog Vial Sliding Scale -) 1 vial SQ HS MELVINA; Protocol Last Admin: 01/24/19 21:38 Dose: Not Given Insulin Aspart (Novolog Vial Sliding Scale -) 1 vial SQ TIDAC MELVINA; Protocol Last Admin: 01/25/19 12:03 Dose: 10 units Insulin Detemir (Levemir Vial) 28 units SQ HS MELVINA Last Admin: 01/24/19 21:38 Dose: 28 units Metoprolol Succinate (Toprol Xl -) 25 mg PO DAILY MELVINA Last Admin: 01/25/19 10:11 Dose: Not Given - Objective Vital Signs: Vital Signs Temperature 98.1 F 01/25/19 10:00 Pulse Rate 67 01/25/19 10:00 Respiratory Rate 18 01/25/19 10:00 Blood Pressure 91/53 L 01/25/19 10:00 O2 Sat by Pulse Oximetry (%) 93 L 01/25/19 09:00 Constitutional: Yes: No Distress Eyes: Yes: Conjunctiva Clear HENT: Yes: Atraumatic Neck: Yes: Supple Cardiovascular: Yes: Regular Rate and Rhythm Respiratory: Yes: Regular, CTA Bilaterally Gastrointestinal: Yes: Normal Bowel Sounds, Soft Musculoskeletal: Yes: WNL Extremities: Yes: Other (LT foot dressing in place) Edema: No Peripheral Pulses WNL: Yes Neurological: Yes: WNL, Alert Psychiatric: Yes: WNL, Alert Labs: CBC, BMP 01/25/19 10:18 01/25/19 10:18 INR, PTT INR 1.12 (0.83-1.09) H 01/17/19 10:55 - ....Imaging MRI: Report Reviewed Assessment/Plan s/p debridement of bone and soft tissue LT foot, osteomyelitis lt fifth toe DM,HTN renal insufficiency improving AVERY on ckd Elevated LFT,increased alkaline phosphatase PVD PLAn Continue antibiotics as per ID WOUND care Monitor blood sugar ID and Podiatry f/u Endocrine F/u GI f/u
--- NOTE | 2019-01-25 14:37 | PN ---
Progress Note (short form) - Note Progress Note: Denies any complaints No hypos Eager to go home Vital Signs Period Temp Pulse Resp BP Sys/Bustillos Pulse Ox Last 24 Hr 98.1 F-98.3 F 57-70 18-20 91-140/53-79 93-96 PE: AOx3 Neck: Supple, No JVD HEENT: EOMI Lungs: CTA CVS: s1S2 Abd: Benign Ext: left foot swelling, + erythema, s/p amputation 3rd and 4th toes Neuro: No focal deficit CMP Sodium 140 mmol/L (136-145) 01/25/19 10:18 Potassium 4.3 mmol/L (3.5-5.1) 01/25/19 10:18 Chloride 106 mmol/L (98-107) 01/25/19 10:18 Carbon Dioxide 27 mmol/L (21-32) 01/25/19 10:18 Anion Gap 7 MMOL/L (8-16) L 01/25/19 10:18 Hepatic Function Panel 52 % (13-88) 01/22/19 07:25 BUN 20.5 mg/dL (7-18) H 01/25/19 10:18 Creatinine 1.5 mg/dL (0.55-1.3) H 01/25/19 10:18 Est GFR (CKD-EPI)AfAm 54.66 01/25/19 10:18 Est GFR (CKD-EPI)NonAf 47.16 01/25/19 10:18 POC Glucometer 215 UNITS (80-120) 01/25/19 12:00 Random Glucose 221 mg/dL (74-106) H 01/25/19 10:18 Hemoglobin A1c % 12.5 % (4.2-6.3) H 01/17/19 06:58 Lactic Acid 1.3 mmol/L (0.4-2.0) 01/16/19 13:42 Calcium 8.4 mg/dL (8.5-10.1) L 01/25/19 10:18 Phosphorus 2.9 mg/dL (2.5-4.9) 01/25/19 10:18 Magnesium 2.3 mg/dL (1.8-2.4) 01/25/19 10:18 Total Bilirubin 0.4 mg/dL (0.2-1) 01/24/19 06:55 Direct Bilirubin 0.2 mg/dL (0.0-0.2) 01/24/19 06:55 GGT 211 U/L (5-85) H 01/22/19 07:25 AST 23 U/L (15-37) 01/24/19 06:55 ALT 30 U/L (13-61) 01/24/19 06:55 Alkaline Phosphatase 243 U/L (45-117) H 01/24/19 06:55 Total Protein 7.6 g/dl (6.4-8.2) 01/24/19 06:55 Albumin 2.6 g/dl (3.4-5.0) L 01/24/19 06:55 Triglycerides 185 mg/dL (0-150) H 01/16/19 13:42 Cholesterol 139 mg/dL (50-200) 01/16/19 13:42 Total LDL Cholesterol 88 mg/dL (5-100) 01/16/19 13:42 HDL Cholesterol 29 mg/dL (40-60) L 01/16/19 13:42 Current Medications Generic Name Dose Route Start Last Admin Trade Name Freq PRN Reason Stop Dose Admin Acetaminophen 650 mg 01/17/19 17:59 01/18/19 22:49 Tylenol - PO 650 mg Q6H PRN Administration FEVER OVER 100 Atorvastatin Calcium 10 mg 01/17/19 22:00 01/24/19 21:35 Lipitor - PO 10 mg HS MELVINA Administration Piperacillin Sod/Tazobactam 50 mls @ 100 mls/hr 01/18/19 18:00 01/25/19 10:12 Sod 3.375 gm/ Dextrose IVPB 100 mls/hr Q8H-IV MELVINA Administration Protocol Insulin Aspart 1 vial 01/17/19 22:00 01/24/19 21:38 Novolog Vial Sliding Scale - SQ Not Given HS MELVINA Protocol Insulin Aspart 1 vial 01/21/19 16:30 01/25/19 12:03 Novolog Vial Sliding Scale - SQ 10 units TIDAC MELVINA Administration Protocol Insulin Detemir 28 units 01/24/19 13:42 01/24/19 21:38 Levemir Vial SQ 28 units HS MELVINA Administration Metoprolol Succinate 25 mg 01/18/19 10:00 01/25/19 10:11 Toprol Xl - PO Not Given DAILY MELVINA AP: Infected foot wound T2DM:A1c 12.5 now CKD PVD Hypetension BGM QACHS Increase Levemir 32 units daily, got 25 last night Increase Novolog SS coverage ABx as per ID Will f/u
--- NOTE | 2019-01-25 15:56 | PN.GI ---
GI Progress Note Subjective: GI NOte ( covering Dr Carrasco): Pain free. MRI reveals no stones or biliary tract obstruction. Tolerating solids. GGT and alk phos are elevated - Objective Vital Signs: Vital Signs Temperature 98.3 F 01/25/19 13:30 Pulse Rate 70 01/25/19 13:30 Respiratory Rate 18 01/25/19 13:30 Blood Pressure 133/72 01/25/19 13:30 O2 Sat by Pulse Oximetry (%) 93 L 01/25/19 09:00 Laboratory Tests 01/22/19 07:25 Hep A IgM Ab Confirm Negative Hepatitis A Ab Total Positive H Hep Bs Antigen Negative Hep Bs Antibody Reactive Hep B Core Total Ab Positive H Hep B Core IgM Ab Negative Hepatitis Be Antibody Positive H Hepatitis Be Antigen Negative Hep C Ab Diagnostic <0.1 Laboratory Tests 01/22/19 07:25 GGT 211 H Constitutional: No Distress ...Auscultate: Yes: Normoactive Bowel Sounds ...Palpate: Yes: Soft, Other (nontender) Labs: CBC, BMP 01/25/19 10:18 01/25/19 10:18 INR, PTT INR 1.12 (0.83-1.09) H 01/17/19 10:55 Assessment/Plan Assessment: - Asymptomatic elevated alkaline phosphatase with normal MRCP. Suspect this reflects NAFLD Plan: - Consider referral for Fibroscan after discharge which can assess severity of fatty infiltration and for degree of fibrosis or cirrhosis Problem List - Problems (1) Abnormal liver function test Code(s): R94.5 - ABNORMAL RESULTS OF LIVER FUNCTION STUDIES (2) Elevated alkaline phosphatase level Code(s): R74.8 - ABNORMAL LEVELS OF OTHER SERUM ENZYMES
--- NOTE | 2019-01-25 16:32 | PN ---
Progress Note (short form) - Note Progress Note: 1. AVERY on CKD 2. CKD 3. Infected foot wound 4. PVD 5. DM 6. Hypetension Current Medications Acetaminophen (Tylenol -) 650 mg PO Q6H PRN PRN Reason: FEVER OVER 100 Last Admin: 01/18/19 22:49 Dose: 650 mg Atorvastatin Calcium (Lipitor -) 10 mg PO HS MELVINA Last Admin: 01/24/19 21:35 Dose: 10 mg Piperacillin Sod/Tazobactam (Sod 3.375 gm/ Dextrose) 50 mls @ 100 mls/hr IVPB Q8H-IV MELVINA; Protocol Last Admin: 01/25/19 10:12 Dose: 100 mls/hr Insulin Aspart (Novolog Vial Sliding Scale -) 1 vial SQ HS MELVINA; Protocol Last Admin: 01/24/19 21:38 Dose: Not Given Insulin Aspart (Novolog Vial Sliding Scale -) 1 vial SQ TIDAC MELVINA; Protocol Insulin Detemir (Levemir Vial) 32 units SQ HS MELVINA Metoprolol Succinate (Toprol Xl -) 25 mg PO DAILY MELVINA Last Admin: 01/25/19 10:11 Dose: Not Given Last Vital Signs Temp Pulse Resp BP Pulse Ox 98.3 F 70 18 133/72 93 L 01/25/19 13:30 01/25/19 13:30 01/25/19 13:30 01/25/19 13:30 01/25/19 09:00 Lungs clear Heart reg Abd soft nontender ext no edema CBC, BMP 01/25/19 10:18 01/25/19 10:18 ckd fluctuating renal function Plan- ensure hydration orally not on iv
[2019-01-25] MEDS ORDERED: INSULIN (NOVOLOG) ASPART 100 UNITS/ML 10ML VIAL ONE (20:57)
[2019-01-25] MEDS: ATORVASTATIN CA 10 MG TABLET (FP) PO SCH (21:23)
[2019-01-25] MEDS: INSULIN (LEVEMIR) 100 UNITS/ML UNITS SQ SCH (21:24)
[2019-01-26] MEDS ORDERED: PIPERACILLIN/TAZOBACTAM 3.375 GM VIAL IVPB ONE ×3 (02:34→17:10)
[2019-01-26] MEDS ORDERED: DEXTROSE 5%-WATER - 50 ML IVPB ONE ×3 (02:35→17:10)
[2019-01-26] MEDS: PIPERACILLIN/TAZOB 3.375 GM 3.375 GM in DEXTROSE 5%-WATER - 50 ML IVPB SCH ×3 (02:55→17:33)
[2019-01-26] MEDS: INSULIN SLIDING SCALE (NOVOLOG) 1 VIAL SQ SCH ×4 (06:23→21:31)
[2019-01-26 09:03] LABS: BASO % 0.8 % (0-2.0); EOS % 2.8 % (0-4.5); HEMATOCRIT 37.5 % (35.4-49); HEMOGLOBIN 12.8 GM/dL (11.7-16.9); LYMPH % 21.4 % (8-40); MCH 30.2 pg (25.7-33.7); MCHC 34.2 g/dl (32.0-35.9); MEAN CELL VOLUME 88.2 fl (80-96); MEAN PLT VOLUME 8.2 fl (7.5-11.1); MONO % 4.8 % (3.8-10.2); NEUT % 70.2 % (42.8-82.8); PLATELET COUNT 300 K/MM3 (134-434); RBC 4.25 M/mm3 (4.00-5.60); RDW 12.8 % (11.9-15.9); WHITE BLOOD COUNT 7.4 K/mm3 (4.0-10.0)
[2019-01-26] MEDS: metoPROLOL SUCCINATE 25 MG TAB.SR.24H (FP) PO SCH (09:36)
[2019-01-26 09:52] LABS: ALBUMIN 2.6 g/dl (3.4-5.0); BILIRUBIN,TOTAL 0.3 mg/dL (0.2-1); CALCIUM 8.1 mg/dL (8.5-10.1); CREATININE 1.4 mg/dL (0.55-1.3); POTASSIUM 4.4 mmol/L (3.5-5.1); TOT PROT 7.1 g/dl (6.4-8.2)
--- NOTE | 2019-01-26 10:39 | PN ---
Progress Note (short form) - Note Progress Note: Patient seen at bedside . No change since yesterday. Dressing dry and intact . No drainage seen. Continue antibiotics as per Infectious disease dr. Mri results Impression- Abnormal signal intensity in the bone marrow of the proximal phalanx of the fifth toe compatible osteomyelitis with dorsal fluid collection 2cm in diameter compatible with abscess. Also noted cellulitis on the plantar aspect of the foot below the 5th metatarsophalangeal joint. Continue dressing changes Consider hyperbaric oxygen
[2019-01-26] MEDS ORDERED: INSULIN (NOVOLOG) ASPART 100 UNITS/ML 10ML VIAL ONE (11:48)
--- NOTE | 2019-01-26 13:49 | PN ---
Progress Note, Physician Chief Complaint: s/p debridement of bone and soft tissue lt foot Pt lying in bed,afebrile Endocrine/renal consult appreciated labs noted,creatinine improving blood cul negative GI consult appreciated MRI of lt foot shows compatible with osteomylitis of proximal phalanx of fifth toe and dorsal fluid collection MRI of abdomen negative - Current Medication List Current Medications: Active Medications Acetaminophen (Tylenol -) 650 mg PO Q6H PRN PRN Reason: FEVER OVER 100 Last Admin: 01/18/19 22:49 Dose: 650 mg Atorvastatin Calcium (Lipitor -) 10 mg PO HS MELVINA Last Admin: 01/25/19 21:23 Dose: 10 mg Piperacillin Sod/Tazobactam (Sod 3.375 gm/ Dextrose) 50 mls @ 100 mls/hr IVPB Q8H-IV MELVINA; Protocol Last Admin: 01/26/19 09:36 Dose: 100 mls/hr Insulin Aspart (Novolog Vial Sliding Scale -) 1 vial SQ HS MELVINA; Protocol Last Admin: 01/25/19 21:23 Dose: Not Given Insulin Aspart (Novolog Vial Sliding Scale -) 1 vial SQ TIDAC MELVINA; Protocol Last Admin: 01/26/19 11:52 Dose: 10 units Insulin Detemir (Levemir Vial) 32 units SQ HS MELVINA Last Admin: 01/25/19 21:24 Dose: 32 units Metoprolol Succinate (Toprol Xl -) 25 mg PO DAILY MELVINA Last Admin: 01/26/19 09:36 Dose: 25 mg - Objective Vital Signs: Vital Signs Temperature 98.3 F 01/25/19 13:30 Pulse Rate 68 01/26/19 06:24 Respiratory Rate 18 01/26/19 09:00 Blood Pressure 145/84 01/26/19 06:24 O2 Sat by Pulse Oximetry (%) 93 L 01/26/19 09:00 Constitutional: Yes: No Distress Eyes: Yes: Conjunctiva Clear HENT: Yes: Atraumatic Neck: Yes: Supple Cardiovascular: Yes: Regular Rate and Rhythm Respiratory: Yes: Regular, CTA Bilaterally Gastrointestinal: Yes: Normal Bowel Sounds Extremities: Yes: Other (Lt foot dressing in place) Edema: No Wound/Incision: Yes: Dressing Dry and Intact Neurological: Yes: Alert, Oriented ...Motor Strength: WNL Psychiatric: Yes: WNL Labs: CBC, BMP 01/26/19 07:53 01/26/19 07:53 INR, PTT INR 1.12 (0.83-1.09) H 01/17/19 10:55 Assessment/Plan s/p debridement of bone and soft tissue LT foot, osteomyelitis lt fifth toe DM,HTN renal insufficiency improving AVERY on ckd Elevated LFT,increased alkaline phosphatase PVD PLAn Continue antibiotics as per ID WOUND care Monitor blood sugar ID and Podiatry f/u Endocrine F/u GI f/u
--- NOTE | 2019-01-26 14:03 | PN ---
Progress Note (short form) - Note Progress Note: Denies any complaints No hypos Eager to go home Vital Signs Period Temp Pulse Resp BP Sys/Bustillos Pulse Ox Last 24 Hr 98.0 F 63-68 18-18 110-145/62-84 93-93 PE: AOx3 Neck: Supple, No JVD HEENT: EOMI Lungs: CTA CVS: s1S2 Abd: Benign Ext: left foot swelling, + erythema, s/p amputation 3rd and 4th toes Neuro: No focal deficit CMP Sodium 139 mmol/L (136-145) 01/26/19 07:53 Potassium 4.4 mmol/L (3.5-5.1) 01/26/19 07:53 Chloride 107 mmol/L (98-107) 01/26/19 07:53 Carbon Dioxide 27 mmol/L (21-32) 01/26/19 07:53 Anion Gap 5 MMOL/L (8-16) L 01/26/19 07:53 Hepatic Function Panel 52 % (13-88) 01/22/19 07:25 BUN 21.0 mg/dL (7-18) H 01/26/19 07:53 Creatinine 1.4 mg/dL (0.55-1.3) H 01/26/19 07:53 Est GFR (CKD-EPI)AfAm 59.41 01/26/19 07:53 Est GFR (CKD-EPI)NonAf 51.26 01/26/19 07:53 POC Glucometer 184 UNITS (80-120) 01/26/19 11:19 Random Glucose 157 mg/dL (74-106) H 01/26/19 07:53 Hemoglobin A1c % 12.5 % (4.2-6.3) H 01/17/19 06:58 Lactic Acid 1.3 mmol/L (0.4-2.0) 01/16/19 13:42 Calcium 8.1 mg/dL (8.5-10.1) L 01/26/19 07:53 Phosphorus 2.9 mg/dL (2.5-4.9) 01/25/19 10:18 Magnesium 2.3 mg/dL (1.8-2.4) 01/25/19 10:18 Total Bilirubin 0.3 mg/dL (0.2-1) 01/26/19 07:53 Direct Bilirubin 0.2 mg/dL (0.0-0.2) 01/24/19 06:55 GGT 211 U/L (5-85) H 01/22/19 07:25 AST 20 U/L (15-37) 01/26/19 07:53 ALT 28 U/L (13-61) 01/26/19 07:53 Alkaline Phosphatase 189 U/L (45-117) H 01/26/19 07:53 Total Protein 7.1 g/dl (6.4-8.2) 01/26/19 07:53 Albumin 2.6 g/dl (3.4-5.0) L 01/26/19 07:53 Triglycerides 185 mg/dL (0-150) H 01/16/19 13:42 Cholesterol 139 mg/dL (50-200) 01/16/19 13:42 Total LDL Cholesterol 88 mg/dL (5-100) 01/16/19 13:42 HDL Cholesterol 29 mg/dL (40-60) L 01/16/19 13:42 Current Medications Generic Name Dose Route Start Last Admin Trade Name Freq PRN Reason Stop Dose Admin Acetaminophen 650 mg 01/17/19 17:59 01/18/19 22:49 Tylenol - PO 650 mg Q6H PRN Administration FEVER OVER 100 Atorvastatin Calcium 10 mg 01/17/19 22:00 01/25/19 21:23 Lipitor - PO 10 mg HS MELVINA Administration Piperacillin Sod/Tazobactam 50 mls @ 100 mls/hr 01/25/19 18:00 01/26/19 09:36 Sod 3.375 gm/ Dextrose IVPB 100 mls/hr Q8H-IV MELVINA Administration Protocol Insulin Aspart 1 vial 01/17/19 22:00 01/25/19 21:23 Novolog Vial Sliding Scale - SQ Not Given HS MELVINA Protocol Insulin Aspart 1 vial 01/25/19 16:30 01/26/19 11:52 Novolog Vial Sliding Scale - SQ 10 units TIDAC MELVINA Administration Protocol Insulin Detemir 32 units 01/25/19 22:00 01/25/19 21:24 Levemir Vial SQ 32 units HS MELVINA Administration Metoprolol Succinate 25 mg 01/18/19 10:00 01/26/19 09:36 Toprol Xl - PO 25 mg DAILY MELVINA Administration AP: Infected foot wound T2DM:A1c 12.5 now CKD PVD Hypetension BGM QACHS Increase Levemir 35 units daily, got 25 last night Novolog SS coverage ABx as per ID MRI of leg report noted Will f/u
--- NOTE | 2019-01-26 21:00 | PN ---
Progress Note, Physician History of Present Illness: Pt is alert, without new complaints. MRI results noted. - Current Medication List Current Medications: Active Medications Acetaminophen (Tylenol -) 650 mg PO Q6H PRN PRN Reason: FEVER OVER 100 Last Admin: 01/18/19 22:49 Dose: 650 mg Atorvastatin Calcium (Lipitor -) 10 mg PO HS MELVINA Last Admin: 01/25/19 21:23 Dose: 10 mg Piperacillin Sod/Tazobactam (Sod 3.375 gm/ Dextrose) 50 mls @ 100 mls/hr IVPB Q8H-IV MELVINA; Protocol Last Admin: 01/26/19 17:33 Dose: 100 mls/hr Insulin Aspart (Novolog Vial Sliding Scale -) 1 vial SQ HS MELVINA; Protocol Last Admin: 01/25/19 21:23 Dose: Not Given Insulin Aspart (Novolog Vial Sliding Scale -) 1 vial SQ TIDAC MELVINA; Protocol Last Admin: 01/26/19 16:55 Dose: 10 units Insulin Detemir (Levemir Vial) 32 units SQ HS MELVINA Last Admin: 01/25/19 21:24 Dose: 32 units Metoprolol Succinate (Toprol Xl -) 25 mg PO DAILY MELVINA Last Admin: 01/26/19 09:36 Dose: 25 mg - Objective Vital Signs: Vital Signs Temperature 98.0 F 01/26/19 13:52 Pulse Rate 63 01/26/19 13:52 Respiratory Rate 18 01/26/19 13:52 Blood Pressure 110/62 01/26/19 13:52 O2 Sat by Pulse Oximetry (%) 93 L 01/26/19 09:00 Constitutional: Yes: No Distress, Calm Cardiovascular: Yes: Regular Rate and Rhythm Respiratory: Yes: CTA Bilaterally Gastrointestinal: Yes: Normal Bowel Sounds, Soft Genitourinary: Yes: WNL Extremities: Yes: Amputation Wound/Incision: Yes: Dressing Dry and Intact Neurological: Yes: Alert Labs: CBC, BMP 01/26/19 07:53 01/26/19 07:53 INR, PTT INR 1.12 (0.83-1.09) H 01/17/19 10:55 Microbiology 01/19/19 06:30 Blood - Peripheral Venous Blood Culture - Final NO GROWTH AFTER 5 DAYS INCUBATION 01/19/19 06:30 Blood - Peripheral Venous Blood Culture - Final NO GROWTH AFTER 5 DAYS INCUBATION 01/20/19 19:00 Nares - Mrsa Screen - Right MRSA Screen - Final NO MRSA ISOLATED 01/20/19 19:00 Nares - Mrsa Screen - Left MRSA Screen - Final NO MRSA ISOLATED 01/16/19 11:00 Blood - Peripheral Venous Blood Culture - Final NO GROWTH AFTER 5 DAYS INCUBATION 01/17/19 17:19 Foot - Left Plantar Gram Stain - Final 01/17/19 17:19 Foot - Left Plantar Wound Culture - Final Strep Agalactiae Group B Enterococcus Faecalis Streptococcus Viridans Diphtheroid/Corynebacterium 01/16/19 12:44 Foot - Right Heel Gram Stain - Final 01/16/19 12:44 Foot - Right Heel Wound Culture - Final Strep Agalactiae Group B Alpha Hemolytic Streptococcus Bacillus Species, Not Antracis Staphylococcus Coagulase Neg Enterococcus Faecalis 01/16/19 11:30 Blood - Peripheral Venous Blood Culture - Final Strep Agalactiae Group B 01/16/19 22:29 Urine - Urine Clean Catch Urine Culture - Final NO GROWTH OBTAINED - ....Imaging MRI: Report Reviewed Problem List - Problems (1) Wound infection Code(s): T14.8XXA - OTHER INJURY OF UNSPECIFIED BODY REGION, INITIAL ENCOUNTER; L08.9 - LOCAL INFECTION OF THE SKIN AND SUBCUTANEOUS TISSUE, UNSP (2) AVERY (acute kidney injury) Code(s): N17.9 - ACUTE KIDNEY FAILURE, UNSPECIFIED (3) Cellulitis Code(s): L03.90 - CELLULITIS, UNSPECIFIED (4) Diabetes mellitus with renal manifestation Code(s): E11.29 - TYPE 2 DIABETES MELLITUS W OTH DIABETIC KIDNEY COMPLICATION Qualifiers: Diabetes mellitus type: type 2 Diabetes mellitus complication detail: with chronic kidney disease Chronic kidney disease stage: stage 3 (moderate) (5) Diabetic foot infection Code(s): E11.628 - TYPE 2 DIABETES MELLITUS WITH OTHER SKIN COMPLICATIONS; L08.9 - LOCAL INFECTION OF THE SKIN AND SUBCUTANEOUS TISSUE, UNSP (6) Fever Code(s): R50.9 - FEVER, UNSPECIFIED (7) HTN (hypertension) Code(s): I10 - ESSENTIAL (PRIMARY) HYPERTENSION Assessment/Plan Gram positive bacteremia Infected diabetic foot ulcers/Lt toe OM PVD s/p Lt foot toe amp AVERY on CKD DM -- MRI consistent with Lt 5th toe OM and small dorsal foot abscess -- Podiatry follow up -- continue IV antibiotics, will need several weeks -- continue wound care
[2019-01-26] MEDS: INSULIN (LEVEMIR) 100 UNITS/ML UNITS SQ SCH (21:31)
[2019-01-26] MEDS: ATORVASTATIN CA 10 MG TABLET (FP) PO SCH (21:31)
--- NOTE | 2019-01-26 21:56 | PN ---
Progress Note (short form) - Note Progress Note: 1. AVERY on CKD 2. CKD 3. Infected foot wound 4. PVD 5. DM 6. Hypetension Current Medications Acetaminophen (Tylenol -) 650 mg PO Q6H PRN PRN Reason: FEVER OVER 100 Last Admin: 01/18/19 22:49 Dose: 650 mg Atorvastatin Calcium (Lipitor -) 10 mg PO HS MELVINA Last Admin: 01/26/19 21:31 Dose: 10 mg Piperacillin Sod/Tazobactam (Sod 3.375 gm/ Dextrose) 50 mls @ 100 mls/hr IVPB Q8H-IV MELVINA; Protocol Last Admin: 01/26/19 17:33 Dose: 100 mls/hr Insulin Aspart (Novolog Vial Sliding Scale -) 1 vial SQ HS MELVINA; Protocol Last Admin: 01/26/19 21:31 Dose: Not Given Insulin Aspart (Novolog Vial Sliding Scale -) 1 vial SQ TIDAC MELVINA; Protocol Last Admin: 01/26/19 16:55 Dose: 10 units Insulin Detemir (Levemir Vial) 32 units SQ HS MELVINA Last Admin: 01/26/19 21:31 Dose: 32 units Metoprolol Succinate (Toprol Xl -) 25 mg PO DAILY MELVINA Last Admin: 01/26/19 09:36 Dose: 25 mg Last Vital Signs Temp Pulse Resp BP Pulse Ox 98.0 F 63 18 110/62 93 L 01/26/19 13:52 01/26/19 13:52 01/26/19 13:52 01/26/19 13:52 01/26/19 09:00 Lungs clear Heart reg Abd soft nontender ext no edema CBC, BMP 01/26/19 07:53 01/26/19 07:53 CBC, BMP 01/25/19 10:18 01/25/19 10:18 ckd fluctuating renal function PVD Plan- ensure hydration orally not on iv
[2019-01-27] MEDS ORDERED: PIPERACILLIN/TAZOBACTAM 3.375 GM VIAL IVPB ONE ×2 (02:33→09:11)
[2019-01-27] MEDS ORDERED: DEXTROSE 5%-WATER - 50 ML IVPB ONE ×2 (02:34→09:11)
[2019-01-27] MEDS: PIPERACILLIN/TAZOB 3.375 GM 3.375 GM in DEXTROSE 5%-WATER - 50 ML IVPB SCH ×2 (02:37→09:24)
[2019-01-27] MEDS: INSULIN SLIDING SCALE (NOVOLOG) 1 VIAL SQ SCH ×4 (06:25→21:35)
[2019-01-27 07:56] LABS: HEMATOCRIT 37.5 % (35.4-49); HEMOGLOBIN 12.7 GM/dL (11.7-16.9); MCH 29.6 pg (25.7-33.7); MCHC 33.8 g/dl (32.0-35.9); MEAN CELL VOLUME 87.8 fl (80-96); PLATELET COUNT 304 K/MM3 (134-434); RBC 4.27 M/mm3 (4.00-5.60); RDW 13.2 % (11.9-15.9); WHITE BLOOD COUNT 7.9 K/mm3 (4.0-10.0)
--- NOTE | 2019-01-27 08:14 | PN ---
Progress Note, Physician Chief Complaint: s/p debridement of bone and soft tissue lt foot Pt lying in bed,afebrile MRI of lt foot shows compatible with osteomylitis of proximal phalanx of fifth toe and dorsal fluid collection MRI of abdomen negative - Current Medication List Current Medications: Active Medications Acetaminophen (Tylenol -) 650 mg PO Q6H PRN PRN Reason: FEVER OVER 100 Last Admin: 01/18/19 22:49 Dose: 650 mg Atorvastatin Calcium (Lipitor -) 10 mg PO HS MELVINA Last Admin: 01/26/19 21:31 Dose: 10 mg Piperacillin Sod/Tazobactam (Sod 3.375 gm/ Dextrose) 50 mls @ 100 mls/hr IVPB Q8H-IV MELVINA; Protocol Last Admin: 01/27/19 02:37 Dose: 100 mls/hr Insulin Aspart (Novolog Vial Sliding Scale -) 1 vial SQ HS MELVINA; Protocol Last Admin: 01/26/19 21:31 Dose: Not Given Insulin Aspart (Novolog Vial Sliding Scale -) 1 vial SQ TIDAC MELVINA; Protocol Last Admin: 01/27/19 06:25 Dose: 10 units Insulin Detemir (Levemir Vial) 32 units SQ HS MELVINA Last Admin: 01/26/19 21:31 Dose: 32 units Metoprolol Succinate (Toprol Xl -) 25 mg PO DAILY MELVINA Last Admin: 01/26/19 09:36 Dose: 25 mg - Objective Vital Signs: Vital Signs Temperature 97.9 F 01/27/19 06:00 Pulse Rate 62 01/27/19 06:00 Respiratory Rate 20 01/27/19 06:00 Blood Pressure 137/82 01/27/19 06:00 O2 Sat by Pulse Oximetry (%) 96 01/26/19 21:00 Constitutional: Yes: No Distress Eyes: Yes: Conjunctiva Clear HENT: Yes: Atraumatic Neck: Yes: Supple Cardiovascular: Yes: Regular Rate and Rhythm Respiratory: Yes: Regular, CTA Bilaterally Gastrointestinal: Yes: Normal Bowel Sounds Extremities: Yes: Other (lt foot dressing in place) Edema: No Peripheral Pulses WNL: Yes Wound/Incision: Yes: Dressing Dry and Intact Neurological: Yes: WNL, Alert ...Motor Strength: WNL Psychiatric: Yes: WNL, Alert Labs: INR, PTT INR 1.12 (0.83-1.09) H 01/17/19 10:55 Laboratory Results - last 24 hr 01/26/19 01/26/19 01/26/19 07:53 07:53 11:19 WBC 7.4 RBC 4.25 Hgb 12.8 Hct 37.5 MCV 88.2 MCH 30.2 MCHC 34.2 RDW 12.8 Plt Count 300 MPV 8.2 Absolute Neuts (auto) 5.2 Neutrophils % 70.2 Lymphocytes % 21.4 Monocytes % 4.8 Eosinophils % 2.8 Basophils % 0.8 Nucleated RBC % 0 Sodium 139 Potassium 4.4 Chloride 107 Carbon Dioxide 27 Anion Gap 5 L BUN 21.0 H Creatinine 1.4 H Est GFR (CKD-EPI)AfAm 59.41 Est GFR (CKD-EPI)NonAf 51.26 POC Glucometer 184 Random Glucose 157 H Calcium 8.1 L Total Bilirubin 0.3 AST 20 ALT 28 Alkaline Phosphatase 189 H Total Protein 7.1 Albumin 2.6 L 01/26/19 01/26/19 01/27/19 16:54 21:30 06:24 WBC RBC Hgb Hct MCV MCH MCHC RDW Plt Count MPV Absolute Neuts (auto) Neutrophils % Lymphocytes % Monocytes % Eosinophils % Basophils % Nucleated RBC % Sodium Potassium Chloride Carbon Dioxide Anion Gap BUN Creatinine Est GFR (CKD-EPI)AfAm Est GFR (CKD-EPI)NonAf POC Glucometer 172 193 166 Random Glucose Calcium Total Bilirubin AST ALT Alkaline Phosphatase Total Protein Albumin Laboratory Last Values WBC 7.9 K/mm3 (4.0-10.0) 01/27/19 06:40 RBC 4.27 M/mm3 (4.00-5.60) 01/27/19 06:40 Hgb 12.7 GM/dL (11.7-16.9) 01/27/19 06:40 Hct 37.5 % (35.4-49) 01/27/19 06:40 MCV 87.8 fl (80-96) 01/27/19 06:40 MCH 29.6 pg (25.7-33.7) 01/27/19 06:40 MCHC 33.8 g/dl (32.0-35.9) 01/27/19 06:40 RDW 13.2 % (11.9-15.9) 01/27/19 06:40 Plt Count 304 K/MM3 (134-434) 01/27/19 06:40 MPV 8.0 fl (7.5-11.1) 01/27/19 06:40 Absolute Neuts (auto) 5.2 K/mm3 (1.5-8.0) 01/26/19 07:53 Neutrophils % 70.2 % (42.8-82.8) 01/26/19 07:53 Lymphocytes % 21.4 % (8-40) 01/26/19 07:53 Monocytes % 4.8 % (3.8-10.2) 01/26/19 07:53 Eosinophils % 2.8 % (0-4.5) 01/26/19 07:53 Basophils % 0.8 % (0-2.0) 01/26/19 07:53 Nucleated RBC % 0 % (0-0) 01/26/19 07:53 ESR 92 mm/hr (0-20) H 01/16/19 11:30 PT with INR 13.20 SEC (9.7-13.0) H 01/17/19 10:55 INR 1.12 (0.83-1.09) H 01/17/19 10:55 PTT (Actin FS) 30.7 SECONDS (25.2-36.5) 01/16/19 11:00 Sodium 140 mmol/L (136-145) 01/27/19 06:40 Potassium 4.4 mmol/L (3.5-5.1) 01/27/19 06:40 Chloride 106 mmol/L (98-107) 01/27/19 06:40 Carbon Dioxide 24 mmol/L (21-32) 01/27/19 06:40 Anion Gap 10 MMOL/L (8-16) 01/27/19 06:40 Hepatic Function Panel 52 % (13-88) 01/22/19 07:25 BUN 20.1 mg/dL (7-18) H 01/27/19 06:40 Creatinine 1.3 mg/dL (0.55-1.3) 01/27/19 06:40 Est GFR (CKD-EPI)AfAm 64.98 01/27/19 06:40 Est GFR (CKD-EPI)NonAf 56.06 01/27/19 06:40 POC Glucometer 166 UNITS (80-120) 01/27/19 06:24 Random Glucose 158 mg/dL (74-106) H 01/27/19 06:40 Hemoglobin A1c % 12.5 % (4.2-6.3) H 01/17/19 06:58 Lactic Acid 1.3 mmol/L (0.4-2.0) 01/16/19 13:42 Calcium 8.5 mg/dL (8.5-10.1) 01/27/19 06:40 Phosphorus 2.9 mg/dL (2.5-4.9) 01/25/19 10:18 Magnesium 2.3 mg/dL (1.8-2.4) 01/25/19 10:18 Total Bilirubin 0.4 mg/dL (0.2-1) 01/27/19 06:40 Direct Bilirubin 0.2 mg/dL (0.0-0.2) 01/24/19 06:55 GGT 211 U/L (5-85) H 01/22/19 07:25 AST 19 U/L (15-37) 01/27/19 06:40 ALT 27 U/L (13-61) 01/27/19 06:40 Alkaline Phosphatase 173 U/L (45-117) H 01/27/19 06:40 Total Protein 7.2 g/dl (6.4-8.2) 01/27/19 06:40 Albumin 2.8 g/dl (3.4-5.0) L 01/27/19 06:40 Triglycerides 185 mg/dL (0-150) H 01/16/19 13:42 Cholesterol 139 mg/dL (50-200) 01/16/19 13:42 Total LDL Cholesterol 88 mg/dL (5-100) 01/16/19 13:42 HDL Cholesterol 29 mg/dL (40-60) L 01/16/19 13:42 Urine Color Yellow 01/16/19 22:29 Urine Appearance Cloudy 01/16/19 22:29 Urine pH 5.0 (5.0-8.0) 01/16/19 22:29 Ur Specific [place] 1.030 (1.010-1.035) 01/16/19 22:29 Urine Protein 2+ (NEGATIVE) H 01/16/19 22:29 Urine Glucose (UA) 3+ (NEGATIVE) H 01/16/19 22:29 Urine Ketones Trace (NEGATIVE) H 01/16/19 22:29 Urine Blood Negative (NEGATIVE) 01/16/19 22:29 Urine Nitrite Negative (NEGATIVE) 01/16/19 22:29 Urine Bilirubin Negative (NEGATIVE) 01/16/19 22:29 Urine Urobilinogen 1.0 mg/dL (0.2-1.0) 01/16/19 22:29 Ur Leukocyte Esterase Negative (NEGATIVE) 01/16/19 22:29 Urine WBC (Auto) 2 /hpf (0-5) 01/16/19 22:29 Urine RBC (Auto) 1 /hpf (0-4) 01/16/19 22:29 Urine Casts (Auto) 20 /lpf (0-8) 01/16/19 22:29 U Pathogenic Cast Auto Few /lpf (NEGATIVE) 01/16/19 22:29 U Epithel Cells (Auto) 2.2 /HPF (0-5/HPF) 01/16/19 22:29 Urine Crystals (Auto) Few /hpf 01/16/19 22:29 Urine Bacteria (Auto) 2.6 /hpf (NEGATIVE) 01/16/19 22:29 Ur Random Creatinine 221.0 mg/dL (30-150) H 01/16/19 22:29 U Random Total Protein 116.5 mg/dL (0-11.9) H 01/16/19 22:29 Ur Random Sodium 35 MMOL/L (40-220) L 01/16/19 22:29 Urine Creatinine 221.0 mg/dL (30-150) H 01/16/19 22:29 Protein/Creatinin Ratio 0.5 mg/dL 01/16/19 22:29 Mitochon/Sm Musc Ab Titr <20.0 Units (0.0-20.0) 01/24/19 14:31 Hep A IgM Ab Confirm Negative (Negative) 01/22/19 07:25 Hepatitis A Ab Total Positive (Negative) H 01/22/19 07:25 Hep Bs Antigen Negative (Negative) 01/22/19 07:25 Hep Bs Antibody Reactive (.) 01/22/19 07:25 Hep B Core Total Ab Positive (Negative) H 01/22/19 07:25 Hep B Core IgM Ab Negative (Negative) 01/22/19 07:25 Hepatitis Be Antibody Positive (Negative) H 01/22/19 07:25 Hepatitis Be Antigen Negative (Negative) 01/22/19 07:25 Hep C Ab Diagnostic <0.1 s/co ratio (0.0-0.9) 01/22/19 07:25 Assessment/Plan s/p debridement of bone and soft tissue LT foot, osteomyelitis lt fifth toe DM,HTN renal insufficiency improving AVERY on ckd Elevated LFT,increased alkaline phosphatase PVD PLAn Continue antibiotics as per ID WOUND care Monitor blood sugar ID and Podiatry f/u Endocrine F/u GI f/u
[2019-01-27 09:12] LABS: ALBUMIN 2.8 g/dl (3.4-5.0); BILIRUBIN,TOTAL 0.4 mg/dL (0.2-1); BLOOD UREA NITROGEN 20.1 mg/dL (7-18); CALCIUM 8.5 mg/dL (8.5-10.1); CREATININE 1.3 mg/dL (0.55-1.3); POTASSIUM 4.4 mmol/L (3.5-5.1); TOT PROT 7.2 g/dl (6.4-8.2)
[2019-01-27] MEDS: metoPROLOL SUCCINATE 25 MG TAB.SR.24H (FP) PO SCH (09:24)
[2019-01-27] MEDS ORDERED: INSULIN (NOVOLOG) ASPART 100 UNITS/ML 10ML VIAL ONE (12:07)
--- NOTE | 2019-01-27 13:02 | PN ---
Progress Note, Physician Chief Complaint: Seen and evaluated at bedside /incision and drainage left foot by Dr Osborn Sub-fifth metatarsal diabetic ulcer left foot, , no further purulence , no tenderness on palaption Continue IV abx as per infectious disease 2- Saline irrigation with dsd left footPatient will require home nursing services If discharged refer to wound care to Dr Osborn - Current Medication List Current Medications: Active Medications Acetaminophen (Tylenol -) 650 mg PO Q6H PRN PRN Reason: FEVER OVER 100 Last Admin: 01/18/19 22:49 Dose: 650 mg Atorvastatin Calcium (Lipitor -) 10 mg PO HS MELVINA Last Admin: 01/26/19 21:31 Dose: 10 mg Piperacillin Sod/Tazobactam (Sod 3.375 gm/ Dextrose) 50 mls @ 100 mls/hr IVPB Q8H-IV MELVINA; Protocol Last Admin: 01/27/19 09:24 Dose: 100 mls/hr Insulin Aspart (Novolog Vial Sliding Scale -) 1 vial SQ HS MELVINA; Protocol Last Admin: 01/26/19 21:31 Dose: Not Given Insulin Aspart (Novolog Vial Sliding Scale -) 1 vial SQ TIDAC MELVINA; Protocol Last Admin: 01/27/19 11:50 Dose: 10 units Insulin Detemir (Levemir Vial) 32 units SQ HS MELVINA Last Admin: 01/26/19 21:31 Dose: 32 units Metoprolol Succinate (Toprol Xl -) 25 mg PO DAILY MELVINA Last Admin: 01/27/19 09:24 Dose: 25 mg - Objective Vital Signs: Vital Signs Temperature 97.9 F 01/27/19 12:00 Pulse Rate 69 01/27/19 12:00 Respiratory Rate 20 01/27/19 12:00 Blood Pressure 127/70 01/27/19 12:00 O2 Sat by Pulse Oximetry (%) 98 01/27/19 09:00 Labs: CBC, BMP 01/27/19 06:40 01/27/19 06:40 INR, PTT INR 1.12 (0.83-1.09) H 01/17/19 10:55
--- NOTE | 2019-01-27 14:42 | PN ---
Progress Note, Physician History of Present Illness: stable no new issues - Current Medication List Current Medications: Active Medications Acetaminophen (Tylenol -) 650 mg PO Q6H PRN PRN Reason: FEVER OVER 100 Last Admin: 01/18/19 22:49 Dose: 650 mg Atorvastatin Calcium (Lipitor -) 10 mg PO HS MELVINA Last Admin: 01/26/19 21:31 Dose: 10 mg Piperacillin Sod/Tazobactam (Sod 3.375 gm/ Dextrose) 50 mls @ 100 mls/hr IVPB Q8H-IV MELVINA; Protocol Last Admin: 01/27/19 09:24 Dose: 100 mls/hr Insulin Aspart (Novolog Vial Sliding Scale -) 1 vial SQ HS MELVINA; Protocol Last Admin: 01/26/19 21:31 Dose: Not Given Insulin Aspart (Novolog Vial Sliding Scale -) 1 vial SQ TIDAC MELVINA; Protocol Last Admin: 01/27/19 11:50 Dose: 10 units Insulin Detemir (Levemir Vial) 32 units SQ HS MELVINA Last Admin: 01/26/19 21:31 Dose: 32 units Metoprolol Succinate (Toprol Xl -) 25 mg PO DAILY MELVINA Last Admin: 01/27/19 09:24 Dose: 25 mg - Objective Vital Signs: Vital Signs Temperature 98.2 F 01/27/19 13:44 Pulse Rate 67 01/27/19 13:44 Respiratory Rate 20 01/27/19 13:44 Blood Pressure 137/66 01/27/19 13:44 O2 Sat by Pulse Oximetry (%) 98 01/27/19 09:00 Constitutional: Yes: No Distress, Calm Cardiovascular: Yes: S1, S2 Respiratory: Yes: Regular, CTA Bilaterally Gastrointestinal: Yes: Normal Bowel Sounds, Soft Musculoskeletal: Yes: WNL Extremities: Yes: Other Wound/Incision: Yes: Dressing Dry and Intact Neurological: Yes: Alert, Oriented Psychiatric: Yes: Alert, Oriented Labs: CBC, BMP 01/27/19 06:40 01/27/19 06:40 INR, PTT INR 1.12 (0.83-1.09) H 01/17/19 10:55 Assessment/Plan 68 year old gentleman with history of CKD, DM, Hypertension, PVD s/p LE amputation who presented with non-healing foot wound with signs of infection 1. AVERY on CKD vs progressive CKD 2. CKD 3. Infected foot wound 4. PVD 5. DM 6. Hypetension plan all cx noted will change abx to vanco mri result noted osteo patient should be able to go on vanco
[2019-01-27] MEDS: VANCOMYCIN HCL 1,500 MG in DEXTROSE 5%-WATER - 500 ML IVPB SCH (17:03)
--- NOTE | 2019-01-27 17:40 | PN ---
Progress Note (short form) - Note Progress Note: C/O itching of skin over back 2 Vital Signs Period Temp Pulse Resp BP Sys/Bustillos Pulse Ox Last 24 Hr 97.9 F-99.1 F 62-80 20-20 120-137/66-82 96-98 PE: AOx3 Neck: Supple, No JVD HEENT: EOMI Lungs: CTA CVS: s1S2 Abd: Benign Ext: left foot swelling, + erythema, s/p amputation 3rd and 4th toes Neuro: No focal deficit CMP Sodium 140 mmol/L (136-145) 01/27/19 06:40 Potassium 4.4 mmol/L (3.5-5.1) 01/27/19 06:40 Chloride 106 mmol/L (98-107) 01/27/19 06:40 Carbon Dioxide 24 mmol/L (21-32) 01/27/19 06:40 Anion Gap 10 MMOL/L (8-16) 01/27/19 06:40 Hepatic Function Panel 52 % (13-88) 01/22/19 07:25 BUN 20.1 mg/dL (7-18) H 01/27/19 06:40 Creatinine 1.3 mg/dL (0.55-1.3) 01/27/19 06:40 Est GFR (CKD-EPI)AfAm 64.98 01/27/19 06:40 Est GFR (CKD-EPI)NonAf 56.06 01/27/19 06:40 POC Glucometer 246 UNITS (80-120) 01/27/19 16:33 Random Glucose 158 mg/dL (74-106) H 01/27/19 06:40 Hemoglobin A1c % 12.5 % (4.2-6.3) H 01/17/19 06:58 Lactic Acid 1.3 mmol/L (0.4-2.0) 01/16/19 13:42 Calcium 8.5 mg/dL (8.5-10.1) 01/27/19 06:40 Phosphorus 2.9 mg/dL (2.5-4.9) 01/25/19 10:18 Magnesium 2.3 mg/dL (1.8-2.4) 01/25/19 10:18 Total Bilirubin 0.4 mg/dL (0.2-1) 01/27/19 06:40 Direct Bilirubin 0.2 mg/dL (0.0-0.2) 01/24/19 06:55 GGT 211 U/L (5-85) H 01/22/19 07:25 AST 19 U/L (15-37) 01/27/19 06:40 ALT 27 U/L (13-61) 01/27/19 06:40 Alkaline Phosphatase 173 U/L (45-117) H 01/27/19 06:40 Total Protein 7.2 g/dl (6.4-8.2) 01/27/19 06:40 Albumin 2.8 g/dl (3.4-5.0) L 01/27/19 06:40 Triglycerides 185 mg/dL (0-150) H 01/16/19 13:42 Cholesterol 139 mg/dL (50-200) 01/16/19 13:42 Total LDL Cholesterol 88 mg/dL (5-100) 01/16/19 13:42 HDL Cholesterol 29 mg/dL (40-60) L 01/16/19 13:42 Current Medications Generic Name Dose Route Start Last Admin Trade Name Freq PRN Reason Stop Dose Admin Acetaminophen 650 mg 01/17/19 17:59 01/18/19 22:49 Tylenol - PO 650 mg Q6H PRN Administration FEVER OVER 100 Atorvastatin Calcium 10 mg 01/17/19 22:00 01/26/19 21:31 Lipitor - PO 10 mg HS MELVINA Administration Vancomycin HCl 1,500 mg/ 500 mls @ 250 mls/hr 01/27/19 15:45 01/27/19 17:03 Dextrose IVPB 250 mls/hr Q24H MELVINA Administration Protocol Insulin Aspart 1 vial 01/17/19 22:00 01/26/19 21:31 Novolog Vial Sliding Scale - SQ Not Given HS MELVINA Protocol Insulin Aspart 1 vial 01/25/19 16:30 01/27/19 17:03 Novolog Vial Sliding Scale - SQ 12 units TIDAC MELVINA Administration Protocol Insulin Detemir 32 units 01/25/19 22:00 01/26/19 21:31 Levemir Vial SQ 32 units HS MELVINA Administration Metoprolol Succinate 25 mg 01/18/19 10:00 01/27/19 09:24 Toprol Xl - PO 25 mg DAILY MELVINA Administration AP: Infected foot wound T2DM:A1c 12.5 now CKD PVD Hypetension Skin Itching ?allergy BGM QACHS Increase Levemir 36 units daily, Novolog SS coverage ABx as per ID Will f/u
--- NOTE | 2019-01-27 17:50 | PN ---
Progress Note (short form) - Note Progress Note: Renal follow up for AVERY on CKD Seen and examined at the bedside no acute complaints Vital Signs Temperature 98.2 F 01/27/19 13:44 Pulse Rate 67 01/27/19 13:44 Respiratory Rate 20 01/27/19 13:44 Blood Pressure 137/66 01/27/19 13:44 O2 Sat by Pulse Oximetry (%) 98 01/27/19 09:00 Intake & Output 01/24/19 01/25/19 01/26/19 01/27/19 23:59 23:59 23:59 23:59 Intake Total 413 149 1902 1250 Output Total 200 1400 Balance 308 133 4936 -150 NAD RRR, no M/R Dec BS but no rales or wheeze soft NT/ND no LE edema CBC, BMP 01/27/19 06:40 01/27/19 06:40 Current Medications Acetaminophen (Tylenol -) 650 mg PO Q6H PRN PRN Reason: FEVER OVER 100 Last Admin: 01/18/19 22:49 Dose: 650 mg Atorvastatin Calcium (Lipitor -) 10 mg PO HS MELVINA Last Admin: 01/26/19 21:31 Dose: 10 mg Vancomycin HCl 1,500 mg/ (Dextrose) 500 mls @ 250 mls/hr IVPB Q24H [facility]; Protocol Last Admin: 01/27/19 17:03 Dose: 250 mls/hr Insulin Aspart (Novolog Vial Sliding Scale -) 1 vial SQ HS [facility]; Protocol Last Admin: 01/26/19 21:31 Dose: Not Given Insulin Aspart (Novolog Vial Sliding Scale -) 1 vial SQ TIDAC [facility]; Protocol Last Admin: 01/27/19 17:03 Dose: 12 units Insulin Detemir (Levemir Vial) 36 units SQ HS [facility] Metoprolol Succinate (Toprol Xl -) 25 mg PO DAILY [facility] Last Admin: 01/27/19 09:24 Dose: 25 mg 68 year old gentleman with history of CKD, DM, Hypertension, PVD s/p LE amputation who presented with non-healing foot wound with signs of infection and noted to have Cr of 2.5, 1. AVERY on CKD 2. CKD 3. Infected foot wound 4. PVD 5. DM 6. Hypetension Renal function improved and stable clinically euvolemic off IVF continue to monitor renal function and electrolytes while inpatient oral intake as tolerated Thank you David Jones DO
[2019-01-27] MEDS ORDERED: diphenhydrAMINE HCL 25 MG CAPSULE (FP) PO PRN (18:29)
[2019-01-27] MEDS: ATORVASTATIN CA 10 MG TABLET (FP) PO SCH (21:34)
[2019-01-27] MEDS ORDERED: INSULIN (LEVEMIR) 100 UNITS/ML UNITS SQ SCH (22:00)
[2019-01-28] MEDS: INSULIN SLIDING SCALE (NOVOLOG) 1 VIAL SQ SCH ×4 (06:12→21:37)
--- NOTE | 2019-01-28 09:10 | PN ---
Progress Note (short form) - Note Progress Note: No complaints Itching of skin over back resolved after Bendryl Vital Signs Period Temp Pulse Resp BP Sys/Bustillos Pulse Ox Last 24 Hr 97.9 F-98.8 F 67-72 20-20 93-160/46-85 98 PE: AOx3 Neck: Supple, No JVD HEENT: EOMI Lungs: CTA CVS: s1S2 Abd: Benign Ext: left foot swelling, + erythema, s/p amputation 3rd and 4th toes Neuro: No focal deficit CMP Sodium 140 mmol/L (136-145) 01/27/19 06:40 Potassium 4.4 mmol/L (3.5-5.1) 01/27/19 06:40 Chloride 106 mmol/L (98-107) 01/27/19 06:40 Carbon Dioxide 24 mmol/L (21-32) 01/27/19 06:40 Anion Gap 10 MMOL/L (8-16) 01/27/19 06:40 Hepatic Function Panel 52 % (13-88) 01/22/19 07:25 BUN 20.1 mg/dL (7-18) H 01/27/19 06:40 Creatinine 1.3 mg/dL (0.55-1.3) 01/27/19 06:40 Est GFR (CKD-EPI)AfAm 64.98 01/27/19 06:40 Est GFR (CKD-EPI)NonAf 56.06 01/27/19 06:40 POC Glucometer 170 UNITS (80-120) 01/28/19 06:11 Random Glucose 158 mg/dL (74-106) H 01/27/19 06:40 Hemoglobin A1c % 12.5 % (4.2-6.3) H 01/17/19 06:58 Lactic Acid 1.3 mmol/L (0.4-2.0) 01/16/19 13:42 Calcium 8.5 mg/dL (8.5-10.1) 01/27/19 06:40 Phosphorus 2.9 mg/dL (2.5-4.9) 01/25/19 10:18 Magnesium 2.3 mg/dL (1.8-2.4) 01/25/19 10:18 Total Bilirubin 0.4 mg/dL (0.2-1) 01/27/19 06:40 Direct Bilirubin 0.2 mg/dL (0.0-0.2) 01/24/19 06:55 GGT 211 U/L (5-85) H 01/22/19 07:25 AST 19 U/L (15-37) 01/27/19 06:40 ALT 27 U/L (13-61) 01/27/19 06:40 Alkaline Phosphatase 173 U/L (45-117) H 01/27/19 06:40 Total Protein 7.2 g/dl (6.4-8.2) 01/27/19 06:40 Albumin 2.8 g/dl (3.4-5.0) L 01/27/19 06:40 Triglycerides 185 mg/dL (0-150) H 01/16/19 13:42 Cholesterol 139 mg/dL (50-200) 01/16/19 13:42 Total LDL Cholesterol 88 mg/dL (5-100) 01/16/19 13:42 HDL Cholesterol 29 mg/dL (40-60) L 01/16/19 13:42 Current Medications Generic Name Dose Route Start Last Admin Trade Name Freq PRN Reason Stop Dose Admin Acetaminophen 650 mg 01/17/19 17:59 01/18/19 22:49 Tylenol - PO 650 mg Q6H PRN Administration FEVER OVER 100 Atorvastatin Calcium 10 mg 01/17/19 22:00 01/27/19 21:34 Lipitor - PO 10 mg HS MELVINA Administration Diphenhydramine HCl 25 mg 01/27/19 18:29 01/27/19 18:39 Benadryl - PO 25 mg Q6H PRN Administration ITCHINESS Vancomycin HCl 1,500 mg/ 500 mls @ 250 mls/hr 01/27/19 15:45 01/27/19 17:03 Dextrose IVPB 250 mls/hr Q24H MELVINA Administration Protocol Insulin Aspart 1 vial 01/17/19 22:00 01/27/19 21:35 Novolog Vial Sliding Scale - SQ Not Given HS MELVINA Protocol Insulin Aspart 1 vial 01/25/19 16:30 01/28/19 06:12 Novolog Vial Sliding Scale - SQ 10 units TIDAC MELVINA Administration Protocol Insulin Detemir 36 units 01/27/19 22:00 01/27/19 21:35 Levemir Vial SQ 36 units HS MELVINA Administration Metoprolol Succinate 25 mg 01/18/19 10:00 01/27/19 09:24 Toprol Xl - PO 25 mg DAILY MELVINA Administration AP: Infected foot wound T2DM:A1c 12.5 now CKD PVD Hypetension BGM QACHS INcrease Levemir 40 units daily, Novolog SS coverage ABx as per ID Will f/u
--- NOTE | 2019-01-28 10:23 | PN ---
Progress Note, Physician Chief Complaint: Pt is awaiting PICC line as per ID pt can go home on IV vancomycin 1500 mg IV daily Pt developed mild ITching after IV vancomycin Will discuss with id regarding continuing vancomycin Pt is on benadryl - Current Medication List Current Medications: Active Medications Acetaminophen (Tylenol -) 650 mg PO Q6H PRN PRN Reason: FEVER OVER 100 Last Admin: 01/18/19 22:49 Dose: 650 mg Atorvastatin Calcium (Lipitor -) 10 mg PO HS MELVINA Last Admin: 01/27/19 21:34 Dose: 10 mg Diphenhydramine HCl (Benadryl -) 25 mg PO Q6H PRN PRN Reason: ITCHINESS Last Admin: 01/27/19 18:39 Dose: 25 mg Vancomycin HCl 1,500 mg/ (Dextrose) 500 mls @ 250 mls/hr IVPB Q24H [facility]; Protocol Last Admin: 01/27/19 17:03 Dose: 250 mls/hr Insulin Aspart (Novolog Vial Sliding Scale -) 1 vial SQ HS [facility]; Protocol Last Admin: 01/27/19 21:35 Dose: Not Given Insulin Aspart (Novolog Vial Sliding Scale -) 1 vial SQ TIDAC [facility]; Protocol Last Admin: 01/28/19 06:12 Dose: 10 units Insulin Detemir (Levemir Vial) 36 units SQ HS [facility] Last Admin: 01/27/19 21:35 Dose: 36 units Metoprolol Succinate (Toprol Xl -) 25 mg PO DAILY [facility] Last Admin: 01/27/19 09:24 Dose: 25 mg - Objective Vital Signs: Vital Signs Temperature 98.4 F 01/28/19 09:10 Pulse Rate 73 01/28/19 09:10 Respiratory Rate 18 01/28/19 09:10 Blood Pressure 101/58 L 01/28/19 09:10 O2 Sat by Pulse Oximetry (%) 98 01/27/19 21:00 Constitutional: Yes: No Distress Eyes: Yes: Conjunctiva Clear HENT: Yes: Atraumatic Neck: Yes: Supple Cardiovascular: Yes: Regular Rate and Rhythm Respiratory: Yes: Regular, CTA Bilaterally Gastrointestinal: Yes: Normal Bowel Sounds, Soft Musculoskeletal: Yes: WNL Extremities: Yes: WNL Edema: No Peripheral Pulses WNL: Yes Wound/Incision: Yes: Dressing Dry and Intact Neurological: Yes: WNL, Alert ...Motor Strength: WNL Psychiatric: Yes: WNL, Alert Labs: CBC, BMP 01/27/19 06:40 01/27/19 06:40 INR, PTT INR 1.12 (0.83-1.09) H 01/17/19 10:55 Assessment/Plan s/p debridement of bone and soft tissue LT foot, osteomyelitis lt fifth toe DM,HTN renal insufficiency improving AVERY on ckd Elevated LFT,increased alkaline phosphatase PVD PLAn FOR picc line today Continue antibiotics as per ID WOUND care Monitor blood sugar ID and Podiatry f/u Endocrine F/u f/u at wound care after d/c
[2019-01-28] MEDS: metoPROLOL SUCCINATE 25 MG TAB.SR.24H (FP) PO SCH (10:59)
--- NOTE | 2019-01-28 12:10 | PN.GI ---
GI Progress Note - Objective Vital Signs: Vital Signs Temperature 98.4 F 01/28/19 09:10 Pulse Rate 73 01/28/19 09:10 Respiratory Rate 18 01/28/19 09:10 Blood Pressure 101/58 L 01/28/19 09:10 O2 Sat by Pulse Oximetry (%) 98 01/27/19 21:00 Constitutional: Calm Eyes: No: Sclera Icterus Cardiovascular: Yes: Regular Rate and Rhythm Respiratory: Yes: CTA Bilaterally Gastrointestinal Inspection: No: Distention ...Auscultate: No: Normoactive Bowel Sounds ...Palpate: Yes: Soft. No: Hepatomegaly, Splenomegaly, Tenderness Neurological: Yes: Alert Labs: CBC, BMP 01/27/19 06:40 01/27/19 06:40 INR, PTT INR 1.12 (0.83-1.09) H 01/17/19 10:55 Problem List - Problems (1) Elevated alkaline phosphatase level Assessment/Plan: Improved. Negative w/u to date including AMA. If persistent elevation, discussed arranging outpatient liver biopsy with Mr. Rivera Womack as well as screening colonoscopy. I gave him my office card. Plan is for discharge soon. Recall as needed Code(s): R74.8 - ABNORMAL LEVELS OF OTHER SERUM ENZYMES (2) Colon cancer screening Code(s): Z12.11 - ENCOUNTER FOR SCREENING FOR MALIGNANT NEOPLASM OF COLON
[2019-01-28] MEDS ORDERED: INSULIN (NOVOLOG) ASPART 100 UNITS/ML 10ML VIAL ONE ×2 (12:26→17:12)
--- NOTE | 2019-01-28 13:36 | PN ---
Progress Note (short form) - Note Progress Note: Renal follow up for AVERY on CKD Seen and examined at the bedside no acute complaints had rash yesterday after getting IV Vanco now rash is resolved no chest pain or shortness of breath making urine tolerating meals Vital Signs Temperature 98.4 F 01/28/19 09:10 Pulse Rate 73 01/28/19 09:10 Respiratory Rate 18 01/28/19 09:10 Blood Pressure 101/58 L 01/28/19 09:10 O2 Sat by Pulse Oximetry (%) 98 01/27/19 21:00 Intake & Output 01/25/19 01/26/19 01/27/19 01/28/19 23:59 23:59 23:59 23:59 Intake Total 940 1960 1670 720 Output Total 1900 Balance 940 1960 -230 720 NAD RRR, no M/R Dec BS but no rales or wheeze soft NT/ND no LE edema CBC, BMP 01/27/19 06:40 01/27/19 06:40 Current Medications Acetaminophen (Tylenol -) 650 mg PO Q6H PRN PRN Reason: FEVER OVER 100 Last Admin: 01/18/19 22:49 Dose: 650 mg Atorvastatin Calcium (Lipitor -) 10 mg PO HS MELVINA Last Admin: 01/27/19 21:34 Dose: 10 mg Diphenhydramine HCl (Benadryl -) 25 mg PO Q6H PRN PRN Reason: ITCHINESS Last Admin: 01/27/19 18:39 Dose: 25 mg Vancomycin HCl 1,500 mg/ (Dextrose) 500 mls @ 250 mls/hr IVPB Q24H MELVINA; Protocol Last Admin: 01/27/19 17:03 Dose: 250 mls/hr Insulin Aspart (Novolog Vial Sliding Scale -) 1 vial SQ HS MELVINA; Protocol Last Admin: 01/27/19 21:35 Dose: Not Given Insulin Aspart (Novolog Vial Sliding Scale -) 1 vial SQ TIDAC MELVINA; Protocol Last Admin: 01/28/19 12:32 Dose: 10 units Insulin Detemir (Levemir Vial) 40 units SQ HS MELVINA Metoprolol Succinate (Toprol Xl -) 25 mg PO DAILY MELVINA Last Admin: 01/28/19 10:59 Dose: Not Given 68 year old gentleman with history of CKD, DM, Hypertension, PVD s/p LE amputation who presented with non-healing foot wound with signs of infection and noted to have Cr of 2.5, 1. AVERY on CKD 2. CKD 3. Infected foot wound 4. PVD 5. DM 6. Hypetension Renal function improved and stable clinically euvolemic off IVF continue to monitor renal function and electrolytes while inpatient oral intake as tolerated monitor for skin rash with continued vancomycin use Thank you David Jones DO
--- NOTE | 2019-01-28 15:32 | PN ---
Progress Note, Physician History of Present Illness: stable patient had rash yesterday but cannot see any more rash - Current Medication List Current Medications: Active Medications Acetaminophen (Tylenol -) 650 mg PO Q6H PRN PRN Reason: FEVER OVER 100 Last Admin: 01/18/19 22:49 Dose: 650 mg Atorvastatin Calcium (Lipitor -) 10 mg PO HS MELVINA Last Admin: 01/27/19 21:34 Dose: 10 mg Diphenhydramine HCl (Benadryl -) 25 mg PO Q6H PRN PRN Reason: ITCHINESS Last Admin: 01/27/19 18:39 Dose: 25 mg Vancomycin HCl 1,500 mg/ (Dextrose) 500 mls @ 250 mls/hr IVPB Q24H MELVINA; Protocol Last Admin: 01/27/19 17:03 Dose: 250 mls/hr Insulin Aspart (Novolog Vial Sliding Scale -) 1 vial SQ HS MELVINA; Protocol Last Admin: 01/27/19 21:35 Dose: Not Given Insulin Aspart (Novolog Vial Sliding Scale -) 1 vial SQ TIDAC MELVINA; Protocol Last Admin: 01/28/19 12:32 Dose: 10 units Insulin Detemir (Levemir Vial) 40 units SQ HS MELVINA Metoprolol Succinate (Toprol Xl -) 25 mg PO DAILY MELVINA Last Admin: 01/28/19 10:59 Dose: Not Given - Objective Vital Signs: Vital Signs Temperature 98.4 F 01/28/19 09:10 Pulse Rate 73 01/28/19 09:10 Respiratory Rate 18 01/28/19 09:10 Blood Pressure 101/58 L 01/28/19 09:10 O2 Sat by Pulse Oximetry (%) 98 01/28/19 09:00 Constitutional: Yes: No Distress, Calm Cardiovascular: Yes: S1, S2 Respiratory: Yes: Regular, CTA Bilaterally Gastrointestinal: Yes: Normal Bowel Sounds, Soft Musculoskeletal: Yes: WNL Extremities: Yes: WNL Neurological: Yes: Alert, Oriented Labs: CBC, BMP 01/27/19 06:40 01/27/19 06:40 INR, PTT INR 1.12 (0.83-1.09) H 01/17/19 10:55 Assessment/Plan 68 year old gentleman with history of CKD, DM, Hypertension, PVD s/p LE amputation who presented with non-healing foot wound with signs of infection 1. AVERY on CKD vs progressive CKD 2. CKD 3. Infected foot wound 4. PVD 5. DM 6. Hypetension plan all cx noted vanco will see if the patient gets rash mri result noted osteo
[2019-01-28] MEDS: VANCOMYCIN HCL 1,500 MG in DEXTROSE 5%-WATER - 500 ML IVPB SCH (16:54)
[2019-01-28] MEDS: ATORVASTATIN CA 10 MG TABLET (FP) PO SCH (21:39)
[2019-01-29] MEDS: INSULIN SLIDING SCALE (NOVOLOG) 1 VIAL SQ SCH ×2 (06:52→11:19)
[2019-01-29 09:16] VITALS: BP 137/46; PULSE 76; TEMP 98.2
[2019-01-29] MEDS: metoPROLOL SUCCINATE 25 MG TAB.SR.24H (FP) PO SCH (09:18)
[2019-01-29] MEDS ORDERED: INSULIN (LEVEMIR) 100 UNITS/ML UNITS SQ SCH (22:00)
--- NOTE | 2019-01-31 18:58 | DS ---
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 Patient was regularly following with wound care service. Since the wound was not healing, patient was recommended to be admitted and have IV antibiotics. ALLERGIES: Patient is allergic to FOODS and BANANA. MEDICATION: Patient was taking simvastatin, insulin, Januvia, glipizide, metoprolol, lisinopril. SOCIAL HISTORY: Lives with the family. PHYSICAL EXAMINATION: General: At the time of admission, patient alert and oriented x3. In no apparent distress. Vital signs: Stable. Head/Neck: Normal. Lungs: Supple. Neurological: Alert and oriented x3. Extremities: Left foot, there is a small ulcer on the plantar surface on the lateral side with surrounding erythema, mild cellulitis present. LABORATORY: Labs show WBC to be 10.2, hemoglobin 13, hematocrit 37.3, platelets normal. Comprehensive panel shows BUN 31, creatinine 2.5, and blood sugar 230. AST and ALT were normal. PT/INR were normal. So patient admitted with diabetic foot ulcer on the left foot with signs of infection, acute kidney injury on chronic disease, diabetes, hypertension, mild cellulitis of the left foot. Patient was admitted on the floor, followed by Infectious Disease, Endocrine, Nephrology, and Podiatry. Patient started on IV antibiotics. Vancomycin and Zosyn given. Patient given Levemir and sliding scale insulin and home medication. Nephrology recommended to just stop the NI inhibitor, so patient was treated with metoprolol. During hospitalization, liver enzymes were slightly elevated, so ultrasound of the abdomen done that shows fatty liver, so GI consulted and recommended to follow up as an outpatient for followup of the fatty liver. Patient had debridement and bone and soft tissue done on the left foot on January 16; the patient tolerated the procedure. Daily dressing was done. Patient was following with ID and Endocrine and Nephrology and Podiatry. Insulin dose adjusted to control the blood sugar during the hospitalization. Since the swelling was persistent, MRI of the foot done, and that shows osteomyelitis of the proximal phalanx of the 5th toe and there is some fluid collection 2 cm in diameter, also noted cellulitis on the plantar aspect of the foot below the 5th metatarsal joint. MRI of the abdomen done as per the GI, and it shows no evidence of dilatation of common bile duct, no evidence of choledocholithiasis, no pancreatic enlargement or pancreatic duct dilatation. ID recommends to continue the IV antibiotics for next 5 weeks with vancomycin 1500 daily, so PICC line placed. During hospitalization, patient had fever for a few days and then with IV antibiotics it was controlled. Patient discharged home on vancomycin 1500 mg every day through PICC line, and recommended to follow with the wound care clinic and follow with podiatry and ID, and endocrine followup recommended. So discharged. During hospitalization, patient was stable. Patient discharged home in a stable condition on IV antibiotics and recommended to follow with the wound care clinic and ID in 1 week and primary physician in 2 weeks. NIDHI ROMERO M.D. [id number]
== END 2019-01-29 11:35 | disposition home or self-care (01) | DRG 264 ==
LOC: JER 10:47 → JERBED 11:58 → J8W 17:47 → J6S 01-23 15:43
PROVIDERS: ADMIT Family Medicine; ATTEND Family Medicine
PROC: 0QBR0ZZ Excision of Left Toe Phalanx, Open Approach (ICD-10-PCS; 2019-01-17)
PROC: 0Y9N0ZZ Drainage of Left Foot, Open Approach (ICD-10-PCS; 2019-01-17)
PROC: 0JBR0ZZ Excision of Left Foot Subcutaneous Tissue and Fascia, Open Approach (ICD-10-PCS; principal; 2019-01-17 13:00)
PROC: 02HV33Z Insertion of Infusion Device into Superior Vena Cava, Percutaneous Approach (ICD-10-PCS; 2019-01-28)
DX: E11.52 Type 2 diabetes mellitus with diabetic peripheral angiopathy with gangrene (principal); L03.116 Cellulitis of left lower limb; L97.929 Non-pressure chronic ulcer of unspecified part of left lower leg with unspecified severity; M86.9 Osteomyelitis, unspecified; N17.9 Acute kidney failure, unspecified; E11.69 Type 2 diabetes mellitus with other specified complication; E11.622 Type 2 diabetes mellitus with other skin ulcer; N18.9 Chronic kidney disease, unspecified; I10 Essential (primary) hypertension; I73.9 Peripheral vascular disease, unspecified; L08.9 Local infection of the skin and subcutaneous tissue, unspecified
CPT/HCPCS: 36415; 36558; 73630-TC-LT; 73718-TC-LT; 74181-TC; 76705-TC; 77001-TC-FY; 80048; 80053; 80061; 80076; 81003; 82565; 82570; 82962; 82977; 83036; 83516; 83605; 83721; 83735; 84080; 84100; 84156; 84300; 85025; 85027; 85610; 85651; 85730; 86704; 86706; 86707; 86708; 86709; 86803; 87040; 87070; 87077; 87081; 87086; 87186; 87205; 87340; 88304-TC; 93005; 93010; 94760; 99284-25; C1751; J7030

== ENCOUNTER → 2019-03-20 | Day surgery (SDC) | payer BC, OTHER | END | disposition home or self-care (01) | LOC: JRADIR 12:25 | PROVIDERS: ATTEND Internal Medicine Infectious Disease | PROC: 0JPT0XZ Removal of Tunneled Vascular Access Device from Trunk Subcutaneous Tissue and Fascia, Open Approach (ICD-10-PCS; principal; 2019-03-20) | DX: Z45.2 Encounter for adjustment and management of vascular access device (principal); M86.9 Osteomyelitis, unspecified | CPT/HCPCS: 36589; 36590 ==

== ENCOUNTER → 2019-08-29 | Day surgery (SDC) | payer OTHER | END | disposition home or self-care (01) | LOC: JRADIR 12:40 | PROVIDERS: ATTEND Internal Medicine Infectious Disease | PROC: 02PY03Z Removal of Infusion Device from Great Vessel, Open Approach (ICD-10-PCS; principal; 2019-08-29) | DX: Z45.2 Encounter for adjustment and management of vascular access device (principal) | CPT/HCPCS: 36589 ==

== ENCOUNTER 2021-02-14 13:02 | Inpatient (IN) | payer OTHER ==
[2021-02-14] MEDS ORDERED: REMDESIVIR 200 MG in SODIUM CHLORIDE 250 ML IVPB ONE (14:52)
[2021-02-14] MEDS ORDERED: DEXAMETHASONE SOD PHOSPHATE 4 MG/1 ML VIAL IVPUSH ONE (14:52)
[2021-02-14] MEDS ORDERED: DEXAMETHASONE SOD PHOSPHATE 10 MG/1 ML VIAL ONE (14:58)
[2021-02-14 15:10] LABS: VENOUS BASE EXCESS -8.7 mmol/L (-2-2); VENOUS O2 SATURATION 55.3 % (70-80); VENOUS PCO2 43.5 mmHg (38-52); VENOUS PH 7.243 (7.310-7.410)
[2021-02-14 15:16] LABS: HEMATOCRIT 43.5 % (35.4-49); HEMOGLOBIN 14.8 GM/dL (11.7-16.9); MCH 29.5 pg (25.7-33.7); MCHC 34.1 g/dl (32.0-35.9); MEAN CELL VOLUME 86.7 fl (80-96); PLATELET COUNT 165 10^3/uL (134-434); RBC 5.01 M/mm3 (4.00-5.60); RDW 13.8 % (11.9-15.9); WHITE BLOOD COUNT 6.4 K/mm3 (4.0-10.0)
[2021-02-14 15:25] LABS: PROTHROMBIN TIME (PATIENT) 11.5 SEC (9.7-13.0)
[2021-02-14 15:27] LABS: ACTIVATED PTT 31.1 SECONDS (25.2-36.5); CHLORIDE 102 mmol/L (98-107); SODIUM 137 mmol/L (136-145)
[2021-02-14 15:29] LABS: ANION GAP 18 MMOL/L (8-16); BLOOD UREA NITROGEN 39.8 mg/dL (7-18); CALCIUM 7.7 mg/dL (8.5-10.1); CO2 18 mmol/L (21-32)
[2021-02-14 15:30] LABS: ALBUMIN 2.5 g/dl (3.4-5.0)
[2021-02-14 15:32] LABS: BILIRUBIN,DIRECT 0.9 mg/dL (0.0-0.2); CREATININE 2.3 mg/dL (0.55-1.3)
[2021-02-14 15:33] LABS: LDH 379 U/L (87-246); SGOT/AST 24 U/L (15-37); SGPT/ALT 14 U/L (13-61)
[2021-02-14 15:34] LABS: BILIRUBIN,TOTAL 1.5 mg/dL (0.2-1); TOT PROT 6.7 g/dl (6.4-8.2)
[2021-02-14 15:35] LABS: ALK PHOS 163 U/L (45-117)
[2021-02-14 15:37] LABS: LACTIC ACID 4.2 mmol/L (0.4-2.0)
[2021-02-14 15:46] LABS: GLUCOSE,RANDOM 478 mg/dL (74-106)
[2021-02-14] MEDS ORDERED: LACTATED RINGERS SOLUTION 1000 ML INFUS.BAG IV ONE (15:46)
[2021-02-14] MEDS ORDERED: INSULIN REGULAR HUMAN 100 UNITS/ML *VIAL IVPUSH ONE ×2 (15:51→23:23)
[2021-02-14 16:00] LABS: ANISOCYTOSIS 0; MACROCYTOSIS 0; PLATELET ESTIMATE DECREASED
[2021-02-14 17:18] LABS: EPI CELLS 11 /uL (0-25.1); HYALINE CASTS 5 /uL (0-3.1); URINE APPEARANCE CLOUDY; URINE BACTERIA 4 /uL (0-1359); URINE BILIRUBIN NEGATIVE (NEGATIVE); URINE COLOR DK YELLOW; URINE GLUCOSE (UA) 3+ (NEGATIVE); URINE KETONE 1+ (NEGATIVE); URINE LEUK ESTERASE NEGATIVE (NEGATIVE); URINE NITRITE NEGATIVE (NEGATIVE); URINE PROTEIN 3+ (NEGATIVE); URINE RBC 4 /uL (0-23.9); URINE WBC 15 /uL (0-25.8)
[2021-02-14 18:56] LABS: CHLORIDE 104 mmol/L (98-107); SODIUM 138 mmol/L (136-145)
[2021-02-14 18:58] LABS: CALCIUM 7.7 mg/dL (8.5-10.1)
[2021-02-14] MEDS ORDERED: LORazepam 2 MG/ML SDV VIAL IVPUSH STA (18:58)
[2021-02-14 18:59] LABS: ANION GAP 14 MMOL/L (8-16); BLOOD UREA NITROGEN 40.5 mg/dL (7-18); CO2 20 mmol/L (21-32)
[2021-02-14 19:02] LABS: CREATININE 2.1 mg/dL (0.55-1.3)
[2021-02-14 19:04] LABS: GLUCOSE,RANDOM 405 mg/dL (74-106)
[2021-02-14] MEDS ORDERED: LORazepam 2 MG/ML SDV VIAL ONE ×2 (19:35→22:45)
[2021-02-14] MEDS ORDERED: INSULIN (NOVOLOG) ASPART 100 UNITS/ML 10ML VIAL SQ ONE (20:35)
[2021-02-14 22:00] LABS: VENOUS BASE EXCESS -9.6 mmol/L (-2-2); VENOUS PCO2 46.1 mmHg (38-52); VENOUS PH 7.213 (7.310-7.410)
[2021-02-14] MEDS ORDERED: LORazepam 2 MG/ML SDV VIAL IVPUSH ONE (22:39)
[2021-02-15 00:24] LABS: CALCIUM 7.5 mg/dL (8.5-10.1)
[2021-02-15 00:25] LABS: BLOOD UREA NITROGEN 43.2 mg/dL (7-18)
[2021-02-15 00:28] LABS: CREATININE 2.2 mg/dL (0.55-1.3)
[2021-02-15 02:30] LABS: ARTERIAL BLD GAS O2 SATURATION 96.8 % (95-98); ARTERIAL BLOOD GAS PO2 94.7 mmHg (80-100); ARTERIAL BLOOD GAS pH 7.333 (7.350-7.450)
[2021-02-15 02:36] LABS: VENT MODE HFNC
[2021-02-15] MEDS ORDERED: SODIUM CHLORIDE 1,000 ML IV SCH ×3 (03:00→17:45)
[2021-02-15] MEDS ORDERED: ALBUTEROL SO4 HFA INHALER IH PRN (04:25)
[2021-02-15] MEDS ORDERED: BUDESONIDE/FORMETEROL FUMARATE 80/4.5 mcg INHALER IH ONE (04:25)
[2021-02-15] MEDS ORDERED: INSULIN (LEVEMIR) 100 UNITS/ML UNITS SQ ONE (04:39)
[2021-02-15] MEDS ORDERED: ACETYLCYSTEINE 20% 200MG/ML 30 ML VIAL *FOR ORAL / INH USE ONLY NEB ONE ×2 (05:17→05:30)
[2021-02-15] MEDS ORDERED: RAPID SEQUENCE INTUBATION KIT NR ONE (05:40)
[2021-02-15] MEDS: HEPARIN NA (PORCINE) 5,000 UNITS/ML 1ML VIAL SQ SCH ×3 (06:20→23:00)
[2021-02-15] MEDS ORDERED: HEPARIN NA (PORCINE) 5,000 UNITS/ML 1ML VIAL ONE (06:27)
[2021-02-15 06:29] LABS: LACTIC ACID 3.3 mmol/L (0.4-2.0)
[2021-02-15] MEDS: PROPOFOL 1,000,000 MCG/100 ML VIAL IVPB SCH (07:25)
[2021-02-15] MEDS ORDERED: MIDAZOLAM IN 0.9 % SOD.CHLORID 1 MG/1 ML PLAST..BAG ONE (07:56)
[2021-02-15] MEDS ORDERED: MIDAZOLAM 100 MG in SODIUM CHLORIDE 100 ML IVPB SCH (08:00)
[2021-02-15] MEDS ORDERED: ALBUTEROL SO4 2.5/IPRATROPIUM 0.5 INH SOL 3 ML VIAL.NEB. NEB SCH ×2 (08:00)
[2021-02-15 08:05] LABS: BASO % 0.1 % (0-2.0); EOS % 0.1 % (0-4.5); HEMATOCRIT 40.3 % (35.4-49); HEMOGLOBIN 13.7 GM/dL (11.7-16.9); LYMPH % 7.2 % (8-40); MCH 29.4 pg (25.7-33.7); MEAN CELL VOLUME 86.4 fl (80-96); MEAN PLT VOLUME 8.5 fl (7.5-11.1); MONO % 10.1 % (3.8-10.2); NEUT % 82.5 % (42.8-82.8); PLATELET COUNT 172 10^3/uL (134-434); RBC 4.66 M/mm3 (4.00-5.60); WHITE BLOOD COUNT 4.1 K/mm3 (4.0-10.0)
[2021-02-15 08:17] LABS: ALBUMIN 2.2 g/dl (3.4-5.0); CALCIUM 7.5 mg/dL (8.5-10.1)
[2021-02-15 08:18] LABS: BLOOD UREA NITROGEN 46.4 mg/dL (7-18); MAGNESIUM 2.2 mg/dL (1.8-2.4)
[2021-02-15 08:20] LABS: CREATININE 2.4 mg/dL (0.55-1.3)
[2021-02-15 08:21] LABS: PHOSPHOROUS 2.6 mg/dL (2.5-4.9)
[2021-02-15 08:22] LABS: BILIRUBIN,TOTAL 1.4 mg/dL (0.2-1); TOT PROT 6.1 g/dl (6.4-8.2)
[2021-02-15 08:30] LABS: PHOSPHOROUS 2.7 mg/dL (2.5-4.9)
[2021-02-15] MEDS: NOREPINEPHRINE BITARTRATE 16,000 MCG in SODIUM CHLORIDE 484 ML IV SCH (08:50)
[2021-02-15] MEDS: INSULIN (LEVEMIR) 100 UNITS/ML UNITS SQ SCH (09:29)
[2021-02-15 11:39] LABS: HEMATOCRIT 41.1 % (35.4-49); HEMOGLOBIN 13.5 GM/dL (11.7-16.9); MCH 28.6 pg (25.7-33.7); MCHC 32.8 g/dl (32.0-35.9); MEAN CELL VOLUME 87.2 fl (80-96); MEAN PLT VOLUME 9.4 fl (7.5-11.1); PLATELET COUNT 199 10^3/uL (134-434); RBC 4.71 M/mm3 (4.00-5.60); RDW 14.3 % (11.9-15.9); WHITE BLOOD COUNT 5.9 K/mm3 (4.0-10.0)
[2021-02-15] MEDS ORDERED: PT OWN MED DRAWER 7, Y5N ONE ×2 (11:52→13:10)
[2021-02-15] MEDS: DEXAMETHASONE SOD PHOSPHATE 4 MG/1 ML VIAL IVPUSH SCH (11:53)
[2021-02-15] MEDS: MIDAZOLAM IN 0.9 % SOD.CHLORID 100 MG/100 ML PLAST..BAG IVPB SCH (11:54)
[2021-02-15 12:02] LABS: CALCIUM 7.5 mg/dL (8.5-10.1)
[2021-02-15 12:03] LABS: ALBUMIN 2.2 g/dl (3.4-5.0); BLOOD UREA NITROGEN 47.5 mg/dL (7-18)
[2021-02-15 12:06] LABS: CREATININE 2.5 mg/dL (0.55-1.3)
[2021-02-15 12:08] LABS: BILIRUBIN,TOTAL 1.2 mg/dL (0.2-1)
[2021-02-15] MEDS: REMDESIVIR 100 MG in SODIUM CHLORIDE 250 ML IVPB SCH (13:12)
[2021-02-15] MEDS: MUPIROCIN 2% TOPICAL OINTMENT FOR DECOLONIZATION NS SCH ×2 (13:13→23:00)
[2021-02-15] MEDS: BUDESONIDE/FORMETEROL FUMARATE 80/4.5 mcg INHALER IH SCH (13:13)
[2021-02-15] MEDS: PANTOPRAZOLE SODIUM 40 MG VIAL IVPUSH SCH (17:51)
[2021-02-15] MEDS ORDERED: ACETAMINOPHEN 1000 MG/100 ML BAG IVPB ONE (18:06)
[2021-02-15] MEDS ORDERED: ACETAMINOPHEN INJECTION 100 ML IVPB ONE (18:08)
[2021-02-15] MEDS: CHLORHEXIDINE GLUCONATE 4% CLEANSER FOR DECOLONIZATION TP SCH (23:00)
[2021-02-15] MEDS: ATORVASTATIN CA 10 MG TABLET (FP) PO SCH (23:00)
[2021-02-16] MEDS: BUDESONIDE/FORMETEROL FUMARATE 80/4.5 mcg INHALER IH SCH ×3 (00:08→21:35)
[2021-02-16] MEDS: INSULIN (LEVEMIR) 100 UNITS/ML UNITS SQ SCH ×3 (00:08→21:42)
[2021-02-16] MEDS: ACETAMINOPHEN 1000 MG/100 ML BAG IVPB PRN ×2 (00:27→21:36)
[2021-02-16] MEDS ORDERED: VASOPRESSIN 40 UNITS in SODIUM CHLORIDE 40 UNITS/100 ML INFUS.BAG IVPB SCH (04:45)
[2021-02-16] MEDS: INSULIN (NOVOLOG) ASPART 100 UNITS/ML 10ML VIAL SQ SCH ×3 (06:41→17:10)
[2021-02-16] MEDS: HEPARIN NA (PORCINE) 5,000 UNITS/ML 1ML VIAL SQ SCH ×3 (06:41→21:42)
[2021-02-16 07:10] LABS: ARTERIAL BLD GAS O2 SATURATION 89.4 % (95-98); ARTERIAL BLOOD GAS BASE EXCESS -11.9 mmol/L (-2-2); ARTERIAL BLOOD GAS PO2 77.3 mmHg (80-100)
[2021-02-16 07:12] LABS: ALLENS TEST POSITIVE
[2021-02-16 07:13] LABS: VENT MODE A/C; VENT RATE 16
[2021-02-16 07:15] LABS: ARTERIAL BLOOD GAS pH 7.081 (7.350-7.450)
[2021-02-16 07:16] LABS: ALBUMIN 1.9 g/dl (3.4-5.0); BLOOD UREA NITROGEN 61.3 mg/dL (7-18); CALCIUM 7.2 mg/dL (8.5-10.1); MAGNESIUM 2.2 mg/dL (1.8-2.4)
[2021-02-16 07:19] LABS: CREATININE 3.6 mg/dL (0.55-1.3); PHOSPHOROUS 4.6 mg/dL (2.5-4.9)
[2021-02-16 07:21] LABS: BILIRUBIN,TOTAL 1.5 mg/dL (0.2-1); TOT PROT 5.7 g/dl (6.4-8.2)
[2021-02-16] MEDS ORDERED: SODIUM BICARBONATE 8.4% - 150 MEQ in DEXTROSE 5%-WATER - 950 ML IVPB SCH (08:15)
[2021-02-16 09:36] LABS: HEMOGLOBIN 12.9 GM/dL (11.7-16.9); MCH 28.5 pg (25.7-33.7); MCHC 32.2 g/dl (32.0-35.9); MEAN CELL VOLUME 88.8 fl (80-96); MEAN PLT VOLUME 9.9 fl (7.5-11.1); PLATELET COUNT 219 10^3/uL (134-434); RBC 4.51 M/mm3 (4.00-5.60); RDW 14.7 % (11.9-15.9); WHITE BLOOD COUNT 13.5 K/mm3 (4.0-10.0)
[2021-02-16] MEDS: PANTOPRAZOLE SODIUM 40 MG VIAL IVPUSH SCH (09:59)
[2021-02-16] MEDS: DEXAMETHASONE SOD PHOSPHATE 4 MG/1 ML VIAL IVPUSH SCH (10:00)
[2021-02-16] MEDS: MUPIROCIN 2% TOPICAL OINTMENT FOR DECOLONIZATION NS SCH ×2 (10:03→21:35)
[2021-02-16] MEDS: SODIUM BICARBONATE 8.4% - 150 MEQ in DEXTROSE 5%-WATER - 950 ML IVPB SCH ×2 (10:03→17:09)
[2021-02-16 11:02] LABS: PLATELET ESTIMATE NORMAL
[2021-02-16] MEDS: PROPOFOL 1,000,000 MCG/100 ML VIAL IVPB SCH ×2 (12:13→21:00)
[2021-02-16] MEDS: REMDESIVIR 100 MG in SODIUM CHLORIDE 250 ML IVPB SCH (12:14)
[2021-02-16] MEDS: NOREPINEPHRINE BITARTRATE 16,000 MCG in SODIUM CHLORIDE 484 ML IV SCH (12:15)
[2021-02-16] MEDS ORDERED: AMIODARONE HCL 150 MG/3 ML VIAL IVPUSH ONE ×2 (13:00→17:26)
[2021-02-16] MEDS ORDERED: AMIODARONE IN DEXTROSE,ISO-OSM 150 MG/100 ML BAG ONE ×2 (13:02→17:24)
[2021-02-16] MEDS ORDERED: FENTANYL NS IVPB 500 MCG/100 ML BAG IVPB ONE (14:25)
[2021-02-16] MEDS: MIDAZOLAM IN 0.9 % SOD.CHLORID 100 MG/100 ML PLAST..BAG IVPB SCH (16:51)
[2021-02-16] MEDS ORDERED: AMIODARONE HCL INJECTION 150 MG in DEXTROSE 5%-WATER - 100 ML IVPB ONE (17:29)
[2021-02-16] MEDS ORDERED: AMIODARONE IN DEXTROSE,ISO-OSM 360 MG/200 ML BAG IVPB ONE (18:00)
[2021-02-16 18:56] VITALS: BMI 40.4
[2021-02-16 21:25] LABS: ARTERIAL BLD GAS O2 SATURATION 73.5 % (95-98); ARTERIAL BLOOD GAS BASE EXCESS -11.8 mmol/L (-2-2); ARTERIAL BLOOD GAS PO2 54.6 mmHg (80-100)
[2021-02-16 21:26] LABS: ALLENS TEST POSITIVE; VENT MODE A/C; VENT RATE 28
[2021-02-16 21:28] LABS: ARTERIAL BLOOD GAS pH 7.061 (7.350-7.450)
[2021-02-16] MEDS: ATORVASTATIN CA 10 MG TABLET (FP) PO SCH (21:35)
[2021-02-16] MEDS: CHLORHEXIDINE GLUCONATE 4% CLEANSER FOR DECOLONIZATION TP SCH (21:35)
[2021-02-16] MEDS ORDERED: PHENYLEPHRINE HCL 50,000 MCG in SODIUM CHLORIDE 50,000 MCG/500 ML INFUS.BAG IV SCH (23:15)
[2021-02-16] MEDS ORDERED: VANCOMYCIN/WATER 1,250 MG/250 ML BAG IVPB ONE (23:40)
[2021-02-17] MEDS: SODIUM BICARBONATE 8.4% - 150 MEQ in DEXTROSE 5%-WATER - 950 ML IVPB SCH (00:35)
[2021-02-17] MEDS: INSULIN (NOVOLOG) ASPART 100 UNITS/ML 10ML VIAL SQ SCH (00:37)
[2021-02-17] MEDS ORDERED: VANCOMYCIN/WATER BAGS 1,250 MG/250 ML BAG IVPB ONE (01:00)
[2021-02-17 01:05] LABS: ARTERIAL BLD GAS O2 SATURATION 56.7 % (95-98); ARTERIAL BLOOD GAS PO2 43.6 mmHg (80-100)
[2021-02-17 02:55] VITALS: BP 74/14; PULSE 96; TEMP 103.8
== END 2021-02-17 01:23 | disposition expired | DRG 871 ==
LOC: JER 13:02 → JERBED 02-15 02:06 → JICU 02-15 10:20
PROVIDERS: ADMIT Hospitalist; ATTEND Internal Medicine Pulmonary Disease
PROC: 5A1945Z Respiratory Ventilation, 24-96 Consecutive Hours (ICD-10-PCS; principal; 2021-02-15)
PROC: 0BH17EZ Insertion of Endotracheal Airway into Trachea, Via Natural or Artificial Opening (ICD-10-PCS; 2021-02-15)
PROC: B543ZZA Ultrasonography of Right Jugular Veins, Guidance (ICD-10-PCS; 2021-02-15)
PROC: 05HM33Z Insertion of Infusion Device into Right Internal Jugular Vein, Percutaneous Approach (ICD-10-PCS; 2021-02-15)
PROC: 5A12012 Performance of Cardiac Output, Single, Manual (ICD-10-PCS; 2021-02-17)
DX: A41.89 Other specified sepsis (principal); E11.10 Type 2 diabetes mellitus with ketoacidosis without coma; U07.1 COVID-19; G93.41 Metabolic encephalopathy; J96.01 Acute respiratory failure with hypoxia; R65.21 Severe sepsis with septic shock; J12.82 Pneumonia due to coronavirus disease 2019; E11.52 Type 2 diabetes mellitus with diabetic peripheral angiopathy with gangrene; I47.1 Supraventricular tachycardia; N17.9 Acute kidney failure, unspecified; E11.628 Type 2 diabetes mellitus with other skin complications; E11.610 Type 2 diabetes mellitus with diabetic neuropathic arthropathy; E11.22 Type 2 diabetes mellitus with diabetic chronic kidney disease; I12.9 Hypertensive chronic kidney disease with stage 1 through stage 4 chronic kidney disease, or unspecified chronic kidney disease; N18.30 Chronic kidney disease, stage 3 unspecified; F32.A Depression, unspecified; E78.5 Hyperlipidemia, unspecified; D72.829 Elevated white blood cell count, unspecified; E83.42 Hypomagnesemia; E87.5 Hyperkalemia
CPT/HCPCS: 36415; 36600; 70450-TC; 71045-TC-FY; 76775-TC; 80048; 80053; 81003; 82010; 82248; 82550; 82570; 82728; 82803; 82962; 83036; 83605; 83615; 83735; 84100; 84156; 84300; 84484; 85025; 85027; 85379; 85610; 85730; 86140; 86480; 86705; 86707; 87040; 87086; 87186; 87340; 87350; 87517; 87522; 87804; 87807; 93005; 93010; 93970-TC; 99291; 99292; C9399; C9803; J0131; J0282; J1644; U0003; U0005